=== PATIENT | male | born 1940 | race Caucasian/White ===

== ENCOUNTER → 2018-03-28 15:53 | Outpatient (CLI) | payer MEDICARE, OTHER, SELFPAY ==
[2018-03-28 17:00] LABS: Absolute Lymphocyte Count 1.55 X10^3/ul (0.83-4.51); Absolute Neutrophil Count 5.3 X10^3/uL (2.0-7.7); Basophil# 0.03 X10^3/uL; Basophil% 0.4 % (0-1); Eosinophil# 0.09 X10^3/uL; Eosinophils% 1.2 % (0-5); Hematocrit 41.4 % (40-54); Hemoglobin 13.9 g/dl (13.0-16.5); Lymphocyte # 1.55 X10^3/ul (4.0); Lymphocyte % 20.7 % (19-41); Mean Corp Hgb Conc 33.6 g/gl (32-36); Mean Corpuscular Hgb 29.4 pg (27.0-32.0); Mean Corpuscular Volume 87.5 fL (80-94); Mean Platelet Vol. 11.4 fl (6.2-12.0); Monocyte# 0.52 X10^3/uL; Monocyte% 6.9 % (0-10); Neutrophil # 5.28 X10^3/uL (2.7-7.7); Neutrophil % 70.5 % (47-70); Platelet Count 186 K/mm3 (150-450); RBC Distribution Width CV 15.3 % (11.6-14.6); RBC Distribution Width SD 49.1 fl (35.1-43.9); Red Blood Count 4.73 M/mm3 (4.6-6.2); White Blood Count 7.5 K/mm3 (4.4-11.0)
[2018-03-28 17:12] LABS: POSITIVE COUNT NO; POSITIVE DIFFERENTIAL NO; POSITIVE MORPHOLOGY NO
[2018-03-28 17:15] LABS: ALB/GLOB Ratio 1.1 RATIO (0.9-2.4); AST(SGOT) 23 U/L (15-37); Alanine Aminotransfer ALT/SGPT 33 U/L (16-61); Albumin, Serum 3.7 g/dL (3.2-5.0); Alkaline Phosphatase 146 U/L (45-117); Anion Gap 10 (5-15); BUN 17 mg/dL (7-18); BUN/Creat Ratio 14.5 RATIO (10-20); Calcium,Total 8.4 mg/dL (8.5-10.1); Chloride 106 mmol/L (98-107); Creatinine, Serum 1.17 mg/dL (0.70-1.30); EST Glomerular Filtration Rate 64 mL/min (>60); Est Glom Filt Rate - Afr Amer 78 mL/min (>60); Globulin 3.5 g/dL (2.2-4.2); Glucose 120 mg/dL (74-106); Potassium 3.9 mmol/L (3.5-5.1); Protein, Total 7.2 g/dL (6.4-8.2); Sodium Level 144 mmol/L (136-145); Thyroid Stim Hormone (TSH) 1.44 uIU/mL (0.358-3.74)
[2018-03-28 17:18] LABS: Vitamin D,25 Hydroxy 8.5 ng/mL (29.95-100.01)
== END ==
PROVIDERS: Family Provider Family Medicine Geriatric Medicine; PCP Family Medicine Geriatric Medicine; Visit Provider Family Medicine Geriatric Medicine
DX: E55.9 Vitamin D deficiency, unspecified (principal); I10 Essential (primary) hypertension
CPT/HCPCS: 36415; 80053; 82306; 84443; 85025

== ENCOUNTER → 2018-06-08 16:19 | Outpatient (CLI) | payer MEDICARE, OTHER, SELFPAY ==
--- NOTE | 2018-06-08 16:24 | RAD_ITS ---
STUDY: X-RAY - LUMBAR SPINE REASON FOR EXAM: Male, 77 years old. Back pain TECHNIQUE: 4 view(s) of the lumbar spine were obtained. COMPARISON: May 05, 2017 FINDINGS: There is straightening of the lumbar spine. There are NO fractures or malalignments. There is mild loss of disc height at L2-L3. There is significant loss of disc height at L4-5 and L5-S1. There are RIGHT lateral bridging osteophytes at L2-L3 and LEFT lateral bridging osteophytes at L3-L4. There is bilateral facet hypertrophy causing foraminal narrowing at L4-5 and L5-S1. The bony pelvis is intact.. Soft tissues are unremarkable. RAD/Lumbar Spine 2 or 3 Views IMPRESSION: There are chronic changes as described. There is NO acute bony or soft tissue abnormality. Electronically Signed: Rodo Stockton MD at 7:41 EDT , Service support ,
== END ==
PROVIDERS: Family Provider Family Medicine Geriatric Medicine; PCP Family Medicine Geriatric Medicine; Visit Provider Family Medicine Geriatric Medicine
DX: M48.061 Spinal stenosis, lumbar region without neurogenic claudication (principal)
CPT/HCPCS: 72100; 87086

== ENCOUNTER → 2018-06-22 07:14 | Outpatient (CLI) | payer MEDICARE, OTHER, SELFPAY ==
--- NOTE | 2018-06-22 07:16 | AAAS_ITS ---
Reason For Study: SCREENING Aorta Measurements Aorta Doppler Measurements Proximal aorta measures1.8 X 1.7cm. in cross- Peak systolic flow velocities within the proximal sectional axis. aorta measure 99 cm/sec. Proximal aorta measures2.1cm. in longitudinal Peak systolic flow velocities within the mid axis. aorta measure 64 cm/sec. Mid aorta measures1.9 X 1.9cm. in cross-sectionalPeak systolic flow velocities within the distal axis. aorta measure 59 cm/sec. Mid aorta measures2.0cm. in longitudinal axis. Distal aorta measures1.9 X 2.4cm. in cross- sectional axis. Distal aorta measures2.1cm. in longitudinal axis. Left Iliac Artery Left iliac artery measures 1.6 cm. in the longitudinal axis. Left iliac artery measures 1.2 X 1.3 cm. in the cross-sectional axis. Peak systolic velocity in the left iliac artery measures 75 cm/sec. Right Iliac Artery Right iliac artery measures 1.3 X 1.4 cm. in the longitudinal axis. Right iliac artery measures 1.45 cm. in the cross-sectional axis. Peak systolic velocity in the right iliac artery measures 79 cm/sec. Procedure Aorta IVC Iliac vasculature or bypass grafts 07147. Exam performed in department. Interpretation Summary Normal aortic dimensions with distal abdominal aorta maximal at 1.9 x 2.4cm. Normal flow velocity Left common iliac 1.2 x 1.3cm Right common iliac 1.3 x 1.42cm Ordering Physician: Nitin Mckay Referring Physician: BRI DASILVA CHI Performed By: Yuki Franco, AMBER, RVT
--- NOTE | 2018-06-22 07:20 | CT_ITS ---
STUDY: CTA CHEST REASON FOR EXAM: Male, 77 years old. Follow-up of thoracic aortic aneurysm. RADIATION DOSAGE (If Supplied By Facility): CTDIvol = ( 11.33 ) mGy, DLP = ( 690.58 ) mGycm TECHNIQUE: The examination was performed with the intravenous administration of 100 ml of Isovue 370 contrast material. Post-processing of the angiographic images was performed, with multiplanar reformation and 3D reconstruction. Individualized dose optimization techniques were used for this CT. COMPARISON: Comparison is made with prior study dated May 07, 2014. FINDINGS: Normal enhancement of the main pulmonary artery and right and left pulmonary arteries. Normal enhancement of the bilateral peripheral pulmonary arteries. There is no demonstrated pulmonary embolism. There is aneurysmal dilatation of the ascending aorta. The transverse diameter of the ascending aorta measures 48.8 mm's. There is no demonstrated aortic dissection. There are calcifications of the coronary arteries. Normal mediastinum. Normal hilar regions. Normal visualized trachea and bronchi. The lungs are well expanded. Calcified granuloma in the medial aspect of the right middle lobe. Mild increased markings in the lingular segment of the left upper lobe as well as in the left lower lobe suggestive of a mild scarring. Normal pleura. Normal chest wall structures. There are degenerative changes of thoracic spine. Small hiatal hernia. CT/CTA Chest W/WO Contrast IMPRESSION: Dilatation of the ascending aorta to a transverse dimension of 4.88 cm. Findings suggestive of a mild scarring in the lingular segment of the left upper lobe and left lower lobe. Electronically Signed: Matt Peng MD at 13:59 EDT Tel [phone], Service support ,
[2018-06-22 07:55] LABS: CREATININE FINGERSTICK 0.8 mg/dL (0.70-1.30); EGFR FINGERSTICK > 60.0000 mL/min (>60)
[2018-06-22 10:09] LABS: Erythrocyte Sedimentation Rate 12 mm/hr (0-20)
[2018-06-22 10:11] LABS: Hematocrit 46.4 % (40-54); Hemoglobin 14.9 g/dl (13.0-16.5); Mean Corp Hgb Conc 32.1 g/gl (32-36); Mean Corpuscular Hgb 28.7 pg (27.0-32.0); Mean Corpuscular Volume 89.2 fL (80-94); Mean Platelet Vol. 10.7 fl (6.2-12.0); Platelet Count 151 K/mm3 (150-450); RBC Distribution Width CV 15.6 % (11.6-14.6); RBC Distribution Width SD 50.3 fl (35.1-43.9); White Blood Count 9.2 K/mm3 (4.4-11.0)
[2018-06-22 10:12] LABS: Scan Indicated on CBC? Y/N NO
[2018-06-22 10:30] LABS: CRP < 2.90 mg/L (0.0-3.0); Uric Acid 8.1 mg/dL (3.5-7.2)
[2018-06-23 16:24] LABS: ANTINUCLEAR ANTIBODIES DIRECT Negative (Negative)
[2018-06-28 15:22] LABS: ASO Titer 141.8 IU/mL (0.0-200.0); HLA B27 Negative (.)
== END ==
PROVIDERS: Internal Medicine Cardiovascular Disease; Family Provider Family Medicine Geriatric Medicine; PCP Family Medicine Geriatric Medicine; Visit Provider Orthopaedic Surgery Orthopaedic Surgery of the Spine
DX: I71.2 Thoracic aortic aneurysm, without rupture (principal); M48.17 Ankylosing hyperostosis [Forestier], lumbosacral region; M16.12 Unilateral primary osteoarthritis, left hip; M16.11 Unilateral primary osteoarthritis, right hip; M51.36 Other intervertebral disc degeneration, lumbar region
CPT/HCPCS: 36415; 71275; 76706; 81374; 84550; 85027; 85652; 86038; 86060; 86140; Q9967

== ENCOUNTER → 2018-09-27 14:05 | Outpatient (CLI) | payer MEDICARE, OTHER, SELFPAY ==
[2018-09-27 16:54] LABS: Absolute Lymphocyte Count 1.78 X10^3/ul (0.83-4.51); Absolute Neutrophil Count 5.3 X10^3/uL (2.0-7.7); Basophil# 0.05 X10^3/uL; Basophil% 0.6 % (0-1); Eosinophil# 0.07 X10^3/uL; Eosinophils% 0.9 % (0-5); Hematocrit 43.7 % (40-54); Hemoglobin 13.9 g/dl (13.0-16.5); Lymphocyte # 1.78 X10^3/ul (4.0); Lymphocyte % 22.9 % (19-41); Mean Corp Hgb Conc 31.8 g/gl (32-36); Mean Corpuscular Hgb 29.1 pg (27.0-32.0); Mean Corpuscular Volume 91.6 fL (80-94); Monocyte# 0.61 X10^3/uL; Monocyte% 7.9 % (0-10); Neutrophil # 5.25 X10^3/uL (2.7-7.7); Neutrophil % 67.6 % (47-70); Platelet Count 179 K/mm3 (150-450); RBC Distribution Width CV 14.5 % (11.6-14.6); RBC Distribution Width SD 48.8 fl (35.1-43.9); Red Blood Count 4.77 M/mm3 (4.6-6.2); White Blood Count 7.8 K/mm3 (4.4-11.0)
[2018-09-27 16:59] LABS: POSITIVE COUNT NO; POSITIVE DIFFERENTIAL NO; POSITIVE MORPHOLOGY NO
[2018-09-27 17:07] LABS: Vitamin D,25 Hydroxy 32.1 ng/mL (29.95-100.01)
[2018-09-27 17:14] LABS: ALB/GLOB Ratio 1.1 RATIO (0.9-2.4); AST(SGOT) 16 U/L (15-37); Alanine Aminotransfer ALT/SGPT 25 U/L (16-61); Albumin, Serum 3.9 g/dL (3.2-5.0); Alkaline Phosphatase 109 U/L (45-117); Anion Gap 8 (5-15); BUN 21 mg/dL (7-18); BUN/Creat Ratio 17.5 RATIO (10-20); Calcium,Total 8.4 mg/dL (8.5-10.1); Chloride 105 mmol/L (98-107); EST Glomerular Filtration Rate 62 mL/min (>60); Est Glom Filt Rate - Afr Amer 75 mL/min (>60); Globulin 3.5 g/dL (2.2-4.2); Glucose 87 mg/dL (74-106); Potassium 4.2 mmol/L (3.5-5.1); Protein, Total 7.4 g/dL (6.4-8.2); Sodium Level 145 mmol/L (136-145); Thyroid Stim Hormone (TSH) 1.44 uIU/mL (0.358-3.74)
== END ==
PROVIDERS: Family Provider Family Medicine Geriatric Medicine; PCP Family Medicine Geriatric Medicine; Visit Provider Family Medicine Geriatric Medicine
DX: E55.9 Vitamin D deficiency, unspecified (principal); I10 Essential (primary) hypertension
CPT/HCPCS: 36415; 80053; 82306; 84443; 85025

== ENCOUNTER → 2018-12-05 14:51 | Outpatient (CLI) | payer MEDICARE, OTHER, SELFPAY ==
[2018-06-02 14:17] VITALS: BMI 32.5
--- NOTE | 2018-12-05 14:57 | RAD_ITS ---
STUDY: X-RAY - LEFT WRIST REASON FOR EXAM: Male, 78 years old. Fall TECHNIQUE: 2 view(s) of the wrist were obtained. COMPARISON: None. FINDINGS: There are postsurgical changes from ORIF of the left distal radius with intact hardware in satisfactory alignment. There is no evidence of acute fracture or dislocation. There are moderate degenerative changes. There are no radiodense foreign bodies. RAD/Wrist 2 Views IMPRESSION: Postsurgical changes from ORIF of the left distal radius with intact hardware in satisfactory alignment. No acute fracture or dislocation. Electronically Signed: Khoi Tinajero, at 17:11 EST Tel , Service support ,
== END ==
PROVIDERS: Family Provider Family Medicine Geriatric Medicine; PCP Family Medicine Geriatric Medicine; Referring Provider Family Medicine Geriatric Medicine; Visit Provider Family Medicine Geriatric Medicine
DX: M25.532 Pain in left wrist (principal)
CPT/HCPCS: 73100

== ENCOUNTER → 2019-04-03 | Outpatient (CLI) | payer MEDICARE, OTHER, SELFPAY ==
[2018-12-08 13:42] VITALS: BMI 32.5
[2019-04-03 14:57] LABS: Absolute Lymphocyte Count 1.36 X10^3/ul (0.83-4.51); Absolute Neutrophil Count 6.3 X10^3/uL (2.0-7.7); Basophil# 0.03 X10^3/uL; Basophil% 0.4 % (0-1); Eosinophil# 0.04 X10^3/uL; Eosinophils% 0.5 % (0-5); Hematocrit 42.9 % (40-54); Hemoglobin 13.9 g/dl (13.0-16.5); Lymphocyte # 1.36 X10^3/ul (4.0); Lymphocyte % 16.9 % (19-41); Mean Corp Hgb Conc 32.4 g/gl (32-36); Mean Corpuscular Hgb 28.7 pg (27.0-32.0); Mean Corpuscular Volume 88.6 fL (80-94); Mean Platelet Vol. 10.7 fl (6.2-12.0); Monocyte# 0.36 X10^3/uL; Monocyte% 4.5 % (0-10); Neutrophil # 6.26 X10^3/uL (2.7-7.7); Neutrophil % 77.6 % (47-70); Platelet Count 181 K/mm3 (150-450); RBC Distribution Width CV 14.8 % (11.6-14.6); RBC Distribution Width SD 47.5 fl (35.1-43.9); Red Blood Count 4.84 M/mm3 (4.6-6.2); White Blood Count 8.1 K/mm3 (4.4-11.0)
[2019-04-03 14:58] LABS: POSITIVE COUNT NO; POSITIVE DIFFERENTIAL NO; POSITIVE MORPHOLOGY NO
[2019-04-03 15:15] LABS: Vitamin D,25 Hydroxy 25.6 ng/mL (29.95-100.01)
[2019-04-03 15:18] LABS: ALB/GLOB Ratio 1.1 RATIO (0.9-2.4); AST(SGOT) 18 U/L (15-37); Alanine Aminotransfer ALT/SGPT 24 U/L (16-61); Albumin, Serum 3.8 g/dL (3.2-5.0); Alkaline Phosphatase 116 U/L (45-117); Anion Gap 4 (5-15); BUN 20 mg/dL (7-18); BUN/Creat Ratio 17.1 RATIO (10-20); Calcium,Total 8.3 mg/dL (8.5-10.1); Chloride 108 mmol/L (98-107); Creatinine, Serum 1.17 mg/dL (0.70-1.30); EST Glomerular Filtration Rate 64 mL/min (>60); Est Glom Filt Rate - Afr Amer 77 mL/min (>60); Globulin 3.5 g/dL (2.2-4.2); Glucose 96 mg/dL (74-106); Potassium 3.8 mmol/L (3.5-5.1); Protein, Total 7.3 g/dL (6.4-8.2); Sodium Level 140 mmol/L (136-145); Thyroid Stim Hormone (TSH) 1.11 uIU/mL (0.358-3.74)
== END | disposition home or self-care (01) ==
LOC: POLAB3 14:22
PROVIDERS: Family Provider Family Medicine Geriatric Medicine; PCP Family Medicine Geriatric Medicine; Visit Provider Family Medicine Geriatric Medicine
DX: I10 Essential (primary) hypertension (principal); E55.9 Vitamin D deficiency, unspecified
CPT/HCPCS: 36415; 80053; 82306; 84443; 85025

== ENCOUNTER → 2019-06-20 | Outpatient (CLI) | payer MEDICARE, OTHER, SELFPAY ==
[2019-06-13 14:26] VITALS: BMI 32.5
[2019-06-14 16:32] LABS: Anion Gap 9 (5-15); BUN 20 mg/dL (7-18); BUN/Creat Ratio 18.7 RATIO (10-20); Calcium,Total 8.6 mg/dL (8.5-10.1); Chloride 107 mmol/L (98-107); Creatinine, Serum 1.07 mg/dL (0.70-1.30); EST Glomerular Filtration Rate 71 mL/min (>60); Est Glom Filt Rate - Afr Amer 86 mL/min (>60); Glucose 87 mg/dL (74-106); Potassium 4.1 mmol/L (3.5-5.1); Sodium Level 142 mmol/L (136-145)
--- NOTE | 2019-06-20 15:39 | CT_ITS ---
STUDY: CTA CHEST REASON FOR EXAM: Male, 78 years old. Thoracic aneurysm RADIATION DOSAGE (If Supplied By Facility): CTDIvol = ( 26.41 ) mGy, DLP = ( 802.74 ) mGycm TECHNIQUE: The examination was performed with the intravenous administration of 100 IV Isovue 370. Post-processing of the angiographic images was performed, with multiplanar reformation and 3D reconstruction. Individualized dose optimization techniques were used for this CT. COMPARISON: June 22, 2016 CTA chest FINDINGS: Normal enhancement of the main pulmonary artery and right and left pulmonary arteries. There is suboptimal enhancement of the bilateral peripheral pulmonary arteries. There is no demonstrated major central pulmonary embolism. Small peripheral emboli cannot be excluded. The ascending aorta measures 5 cm. The descending aorta is normal in caliber. There is no demonstrated aortic dissection. Normal heart and pericardium. Calcific coronary artery disease. Normal mediastinum. Normal hilar regions. Normal visualized trachea and bronchi. The lungs are well expanded. Normal pulmonary parenchyma. Normal pleura. Normal chest wall structures. Ossification anterior longitudinal ligament. Normal visualized upper abdomen. IMPRESSION: 5 cm a descending aortic aneurysm. No dissection. Coronary artery disease. Diffuse idiopathic skeletal hyperostosis. No acute disease. Electronically Signed: Mick Duran MD at 16:32 EDT , Service support , CT/CTA Chest W/WO Contrast
== END | disposition home or self-care (01) ==
PROVIDERS: Family Provider Family Medicine Geriatric Medicine; PCP Family Medicine Geriatric Medicine; Referring Provider Nurse Practitioner Family; Visit Provider Nurse Practitioner Family
DX: I71.2 Thoracic aortic aneurysm, without rupture (principal); I10 Essential (primary) hypertension
CPT/HCPCS: 36415; 71275; 80048; Q9967; A4216

== ENCOUNTER → 2019-10-02 14:21 | Outpatient (CLI) | payer MEDICARE, OTHER, SELFPAY ==
[2019-06-13 14:26] VITALS: BMI 32.5
[2019-10-02 16:43] LABS: Absolute Lymphocyte Count 1.26 X10^3/uL (0.83-4.51); Absolute Neutrophil Count 5.5 X10^3/uL (2.0-7.7); Basophil# 0.06 X10^3/uL; Basophil% 0.8 % (0-1); Eosinophil# 0.04 X10^3/uL; Eosinophils% 0.5 % (0-5); Hematocrit 44.2 % (40-54); Lymphocyte # 1.26 X10^3/ul (4.0); Lymphocyte % 17.1 % (19-41); Mean Corp Hgb Conc 31.7 g/dL (32-36); Mean Corpuscular Hgb 28.9 pg (27.0-32.0); Mean Corpuscular Volume 91.1 fL (80-94); Mean Platelet Vol. 11.5 fl (6.2-12.0); Monocyte# 0.48 X10^3/uL; Monocyte% 6.5 % (0-10); NRBC Flagged by Analyzer 0 % (0-5); Neutrophil # 5.48 X10^3/uL (2.7-7.7); Neutrophil % 74.6 % (47-70); Platelet Count 190 K/mm3 (150-450); RBC Distribution Width CV 14.2 % (11.6-14.6); RBC Distribution Width SD 47.4 fl (35.1-43.9); Red Blood Count 4.85 M/mm3 (4.6-6.2); White Blood Count 7.4 K/mm3 (4.4-11.0)
[2019-10-02 16:48] LABS: Vitamin D,25 Hydroxy 23.2 ng/mL (29.95-100.01)
[2019-10-02 16:56] LABS: ALB/GLOB Ratio 1.1 RATIO (0.9-2.4); AST(SGOT) 17 U/L (15-37); Alanine Aminotransfer ALT/SGPT 21 U/L (16-61); Albumin, Serum 3.8 g/dL (3.2-5.0); Alkaline Phosphatase 106 U/L (45-117); Anion Gap 6 (5-15); BUN 16 mg/dL (7-18); BUN/Creat Ratio 14.7 RATIO (10-20); Calcium,Total 8.7 mg/dL (8.5-10.1); Chloride 108 mmol/L (98-107); Creatinine, Serum 1.09 mg/dL (0.70-1.30); EST Glomerular Filtration Rate 69 mL/min (>60); Est Glom Filt Rate - Afr Amer 84 mL/min (>60); Globulin 3.5 g/dL (2.2-4.2); Glucose 107 mg/dL (74-106); Potassium 3.7 mmol/L (3.5-5.1); Protein, Total 7.3 g/dL (6.4-8.2); Sodium Level 143 mmol/L (136-145); Thyroid Stim Hormone (TSH) 2.26 uIU/mL (0.358-3.74)
== END ==
PROVIDERS: Family Provider Family Medicine Geriatric Medicine; PCP Family Medicine Geriatric Medicine; Visit Provider Family Medicine Geriatric Medicine
DX: E55.9 Vitamin D deficiency, unspecified (principal); I10 Essential (primary) hypertension
CPT/HCPCS: 36415; 80053; 82306; 84443; 85025

== ENCOUNTER → 2020-04-04 15:02 | Outpatient (CLI) | payer MEDICARE, OTHER, SELFPAY ==
[2019-12-29 13:29] VITALS: BMI 32.6
[2020-04-04 16:28] LABS: Absolute Lymphocyte Count 1.37 X10^3/uL (0.83-4.51); Absolute Neutrophil Count 8.5 X10^3/uL (2.0-7.7); Basophil# 0.03 X10^3/uL; Basophil% 0.3 % (0-1); Eosinophil# 0.02 X10^3/uL; Eosinophils% 0.2 % (0-5); Hematocrit 41.8 % (40-54); Hemoglobin 13.5 g/dL (13.0-16.5); Lymphocyte # 1.37 X10^3/ul (4.0); Lymphocyte % 12.9 % (19-41); Mean Corp Hgb Conc 32.3 g/dL (32-36); Mean Corpuscular Hgb 29.4 pg (27.0-32.0); Mean Corpuscular Volume 91.1 fL (80-94); Mean Platelet Vol. 11.3 fl (6.2-12.0); Monocyte# 0.68 X10^3/uL; Monocyte% 6.4 % (0-10); NRBC Flagged by Analyzer 0 % (0-5); Neutrophil % 79.7 % (47-70); Platelet Count 160 K/mm3 (150-450); RBC Distribution Width CV 14.6 % (11.6-14.6); RBC Distribution Width SD 47.8 fl (35.1-43.9); Red Blood Count 4.59 M/mm3 (4.6-6.2); White Blood Count 10.7 K/mm3 (4.4-11.0)
[2020-04-04 17:06] LABS: AST(SGOT) 17 U/L (15-37); Alanine Aminotransfer ALT/SGPT 25 U/L (16-61); Albumin, Serum 3.6 g/dL (3.2-5.0); Alkaline Phosphatase 126 U/L (45-117); Anion Gap 6 (5-15); BUN 19 mg/dL (7-18); BUN/Creat Ratio 17.3 RATIO (10-20); Calcium,Total 8.6 mg/dL (8.5-10.1); Chloride 106 mmol/L (98-107); EST Glomerular Filtration Rate 69 mL/min (>60); Est Glom Filt Rate - Afr Amer 83 mL/min (>60); Globulin 3.7 g/dL (2.2-4.2); Glucose 99 mg/dL (74-106); Potassium 4.4 mmol/L (3.5-5.1); Protein, Total 7.3 g/dL (6.4-8.2); Sodium Level 143 mmol/L (136-145); Thyroid Stim Hormone (TSH) 0.77 uIU/mL (0.358-3.74)
== END ==
PROVIDERS: PCP Family Medicine Geriatric Medicine; Visit Provider Family Medicine Geriatric Medicine
DX: E55.9 Vitamin D deficiency, unspecified (principal); I10 Essential (primary) hypertension
CPT/HCPCS: 36415; 80053; 82306; 84443; 85025

== ENCOUNTER → 2020-07-19 13:32 | Outpatient (CLI) | payer MEDICARE, OTHER, SELFPAY ==
[2019-12-29 13:29] VITALS: BMI 32.6
[2020-07-03 13:11] VITALS: BMI 32.3
--- NOTE | 2020-07-19 13:35 | CT_ITS ---
STUDY: CT CHEST WITH CONTRAST REASON FOR EXAM: Male, 79 years old. TAA FOLLOW-UP RADIATION DOSAGE (If Supplied By Facility): CTDIvol = ( 17.29 ) mGy, DLP = ( 749.21 ) mGycm TECHNIQUE: Transaxial imaging was performed following intravenous administration of IV 100mL Isovue-300. Multiplanar coronal and sagittal images were reformatted. Individualized dose optimization techniques were used for this CT. COMPARISON: Comparison is made with prior examination dated 06/20/2019. FINDINGS: Small hypodense nodules in the right and left lobe of the thyroid gland suggestive of a mild goitrous change. The lungs are normal. There is no demonstrated pleural abnormality. There are calcifications of the coronary arteries. Normal mediastinum. Normal hilar regions. Normal enhanced pulmonary arteries. There is dilatation of the root of the ascending thoracic aorta. The transverse dimension is 45.5 mm. No evidence of dissection. There are multi-level degenerative changes of the thoracic spine. There is no demonstrated abnormality of the visualized upper abdomen. CT/Chest WITH Contrast IMPRESSION: Dilatation of the root of the ascending thoracic aorta with a transverse dimension of 45.5 mm. Electronically Signed: Matt Peng, at 15:07 EDT , Service support ,
[2020-07-19 13:50] LABS: CREATININE FINGERSTICK 0.7 mg/dL (0.70-1.30); EGFR FINGERSTICK > 60.0000 mL/min (>60)
== END ==
PROVIDERS: PCP Family Medicine Geriatric Medicine; Referring Provider Internal Medicine Cardiovascular Disease; Visit Provider Internal Medicine Cardiovascular Disease
DX: I71.2 Thoracic aortic aneurysm, without rupture (principal)
CPT/HCPCS: 71260; Q9967

== ENCOUNTER → 2020-10-03 14:11 | Outpatient (CLI) | payer MEDICARE, OTHER, SELFPAY ==
[2020-07-03 13:11] VITALS: BMI 32.3
[2020-10-03 16:46] LABS: Absolute Lymphocyte Count 1.04 X10^3/uL (0.83-4.51); Absolute Neutrophil Count 3.7 X10^3/uL (2.0-7.7); Basophil# 0.04 X10^3/uL; Basophil% 0.7 % (0-1); Eosinophil# 0.79 X10^3/uL; Eosinophils% 13.2 % (0-5); Hemoglobin 13.1 g/dL (13.0-16.5); Lymphocyte # 1.04 X10^3/ul (4.0); Lymphocyte % 17.4 % (19-41); Mean Corp Hgb Conc 31.2 g/dL (32-36); Mean Corpuscular Hgb 28.8 pg (27.0-32.0); Mean Corpuscular Volume 92.3 fL (80-94); Mean Platelet Vol. 11.5 fl (6.2-12.0); Monocyte# 0.43 X10^3/uL; Monocyte% 7.2 % (0-10); NRBC Flagged by Analyzer 0 % (0-5); Neutrophil # 3.67 X10^3/uL (2.7-7.7); Neutrophil % 61.2 % (47-70); Platelet Count 152 K/mm3 (150-450); RBC Distribution Width CV 14.4 % (11.6-14.6); RBC Distribution Width SD 48.8 fl (35.1-43.9); Red Blood Count 4.55 M/mm3 (4.6-6.2)
[2020-10-03 16:57] LABS: Vitamin D,25 Hydroxy 16.4 ng/mL
[2020-10-03 17:07] LABS: AST(SGOT) 17 U/L (15-37); Alanine Aminotransfer ALT/SGPT 22 U/L (16-61); Albumin, Serum 3.6 g/dL (3.2-5.0); Alkaline Phosphatase 122 U/L (45-117); Anion Gap 5 (5-15); BUN 16 mg/dL (7-18); Calcium,Total 8.3 mg/dL (8.5-10.1); Chloride 108 mmol/L (98-107); EST Glomerular Filtration Rate 77 mL/min (>60); Est Glom Filt Rate - Afr Amer 93 mL/min (>60); Globulin 3.5 g/dL (2.2-4.2); Glucose 84 mg/dL (74-106); Potassium 4.3 mmol/L (3.5-5.1); Protein, Total 7.1 g/dL (6.4-8.2); Sodium Level 140 mmol/L (136-145); Thyroid Stim Hormone (TSH) 1.43 uIU/mL (0.358-3.74)
== END ==
PROVIDERS: PCP Family Medicine Geriatric Medicine; Visit Provider Family Medicine Geriatric Medicine
DX: I10 Essential (primary) hypertension (principal); E55.9 Vitamin D deficiency, unspecified
CPT/HCPCS: 36415; 80053; 82306; 84443; 85025

== ENCOUNTER → 2021-03-03 10:55 | Outpatient (CLI) | payer MEDICARE, OTHER, SELFPAY ==
[2020-07-03 13:11] VITALS: BMI 32.3
--- NOTE | 2021-03-03 10:59 | RAD_ITS ---
STUDY: X-RAY - RIGHT SHOULDER REASON FOR EXAM: Male, 80 years old. SHOULDER PAIN TECHNIQUE: 4 view(s) of the shoulder. COMPARISON: None. FINDINGS: There is mild degenerative arthrosis of the glenohumeral articulation. There is degenerative arthrosis of the acromioclavicular joint without inferior osseous spur formation. Normal acromion. Normal humeral head and visualized proximal humerus. The soft tissue structures are unremarkable. Normal visualized pulmonary apex. RAD/Shoulder min 2 Views IMPRESSION: Mild glenohumeral and acromioclavicular joint arthrosis Electronically Signed: Sergei Zuniga MD at 15:22 EDT Tel , Service support ,
--- NOTE | 2021-03-03 10:59 | RAD_ITS ---
STUDY: X-RAY - CERVICAL SPINE REASON FOR EXAM: Male, 80 years old. NECK PAIN TECHNIQUE: 3 view(s) of the cervical spine were obtained. COMPARISON: None FINDINGS: Normal anterior atlantoaxial articulation. Normal odontoid process. Normal cervical lordosis. There is multi-level endplate spondylosis. There is multi-level degenerative disc disease with multilevel disc space narrowing. Normal visualized intervertebral neuroforamina. The soft tissue structures are unremarkable. RAD/Cerv Spine 2 or 3 Views IMPRESSION: Mild degenerative disc disease lower cervical spine. MRI may be useful Electronically Signed: Sergei Zuniga MD at 15:23 EDT Tel , Service support ,
== END ==
PROVIDERS: PCP Family Medicine Geriatric Medicine; Referring Provider Family Medicine Geriatric Medicine; Visit Provider Family Medicine Geriatric Medicine
DX: M54.2 Cervicalgia (principal); M25.511 Pain in right shoulder
CPT/HCPCS: 72040; 73030

== ENCOUNTER → 2021-04-10 15:07 | Outpatient (CLI) | payer MEDICARE, OTHER, SELFPAY ==
[2021-03-21 11:17] VITALS: BMI 31.5
[2021-04-10 17:19] LABS: Absolute Lymphocyte Count 1.13 X10^3/uL (0.83-4.51); Absolute Neutrophil Count 6.2 X10^3/uL (2.0-7.7); Basophil# 0.05 X10^3/uL; Basophil% 0.6 % (0-1); Eosinophil# 0.05 X10^3/uL; Eosinophils% 0.6 % (0-5); Hematocrit 42.4 % (40-54); Hemoglobin 13.6 g/dL (13.0-16.5); Lymphocyte # 1.13 X10^3/ul (0.83-4.51); Lymphocyte % 14.1 % (19-41); Mean Corp Hgb Conc 32.1 g/dL (32-36); Mean Corpuscular Hgb 29.7 pg (27.0-32.0); Mean Corpuscular Volume 92.6 fL (80-94); Mean Platelet Vol. 11.3 fl (6.2-12.0); Monocyte# 0.53 X10^3/uL; Monocyte% 6.6 % (0-10); NRBC Flagged by Analyzer 0 % (0-5); Neutrophil % 77.7 % (47-70); Platelet Count 156 K/mm3 (150-450); RBC Distribution Width CV 14.8 % (11.6-14.6); RBC Distribution Width SD 50.4 fl (35.1-43.9); Red Blood Count 4.58 M/mm3 (4.6-6.2)
[2021-04-10 17:38] LABS: ALB/GLOB Ratio 1.1 RATIO (0.9-2.4); AST(SGOT) 23 U/L (15-37); Alanine Aminotransfer ALT/SGPT 28 U/L (16-61); Albumin, Serum 3.7 g/dL (3.2-5.0); Alkaline Phosphatase 129 U/L (45-117); Anion Gap 5 (5-15); BUN 17 mg/dL (7-18); BUN/Creat Ratio 17.5 RATIO (10-20); Calcium,Total 8.6 mg/dL (8.5-10.1); Chloride 108 mmol/L (98-107); Creatinine, Serum 0.97 mg/dL (0.70-1.30); EST Glomerular Filtration Rate 79 mL/min (>60); Est Glom Filt Rate - Afr Amer 95 mL/min (>60); Globulin 3.4 g/dL (2.2-4.2); Glucose 108 mg/dL (74-106); Potassium 3.9 mmol/L (3.5-5.1); Protein, Total 7.1 g/dL (6.4-8.2); Sodium Level 141 mmol/L (136-145); Thyroid Stim Hormone (TSH) 1.51 uIU/mL (0.358-3.74)
== END ==
PROVIDERS: PCP Family Medicine Geriatric Medicine; Visit Provider Family Medicine Geriatric Medicine
DX: I10 Essential (primary) hypertension (principal); E55.9 Vitamin D deficiency, unspecified
CPT/HCPCS: 36415; 80053; 82306; 84443; 85025

== ENCOUNTER → 2021-08-26 17:37 | Outpatient (CLI) | payer MEDICARE, OTHER, SELFPAY ==
[2021-03-21 11:17] VITALS: BMI 31.5
--- NOTE | 2021-08-26 17:42 | CT_ITS ---
INDICATION: TAA EXAMINATION: CT CHEST WITH CONTRAST - CT Chest W/ Contrast Injection TECHNIQUE: Helically acquired images were obtained of the chest following IV contrast. A radiation dose optimization technique was used for this scan. IV Contrast dosage and agent: 100 mL of ISOVUE-370 was injected intravenously. COMPARISON: 07/19/2020. FINDINGS: Thoracic aorta measurements: At the level of the annulus measures 30 mm. At the level of the sinuses of VALSALVA measures 43 mm. At the level of the sinotubular junction measures 35 mm. Tubular ascending aorta 40 mm. Proximal aortic arch proximal to the innominate artery 41 mm. Distal aortic arch distal to the left subclavian artery 27 mm. Descending thoracic aorta 31 mm. LUNGS, PLEURA AND LARGE AIRWAYS: No masses, consolidation, or edema. No pleural effusion or thickening. No pneumothorax. Mild bronchial wall thickening but no evidence of bronchiectasis is seen. A 0.8 cm calcified granulomas visualized in the anteromedial aspect of the right middle lobe. THYROID: No thyroid lesions. HEART AND PERICARDIUM: Heart size is normal. No pericardial effusion. Atherosclerotic calcifications of the left anterior descending coronary artery is seen and to a lesser extent in the distal left main and proximal circumflex. VESSELS: Thoracic aorta is not dilated. No aortic dissection. No obvious central pulmonary embolism although this study was not performed with the pulmonary embolism protocol. MEDIASTINUM AND ALEIDA: No mediastinal or hilar adenopathy. Esophagus is unremarkable. No hiatal hernia. UPPER ABDOMEN: No acute pathology. BONES: Degenerative bone changes seen. CT/Chest WITH Contrast IMPRESSION: Mild ectasia in the tubular ascending aorta and the proximal aortic arch demonstrates no significant change in comparison to the prior study. Note is made that oblique images were not available for optimal evaluation. No evidence of acute cardiopulmonary disease is seen. Electronically Signed: Fish Dwakins MD at 10:10 EDT Tel , Service support ,
[2021-08-26 17:56] LABS: CREATININE FINGERSTICK 0.7 mg/dL (0.70-1.30); EGFR FINGERSTICK > 60.0000 mL/min (>60)
== END ==
PROVIDERS: PCP Family Medicine Geriatric Medicine; Visit Provider Internal Medicine Cardiovascular Disease
DX: I71.2 Thoracic aortic aneurysm, without rupture (principal)
CPT/HCPCS: 71260; Q9967; A4216

== ENCOUNTER 2021-09-30 14:15 | Emergency (ER) | payer MEDICARE, OTHER, SELFPAY ==
[2021-09-30] VITALS (7 sets, daily range): BP systolic 128–150; BP diastolic 70–118; PULSE 65–89; RESP 16–26; TEMP 36.6; O2SAT 95–98; BMI 35.1
--- NOTE | 2021-09-30 14:20 | EKG12_ITS ---
Test Reason : STROKE TEAM Blood Pressure : / mmHG Vent. Rate : 063 BPM Atrial Rate : 060 BPM P-R Int : 000 ms QRS Dur : 136 ms QT Int : 484 ms P-R-T Axes : 000 -74 -48 degrees QTc Int : 495 ms Atrial fibrillation Left axis deviation Right bundle branch block Inferior infarct , age undetermined , cannot be excluded Abnormal ECG Confirmed by JESSICA KAISER, EVELYN ([id number]), film editor supervisor SUBHASH ALCALA ([id number]) on 10/02/2021 8:44:28 AM Referred By: ARABELLA Confirmed By:EVELYN LOPEZ MD
--- NOTE | 2021-09-30 14:20 | CT_ITS ---
STUDY: CT HEAD STROKE PROTOCOL W/O CONTRAST INJECTION REASON FOR EXAM: Male, 81 years old. Neuro deficit, acute, stroke suspected RADIATION DOSAGE (If Supplied By Facility): CTDIvol = ( 44.99 ) mGy, DLP = ( 880.47 ) mGycm TECHNIQUE: Transaxial CT imaging of the brain was performed without administration of intravenous contrast material. Individualized dose optimization techniques were used for this CT. COMPARISON: Comparison is made with prior examination dated 11/25/2015. FINDINGS: Normal soft tissue structures. Normal calvarium. There is mild cerebral atrophy with widening of the extra-axial spaces and ventricular dilatation. There are areas of decreased attenuation within the white matter tracts of the supratentorial brain, consistent with microvascular disease changes. There is evidence of a 1.6 cm x 1.4 cm hematoma in the posterior aspect of the right thalamus. Tiny old lacunar infarct in the posterior aspect of the insular cortex of the left temporal lobe. Normal brainstem. Normal cerebellum. There are no findings of an acute ischemic infarction. Atherosclerotic calcification of the cavernous portions of the internal carotid arteries bilaterally. Normal visualized paranasal sinuses. CT/STROKE Brain/Head without Cont IMPRESSION: There is a new 1.6 cm x 1.4 cm hematoma in the posterior aspect of the right thalamus. Stable tiny lacuna in the posterior aspect of the insular cortex of the left temporal lobe. N.B. : The above Results were Read Back by Matt Peng MD to [place] Briones and understanding confirmed on 09/30/2021 14:37:23 (ET). Electronically Signed: Matt Peng MD at 14:38 EST , Service support ,
--- NOTE | 2021-09-30 14:31 | NURSING ---
STROKE ALERT 1409, ETA IS 4 TO 5
--- NOTE | 2021-09-30 14:34 | NURSING ---
FAXED FACESHEET TO [facility]
[2021-09-30 14:41] LABS: Absolute Lymphocyte Count 0.91 X10^3/uL (0.83-4.51); Absolute Neutrophil Count 3.8 X10^3/uL (2.0-7.7); Basophil# 0.04 X10^3/uL; Basophil% 0.7 % (0-1); Eosinophil# 0.13 X10^3/uL; Eosinophils% 2.4 % (0-5); Hematocrit 37.8 % (40-54); Hemoglobin 12.2 g/dL (13.0-16.5); Lymphocyte # 0.91 X10^3/ul (0.83-4.51); Mean Corp Hgb Conc 32.3 g/dL (32-36); Mean Corpuscular Hgb 29.5 pg (27.0-32.0); Mean Corpuscular Volume 91.3 fL (80-94); Monocyte# 0.46 X10^3/uL; Monocyte% 8.6 % (0-10); NRBC Flagged by Analyzer 0 % (0-5); Neutrophil % 70.9 % (47-70); Platelet Count 120 K/mm3 (150-450); RBC Distribution Width CV 14.3 % (11.6-14.6); RBC Distribution Width SD 48.1 fl (35.1-43.9); Red Blood Count 4.14 M/mm3 (4.6-6.2); White Blood Count 5.4 K/mm3 (4.4-11.0)
--- NOTE | 2021-09-30 14:42 | EDS_ITS ---
HPI History of Present Illness Chief Complaint: Neuro S/Sx Informant: patient and EMS Narrative Narrative: At approximately 1350 hrs. the patient went to get up and noted that his left arm and leg did not support him. He notes he is able to lift them up with a fall readily to the ground/bed. He notes a slight headache. He notes he has a history of A. fib and is on Eliquis. Prehospital stroke team was called [facility] Medical History (Updated 09/30/21 @ 14:44 by Lee Medina) Anticoagulation goal of INR 2 to 3 Chronic back pain COPD (chronic obstructive pulmonary disease) Essential hypertension Left bundle branch block Longstanding persistent atrial fibrillation Lower extremity edema Nonrheumatic mitral (valve) prolapse Obesity (BMI 30.0-34.9) RAFFY (obstructive sleep apnea) Osteoarthritis Patent foramen ovale Premature atrial contractions Premature ventricular contraction RLS (restless legs syndrome) Stroke/cerebrovascular accident Tachycardia Thoracic aortic aneurysm without rupture Home Medications metoprolol succinate 50 mg PO DAILY 05/07/14 [History Last Taken 11/23/15] cyanocobalamin (vitamin B-12) 100 mcg tablet 100 mcg PO QDAY 11/26/17 [History Last Taken Unknown] vit C 250 mg-vit E 90 mg-zinc 40 mg-copper 1 el-waxeez-tphsrz capsule 1 tab PO BID 12/08/18 [History Last Taken Unknown] gabapentin 400 mg capsule 400 mg PO DAILY cap 06/13/19 [History Last Taken Unknown] donepezil 10 mg tablet 10 mg PO DAILY 03/21/21 [History Last Taken Unknown] memantine 10 mg tablet 10 mg PO BID 03/21/21 [History Last Taken Unknown] sertraline 50 mg tablet 50 mg PO DAILY 03/21/21 [History Last Taken Unknown] tramadol 50 mg tablet 50 mg PO Q6H PRN tab 03/21/21 [History Last Taken Unknown] apixaban 5 mg tablet 5 mg PO BID #180 tab 08/25/21 [Rx Last Taken Unknown] bumetanide 2 mg tablet 2 mg PO BID #180 tab 08/25/21 [Rx Last Taken Unknown] vitamins A,C,Z-nfqy-exidsd 14,320 unit-226 mg-200 unit capsule 1 cap PO BID 09/22/21 [History Last Taken Unknown] Allergy/AdvReac Type Severity Reaction Status Date / Time diclofenac Allergy Severe Anaphylaxis Verified 09/22/21 13:23 naproxen [From Naprosyn] Allergy Severe Angioedema Verified 09/22/21 13:23 Penicillins Allergy Hives Verified 09/22/21 13:23 Sulfa (Sulfonamide Allergy Hives Verified 09/22/21 13:23 Antibiotics) Family History Sister Cancer Surgical History History of carpal tunnel surgery History of total right knee replacement Social History Smoking Status: Never smoker alcohol intake: never substance use type: does not use ROS ROS ED Constitutional Constitutional ED: Denies chills, fever(s) or weight loss Eyes Eyes: Denies change in vision or diplopia ENT ENT ED: Denies ear pain, rhinorrhea or sore throat Cardiovascular Cardiovascular: Denies chest pain, orthopnea, palpitations or racing heartbeat Respiratory/Chest Respiratory/Chest: Denies cough, dyspnea or orthopnea Gastrointestinal Gastrointestinal: Denies abdominal pain, diarrhea, nausea or vomiting Genitourinary Genitourinary ED: Denies dysuria, hematuria or urinary frequency Musculoskeletal Musculoskeletal: Denies arthralgias or myalgias Integumentary Denies abscess or rash Neurologic Neurologic: Reports headache(s), paresthesias and weakness Psychiatric Psychiatric: Denies anxiety, depression, suicidal ideation or suicidal thoughts Endocrine Endocrinology: Denies polydipsia, polyphagia or polyuria Allergic/Immunologic Allergic/Immunologic ED: Denies mouth swelling, tongue swelling or urticaria EXAM Physical Exam Const Vital Signs: 09/30/21 14:18 09/30/21 14:31 Temperature 97.8 F Temperature Source Temporal Pulse Rate 89 78 Respiratory Rate 16 17 Blood Pressure 150/81 H 140/118 H Blood Pressure Mean 104 125 Pulse Ox 95 98 Oxygen Delivery Method Room Air Room Air Positive well nourished, well developed and obese General Appearance ED: well developed Nutritional Appearance: obese HEENT Reports normocephalic, head/scalp atraumatic, TM's clear and moist mucous membranes atraumatic Tympanic Membrane ED: Yes TM's clear Eyes PERRL and EOMs intact bilaterally Neck no lymphadenopathy, supple and no JVD Resp normal respiratory effort and clear to auscultation bilaterally Cardio regular rate, regular rhythm and no murmurs GI normal to inspection, nondistended, normoactive bowel sounds and non-tender Palpation: soft Back/Spine no CVA tenderness and normal ROM Extremity normal to inspection General Extremety ED: Negative for edema General Extremity: Negative for edema Neuro oriented x3 Sensorium / Orientation: alert Psych mental status grossly normal Mood & Affect: Negative for depressed or tearful Skin no rashes or lesions noted and no wounds STROKE Vital Signs/Narrative: Vital Signs Temp Pulse Resp BP Pulse Ox 09/30/21 14:31 97.8 F 78 17 140/118 H 98 09/30/21 14:18 89 16 150/81 H 95 NIHSS Initial: 1a Level of Consciousness: 0 1b LOC Questions (Score 2 if aphasic/stupor): 0 1c LOC Commands (Only score 1st attempt): 0 2 Best Gaze (If aphasic, use reflexive mvmts.): 0 3 Visual: 0 4 Facial Palsy: 1 5 Motor Arm Right (UN = amputation/fusion): 0 5 Motor Arm Left: 2 6 Motor Leg Right: 0 6 Motor Leg Left: 2 7 Limb ataxia (Only + if out of proportion): 2 8 Sensory (Aphasia/stupor=0 or 1, coma=2): 0 9 Best Language: 0 10 Dysarthria (mute, coma=2, intubated=UN): 0 11 Extinction and Inattention (only scored if +): 0 Total Score: 7 MDM MDM MDM Narrative Medical decision making narrative: My interpretation of the head CT is a new intracranial hemorrhage of the right thalamus. Patient will receive Kcentra and if needed nicardipine. He has been accepted to [facility]. Lab Data Attestation: I reviewed the patient's lab results. Labs: Laboratory Results - last 24 hr 09/30/21 14:30 WBC 5.4 RBC 4.14 L Hgb 12.2 L Hct 37.8 L MCV 91.3 MCH 29.5 MCHC 32.3 RDW Std Deviation 48.1 H RDW Coeff of Franklyn 14.3 Plt Count 120 L MPV 11.0 Immature Gran % (Auto) 0.400 Neut % (Auto) 70.9 H Lymph % (Auto) 17.0 L Alger % (Auto) 8.6 Eos % (Auto) 2.4 Baso % (Auto) 0.7 Absolute Neuts (auto) 3.8 Absolute Lymphs (auto) 0.91 Nucleated RBC % 0 Radiography Diagnostic Testing: Clinical Impression(s) from Imaging Studies Brain CT 09/30/21 14:20 IMPRESSION: There is a new 1.6 cm x 1.4 cm hematoma in the posterior aspect of the right thalamus. Stable tiny lacuna in the posterior aspect of the insular cortex of the left temporal lobe. N.B. : The above Results were Read Back by Matt Peng MD to [place] Briones and understanding confirmed on 09/30/2021 14:37:23 (ET). Electronically Signed: Matt Peng MD at 14:38 EST , Service support , EKG Initial EKG: Attestation: I personally reviewed and interpreted this EKG as follows: Comments: Atrial Fibrillation with Ventricular Rate of 63 bpm Stroke Documentation Questions Stroke Team Activated: Yes Reviewed Inclusion/Exclusion criteria: Yes Was Patient considered for Endovascular Intervention?: No IV Alteplase (t-PA) Administered: No No contraindications for IV Alteplase (t-PA) administration.: No Alteplase (t-PA) risks, benefits, alternative discussed: No Not given: Patient refusal: No Critical Care Time Critical Care Time: Yes Critical care time (excluding procedures): 30-74 minutes (31 min), Including time spent:, Discussing w/Patient &/or Family/E Commerce Merchandising Coordinator, Discussing w/Consultants, Arranging Admission or Transfer and Performing Direct Patient Care at Bedside Discharge Plan Triage Chief Complaint: Neuro S/Sx ED Provider: Cleveland Briones Dx/Rx/DC Orders Clinical Impression: Intracranial hemorrhage Prescriptions: No Action cyanocobalamin (vit B-12) 100 mcg tablet 100 mcg tablet 100 mcg PO QDAY RF: 0 gabapentin [Neurontin] 400 mg capsule 400 mg PO DAILY RF: 0 PreserVision AREDS-2 [id number] mt-oiou-ab-mg capsule 1 tab PO BID RF: 0 donepezil 10 mg tablet 10 mg PO DAILY RF: 0 sertraline 50 mg tablet 50 mg PO DAILY RF: 0 PreserVision AREDS [id number] iqjo-dp-pctx capsule 1 cap PO BID RF: 0 metoprolol succinate 50 MG tablet 50 mg PO DAILY RF: 0 tramadol 50 mg tablet 50 mg PO Q6H PRN (Reason: pain) RF: 0 memantine 10 mg tablet 10 mg PO BID RF: 0 Eliquis 5 mg tablet 5 mg PO BID Qty: 180 RF: 3 bumetanide 2 mg tablet 2 mg PO BID Qty: 180 RF: 3 Primary Care Provider: Christina Lr Referrals: Christina Lr, FARMWORKER MACHINE-C [Primary Care Provider] - Disposition Disposition: Acute Care Hospital Discharge Location: [facility]
[2021-09-30 14:53] LABS: International Normalized Ratio 1.5; Prothrombin Time (Protime)PT. 17.8 SECONDS (11.7-14.9)
[2021-09-30 14:54] LABS: Partial Thromboplast Time 43.3 Seconds (24.1-36.2)
[2021-09-30 14:58] LABS: Anion Gap 5 (5-15); BUN 14 mg/dL (7-18); BUN/Creat Ratio 14.3 RATIO (10-20); Calcium,Total 8.7 mg/dL (8.5-10.1); Chloride 110 mmol/L (98-107); Creatinine, Serum 0.98 mg/dL (0.70-1.30); EST Glomerular Filtration Rate 78 mL/min (>60); Est Glom Filt Rate - Afr Amer 94 mL/min (>60); Estimated Creatinine Clearance 68.73 ml/min; Glucose 93 mg/dL (74-106); Potassium 4.3 mmol/L (3.5-5.1); Sodium Level 140 mmol/L (136-145); Troponin-I HS 9 pg/mL (3.0-78.0)
--- NOTE | 2021-09-30 15:01 | NURSING ---
ETA FOR [facility] IS 265 MIN. COMING FROM [place]
--- NOTE | 2021-09-30 15:16 | CM.ED ---
SW Note SW spoke to patient and his . Provided emotional support. SW remains available if needs arise. Plan: Transfer to [facility] [place] [facility]
[2021-09-30] MEDS: Labetalol (Prefilled) 20 MG/4 ML 10 MG IV (15:19)
--- NOTE | 2021-09-30 17:38 | CHAPLAIN ---
Type of Pastoral Visit ___ Initial Visit ___ Follow-up Visit ___ On-call Visit ___ General Patient Visit ___ Spiritual Assessment ___ Family Conference ___ Bereavement _x__ Rapid Response ___ Code Blue ___ Other (describe below) Pastoral Care Referral From _x__ Patient _x__ Family ___ Nurse ___ Physician ___ Improvement Engineer ___ Hull Outfit Supervisor _x__ Other (describe below) Sacrament/Intervention _x__ Active listening ___ Anointing ___ Restorationist ___ Bereavement ___ Communion ___ Noelle exploration ___ ___ Life review _x__ Prayer ___ Reconciliation ___ Sacrament of Sick _x__ Supportive presence ___ Wedding ___ Other (describe below) Pastoral Comments responded to stroke alert; found patient to be known by this machine assembler; went to find spouse who was in waiting room and offered support; escorted spouse to room where prayer was given; sat with family; called son and tuckpointer cleaner caulker of family as requested by the spouse; tuckpointer cleaner caulker of family came to take spouse to [facility] where patient was being transported by helicopter
== END 2021-09-30 15:42 | disposition short-term general hospital (02) ==
PROVIDERS: Emergency Provider Emergency Medicine
DX: S06.340A Traumatic hemorrhage of right cerebrum without loss of consciousness, initial encounter (principal); W19.XXXA Unspecified fall, initial encounter; Y93.9 Activity, unspecified; Y92.9 Unspecified place or not applicable; R29.707 NIHSS score 7; E66.9 Obesity, unspecified; Z68.35 Body mass index [BMI] 35.0-35.9, adult; I10 Essential (primary) hypertension; I34.1 Nonrheumatic mitral (valve) prolapse; I71.2 Thoracic aortic aneurysm, without rupture; G47.33 Obstructive sleep apnea (adult) (pediatric); I48.11 Longstanding persistent atrial fibrillation; G89.29 Other chronic pain; J44.9 Chronic obstructive pulmonary disease, unspecified; G25.81 Restless legs syndrome; M19.90 Unspecified osteoarthritis, unspecified site; Q21.1 Atrial septal defect; Z86.73 Personal history of transient ischemic attack (TIA), and cerebral infarction without residual deficits; Z79.01 Long term (current) use of anticoagulants; Z79.899 Other long term (current) drug therapy
CPT/HCPCS: 70450; 80048; 84484; 85025; 85610; 85730; 93005; 96365; 96368; 96375; 99285; J7168; A4216; J3490

== ENCOUNTER 2021-10-07 13:39 | Inpatient (IN) | payer MEDICARE, OTHER, SELFPAY ==
[2021-10-07 14:02] VITALS: BP 146/87; PULSE 59; RESP 18; TEMP 36.3; O2SAT 96; BMI 20.5
[2021-10-07] MEDS: Multivitamin (Healthy Eyes) Capsule 1 CAP PO (16:49)
[2021-10-07] MEDS: Lisinopril 10 MG Tablet PO (16:49)
--- NOTE | 2021-10-07 19:39 | HP.PCM_ITS ---
HPI - General General Date of Admission: 10/07/21 HPI Narrative 09/30/2021 EUGENIO MART, is a 81 Male who presents to [facility] [place] Emergency Department with neurologic signs/symptoms. 09/30/2021 EKG atrial fibrillation, left axis deviation, inferior infarct, age undetermined, cannot be excluded. Left arm, left leg weakness, left facial droop, fell, slight headache. Stroke team activated. CT head showed right thalamus intracranial hemorrhage. Patient is on Eliquis for atrial fibrillation. KCentra ( Eliquis reversal agent ) given. Nicardipine as needed for elevated blood pressure. Transfer to [facility]. 09/30/2021 Admit to [facility]. CTA negative for active bleeding. Admit to Neurocritical care. Consult Neurology. Goal systolic blood pressure < 140. Repeat CT head [address] head. MRI brain, swallowing evaluation, Echo. PT/OT/ST/SW. 10/02/2021 Overnight emesis, feels nauseous. 10/03/2021 Hypertension PRN medication x 1 dose. MRI brain showed ischemic stroke converted to hemorrhagic stroke. Resume Eliquis 11/02/2021. Statin not indicated. Antiplatelet not indicated. Sequential compression devices for DVT prophylaxis. 10/07/2021 Admit to TCU with debility, here for rehabilitation, strengthening, prior to discharge home with . [facility] Medical History Anticoagulation goal of INR 2 to 3 Chronic back pain COPD (chronic obstructive pulmonary disease) Essential hypertension Left bundle branch block Longstanding persistent atrial fibrillation Lower extremity edema Nonrheumatic mitral (valve) prolapse Obesity (BMI 30.0-34.9) RAFFY (obstructive sleep apnea) Osteoarthritis Patent foramen ovale Premature atrial contractions Premature ventricular contraction RLS (restless legs syndrome) Stroke/cerebrovascular accident Tachycardia Thoracic aortic aneurysm without rupture Home Medications metoprolol succinate 50 mg PO DAILY 05/07/14 [History Last Taken 11/23/15] cyanocobalamin (vitamin B-12) 100 mcg tablet 100 mcg PO QDAY 11/26/17 [History Last Taken Unknown] vit C 250 mg-vit E 90 mg-zinc 40 mg-copper 1 lp-ryksqq-zxacsc capsule 1 tab PO BID 12/08/18 [History Last Taken Unknown] gabapentin 400 mg capsule 400 mg PO DAILY cap 06/13/19 [History Last Taken Unknown] donepezil 10 mg tablet 10 mg PO DAILY 03/21/21 [History Last Taken Unknown] memantine 10 mg tablet 10 mg PO BID 03/21/21 [History Last Taken Unknown] sertraline 50 mg tablet 50 mg PO DAILY 03/21/21 [History Last Taken Unknown] tramadol 50 mg tablet 50 mg PO Q6H PRN tab 03/21/21 [History Last Taken Unkno wn] vitamins A,C,V-rhol-thitib 14,320 unit-226 mg-200 unit capsule 1 cap PO BID 09/22/21 [History Last Taken Unknown] apixaban [Eliquis] 10 mg PO DAILY 09/30/21 [History Last Taken Unknown] bumetanide 2 mg PO BID 10/07/21 [History Last Taken Unknown] lisinopril 10 mg PO BID 10/07/21 [History Last Taken Unknown] Allergy/AdvReac Type Severity Reaction Status Date / Time diclofenac Allergy Severe Anaphylaxis Verified 09/22/21 13:23 naproxen [From Naprosyn] Allergy Severe Angioedema Verified 09/22/21 13:23 Penicillins Allergy Hives Verified 09/22/21 13:23 Sulfa (Sulfonamide Allergy Hives Verified 09/22/21 13:23 Antibiotics) Family History Sister Cancer Surgical History History of carpal tunnel surgery History of total right knee replacement Social History (Updated 10/07/21 @ 19:[address] Kenton Singleton MD) household members: spouse Smoking Status: Never smoker alcohol intake: never substance use type: does not use ROS Constitutional Constitutional: Denies chills, fever(s) or weight gain ENT HEENT: Denies headache(s), nasal congestion or nasal discharge Cardiovascular Cardiovascular: Denies chest pain or palpitations Respiratory/Chest Respiratory/Chest: Denies cough, excessive phlegm production or shortness of breath with exertion Gastrointestinal Gastrointestinal: Denies abdominal pain, nausea or vomiting Genitourinary Genitourinary: Denies dysuria Musculoskeletal Musculoskeletal: Denies joint pain or joint swelling Integumentary Integumentary: Denies rash or wounds Neurologic Neurologic: Denies focal weakness, numbness or tingling Psychiatric Psychiatric: Denies anxiety, depression, homicidal ideation or suicidal ideation Vital Signs Vital Signs Vital Signs: 10/07/21 14:02 Temperature 97.3 F L Temperature Source Temporal Pulse Rate 59 L Pulse Rhythm Regular Pulse Strength Normal (2+) Respiratory Rate 18 Respiratory Effort Normal Non-Labored Respiratory Depth Normal Respiratory Pattern Normal Blood Pressure 146/87 H Blood Pressure Mean 106 Blood Pressure Source Monitor Blood Pressure Position Semi-Fowlers Blood Pressure Location Right Arm Pulse Ox 96 Oxygen Delivery Method Room Air Weight Weight: 72.393 kg Body Mass Index (BMI) 20.5 Physical Exam Const alert and oriented x3 General Appearance: cooperative HEENT normocephalic Eyes PERRL and EOMs intact bilaterally Neck supple, no JVD and no carotid bruits Resp normal respiratory effort, normal air movement and clear to auscultation bilaterally Cardio regular rate and regular rhythm GI normal to inspection, nondistended, normoactive bowel sounds, non-tender and non-distended Extremity normal capillary refill General Extremity: Negative for edema Skin no rashes or lesions noted General Skin Exam: no breakdown Neuro Neuro Narrative: Left hemiplegia. Psych affect normal Appearance: appropriate Assessment & Plan Assessment/Plan (1) Debility: (2) Intracranial hemorrhage: (3) Atrial fibrillation: (4) Hypertension: (5) Restless leg syndrome: (6) Vascular dementia: (7) Depression: (8) Edema: (9) Thoracic aortic aneurysm without rupture: PLAN: 81 year old male with below past medical history hospitalized for hemorrhagic stroke, admitted to TCU with debility, here for rehabilitation, strengthening, prior to discharge home with . * Debility - PT/OT. * Dysphagia - ST. * Pain - Tylenol 1000mg q6h prn pain (1-3), Tramadol 50mg q6h prn pain (4-10). * Bowel - Miralax 17gm daily, Senna/colace 1 tablet twice daily, Dulcolax 10mg daily prn. * Adult immunization - Administer prevnar 13, pneumovax 23, fluzone, covid19 vaccine as appropriate. * DVT prophylaxis - Hold, hemorrhagic stroke. * Atrial fibrillation - Metoprolol succinate 50mg daily, resume eliquis 5mg twice daily 10/14/2021. * Edema - Bumex 2mg twice daily. * Vascular dementia - Donepezil 10mg qhs. * Restless leg syndrome - Gabapentin 400mg qhs. * Hypertension - Metoprolol succinate 50mg daily, Lisinopril 10mg twice daily. * Nutrition - MVI twide daily.
[2021-10-07] MEDS: Donepezil HCl 10 MG Tablet PO (20:37)
[2021-10-07] MEDS: Senna/Docusate Sodium 1 Tablet PO (20:37)
[2021-10-07] MEDS: Gabapentin 400 MG Capsule PO (20:37)
[2021-10-08 05:34] VITALS: BP 131/72; PULSE 77
[2021-10-08] MEDS: Metoprolol(XL)Succ 50 MG Tablet PO (05:34)
[2021-10-08] MEDS: Polyethylene Glycol 3350 17 GM PACKET PO (05:34)
[2021-10-08] MEDS: Bumetanide 2 MG Tablet PO ×2 (05:34→13:05)
[2021-10-08] MEDS: Lisinopril 10 MG Tablet PO ×2 (05:34→18:11)
[2021-10-08] MEDS: Senna/Docusate Sodium 1 Tablet PO ×2 (05:34→18:11)
[2021-10-08 05:40] VITALS: BP 131/72; PULSE 77; RESP 18; TEMP 36.9; O2SAT 92
[2021-10-08 06:05] LABS: Absolute Lymphocyte Count 0.94 X10^3/uL (0.83-4.51); Absolute Neutrophil Count 3.9 X10^3/uL (2.0-7.7); Basophil# 0.06 X10^3/uL; Basophil% 1.1 % (0-1); Eosinophil# 0.12 X10^3/uL; Eosinophils% 2.2 % (0-5); Hematocrit 34.8 % (40-54); Hemoglobin 11.4 g/dL (13.0-16.5); Lymphocyte # 0.94 X10^3/ul (0.83-4.51); Lymphocyte % 16.9 % (19-41); Mean Corp Hgb Conc 32.8 g/dL (32-36); Mean Corpuscular Hgb 30.3 pg (27.0-32.0); Mean Corpuscular Volume 92.6 fL (80-94); Mean Platelet Vol. 10.9 fl (6.2-12.0); Monocyte# 0.51 X10^3/uL; Monocyte% 9.2 % (0-10); NRBC Flagged by Analyzer 0 % (0-5); Neutrophil # 3.93 X10^3/uL (2.7-7.7); Neutrophil % 70.4 % (47-70); Platelet Count 145 K/mm3 (150-450); RBC Distribution Width CV 14.4 % (11.6-14.6); RBC Distribution Width SD 48.7 fl (35.1-43.9); Red Blood Count 3.76 M/mm3 (4.6-6.2); White Blood Count 5.6 K/mm3 (4.4-11.0)
[2021-10-08 06:41] LABS: Anion Gap 5 (5-15); BUN 20 mg/dL (7-18); BUN/Creat Ratio 23.3 RATIO (10-20); Calcium,Total 8.6 mg/dL (8.5-10.1); Chloride 108 mmol/L (98-107); Creatinine, Serum 0.86 mg/dL (0.70-1.30); EST Glomerular Filtration Rate 91 mL/min (>60); Est Glom Filt Rate - Afr Amer 110 mL/min (>60); Estimated Creatinine Clearance 78.32 ml/min; Glucose 80 mg/dL (74-106); Potassium 3.9 mmol/L (3.5-5.1); Sodium Level 139 mmol/L (136-145)
[2021-10-08] MEDS: Multivitamin (Healthy Eyes) Capsule 1 CAP PO ×2 (08:50→18:11)
[2021-10-08] MEDS: Acetaminophen 500 MG Tablet 1000 MG PO (09:04)
[2021-10-08] MEDS: Tuberculin,Purif.prot.deriv. 50 TU/ML Vial 0.1 ML ID (11:15)
[2021-10-08] MEDS: traMADol 50 MG Tablet PO (13:07)
[2021-10-08 13:25] VITALS: PULSE 63; RESP 18; O2SAT 93
[2021-10-08 14:27] VITALS: BP 131/72; PULSE 77; RESP 18; TEMP 36.9; O2SAT 92
--- NOTE | 2021-10-08 14:30 | PCM.PN.RX ---
Progress Note - Pharmacy Subjective: TCU Admission Objective: Allergies diclofenac Allergy (Severe, Verified 09/22/21 13:23) Anaphylaxis naproxen [From Naprosyn] Allergy (Severe, Verified 09/22/21 13:23) Angioedema thoat swelling, tongue edema Penicillins Allergy (Verified 09/22/21 13:23) Hives Sulfa (Sulfonamide Antibiotics) Allergy (Verified 09/22/21 13:23) Hives Current Medications Generic Name Dose Route Start Last Admin Trade Name Freq PRN Reason Stop Dose Admin Acetaminophen 1,000 mg 10/07/21 19:57 10/08/21 09:04 Acetaminophen 500 Mg Tablet PO 1,000 mg Q6H PRN PRN Administration Pain Score 1-3 Apixaban 5 mg 11/02/21 07:52 Apixaban 5 Mg Tablet PO BID BRAD Bisacodyl 10 mg 10/07/21 19:57 Bisacodyl 5 Mg Tablet PO DAILY PRN PRN Constipation Bumetanide 2 mg 10/08/21 06:00 10/08/21 13:05 Bumetanide 2 Mg Tablet PO 2 mg BIDLX BRAD Administration Calamine/Phenol 1 applic 10/08/21 18:00 Menthol/Lanolin/Calamine/Znox 113 Gm Tube TOPICAL BID [facility] Protocol Donepezil HCl 10 mg 10/07/21 22:00 10/07/21 20:37 Donepezil Hcl 10 Mg Tablet PO 10 mg QHS BRAD Administration Gabapentin 400 mg 10/07/21 22:00 10/07/21 20:37 Gabapentin 400 Mg Capsule PO 400 mg QHS BRAD Administration Lisinopril 10 mg 10/07/21 18:00 10/08/21 05:34 Lisinopril 10 Mg Tablet PO 10 mg BID BRAD Administration Metoprolol Succinate 50 mg 10/08/21 06:00 10/08/21 05:34 Metoprolol(Xl)Succ 50 Mg Tablet PO 50 mg DAILY BRAD Administration Multivitamins/Minerals 1 capsule 10/07/21 17:00 10/08/21 08:50 Multivitamin (Healthy Eyes) Capsule PO 1 capsule BIDCM BRAD Administration Polyethylene Glycol 17 gm 10/08/21 06:00 10/08/21 05:34 Polyethylene Glycol 3350 17 Gm Packet PO 17 gm DAILY BRAD Administration Senna/Docusate Sodium 1 tablet 10/07/21 20:00 10/08/21 05:34 Senna/Docusate Sodium 1 Tablet PO 1 tablet BID BRAD Administration Tramadol HCl 50 mg 10/07/21 19:58 10/08/21 13:07 Tramadol 50 Mg Tablet PO 50 mg Q6H PRN Administration Pain Score 4-10 Tuberculin PPD 0.1 ml 10/15/21 10:00 Tuberculin,Purif.Prot.Deriv. 50 Tu/Ml Vial ID 10/15/21 10:01 X1 ONE Problem List (Last Reviewed 10/07/21 @ 19:[address] Kenton Singleton MD) Edema (Acute) Depression (Acute) Vascular dementia (Acute) Restless leg syndrome (Acute) Hypertension (Chronic) Atrial fibrillation (Acute) Debility (Acute) Thoracic aortic aneurysm without rupture (Chronic) Vital Signs Temp Pulse Resp BP Pulse Ox 98.4 F 77 18 131/72 H 92 10/08/21 14:27 10/08/21 14:27 10/08/21 14:27 10/08/21 14:27 10/08/21 14:27 Oxygen Delivery Method Room Air Weight: 117.651 kg Body Mass Index (BMI) 20.5 Sodium 139 mmol/L (136-145) 10/08/21 05:15 Potassium 3.9 mmol/L (3.5-5.1) 10/08/21 05:15 Chloride 108 mmol/L (98-107) H 10/08/21 05:15 Carbon Dioxide 26.0 mmol/L (21.0-32.0) 10/08/21 05:15 Anion Gap 5 (5-15) 10/08/21 05:15 BUN 20 mg/dL (7-18) H 10/08/21 05:15 Creatinine 0.86 mg/dL (0.70-1.30) 10/08/21 05:15 Est GFR (MDRD) Af Amer 110 mL/min (>60) 10/08/21 05:15 Est GFR (MDRD) Non-Af 91 mL/min (>60) 10/08/21 05:15 BUN/Creatinine Ratio 23.3 RATIO (10-20) H 10/08/21 05:15 Glucose 80 mg/dL (74-106) 10/08/21 05:15 Assessment/Plan: 1. Pain: acetaminophen 1000mg PO Q6H PRN pain 1-3 and tramadol 50mg PO Q6H PRN pain 4-10. Please continue to monitor for increased pain, PRN usage, constipation and respiratory depression. 2. Atrial fibrillation/hypertension: metoprolol succinate 50mg PO daily, lisinopril 10mg PO BID and apixaban 5mg PO BID (starting 11/02/21). Please continue to monitor BP (last 131/72(), HR (last 77), renal function and potassium (last 3.9mmol/L). 3. Edema: bumetanide 2mg PO BIDLX. Please continue to monitor renal function, potassium and sodium (last 139mmol/L). 4. Vascular dementia: donepezil 10mg PO QHS. Please continue to monitor for S/S of dementia and GI side effects. 5. Restless leg syndrome: gabapentin 400mg PO QHS. Please continue to monitor for S/S of restless legs and renal function. 6. Nutrition: healthy eyes 1C PO BIDCM. Please continue to monitor. Psychotropic Medications: None Unnecessary Medications: None Bowel Regimen: Miralax 17gm PO daily, senna/docusate 1T PO BID and bisacodyl 10mg PO daily PRN constipation. Please continue to monitor for constipation and PRN usage. Date of Note:: 10/08/21
--- NOTE | 2021-10-08 15:36 | CASEMGMT ---
Addendum entered by Maddie Browning 10/08/21 15:40: Palliative Screening Tool completed. requesting referral. Referral made to [facility]. Original Note: Social Work Met with pt and in room for initial assessment. Pt asleep for assessment. answered questions. Will revisit to speak with pt about code status and to complete other questions. Explained to Medicare benefit. Encouraged to contact secondary insurance to ensure copay coverage. Confirmed pt was physically assisting as has significant back issues/pain. However, pt has dx of Dementia. Son is in town and assisting while pt is admitted. Briefly discussed alternative DC options - SNF. Explained once Medicare is done paying in TCU another SNF would be private pay or SW can assist with Medicaid. Pt has a high income and a life insurance policy. unsure about other finances as pt handles that. Explained pt would admit with patient liability (all but $50 of income and medical premiums) and would need to liquidate L.I. policy. requested to explain this to son's as well. SW agreed and suggested to wait after care plan meeting to have better idea of pt's recovery. SW to continue to follow for DC planning. Maddie Browning, BHUMI VIGILW
--- NOTE | 2021-10-08 16:17 | CHAPLAIN ---
Type of Pastoral Visit _x__ Initial Visit ___ Follow-up Visit ___ On-call Visit ___ General Patient Visit ___ Spiritual Assessment ___ Family Conference ___ Bereavement ___ Rapid Response ___ Code Blue ___ Other (describe below) Pastoral Care Referral From _x__ Patient _x__ Family ___ Nurse ___ Physician ___ Instructional Design Consultant ___ Senior Accountant Cpa ___ Other (describe below) Sacrament/Intervention _x__ Active listening ___ Anointing ___ Anglican ___ Bereavement ___ Communion _x__ Noelle exploration ___ _x__ Life review _x__ Prayer ___ Reconciliation ___ Sacrament of Sick _x__ Supportive presence ___ Wedding ___ Other (describe below) Pastoral Comments patient is known to this routeman; pt and family expecting support; pt and spouse both very talkative and expressive; pt presents with positive attitude and outlook on his recovery; pt has strong spiritual beliefs and looks to God for help and healing; pt and spouse have support from sons but neither son lives close by; pt has a presybeterian connection that can be supportive too; pt requests future support
[2021-10-08] MEDS: Menthol/Lanolin/Calamine/Znox 113 GM Tube 1 APPLIC TOPICAL (20:16)
[2021-10-08] MEDS: Donepezil HCl 10 MG Tablet PO (20:17)
[2021-10-08] MEDS: Gabapentin 400 MG Capsule PO (20:18)
[2021-10-09] MEDS: Senna/Docusate Sodium 1 Tablet PO ×2 (05:09→17:30)
[2021-10-09] MEDS: Bumetanide 2 MG Tablet PO ×2 (05:09→13:05)
[2021-10-09] MEDS: Polyethylene Glycol 3350 17 GM PACKET PO (05:09)
[2021-10-09] MEDS: Menthol/Lanolin/Calamine/Znox 113 GM Tube 1 APPLIC TOPICAL ×2 (05:09→21:15)
[2021-10-09] MEDS: Lisinopril 10 MG Tablet PO ×2 (05:09→17:30)
[2021-10-09 05:10] VITALS: BP 147/68; PULSE 66
[2021-10-09] MEDS: Metoprolol(XL)Succ 50 MG Tablet PO (05:10)
--- NOTE | 2021-10-09 07:27 | NURSING ---
pt stated at hs his cpap isnt working right so that is why he doesnt like to wear it at this time, 2L o2 NC applied, pt was appreciative. Spo2 in the 90s throughout the night.
[2021-10-09] MEDS: Multivitamin (Healthy Eyes) Capsule 1 CAP PO ×2 (08:56→17:30)
--- NOTE | 2021-10-09 11:16 | NURSING ---
Addendum entered by Mona Connor 10/09/21 14:45: Dr. Singleton aware. Luis Alaniz. Original Note: THERAPY REPORTED TO THIS NURSE THAT PT WAS CLAMMY AND NAUSEATED THREW THERAPY. SPRITE GIVEN PER PT REQUEST. VITALS DONE,RN AWARE
[2021-10-09 11:17] VITALS: BP 151/72; PULSE 62; O2SAT 93
[2021-10-09 14:30] VITALS: BP 136/74; PULSE 74; RESP 18; TEMP 36.7; O2SAT 94
--- NOTE | 2021-10-09 14:36 | CASEMGMT ---
Social Work Spoke with pt who was awake, in chair and alert to finish admission assessment questions. Discussed code status. Pt confirmed full code. MOLST form completed, communication to , placed in chart. BHUMI Dasilva STATIONARY ENGINEER
[2021-10-09] MEDS: Ondansetron ODT 4 MG Tablet PO (15:56)
[2021-10-09 21:02] VITALS: PULSE 74; RESP 18; O2SAT 97
--- NOTE | 2021-10-09 21:10 | NURSING ---
Late Entry: Patient refused HS medications d\t still nauseous. CPAP on patient for approximally 210 minutes. Patient then rang out and requested it be taken off. Nasal cannula placed on patient with 2 LPM.
[2021-10-10] VITALS (7 sets, daily range): BP systolic 113–154; BP diastolic 60–84; PULSE 62–67; RESP 16–18; TEMP 36.3–37.5; O2SAT 89–96
[2021-10-10] MEDS: Ondansetron ODT 4 MG Tablet PO ×2 (05:39→19:35)
--- NOTE | 2021-10-10 05:42 | NURSING ---
Patient complaining of nausea still this morning. Refusing AM medications at this time. PRN Zofran given.
--- NOTE | 2021-10-10 07:54 | RAD_ITS ---
STUDY: X-RAY - ABDOMEN/PELVIS REASON FOR EXAM: Male, 81 years old. Nausea, hypoactive bowel sounds. TECHNIQUE: Single AP view of the abdomen / pelvis. COMPARISON: None. FINDINGS: There is an abundance of fecal material throughout the colon. The visualized liver, spleen and kidneys are grossly normal in size and morphology. There are calcified phleboliths in the pelvis. There are diffuse degenerative changes of the visualized lumbar spine. RAD/Abdomen Single View IMPRESSION: Large amount of fecal material is seen throughout the colon. Electronically Signed: Matt Peng MD at 12:40 EST , Service support ,
[2021-10-10] MEDS: Polyethylene Glycol 3350 17 GM PACKET PO (09:12)
[2021-10-10] MEDS: Senna/Docusate Sodium 1 Tablet PO ×2 (09:14→18:05)
[2021-10-10] MEDS: Bumetanide 2 MG Tablet PO ×2 (09:14→18:05)
[2021-10-10] MEDS: Multivitamin (Healthy Eyes) Capsule 1 CAP PO (09:15)
[2021-10-10] MEDS: Lisinopril 10 MG Tablet PO ×2 (09:19→18:06)
[2021-10-10] MEDS: Metoprolol(XL)Succ 50 MG Tablet PO (09:19)
[2021-10-10] MEDS: Menthol/Lanolin/Calamine/Znox 113 GM Tube 1 APPLIC TOPICAL ×2 (09:53→18:06)
--- NOTE | 2021-10-10 12:50 | NURSING ---
UPDATED ON RESULTS WITH KUB DONE ON PT. STATED THAT PT TAKES METAMUCIL AT HOME AND THATS WHAT WORKS FOR HIM. RN UPDATED AND NOTE LEFT FOR
[2021-10-10] MEDS: Magnesium Citrate 300 ML PO (13:50)
--- NOTE | 2021-10-10 15:06 | NURSING ---
THIS NURSE SHAVED AND WASHED PT HAIR. MAG CITRATE GIVEN PER ORDER. PT ONLY GOT ABOUT 120 CC DOWN AND THEN THREW UP LARGE YELLOW LIQUID. WASHED PT UP AND CLEAN GOWN ON. NEW ORDER FOR SOAP SUDS ENEMA. RN AND AWARE
--- NOTE | 2021-10-10 15:45 | NURSING ---
SOAP SUDS ENEMA GIVEN,BROWN LIQUID OUT. WILL CONTINUE TO MONITOR.
[2021-10-10] MEDS: Psyllium 1 PACKET PO (20:40)
[2021-10-10] MEDS: Donepezil HCl 10 MG Tablet PO (20:40)
[2021-10-10] MEDS: Gabapentin 400 MG Capsule PO (20:40)
[2021-10-11 05:05] VITALS: BP 137/69; PULSE 76; RESP 16; TEMP 36.8; O2SAT 98
[2021-10-11] MEDS: Polyethylene Glycol 3350 17 GM PACKET PO (05:06)
[2021-10-11 05:07] VITALS: BP 137/69; PULSE 76
[2021-10-11] MEDS: Bumetanide 2 MG Tablet PO ×2 (05:07→13:31)
[2021-10-11] MEDS: Senna/Docusate Sodium 1 Tablet PO ×2 (05:07→16:59)
[2021-10-11] MEDS: Lisinopril 10 MG Tablet PO ×2 (05:07→16:59)
[2021-10-11] MEDS: Metoprolol(XL)Succ 50 MG Tablet PO (05:07)
[2021-10-11] MEDS: Menthol/Lanolin/Calamine/Znox 113 GM Tube 1 APPLIC TOPICAL ×2 (05:08→17:04)
[2021-10-11 07:03] VITALS: O2SAT 92
[2021-10-11] MEDS: Multivitamin (Healthy Eyes) Capsule 1 CAP PO ×2 (07:56→16:58)
[2021-10-11 13:32] VITALS: BP 138/72; PULSE 67; RESP 16; TEMP 36.6; O2SAT 94
[2021-10-11 20:02] VITALS: PULSE 54; RESP 18; O2SAT 98
[2021-10-11] MEDS: Gabapentin 400 MG Capsule PO (20:18)
[2021-10-11] MEDS: Donepezil HCl 10 MG Tablet PO (20:18)
[2021-10-11] MEDS: Psyllium 1 PACKET PO (20:19)
[2021-10-12] VITALS (7 sets, daily range): BP systolic 102–127; BP diastolic 48–65; PULSE 69–79; RESP 16; TEMP 36.7; O2SAT 94–96
[2021-10-12] MEDS: Polyethylene Glycol 3350 17 GM PACKET PO (05:51)
[2021-10-12] MEDS: Menthol/Lanolin/Calamine/Znox 113 GM Tube 1 APPLIC TOPICAL ×2 (05:51→16:59)
[2021-10-12] MEDS: Bumetanide 2 MG Tablet PO ×2 (05:52→15:00)
[2021-10-12] MEDS: Lisinopril 10 MG Tablet PO ×2 (05:52→16:59)
[2021-10-12] MEDS: Metoprolol(XL)Succ 50 MG Tablet PO (05:52)
[2021-10-12] MEDS: Senna/Docusate Sodium 1 Tablet PO ×2 (05:53→16:59)
[2021-10-12] MEDS: Multivitamin (Healthy Eyes) Capsule 1 CAP PO ×2 (07:34→16:58)
--- NOTE | 2021-10-12 11:42 | NURSING ---
Staff went in to give pt his lunch tray. Pt stated he does not want to eat right at this time, he wants to wait for his to get here and states she should be here any minute.
--- NOTE | 2021-10-12 13:25 | NURSING ---
Addendum entered by Erin Mallory 10/12/21 14:21: BP rechecked at this time and noted to be 109/58, pt still denies s/s of hypotension. Pt is drinking orange juice with at bedside. Will continue to hold Bumex at this time and recheck BP closer to 3pm. Original Note: Pt BP checked at this time d/t bumex being due at 2pm. Pt blood pressure 102/48, pt is nonsymptomatic and denies dizziness/lightheadedness or any other symptoms at this time. Pt receives lisinopril and toprol XL at 6am med pass. Bumex was held for now and fluid intake was encouraged. Will continue to monitor and will recheck BP at a later time. Charge nurse updated.
[2021-10-12] MEDS: Psyllium 1 PACKET PO (21:22)
[2021-10-12] MEDS: Donepezil HCl 10 MG Tablet PO (21:22)
[2021-10-12] MEDS: Gabapentin 400 MG Capsule PO (21:22)
[2021-10-13 05:38] VITALS: BP 114/53; PULSE 71; RESP 18; TEMP 36.7; O2SAT 95
[2021-10-13 05:41] VITALS: BP 114/53; PULSE 71
[2021-10-13] MEDS: Metoprolol(XL)Succ 50 MG Tablet PO (05:41)
[2021-10-13] MEDS: Multivitamin (Healthy Eyes) Capsule 1 CAP PO ×2 (05:41→17:02)
[2021-10-13] MEDS: Polyethylene Glycol 3350 17 GM PACKET PO (05:41)
[2021-10-13] MEDS: Lisinopril 10 MG Tablet PO ×2 (05:41→17:00)
[2021-10-13] MEDS: Senna/Docusate Sodium 1 Tablet PO ×2 (05:42→17:00)
[2021-10-13] MEDS: Menthol/Lanolin/Calamine/Znox 113 GM Tube 1 APPLIC TOPICAL ×2 (05:42→16:58)
[2021-10-13] MEDS: Bumetanide 2 MG Tablet PO ×2 (05:42→13:56)
[2021-10-13] MEDS: Ondansetron ODT 4 MG Tablet PO (13:58)
[2021-10-13 16:25] VITALS: BP 112/61; PULSE 83; RESP 18; TEMP 36; O2SAT 93
[2021-10-13 21:49] VITALS: PULSE 79; RESP 18; O2SAT 93
[2021-10-13] MEDS: Psyllium 1 PACKET PO (22:02)
[2021-10-13] MEDS: Gabapentin 400 MG Capsule PO (22:02)
[2021-10-13] MEDS: Donepezil HCl 10 MG Tablet PO (22:02)
[2021-10-14] VITALS (7 sets, daily range): BP systolic 95–126; BP diastolic 56–59; PULSE 72–80; RESP 18; TEMP 36.2–36.3; O2SAT 91–96
[2021-10-14] MEDS: Senna/Docusate Sodium 1 Tablet PO ×2 (06:43→17:17)
[2021-10-14] MEDS: Polyethylene Glycol 3350 17 GM PACKET PO (06:43)
[2021-10-14] MEDS: Multivitamin (Healthy Eyes) Capsule 1 CAP PO ×2 (06:43→17:17)
[2021-10-14] MEDS: Menthol/Lanolin/Calamine/Znox 113 GM Tube 1 APPLIC TOPICAL ×2 (06:46→21:15)
--- NOTE | 2021-10-14 08:20 | PCA ---
patient was having some difficulty coughing on the potato that was sent up to him today, he said his food is going down to fast. encouraged him to drink more. pt was finally able to cough his food up along with alot of flem after that he was fine.
[2021-10-14] MEDS: Metoprolol(XL)Succ 50 MG Tablet PO (08:32)
[2021-10-14] MEDS: Bumetanide 2 MG Tablet PO ×2 (08:33→14:57)
[2021-10-14] MEDS: Lisinopril 10 MG Tablet PO ×2 (08:33→17:17)
[2021-10-14] MEDS: traMADol 50 MG Tablet PO (08:36)
--- NOTE | 2021-10-14 13:00 | NURSING ---
PT COMPLAINING OF HIS BACK ITCHING. PT BACK HAS A RED RASH. RN AWARE AND NOTE LEFT FOR .
--- NOTE | 2021-10-14 16:06 | CHAPLAIN ---
Type of Pastoral Visit ___ Initial Visit _x__ Follow-up Visit ___ On-call Visit ___ General Patient Visit ___ Spiritual Assessment ___ Family Conference ___ Bereavement ___ Rapid Response ___ Code Blue ___ Other (describe below) Pastoral Care Referral From _x__ Patient _x__ Family ___ Nurse ___ Physician ___ Software Design Analyst ___ Instrument Assembler ___ Other (describe below) Sacrament/Intervention _x__ Active listening ___ Anointing ___ Presybeterian ___ Bereavement ___ Communion ___ Noelle exploration ___ _x__ Life review _x__ Prayer ___ Reconciliation ___ Sacrament of Sick _x__ Supportive presence ___ Wedding ___ Other (describe below) Pastoral Comments patient requested follow up visit and was talkative; spouse was also in room and talkative about life; both welcome the company and prayers
[2021-10-14] MEDS: Nystatin Powder 15gm Bottle 1 APPLIC TOPICAL (17:15)
[2021-10-14] MEDS: Hydrocortisone 2.5% Crm 1 APPLIC TOPICAL (17:45)
[2021-10-14] MEDS: Donepezil HCl 10 MG Tablet PO (21:15)
[2021-10-14] MEDS: Gabapentin 400 MG Capsule PO (21:16)
[2021-10-14] MEDS: Psyllium 1 PACKET PO (21:16)
[2021-10-15] MEDS: Polyethylene Glycol 3350 17 GM PACKET PO (05:07)
[2021-10-15 05:08] VITALS: BP 117/57; PULSE 74
[2021-10-15] MEDS: Bumetanide 2 MG Tablet PO ×2 (05:08→13:26)
[2021-10-15] MEDS: Nystatin Powder 15gm Bottle 1 APPLIC TOPICAL ×2 (05:08→22:31)
[2021-10-15] MEDS: Menthol/Lanolin/Calamine/Znox 113 GM Tube 1 APPLIC TOPICAL ×2 (05:08→22:31)
[2021-10-15] MEDS: Lisinopril 10 MG Tablet PO ×2 (05:08→17:13)
[2021-10-15] MEDS: Metoprolol(XL)Succ 50 MG Tablet PO (05:08)
[2021-10-15] MEDS: Multivitamin (Healthy Eyes) Capsule 1 CAP PO ×2 (05:08→17:12)
[2021-10-15] MEDS: Senna/Docusate Sodium 1 Tablet PO ×2 (05:08→17:13)
[2021-10-15 05:49] LABS: Absolute Lymphocyte Count 1.52 X10^3/uL (0.83-4.51); Absolute Neutrophil Count 5.4 X10^3/uL (2.0-7.7); Basophil# 0.08 X10^3/uL; Eosinophil# 0.19 X10^3/uL; Eosinophils% 2.4 % (0-5); Hematocrit 45.7 % (40-54); Hemoglobin 14.7 g/dL (13.0-16.5); Lymphocyte # 1.52 X10^3/ul (0.83-4.51); Lymphocyte % 19.2 % (19-41); Mean Corp Hgb Conc 32.2 g/dL (32-36); Mean Corpuscular Hgb 29.2 pg (27.0-32.0); Mean Corpuscular Volume 90.9 fL (80-94); Mean Platelet Vol. 11.2 fl (6.2-12.0); Monocyte# 0.69 X10^3/uL; Monocyte% 8.7 % (0-10); NRBC Flagged by Analyzer 0 % (0-5); Neutrophil % 68.3 % (47-70); Platelet Count 217 K/mm3 (150-450); RBC Distribution Width CV 13.9 % (11.6-14.6); RBC Distribution Width SD 46.2 fl (35.1-43.9); Red Blood Count 5.03 M/mm3 (4.6-6.2); White Blood Count 7.9 K/mm3 (4.4-11.0)
[2021-10-15 06:28] LABS: Anion Gap 9 (5-15); BUN 23 mg/dL (7-18); BUN/Creat Ratio 22.3 RATIO (10-20); Calcium,Total 8.9 mg/dL (8.5-10.1); Chloride 97 mmol/L (98-107); Creatinine, Serum 1.03 mg/dL (0.70-1.30); EST Glomerular Filtration Rate 74 mL/min (>60); Est Glom Filt Rate - Afr Amer 89 mL/min (>60); Glucose 89 mg/dL (74-106); Potassium 3.1 mmol/L (3.5-5.1); Sodium Level 140 mmol/L (136-145)
[2021-10-15] MEDS: traMADol 50 MG Tablet PO (08:36)
[2021-10-15] MEDS: Potassium Chloride Oral Tablet 20 MEQ 40 MEQ PO (08:36)
[2021-10-15] MEDS: Acetaminophen 500 MG Tablet 1000 MG PO (08:37)
--- NOTE | 2021-10-15 09:57 | CASEMGMT ---
Social Work IDT met with patient, and son for care plan meeting. Discussed patient's progress in therapy and nursing. Explained Medicare benefit. Encouraged to contact secondary insurance to ensure copay coverage. Pt is primary caregiver for and IDT has concerns about safe DC home. Broached topic of an alternative DC plan. Discussed nonskilled HHC or SNF stay. Provided both resource lists. Explained insurance coverage/private pay/Medicaid at SNF. Explained if pt still needs lift or x2 assist = SNF, x1 assist = home. Son explained he and his were looking into MIL suite but unsure if that will happen prior to pt needing to DC. SW continue to follow for discharge planning. All expressed appreciation and praised staff for great care. Maddie Browning, SHAPER HAND INDUSTRIAL CHEMIST
[2021-10-15] MEDS: Tuberculin,Purif.prot.deriv. 50 TU/ML Vial 0.1 ML ID (10:36)
--- NOTE | 2021-10-15 10:43 | NURSING ---
PNEUMOVAX 23 GIVEN IN LEFT DELT. PT TOLERATED WELL. WILL MONITOR.
[2021-10-15 13:35] VITALS: BP 106/52; PULSE 69; RESP 16; TEMP 36.1; O2SAT 93
--- NOTE | 2021-10-15 13:57 | NURSING ---
this nurse washed pt face,mouth care and washed hair. pt happy.
[2021-10-15 17:18] VITALS: BP 131/69; PULSE 62
[2021-10-15] MEDS: Donepezil HCl 10 MG Tablet PO (22:31)
[2021-10-15] MEDS: Gabapentin 400 MG Capsule PO (22:31)
[2021-10-15] MEDS: Psyllium 1 PACKET PO (22:31)
[2021-10-16] MEDS: Bumetanide 2 MG Tablet PO (05:31)
[2021-10-16] MEDS: Multivitamin (Healthy Eyes) Capsule 1 CAP PO ×2 (05:31→17:27)
[2021-10-16] MEDS: Senna/Docusate Sodium 1 Tablet PO ×2 (05:31→17:27)
[2021-10-16] MEDS: Lisinopril 10 MG Tablet PO ×2 (05:31→17:27)
[2021-10-16] MEDS: Menthol/Lanolin/Calamine/Znox 113 GM Tube 1 APPLIC TOPICAL ×2 (05:31→17:50)
[2021-10-16] MEDS: Polyethylene Glycol 3350 17 GM PACKET PO (05:31)
[2021-10-16 05:32] VITALS: BP 103/57; PULSE 76
[2021-10-16] MEDS: Metoprolol(XL)Succ 50 MG Tablet PO (05:32)
[2021-10-16] MEDS: Nystatin Powder 15gm Bottle 1 APPLIC TOPICAL ×2 (05:32→17:51)
[2021-10-16 07:27] LABS: Anion Gap 8 (5-15); BUN 25 mg/dL (7-18); BUN/Creat Ratio 23.4 RATIO (10-20); Calcium,Total 9.1 mg/dL (8.5-10.1); Chloride 98 mmol/L (98-107); Creatinine, Serum 1.07 mg/dL (0.70-1.30); EST Glomerular Filtration Rate 71 mL/min (>60); Est Glom Filt Rate - Afr Amer 85 mL/min (>60); Estimated Creatinine Clearance 62.95 ml/min; Glucose 95 mg/dL (74-106); Potassium 3.6 mmol/L (3.5-5.1); Sodium Level 139 mmol/L (136-145)
[2021-10-16] MEDS: Potassium Chloride Oral Tablet 20 MEQ PO (07:44)
[2021-10-16 08:13] VITALS: O2SAT 93
[2021-10-16 13:29] VITALS: BP 101/53; PULSE 77; RESP 16; TEMP 36.4; O2SAT 95
[2021-10-16 15:23] VITALS: BP 96/55
[2021-10-16] MEDS: Bisacodyl 5 MG Tablet 10 MG PO (17:28)
[2021-10-16 17:32] VITALS: BP 110/62
[2021-10-16] MEDS: Donepezil HCl 10 MG Tablet PO (21:17)
[2021-10-16] MEDS: Gabapentin 400 MG Capsule PO (21:17)
[2021-10-17 05:35] VITALS: BP 101/62; PULSE 71; RESP 16; TEMP 36.5
[2021-10-17 05:37] VITALS: BP 101/62; PULSE 71
[2021-10-17] MEDS: Metoprolol(XL)Succ 50 MG Tablet PO (05:37)
[2021-10-17] MEDS: Lisinopril 10 MG Tablet PO ×2 (05:37→17:03)
[2021-10-17] MEDS: Bumetanide 2 MG Tablet PO ×2 (05:37→14:15)
[2021-10-17] MEDS: Senna/Docusate Sodium 1 Tablet PO ×2 (05:38→17:03)
[2021-10-17] MEDS: Multivitamin (Healthy Eyes) Capsule 1 CAP PO ×2 (05:38→17:02)
[2021-10-17] MEDS: Menthol/Lanolin/Calamine/Znox 113 GM Tube 1 APPLIC TOPICAL ×2 (05:38→17:04)
[2021-10-17] MEDS: Polyethylene Glycol 3350 17 GM PACKET PO (05:38)
[2021-10-17] MEDS: Nystatin Powder 15gm Bottle 1 APPLIC TOPICAL ×2 (05:39→17:04)
[2021-10-17 06:25] VITALS: O2SAT 94
[2021-10-17] MEDS: Potassium Chloride Oral Tablet 20 MEQ PO (07:25)
[2021-10-17 14:15] VITALS: BP 108/58; PULSE 67; RESP 18; TEMP 36.4; O2SAT 92
[2021-10-17 17:06] VITALS: BP 126/68; PULSE 75
[2021-10-17] MEDS: Psyllium 1 PACKET PO (20:30)
[2021-10-17] MEDS: Gabapentin 400 MG Capsule PO (20:30)
[2021-10-17] MEDS: Donepezil HCl 10 MG Tablet PO (21:15)
[2021-10-18 06:10] VITALS: BP 107/57; PULSE 76; RESP 16; TEMP 35.9; O2SAT 98
[2021-10-18] MEDS: Menthol/Lanolin/Calamine/Znox 113 GM Tube 1 APPLIC TOPICAL ×2 (06:15→16:57)
[2021-10-18] MEDS: Bumetanide 2 MG Tablet PO ×2 (06:15→14:17)
[2021-10-18] MEDS: Senna/Docusate Sodium 1 Tablet PO ×2 (06:16→16:56)
[2021-10-18] MEDS: Nystatin Powder 15gm Bottle 1 APPLIC TOPICAL ×2 (06:16→16:57)
[2021-10-18] MEDS: Multivitamin (Healthy Eyes) Capsule 1 CAP PO ×2 (06:16→16:55)
[2021-10-18 06:17] VITALS: BP 107/57; PULSE 76
[2021-10-18] MEDS: Metoprolol(XL)Succ 50 MG Tablet PO (06:17)
[2021-10-18 06:46] VITALS: O2SAT 94
[2021-10-18] MEDS: Potassium Chloride Oral Tablet 20 MEQ PO (08:30)
[2021-10-18 14:19] VITALS: BP 132/63; PULSE 80; RESP 18; TEMP 36.3; O2SAT 96
[2021-10-18] MEDS: Lisinopril 10 MG Tablet PO (16:56)
[2021-10-18] MEDS: Gabapentin 400 MG Capsule PO (20:20)
[2021-10-18] MEDS: Donepezil HCl 10 MG Tablet PO (20:20)
[2021-10-18] MEDS: Psyllium 1 PACKET PO (20:20)
[2021-10-19] MEDS: Bumetanide 2 MG Tablet PO ×2 (05:02→14:57)
[2021-10-19] MEDS: Menthol/Lanolin/Calamine/Znox 113 GM Tube 1 APPLIC TOPICAL ×2 (05:02→17:46)
[2021-10-19] MEDS: Multivitamin (Healthy Eyes) Capsule 1 CAP PO ×2 (05:02→17:46)
[2021-10-19 05:03] VITALS: BP 117/52; PULSE 73
[2021-10-19] MEDS: Metoprolol(XL)Succ 50 MG Tablet PO (05:03)
[2021-10-19] MEDS: Senna/Docusate Sodium 1 Tablet PO ×2 (05:03→17:46)
[2021-10-19] MEDS: Polyethylene Glycol 3350 17 GM PACKET PO (05:03)
[2021-10-19] MEDS: Lisinopril 10 MG Tablet PO ×2 (05:05→17:46)
[2021-10-19] MEDS: Nystatin Powder 15gm Bottle 1 APPLIC TOPICAL ×2 (05:07→17:46)
[2021-10-19] MEDS: Potassium Chloride Oral Tablet 20 MEQ PO (09:00)
[2021-10-19 14:52] VITALS: BP 119/72; PULSE 70; RESP 18; TEMP 36.2; O2SAT 95
[2021-10-19] MEDS: Gabapentin 400 MG Capsule PO (19:35)
[2021-10-19] MEDS: Donepezil HCl 10 MG Tablet PO (19:35)
--- NOTE | 2021-10-19 20:35 | NURSING ---
Paged Dr. Singleton w/ immediate return phone call. Informed pt c/o heartburn. New order received for Tums 500 mg every 6 hours PRN indigestion.
[2021-10-19] MEDS: Calcium Carbonate 500 MG Tablet PO (20:54)
[2021-10-20] VITALS (7 sets, daily range): BP systolic 87–134; BP diastolic 55–67; PULSE 63–74; RESP 18; TEMP 36.4; O2SAT 90–97
[2021-10-20] MEDS: Multivitamin (Healthy Eyes) Capsule 1 CAP PO ×2 (05:38→17:25)
[2021-10-20] MEDS: Hydrocortisone 2.5% Crm 1 APPLIC TOPICAL (05:38)
[2021-10-20] MEDS: Metoprolol(XL)Succ 50 MG Tablet PO (05:38)
[2021-10-20] MEDS: Senna/Docusate Sodium 1 Tablet PO ×2 (05:38→17:25)
[2021-10-20] MEDS: Bumetanide 2 MG Tablet PO (05:38)
[2021-10-20] MEDS: Polyethylene Glycol 3350 17 GM PACKET PO (05:38)
[2021-10-20] MEDS: Nystatin Powder 15gm Bottle 1 APPLIC TOPICAL ×2 (05:38→17:26)
[2021-10-20] MEDS: Lisinopril 10 MG Tablet PO ×2 (05:38→17:27)
[2021-10-20] MEDS: Menthol/Lanolin/Calamine/Znox 113 GM Tube 1 APPLIC TOPICAL ×2 (05:38→17:26)
[2021-10-20] MEDS: Potassium Chloride Oral Tablet 20 MEQ PO (07:32)
--- NOTE | 2021-10-20 09:51 | MDS.RN ---
Information for the mds was obtained from review of the clincal record, interview of resident, staff, and direct observation of resident's care.
[2021-10-20] MEDS: traMADol 50 MG Tablet PO (14:36)
--- NOTE | 2021-10-20 14:40 | NURSING ---
BP's trending down, minimal edema, BUN elevated, Bumex held today for decreased BP, message left for Dr. Singleton
[2021-10-20] MEDS: Donepezil HCl 10 MG Tablet PO (21:55)
[2021-10-20] MEDS: Gabapentin 400 MG Capsule PO (21:56)
[2021-10-21] MEDS: Multivitamin (Healthy Eyes) Capsule 1 CAP PO ×2 (05:13→17:03)
[2021-10-21] MEDS: Lisinopril 10 MG Tablet PO ×2 (05:13→17:03)
[2021-10-21] MEDS: Senna/Docusate Sodium 1 Tablet PO ×2 (05:14→17:03)
[2021-10-21] MEDS: Polyethylene Glycol 3350 17 GM PACKET PO (05:14)
[2021-10-21] MEDS: Menthol/Lanolin/Calamine/Znox 113 GM Tube 1 APPLIC TOPICAL ×2 (05:15→22:11)
[2021-10-21] MEDS: Nystatin Powder 15gm Bottle 1 APPLIC TOPICAL ×2 (05:15→22:11)
[2021-10-21 05:16] VITALS: BP 103/63; PULSE 70
[2021-10-21] MEDS: Metoprolol(XL)Succ 50 MG Tablet PO (05:16)
[2021-10-21] MEDS: Ondansetron ODT 4 MG Tablet PO (07:14)
[2021-10-21 08:50] VITALS: O2SAT 92
[2021-10-21] MEDS: Potassium Chloride Oral Tablet 20 MEQ PO (09:14)
[2021-10-21 09:17] VITALS: BP 103/53; PULSE 73
[2021-10-21 16:00] VITALS: BP 123/66; PULSE 73; RESP 14; TEMP 36.8; O2SAT 94
[2021-10-21 22:00] VITALS: O2SAT 98
[2021-10-21] MEDS: Gabapentin 400 MG Capsule PO (22:12)
[2021-10-21] MEDS: Donepezil HCl 10 MG Tablet PO (22:12)
[2021-10-22] MEDS: Polyethylene Glycol 3350 17 GM PACKET PO (05:02)
[2021-10-22 05:03] VITALS: BP 113/63; PULSE 71
[2021-10-22] MEDS: Bumetanide 2 MG Tablet PO (05:03)
[2021-10-22] MEDS: Lisinopril 10 MG Tablet PO ×2 (05:03→17:13)
[2021-10-22] MEDS: Senna/Docusate Sodium 1 Tablet PO ×2 (05:03→17:13)
[2021-10-22] MEDS: Multivitamin (Healthy Eyes) Capsule 1 CAP PO ×2 (05:03→17:12)
[2021-10-22] MEDS: Metoprolol(XL)Succ 50 MG Tablet PO (05:03)
[2021-10-22] MEDS: Menthol/Lanolin/Calamine/Znox 113 GM Tube 1 APPLIC TOPICAL ×2 (05:07→20:12)
[2021-10-22] MEDS: Nystatin Powder 15gm Bottle 1 APPLIC TOPICAL ×2 (05:07→20:12)
[2021-10-22 05:57] LABS: Absolute Lymphocyte Count 1.76 X10^3/uL (0.83-4.51); Absolute Neutrophil Count 4.5 X10^3/uL (2.0-7.7); Basophil# 0.07 X10^3/uL; Eosinophil# 0.14 X10^3/uL; Hematocrit 42.2 % (40-54); Hemoglobin 14.1 g/dL (13.0-16.5); Lymphocyte # 1.76 X10^3/ul (0.83-4.51); Lymphocyte % 25.3 % (19-41); Mean Corp Hgb Conc 33.4 g/dL (32-36); Mean Corpuscular Hgb 29.7 pg (27.0-32.0); Mean Corpuscular Volume 88.8 fL (80-94); Mean Platelet Vol. 11.3 fl (6.2-12.0); Monocyte# 0.49 X10^3/uL; Monocyte% 7.1 % (0-10); NRBC Flagged by Analyzer 0 % (0-5); Neutrophil # 4.48 X10^3/uL (2.7-7.7); Neutrophil % 64.5 % (47-70); Platelet Count 209 K/mm3 (150-450); RBC Distribution Width CV 13.5 % (11.6-14.6); RBC Distribution Width SD 44.2 fl (35.1-43.9); Red Blood Count 4.75 M/mm3 (4.6-6.2)
[2021-10-22 06:17] LABS: Anion Gap 7 (5-15); BUN 26 mg/dL (7-18); BUN/Creat Ratio 23.4 RATIO (10-20); Chloride 102 mmol/L (98-107); Creatinine, Serum 1.11 mg/dL (0.70-1.30); EST Glomerular Filtration Rate 68 mL/min (>60); Est Glom Filt Rate - Afr Amer 82 mL/min (>60); Estimated Creatinine Clearance 60.68 ml/min; Glucose 82 mg/dL (74-106); Sodium Level 138 mmol/L (136-145)
[2021-10-22] MEDS: Potassium Chloride Oral Tablet 20 MEQ PO (07:34)
[2021-10-22 11:30] VITALS: PULSE 83; RESP 18; O2SAT 95
[2021-10-22] MEDS: Ensure Clear 120 ML Liquid PO (13:04)
[2021-10-22 13:51] VITALS: BP 88/52; PULSE 73
--- NOTE | 2021-10-22 13:54 | NURSING ---
AID CAME TO THIS NURSE DUE TO PT BLOOD PRESSURE LOW. THIS NURSE REASSESSED AND WAS STILL LOW. REPORTED TO RN.
[2021-10-22 13:55] VITALS: BP 85/53; PULSE 75; RESP 16; TEMP 36.4; O2SAT 94
[2021-10-22 14:00] VITALS: O2SAT 93
--- NOTE | 2021-10-22 14:58 | CHAPLAIN ---
Type of Pastoral Visit ___ Initial Visit _x__ Follow-up Visit ___ On-call Visit ___ General Patient Visit ___ Spiritual Assessment ___ Family Conference ___ Bereavement ___ Rapid Response ___ Code Blue ___ Other (describe below) Pastoral Care Referral From _x__ Patient _x__ Family ___ Nurse ___ Physician ___ Learning And Development Specialist ___ Lift Slab Operator ___ Other (describe below) Sacrament/Intervention _x__ Active listening ___ Anointing ___ Faith ___ Bereavement ___ Communion _x__ Noelle exploration ___ ___ Life review _x__ Prayer ___ Reconciliation ___ Sacrament of Sick _x__ Supportive presence ___ Wedding ___ Other (describe below) Pastoral Comments
[2021-10-22 15:32] VITALS: BP 114/61; PULSE 68
[2021-10-22] MEDS: Donepezil HCl 10 MG Tablet PO (20:07)
[2021-10-22] MEDS: Gabapentin 400 MG Capsule PO (20:07)
[2021-10-23] MEDS: Senna/Docusate Sodium 1 Tablet PO ×2 (04:53→17:12)
[2021-10-23] MEDS: Bumetanide 2 MG Tablet PO (04:53)
[2021-10-23] MEDS: Multivitamin (Healthy Eyes) Capsule 1 CAP PO ×2 (04:53→17:11)
[2021-10-23] MEDS: Menthol/Lanolin/Calamine/Znox 113 GM Tube 1 APPLIC TOPICAL ×2 (04:54→17:12)
[2021-10-23] MEDS: Polyethylene Glycol 3350 17 GM PACKET PO (04:55)
[2021-10-23] MEDS: Nystatin Powder 15gm Bottle 1 APPLIC TOPICAL ×2 (04:55→17:12)
[2021-10-23 04:57] VITALS: BP 98/51; PULSE 70; RESP 16; TEMP 36.4; O2SAT 95
[2021-10-23 07:01] VITALS: BP 99/55
[2021-10-23] MEDS: Potassium Chloride Oral Tablet 20 MEQ PO (08:57)
[2021-10-23] MEDS: Ensure Clear 120 ML Liquid PO ×3 (08:59→17:12)
[2021-10-23] MEDS: traMADol 50 MG Tablet PO (12:56)
[2021-10-23 13:09] VITALS: O2SAT 95
[2021-10-23 14:13] VITALS: BP 111/61; PULSE 75; RESP 18; TEMP 36.7; O2SAT 93
--- NOTE | 2021-10-23 15:51 | CASEMGMT ---
Social Work Son called for update. Explained pt is no longer a ralph or [place]. He is x2 assist for SPT. Pt is progressing. Son appreciative. Will continue to follow for discharge planning. Maddie Browning, ACCOUNT EXECUTIVE AGRIBUSINESS GLOST PLACER
--- NOTE | 2021-10-23 16:06 | NURSING ---
Pt was c/o nausea this morning but stated it has subsided, pt states he thinks the miralax is making him nauseous and this has happened before, pt requesting miralax be d/c and milk of mag prn added. Message left for Dr. Singleton
[2021-10-23 20:01] VITALS: PULSE 84; RESP 18; O2SAT 95
[2021-10-23] MEDS: Donepezil HCl 10 MG Tablet PO (20:10)
[2021-10-23] MEDS: Gabapentin 400 MG Capsule PO (20:10)
--- NOTE | 2021-10-23 20:14 | NURSING ---
Patient continues to refuse HS Metamucil. Patient states, it's generic and it has a funny taste. Patient has been encouraged to take it but still refuses. Nasal cannula placed on patient with 2 LPM of oxygen at this time.
[2021-10-24] MEDS: Nystatin Powder 15gm Bottle 1 APPLIC TOPICAL ×2 (05:26→17:00)
[2021-10-24] MEDS: Menthol/Lanolin/Calamine/Znox 113 GM Tube 1 APPLIC TOPICAL ×2 (05:26→17:00)
[2021-10-24 05:27] VITALS: BP 98/60; PULSE 75; RESP 18; TEMP 36.1; O2SAT 96
[2021-10-24] MEDS: Multivitamin (Healthy Eyes) Capsule 1 CAP PO ×2 (06:51→16:57)
[2021-10-24] MEDS: Senna/Docusate Sodium 1 Tablet PO ×2 (06:51→16:58)
[2021-10-24] MEDS: Ensure Clear 120 ML Liquid PO ×2 (06:51→13:09)
[2021-10-24 07:35] VITALS: O2SAT 95
[2021-10-24] MEDS: Potassium Chloride Oral Tablet 20 MEQ PO (08:55)
[2021-10-24] MEDS: traMADol 50 MG Tablet PO (08:57)
[2021-10-24] MEDS: Ondansetron ODT 4 MG Tablet PO (11:00)
[2021-10-24 14:33] VITALS: BP 104/62; PULSE 74; RESP 18; TEMP 36.4; O2SAT 96
[2021-10-24] MEDS: Gabapentin 400 MG Capsule PO (20:13)
[2021-10-24] MEDS: Donepezil HCl 10 MG Tablet PO (20:13)
[2021-10-25 05:29] VITALS: BP 103/58; PULSE 78
[2021-10-25] MEDS: Lisinopril 10 MG Tablet PO (05:29)
[2021-10-25] MEDS: Multivitamin (Healthy Eyes) Capsule 1 CAP PO ×2 (05:29→16:56)
[2021-10-25] MEDS: Metoprolol(XL)Succ 25 MG Tablet PO (05:29)
[2021-10-25] MEDS: Menthol/Lanolin/Calamine/Znox 113 GM Tube 1 APPLIC TOPICAL (05:30)
[2021-10-25] MEDS: Nystatin Powder 15gm Bottle 1 APPLIC TOPICAL ×2 (05:30→22:31)
[2021-10-25] MEDS: Senna/Docusate Sodium 1 Tablet PO ×2 (05:33→16:58)
[2021-10-25 07:05] VITALS: O2SAT 95
[2021-10-25] MEDS: Potassium Chloride Oral Tablet 20 MEQ PO (08:15)
[2021-10-25 08:16] VITALS: BP 102/65; PULSE 71
[2021-10-25] MEDS: Ondansetron ODT 4 MG Tablet PO (11:58)
[2021-10-25 15:14] VITALS: BP 98/67; PULSE 85; RESP 16; TEMP 36.6; O2SAT 95
[2021-10-25] MEDS: Ensure Clear 120 ML Liquid PO (16:54)
[2021-10-25 17:02] VITALS: BP 111/59; PULSE 71
[2021-10-25] MEDS: Donepezil HCl 10 MG Tablet PO (22:33)
[2021-10-25] MEDS: Gabapentin 400 MG Capsule PO (22:33)
[2021-10-26 05:12] VITALS: BP 106/64; PULSE 71; RESP 16; TEMP 36.6; O2SAT 96
[2021-10-26 05:16] VITALS: BP 106/64; PULSE 71
[2021-10-26] MEDS: Metoprolol(XL)Succ 25 MG Tablet PO (05:16)
[2021-10-26] MEDS: Bumetanide 0.5 MG Tablet 1 MG PO (05:16)
[2021-10-26] MEDS: Multivitamin (Healthy Eyes) Capsule 1 CAP PO ×2 (05:16→18:06)
[2021-10-26] MEDS: Lisinopril 10 MG Tablet PO (05:17)
[2021-10-26] MEDS: Menthol/Lanolin/Calamine/Znox 113 GM Tube 1 APPLIC TOPICAL ×2 (05:17→18:05)
[2021-10-26] MEDS: Nystatin Powder 15gm Bottle 1 APPLIC TOPICAL ×2 (05:18→22:20)
[2021-10-26] MEDS: Senna/Docusate Sodium 1 Tablet PO ×2 (05:19→18:06)
[2021-10-26 07:09] VITALS: O2SAT 94
[2021-10-26] MEDS: Ensure Clear 120 ML Liquid PO ×3 (08:01→18:04)
[2021-10-26] MEDS: Potassium Chloride Oral Tablet 20 MEQ PO (08:03)
[2021-10-26 10:15] VITALS: PULSE 85; RESP 18; O2SAT 94
[2021-10-26] MEDS: Acetaminophen 500 MG Tablet 1000 MG PO (10:58)
[2021-10-26] MEDS: traMADol 50 MG Tablet PO (10:59)
[2021-10-26 15:32] VITALS: BP 100/59; PULSE 69; RESP 16; TEMP 36; O2SAT 97
[2021-10-26] MEDS: Donepezil HCl 10 MG Tablet PO (22:12)
[2021-10-26] MEDS: Gabapentin 400 MG Capsule PO (22:12)
[2021-10-27] MEDS: Lisinopril 10 MG Tablet PO (05:12)
[2021-10-27 05:13] VITALS: BP 114/57; PULSE 61
[2021-10-27] MEDS: Bumetanide 0.5 MG Tablet 1 MG PO (05:13)
[2021-10-27] MEDS: Metoprolol(XL)Succ 25 MG Tablet PO (05:13)
[2021-10-27] MEDS: Menthol/Lanolin/Calamine/Znox 113 GM Tube 1 APPLIC TOPICAL ×2 (05:14→17:43)
[2021-10-27] MEDS: Nystatin Powder 15gm Bottle 1 APPLIC TOPICAL ×2 (05:14→17:43)
[2021-10-27] MEDS: Senna/Docusate Sodium 1 Tablet PO ×2 (05:15→17:43)
[2021-10-27] MEDS: Multivitamin (Healthy Eyes) Capsule 1 CAP PO ×2 (05:15→17:42)
[2021-10-27 05:20] VITALS: PULSE 61; RESP 16; TEMP 35.8; O2SAT 99
[2021-10-27] MEDS: Potassium Chloride Oral Tablet 20 MEQ PO (09:15)
[2021-10-27] MEDS: Ensure Clear 120 ML Liquid PO ×2 (09:15→14:06)
[2021-10-27 14:46] VITALS: BP 105/57; PULSE 76; RESP 18; TEMP 36.1; O2SAT 96
--- NOTE | 2021-10-27 15:03 | NURSING ---
Souse and resident notified of staff member testing positive for COVID.
[2021-10-27] MEDS: Gabapentin 400 MG Capsule PO (20:16)
[2021-10-27] MEDS: Donepezil HCl 10 MG Tablet PO (20:16)
[2021-10-28] MEDS: Senna/Docusate Sodium 1 Tablet PO ×2 (05:07→17:02)
[2021-10-28] MEDS: Lisinopril 10 MG Tablet PO (05:07)
[2021-10-28] MEDS: Menthol/Lanolin/Calamine/Znox 113 GM Tube 1 APPLIC TOPICAL ×2 (05:07→18:43)
[2021-10-28] MEDS: Multivitamin (Healthy Eyes) Capsule 1 CAP PO ×2 (05:07→17:02)
[2021-10-28 05:09] VITALS: BP 115/65; PULSE 76
[2021-10-28] MEDS: Metoprolol(XL)Succ 25 MG Tablet PO (05:09)
[2021-10-28] MEDS: Bumetanide 0.5 MG Tablet 1 MG PO (05:10)
[2021-10-28] MEDS: Nystatin Powder 15gm Bottle 1 APPLIC TOPICAL ×2 (05:15→18:44)
[2021-10-28 07:39] VITALS: O2SAT 95
[2021-10-28] MEDS: Potassium Chloride Oral Tablet 20 MEQ PO (09:06)
[2021-10-28] MEDS: Acetaminophen 500 MG Tablet 1000 MG PO (09:10)
[2021-10-28] MEDS: traMADol 50 MG Tablet PO (09:10)
[2021-10-28 11:00] VITALS: PULSE 65; RESP 18; O2SAT 96
[2021-10-28 13:57] VITALS: BP 94/53; PULSE 69; RESP 16; TEMP 35.8; O2SAT 94
--- NOTE | 2021-10-28 14:57 | CHAPLAIN ---
Type of Pastoral Visit ___ Initial Visit _x__ Follow-up Visit ___ On-call Visit ___ General Patient Visit ___ Spiritual Assessment ___ Family Conference ___ Bereavement ___ Rapid Response ___ Code Blue ___ Other (describe below) Pastoral Care Referral From _x__ Patient _x__ Family ___ Nurse ___ Physician ___ Ice Cream Dispenser ___ Perinatology Physician ___ Other (describe below) Sacrament/Intervention _x__ Active listening ___ Anointing ___ Cheondoism ___ Bereavement ___ Communion ___ Noelle exploration ___ ___ Life review ___ Prayer ___ Reconciliation ___ Sacrament of Sick ___ Supportive presence ___ Wedding ___ Other (describe below) Pastoral Comments
[2021-10-28 17:07] VITALS: BP 135/52; PULSE 59
[2021-10-28] MEDS: Gabapentin 400 MG Capsule PO (21:46)
[2021-10-28] MEDS: Donepezil HCl 10 MG Tablet PO (21:46)
[2021-10-29] MEDS: Multivitamin (Healthy Eyes) Capsule 1 CAP PO ×2 (05:31→16:44)
[2021-10-29] MEDS: Senna/Docusate Sodium 1 Tablet PO ×2 (05:31→16:44)
[2021-10-29] MEDS: Nystatin Powder 15gm Bottle 1 APPLIC TOPICAL ×2 (05:32→16:46)
[2021-10-29 05:33] VITALS: BP 100/61; PULSE 70
[2021-10-29] MEDS: Menthol/Lanolin/Calamine/Znox 113 GM Tube 1 APPLIC TOPICAL ×2 (05:33→16:46)
[2021-10-29] MEDS: Lisinopril 10 MG Tablet PO (05:33)
[2021-10-29] MEDS: Metoprolol(XL)Succ 25 MG Tablet PO (05:33)
[2021-10-29 05:52] LABS: Absolute Neutrophil Count 4.5 X10^3/uL (2.0-7.7); Basophil# 0.08 X10^3/uL; Basophil% 1.2 % (0-1); Eosinophil# 0.15 X10^3/uL; Eosinophils% 2.2 % (0-5); Lymphocyte % 22.3 % (19-41); Mean Corp Hgb Conc 32.5 g/dL (32-36); Mean Corpuscular Volume 89.1 fL (80-94); Mean Platelet Vol. 11.2 fl (6.2-12.0); Monocyte% 7.4 % (0-10); NRBC Flagged by Analyzer 0 % (0-5); Neutrophil # 4.49 X10^3/uL (2.7-7.7); Neutrophil % 66.8 % (47-70); Platelet Count 177 K/mm3 (150-450); RBC Distribution Width CV 13.6 % (11.6-14.6); RBC Distribution Width SD 44.8 fl (35.1-43.9); Red Blood Count 4.49 M/mm3 (4.6-6.2); White Blood Count 6.7 K/mm3 (4.4-11.0)
[2021-10-29 06:18] LABS: Anion Gap 6 (5-15); BUN 18 mg/dL (7-18); Calcium,Total 8.4 mg/dL (8.5-10.1); Chloride 105 mmol/L (98-107); Glucose 82 mg/dL (74-106); Potassium 4.3 mmol/L (3.5-5.1); Sodium Level 138 mmol/L (136-145)
[2021-10-29] MEDS: traMADol 50 MG Tablet PO (07:55)
[2021-10-29] MEDS: Potassium Chloride Oral Tablet 20 MEQ PO (07:56)
[2021-10-29 14:06] LABS: BUN/Creat Ratio 5.4 RATIO (10-20); Creatinine, Serum 3.31 mg/dL (0.70-1.30); EST Glomerular Filtration Rate 19 mL/min (>60); Est Glom Filt Rate - Afr Amer 23 mL/min (>60); Estimated Creatinine Clearance 20.35 ml/min
--- NOTE | 2021-10-29 15:52 | CHAPLAIN ---
Type of Pastoral Visit ___ Initial Visit _x__ Follow-up Visit ___ On-call Visit ___ General Patient Visit ___ Spiritual Assessment ___ Family Conference ___ Bereavement ___ Rapid Response ___ Code Blue ___ Other (describe below) Pastoral Care Referral From _x__ Patient _x__ Family ___ Nurse ___ Physician ___ Bag Shop Worker ___ Assistant Statistician ___ Other (describe below) Sacrament/Intervention _x__ Active listening ___ Anointing ___ Hoahaoism ___ Bereavement ___ Communion _x__ Noelle exploration ___ ___ Life review ___ Prayer ___ Reconciliation ___ Sacrament of Sick ___ Supportive presence ___ Wedding ___ Other (describe below) Pastoral Comments patient had a spiritual question that he wanted to discuss with this fence manufacture supervisor; time and presence
[2021-10-29 16:00] VITALS: BP 98/55; PULSE 73; RESP 18; TEMP 36.7; O2SAT 95
[2021-10-29] MEDS: Donepezil HCl 10 MG Tablet PO (21:22)
[2021-10-29] MEDS: Gabapentin 400 MG Capsule PO (21:22)
[2021-10-30 05:38] VITALS: BP 112/65; PULSE 64
[2021-10-30] MEDS: Senna/Docusate Sodium 1 Tablet PO ×2 (05:38→17:42)
[2021-10-30] MEDS: Multivitamin (Healthy Eyes) Capsule 1 CAP PO ×2 (05:38→17:42)
[2021-10-30] MEDS: Lisinopril 10 MG Tablet PO (05:38)
[2021-10-30] MEDS: Bumetanide 0.5 MG Tablet 1 MG PO (05:38)
[2021-10-30] MEDS: Metoprolol(XL)Succ 25 MG Tablet PO (05:38)
[2021-10-30] MEDS: Nystatin Powder 15gm Bottle 1 APPLIC TOPICAL ×2 (08:33→20:32)
[2021-10-30] MEDS: Menthol/Lanolin/Calamine/Znox 113 GM Tube 1 APPLIC TOPICAL ×2 (08:33→20:32)
[2021-10-30] MEDS: Potassium Chloride Oral Tablet 20 MEQ PO (08:34)
[2021-10-30 10:35] VITALS: PULSE 80; RESP 18; O2SAT 97
[2021-10-30] MEDS: Hydrocortisone 2.5% Crm 1 APPLIC TOPICAL (10:46)
[2021-10-30 12:03] VITALS: BP 112/65; PULSE 64; RESP 18; TEMP 36.1; O2SAT 99
[2021-10-30] MEDS: Gabapentin 400 MG Capsule PO (20:32)
[2021-10-30] MEDS: Donepezil HCl 10 MG Tablet PO (20:32)
[2021-10-31 05:31] VITALS: BP 107/65; PULSE 71
[2021-10-31] MEDS: Metoprolol(XL)Succ 25 MG Tablet PO (05:31)
[2021-10-31] MEDS: Lisinopril 10 MG Tablet PO (05:31)
[2021-10-31] MEDS: Multivitamin (Healthy Eyes) Capsule 1 CAP PO ×2 (05:31→16:33)
[2021-10-31] MEDS: Bumetanide 0.5 MG Tablet 1 MG PO (05:31)
[2021-10-31] MEDS: Menthol/Lanolin/Calamine/Znox 113 GM Tube 1 APPLIC TOPICAL ×2 (05:31→16:36)
[2021-10-31] MEDS: Senna/Docusate Sodium 1 Tablet PO ×2 (05:31→16:32)
[2021-10-31] MEDS: Nystatin Powder 15gm Bottle 1 APPLIC TOPICAL ×2 (05:31→16:35)
[2021-10-31 05:35] VITALS: BP 107/65; PULSE 71; RESP 16; TEMP 36.4; O2SAT 98
[2021-10-31] MEDS: Potassium Chloride Oral Tablet 20 MEQ PO (08:06)
[2021-10-31 10:45] VITALS: BP 107/65; PULSE 71; RESP 16; TEMP 36.4; O2SAT 98
[2021-10-31] MEDS: Donepezil HCl 10 MG Tablet PO (21:31)
[2021-10-31] MEDS: Gabapentin 400 MG Capsule PO (21:31)
[2021-10-31] MEDS: Psyllium 1 PACKET PO (23:12)
[2021-11-01 04:32] VITALS: BP 111/65; PULSE 77
[2021-11-01] MEDS: Bumetanide 0.5 MG Tablet 1 MG PO (04:32)
[2021-11-01] MEDS: Lisinopril 10 MG Tablet PO (04:32)
[2021-11-01] MEDS: Metoprolol(XL)Succ 25 MG Tablet PO (04:32)
[2021-11-01] MEDS: Senna/Docusate Sodium 1 Tablet PO ×2 (04:33→16:28)
[2021-11-01] MEDS: Multivitamin (Healthy Eyes) Capsule 1 CAP PO ×2 (04:33→16:29)
[2021-11-01] MEDS: Menthol/Lanolin/Calamine/Znox 113 GM Tube 1 APPLIC TOPICAL ×2 (04:34→16:33)
[2021-11-01] MEDS: Nystatin Powder 15gm Bottle 1 APPLIC TOPICAL ×2 (04:37→16:34)
[2021-11-01] MEDS: Potassium Chloride Oral Tablet 20 MEQ PO (08:05)
[2021-11-01 14:21] VITALS: BP 102/50; PULSE 80; RESP 14; TEMP 36.3; O2SAT 96
[2021-11-01] MEDS: Donepezil HCl 10 MG Tablet PO (20:13)
[2021-11-01] MEDS: Gabapentin 400 MG Capsule PO (20:14)
[2021-11-01 22:03] VITALS: BP 110/75; PULSE 75; RESP 16; TEMP 36.8
[2021-11-02] MEDS: Bumetanide 0.5 MG Tablet 1 MG PO (06:49)
[2021-11-02] MEDS: Menthol/Lanolin/Calamine/Znox 113 GM Tube 1 APPLIC TOPICAL ×2 (06:50→17:26)
[2021-11-02] MEDS: Senna/Docusate Sodium 1 Tablet PO ×2 (06:51→17:24)
[2021-11-02] MEDS: Multivitamin (Healthy Eyes) Capsule 1 CAP PO ×2 (06:51→17:24)
[2021-11-02] MEDS: Nystatin Powder 15gm Bottle 1 APPLIC TOPICAL ×2 (06:51→17:26)
[2021-11-02 06:52] VITALS: BP 122/68; PULSE 80
[2021-11-02] MEDS: Metoprolol(XL)Succ 25 MG Tablet PO (06:52)
[2021-11-02] MEDS: Lisinopril 10 MG Tablet PO (06:53)
[2021-11-02] MEDS: APIXABAN 5 MG TABLET PO ×2 (06:53→17:24)
[2021-11-02] MEDS: Potassium Chloride Oral Tablet 20 MEQ PO (08:40)
[2021-11-02 13:44] VITALS: BP 101/63; PULSE 85; RESP 16; TEMP 36.2; O2SAT 98
[2021-11-02] MEDS: Donepezil HCl 10 MG Tablet PO (20:42)
[2021-11-02] MEDS: Gabapentin 400 MG Capsule PO (20:43)
[2021-11-03] MEDS: Bumetanide 0.5 MG Tablet 1 MG PO (05:01)
[2021-11-03] MEDS: APIXABAN 5 MG TABLET PO ×2 (05:02→17:16)
[2021-11-03] MEDS: Multivitamin (Healthy Eyes) Capsule 1 CAP PO ×2 (05:02→17:16)
[2021-11-03] MEDS: Senna/Docusate Sodium 1 Tablet PO ×2 (05:02→17:16)
[2021-11-03] MEDS: Lisinopril 10 MG Tablet PO (05:02)
[2021-11-03] MEDS: Menthol/Lanolin/Calamine/Znox 113 GM Tube 1 APPLIC TOPICAL ×2 (05:03→17:09)
[2021-11-03] MEDS: Nystatin Powder 15gm Bottle 1 APPLIC TOPICAL ×2 (05:03→17:11)
[2021-11-03 05:09] VITALS: BP 112/70; PULSE 71
[2021-11-03] MEDS: Metoprolol(XL)Succ 25 MG Tablet PO (05:09)
[2021-11-03] MEDS: Potassium Chloride Oral Tablet 20 MEQ PO (08:46)
[2021-11-03] MEDS: traMADol 50 MG Tablet PO (08:47)
[2021-11-03] MEDS: Acetaminophen 500 MG Tablet 1000 MG PO (08:47)
[2021-11-03 10:40] VITALS: PULSE 83; RESP 18; O2SAT 94
[2021-11-03 16:00] VITALS: BP 97/67; PULSE 68; RESP 16; TEMP 36; O2SAT 95
--- NOTE | 2021-11-03 16:04 | CASEMGMT ---
Social Work Left message with to discuss DC plans. Therapy spoke with and scheduled therapy training 11/06. Will continue to follow for DC planning. Maddie Browning, PERSONAL LINES INSURANCE ADVISOR BUTTONHOLE TACKER
[2021-11-03 17:19] VITALS: BP 107/57; PULSE 80
--- NOTE | 2021-11-03 19:31 | PN.TCU_ITS ---
Subjective Subjective Resident seen, examined for regulatory visit. He has no new problems, concerns, issues, complaints. His Mansi is present. She states she worries about everything, but has no specific complaints. I assured her resident is progressing well, and making good progress. Objective Data Objective Data Vital Signs: Vital Signs Temp Pulse Resp BP Pulse Ox 96.8 F L 80 16 107/57 L 95 11/03/21 16:00 11/03/21 17:19 11/03/21 16:00 11/03/21 17:19 11/03/21 16:00 Oxygen Flow Rate (L/min) 2 Oxygen Delivery Method Room Air Weight: 100.924 kg Body Mass Index (BMI) 20.5 Intake & Output: Intake and Output for Last 24 Hours 11/01/21 11/02/21 11/03/21 23:59 23:59 23:59 Intake Total 600 / 600 720 / 720 720 / 720 Output Total 200 / 200 Balance 600 / 600 720 / 720 520 / 520 Lab / Micro Data Result Diagrams: 10/29/21 05:13 10/29/21 05:13 Physical Exam Const alert and oriented x3 General Appearance: cooperative HEENT normocephalic Eyes PERRL and EOMs intact bilaterally Neck supple, no JVD and no carotid bruits Resp normal respiratory effort, normal air movement and clear to auscultation bilaterally Cardio regular rate and regular rhythm GI normal to inspection, nondistended, normoactive bowel sounds, non-tender and non-distended Extremity normal capillary refill General Extremity: Negative for edema Skin no rashes or lesions noted General Skin Exam: no breakdown Neuro Neuro Narrative: Left hemiparesis. Psych affect normal Appearance: appropriate Assessment & Plan Assessment/Plan (1) Debility: (2) Intracranial hemorrhage: (3) Atrial fibrillation: (4) Hypertension: (5) Restless leg syndrome: (6) Vascular dementia: (7) Depression: (8) Edema: (9) Thoracic aortic aneurysm without rupture: PLAN: 81 year old male with below past medical history hospitalized for hemorrhagic stroke, admitted to TCU with debility, here for rehabilitation, strengthening, prior to discharge home with . * Debility - PT/OT. * Dysphagia - ST. * Pain - Tylenol 1000mg q6h prn pain (1-3), Tramadol 50mg q6h prn pain (4-10). * Bowel - Metamucil 1 packet qhs, Senna/colace 1 tablet twice daily, Dulcolax 10mg daily prn. * Adult immunization - Administer prevnar 13, pneumovax 23, fluzone, covid19 vaccine as appropriate. * DVT prophylaxis - Not necessary, on Eliquis 5mg bid. * Atrial fibrillation - Metoprolol succinate 50mg daily, Eliqius 5mg bid. * Edema - Bumex 1mg daily. * Vascular dementia - Donepezil 10mg qhs. * Restless leg syndrome - Gabapentin 400mg qhs. * Hypertension - Metoprolol succinate 50mg daily, Lisinopril 10mg daily. * Nutrition - MVI 1 tablet daily. * Indigestion - Calcium 500mg q6h prn, MOM 30ml po x 1 dose prn. * Skin irritation - Eucerin topical bid, HC 2.5% topical bid prn, calmoseptine topical bid. * Tinea Corporis - Nystatin powder topical bid. * Nausea - Zofran 4mg q8h prn. * Hypokalemia - KCL 20meq daily. Capacity Capacity Assessment Tool Can the patient make a choice & communicate that choice?: Yes Can the patient understand benefits, risks and alternatives?: Yes Can the patient make a logical, rational choice?: Yes Is the choice the patient makes consistent w/ their values?: Yes Is there an impending, emergent risk to the patient?: No Does the patient have an Advance Directive?: No Is there a Surrogate Available?: Yes i.e. HCPOA: Yes i.e. close relative (spouse, child, parent, sibling)?: Yes
[2021-11-03] MEDS: Donepezil HCl 10 MG Tablet PO (21:35)
[2021-11-03] MEDS: Gabapentin 400 MG Capsule PO (21:35)
[2021-11-04 05:13] VITALS: PULSE 71
[2021-11-04] MEDS: Metoprolol(XL)Succ 25 MG Tablet PO (05:13)
[2021-11-04] MEDS: Lisinopril 10 MG Tablet PO (05:13)
[2021-11-04] MEDS: Bumetanide 0.5 MG Tablet 1 MG PO (05:13)
[2021-11-04] MEDS: Senna/Docusate Sodium 1 Tablet PO ×2 (05:13→16:58)
[2021-11-04] MEDS: APIXABAN 5 MG TABLET PO ×2 (05:13→16:58)
[2021-11-04] MEDS: Nystatin Powder 15gm Bottle 1 APPLIC TOPICAL ×2 (05:14→22:01)
[2021-11-04] MEDS: Multivitamin (Healthy Eyes) Capsule 1 CAP PO ×2 (05:14→16:58)
[2021-11-04] MEDS: Menthol/Lanolin/Calamine/Znox 113 GM Tube 1 APPLIC TOPICAL ×2 (05:14→22:01)
[2021-11-04 05:18] VITALS: BP 106/62; PULSE 71; RESP 16; TEMP 36.3; O2SAT 99
[2021-11-04] MEDS: Potassium Chloride Oral Tablet 20 MEQ PO (07:43)
[2021-11-04 10:05] VITALS: O2SAT 99
[2021-11-04 21:56] VITALS: PULSE 63; RESP 16; O2SAT 97
[2021-11-04] MEDS: Gabapentin 400 MG Capsule PO (21:58)
[2021-11-04] MEDS: Donepezil HCl 10 MG Tablet PO (21:58)
[2021-11-05 04:56] LABS: Absolute Lymphocyte Count 1.38 X10^3/uL (0.83-4.51); Absolute Neutrophil Count 4.2 X10^3/uL (2.0-7.7); Basophil# 0.05 X10^3/uL; Basophil% 0.8 % (0-1); Eosinophil# 0.15 X10^3/uL; Eosinophils% 2.4 % (0-5); Hematocrit 38.8 % (40-54); Hemoglobin 12.7 g/dL (13.0-16.5); Lymphocyte # 1.38 X10^3/ul (0.83-4.51); Lymphocyte % 22.3 % (19-41); Mean Corp Hgb Conc 32.7 g/dL (32-36); Mean Corpuscular Hgb 29.3 pg (27.0-32.0); Mean Corpuscular Volume 89.4 fL (80-94); Mean Platelet Vol. 11.1 fl (6.2-12.0); Monocyte# 0.43 X10^3/uL; NRBC Flagged by Analyzer 0 % (0-5); Neutrophil # 4.16 X10^3/uL (2.7-7.7); Neutrophil % 67.3 % (47-70); Platelet Count 166 K/mm3 (150-450); RBC Distribution Width CV 13.6 % (11.6-14.6); RBC Distribution Width SD 44.7 fl (35.1-43.9); Red Blood Count 4.34 M/mm3 (4.6-6.2); White Blood Count 6.2 K/mm3 (4.4-11.0)
[2021-11-05 05:22] LABS: Anion Gap 6 (5-15); BUN 27 mg/dL (7-18); BUN/Creat Ratio 24.5 RATIO (10-20); Calcium,Total 8.5 mg/dL (8.5-10.1); Chloride 108 mmol/L (98-107); EST Glomerular Filtration Rate 68 mL/min (>60); Est Glom Filt Rate - Afr Amer 83 mL/min (>60); Estimated Creatinine Clearance 61.23 ml/min; Glucose 81 mg/dL (74-106); Potassium 4.1 mmol/L (3.5-5.1); Sodium Level 141 mmol/L (136-145)
[2021-11-05 05:32] VITALS: BP 111/60; PULSE 76; RESP 16; TEMP 37.1; O2SAT 97
[2021-11-05] MEDS: Multivitamin (Healthy Eyes) Capsule 1 CAP PO ×2 (05:32→17:38)
[2021-11-05] MEDS: Senna/Docusate Sodium 1 Tablet PO ×2 (05:32→17:37)
[2021-11-05 05:33] VITALS: PULSE 76
[2021-11-05] MEDS: APIXABAN 5 MG TABLET PO ×2 (05:33→17:37)
[2021-11-05] MEDS: Bumetanide 0.5 MG Tablet 1 MG PO (05:33)
[2021-11-05] MEDS: Metoprolol(XL)Succ 25 MG Tablet PO (05:33)
[2021-11-05] MEDS: Lisinopril 10 MG Tablet PO (05:33)
[2021-11-05] MEDS: Menthol/Lanolin/Calamine/Znox 113 GM Tube 1 APPLIC TOPICAL ×2 (05:33→17:39)
[2021-11-05] MEDS: Nystatin Powder 15gm Bottle 1 APPLIC TOPICAL ×2 (05:33→17:39)
[2021-11-05] MEDS: Potassium Chloride Oral Tablet 20 MEQ PO (08:41)
--- NOTE | 2021-11-05 10:28 | NURSING ---
Addendum entered by Erin Mallory 11/05/21 16:22: Jasmina from Dr. Mckay called and they got paperwork for [facility], pt had ischemic stroke that turned into hemorrhagic stroke and recommends pt stay on eliquis but will see him in office on 12/10/21 at 1530 Addendum entered by Erin Mallory 11/05/21 16:06: Talked with nurse at Dr. Mckay's office regarding eliquis and asked if they would like to see him sooner, Nurse Jasmina stated she would talk with Dr. Mckay know and call us back to update on treatment plan. Original Note: Pt expressed concern about restarting his eliquis. Pt states that the neurologist he saw for his intracranial hemorrhage told him his brain bleed was likely due to his blood thinner. He states he took 5mg twice a day at home and this is what he is currently taking now. Pt is on eliquis for his AFIB and states he was prescribed it by his leadership development consultant Dr. Mckay but just saw him prior to his stroke and is not scheduled to go back until June of 2022. This nurse called [facility] and left message for Digna Mckay's legal secretary to return phone call.
[2021-11-05] MEDS: Gabapentin 400 MG Capsule PO (20:46)
[2021-11-05] MEDS: Donepezil HCl 10 MG Tablet PO (20:46)
[2021-11-06 05:04] VITALS: BP 105/61; PULSE 76
[2021-11-06] MEDS: Multivitamin (Healthy Eyes) Capsule 1 CAP PO ×2 (05:04→17:32)
[2021-11-06] MEDS: APIXABAN 5 MG TABLET PO ×2 (05:04→17:32)
[2021-11-06] MEDS: Lisinopril 10 MG Tablet PO (05:04)
[2021-11-06] MEDS: Bumetanide 0.5 MG Tablet 1 MG PO (05:04)
[2021-11-06] MEDS: Senna/Docusate Sodium 1 Tablet PO ×2 (05:04→17:32)
[2021-11-06] MEDS: Metoprolol(XL)Succ 25 MG Tablet PO (05:04)
[2021-11-06] MEDS: Nystatin Powder 15gm Bottle 1 APPLIC TOPICAL ×2 (05:07→17:33)
[2021-11-06] MEDS: Menthol/Lanolin/Calamine/Znox 113 GM Tube 1 APPLIC TOPICAL ×2 (05:07→17:33)
[2021-11-06 05:08] VITALS: BP 105/61; PULSE 76; RESP 16; TEMP 36.4; O2SAT 98
[2021-11-06] MEDS: Potassium Chloride Oral Tablet 20 MEQ PO (07:58)
[2021-11-06 10:30] VITALS: PULSE 98; RESP 18; O2SAT 96
[2021-11-06] MEDS: Donepezil HCl 10 MG Tablet PO (22:08)
[2021-11-06] MEDS: Gabapentin 400 MG Capsule PO (22:09)
[2021-11-07] MEDS: Bumetanide 0.5 MG Tablet 1 MG PO (06:14)
[2021-11-07] MEDS: APIXABAN 5 MG TABLET PO ×2 (06:14→17:10)
[2021-11-07] MEDS: Senna/Docusate Sodium 1 Tablet PO ×2 (06:15→17:10)
[2021-11-07] MEDS: Multivitamin (Healthy Eyes) Capsule 1 CAP PO ×2 (06:15→17:10)
[2021-11-07] MEDS: Nystatin Powder 15gm Bottle 1 APPLIC TOPICAL ×2 (06:16→17:13)
[2021-11-07 06:17] VITALS: BP 101/63; PULSE 82
[2021-11-07] MEDS: Lisinopril 10 MG Tablet PO (06:17)
[2021-11-07] MEDS: Metoprolol(XL)Succ 25 MG Tablet PO (06:17)
[2021-11-07] MEDS: Menthol/Lanolin/Calamine/Znox 113 GM Tube 1 APPLIC TOPICAL ×2 (06:17→17:13)
[2021-11-07] MEDS: Potassium Chloride Oral Tablet 20 MEQ PO (09:17)
--- NOTE | 2021-11-07 11:12 | PT ---
Spoke with pt's son, Mahamed, about pt's progress. Pt wants to go home prior to [place]. Pt's son and feel that is too son and would like to have pt home after [place] but prior to new year. Pt's son stated he will be able to stay with pt for the first week he is home if pt goes home after [place]. Family is also remodeling pt's bathroom to make it more accessible for pt. Family training scheduled for 11/18 at 10:00am with pt's son and pt's . Spoke with pt about conversation with son. Pt sad he is not able to go home prior to [place] by is agreeable with plan. SW updated and will follow up with family for further discharge planning.
[2021-11-07 14:08] VITALS: O2SAT 90
[2021-11-07 15:32] VITALS: BP 93/68; PULSE 86; RESP 18; TEMP 36.6; O2SAT 95
[2021-11-07 21:00] VITALS: PULSE 52; RESP 16; O2SAT 92
[2021-11-07] MEDS: Hydrocortisone 2.5% Crm 1 APPLIC TOPICAL (21:14)
[2021-11-07] MEDS: Gabapentin 400 MG Capsule PO (21:15)
[2021-11-07] MEDS: Donepezil HCl 10 MG Tablet PO (21:15)
[2021-11-08] MEDS: Bumetanide 0.5 MG Tablet 1 MG PO (06:48)
[2021-11-08] MEDS: APIXABAN 5 MG TABLET PO ×2 (06:49→17:43)
[2021-11-08] MEDS: Senna/Docusate Sodium 1 Tablet PO ×2 (06:49→17:43)
[2021-11-08] MEDS: Multivitamin (Healthy Eyes) Capsule 1 CAP PO ×2 (06:49→17:43)
[2021-11-08] MEDS: Lisinopril 10 MG Tablet PO (06:49)
[2021-11-08] MEDS: Menthol/Lanolin/Calamine/Znox 113 GM Tube 1 APPLIC TOPICAL ×2 (06:50→17:45)
[2021-11-08] MEDS: Nystatin Powder 15gm Bottle 1 APPLIC TOPICAL ×2 (06:50→17:45)
[2021-11-08 06:53] VITALS: BP 103/61; PULSE 68
[2021-11-08] MEDS: Metoprolol(XL)Succ 25 MG Tablet PO (06:53)
[2021-11-08] MEDS: Potassium Chloride Oral Tablet 20 MEQ PO (08:21)
[2021-11-08 13:44] VITALS: BP 97/65; PULSE 78; RESP 18; TEMP 36.2; O2SAT 97
[2021-11-08 15:17] VITALS: PULSE 76; RESP 18
[2021-11-08] MEDS: Gabapentin 400 MG Capsule PO (20:30)
[2021-11-08] MEDS: Donepezil HCl 10 MG Tablet PO (20:30)
--- NOTE | 2021-11-08 20:41 | NURSING ---
PLACED R' ON 2L O2 VIA NASAL CANNULA FOR BED. RESTING IN BED. ASSISTED R' WITH URINAL . DENIES FURTHER NEEDS.
[2021-11-09] MEDS: Menthol/Lanolin/Calamine/Znox 113 GM Tube 1 APPLIC TOPICAL ×2 (06:00→17:23)
[2021-11-09] MEDS: Senna/Docusate Sodium 1 Tablet PO ×2 (06:01→17:20)
[2021-11-09] MEDS: Nystatin Powder 15gm Bottle 1 APPLIC TOPICAL (06:01)
[2021-11-09] MEDS: APIXABAN 5 MG TABLET PO ×2 (06:01→17:20)
[2021-11-09] MEDS: Bumetanide 0.5 MG Tablet 1 MG PO (06:02)
[2021-11-09] MEDS: Multivitamin (Healthy Eyes) Capsule 1 CAP PO ×2 (06:02→17:20)
[2021-11-09] MEDS: Lisinopril 10 MG Tablet PO (06:02)
[2021-11-09 06:03] VITALS: BP 101/56; PULSE 70
[2021-11-09] MEDS: Metoprolol(XL)Succ 25 MG Tablet PO (06:03)
[2021-11-09] MEDS: Potassium Chloride Oral Tablet 20 MEQ PO (08:03)
[2021-11-09 15:29] VITALS: BP 93/56; PULSE 83; RESP 18; TEMP 36.1; O2SAT 95
[2021-11-09] MEDS: Gabapentin 400 MG Capsule PO (20:29)
[2021-11-09] MEDS: Donepezil HCl 10 MG Tablet PO (20:29)
[2021-11-09 22:43] VITALS: PULSE 73; RESP 12; O2SAT 98
[2021-11-10 04:39] VITALS: BP 101/63; PULSE 72
[2021-11-10] MEDS: Metoprolol(XL)Succ 25 MG Tablet PO (04:39)
[2021-11-10] MEDS: APIXABAN 5 MG TABLET PO ×2 (04:39→18:07)
[2021-11-10] MEDS: Lisinopril 10 MG Tablet PO (04:40)
[2021-11-10] MEDS: Bumetanide 0.5 MG Tablet 1 MG PO (04:40)
[2021-11-10] MEDS: Senna/Docusate Sodium 1 Tablet PO ×2 (04:40→18:07)
[2021-11-10] MEDS: Menthol/Lanolin/Calamine/Znox 113 GM Tube 1 APPLIC TOPICAL ×2 (04:40→18:08)
[2021-11-10] MEDS: Nystatin Powder 15gm Bottle 1 APPLIC TOPICAL ×2 (04:41→18:08)
[2021-11-10] MEDS: Multivitamin (Healthy Eyes) Capsule 1 CAP PO ×2 (04:41→18:07)
[2021-11-10] MEDS: Potassium Chloride Oral Tablet 20 MEQ PO (08:36)
--- NOTE | 2021-11-10 08:42 | CASEMGMT ---
Social Work Left message with son, Mahamed, to review DC plans for DC home 11/20. IDT recommending starting with HHC then transition to outpatient. Therapy to discuss any DME needs. Requested return phone call to finalize. SW to continue to follow. Maddie Browning, CHAIRMAN LEAN ENGINEER
[2021-11-10 13:19] VITALS: BP 104/56; PULSE 82; RESP 18; TEMP 36.2; O2SAT 96
--- NOTE | 2021-11-10 15:19 | CASEMGMT ---
Social Work Spoke with pt about DC 11/20 after family training 11/18. Pt agreeable. Pt requesting HHC. IDT agreeable. Will speak with son on HHC agency. SW to order PT/OT/ST and any DME needed. SW continue to follow. Maddie Browning, MOWER SHARPENER JUNIOR ACCOUNTING CLERK
[2021-11-10] MEDS: Gabapentin 400 MG Capsule PO (21:41)
[2021-11-10] MEDS: Donepezil HCl 10 MG Tablet PO (21:41)
[2021-11-11] MEDS: Bumetanide 0.5 MG Tablet 1 MG PO (05:07)
[2021-11-11] MEDS: Multivitamin (Healthy Eyes) Capsule 1 CAP PO ×2 (05:07→17:29)
[2021-11-11] MEDS: Senna/Docusate Sodium 1 Tablet PO ×2 (05:07→17:29)
[2021-11-11] MEDS: APIXABAN 5 MG TABLET PO ×2 (05:07→17:29)
[2021-11-11 05:08] VITALS: BP 106/65; PULSE 78
[2021-11-11] MEDS: Lisinopril 10 MG Tablet PO (05:08)
[2021-11-11] MEDS: Metoprolol(XL)Succ 25 MG Tablet PO (05:08)
[2021-11-11] MEDS: Nystatin Powder 15gm Bottle 1 APPLIC TOPICAL ×2 (05:11→18:46)
[2021-11-11] MEDS: Menthol/Lanolin/Calamine/Znox 113 GM Tube 1 APPLIC TOPICAL ×2 (05:11→18:48)
[2021-11-11] MEDS: Potassium Chloride Oral Tablet 20 MEQ PO (07:44)
[2021-11-11 13:27] VITALS: BP 86/53; PULSE 85; RESP 16; TEMP 36.3; O2SAT 97
--- NOTE | 2021-11-11 16:55 | CHAPLAIN ---
Type of Pastoral Visit ___ Initial Visit _x__ Follow-up Visit ___ On-call Visit ___ General Patient Visit ___ Spiritual Assessment ___ Family Conference ___ Bereavement ___ Rapid Response ___ Code Blue ___ Other (describe below) Pastoral Care Referral From _x__ Patient ___ Family ___ Nurse ___ Physician ___ Real Estate Professor ___ Compress Machine Operator ___ Other (describe below) Sacrament/Intervention _x__ Active listening ___ Anointing ___ Taoism ___ Bereavement ___ Communion ___ Noelle exploration ___ _x__ Life review _x__ Prayer ___ Reconciliation ___ Sacrament of Sick ___ Supportive presence ___ Wedding ___ Other (describe below) Pastoral Comments visitors included a grandson today; pt has support, is talkative and positive about his future, noelle is important, spouse is faithfully here every day; prayers welcomed
[2021-11-11 19:33] VITALS: BP 102/61; PULSE 76
[2021-11-11] MEDS: Donepezil HCl 10 MG Tablet PO (20:13)
[2021-11-11] MEDS: Gabapentin 400 MG Capsule PO (20:13)
[2021-11-12] MEDS: Menthol/Lanolin/Calamine/Znox 113 GM Tube 1 APPLIC TOPICAL ×2 (06:30→16:50)
[2021-11-12] MEDS: Lisinopril 10 MG Tablet PO (06:30)
[2021-11-12] MEDS: Senna/Docusate Sodium 1 Tablet PO ×2 (06:30→16:51)
[2021-11-12] MEDS: Nystatin Powder 15gm Bottle 1 APPLIC TOPICAL ×2 (06:30→16:51)
[2021-11-12] MEDS: Multivitamin (Healthy Eyes) Capsule 1 CAP PO ×2 (06:30→16:50)
[2021-11-12] MEDS: APIXABAN 5 MG TABLET PO ×2 (06:32→16:50)
[2021-11-12 06:34] VITALS: BP 101/58; PULSE 68
[2021-11-12] MEDS: Bumetanide 0.5 MG Tablet 1 MG PO (06:34)
[2021-11-12] MEDS: Metoprolol(XL)Succ 25 MG Tablet PO (06:34)
[2021-11-12] MEDS: Potassium Chloride Oral Tablet 20 MEQ PO (08:47)
--- NOTE | 2021-11-12 12:49 | NURSING ---
Spoke with resident to inform him of staff members testing positive for COVID 19 and testing requirements. Resident stated that he would inform his and voiced understanding.
[2021-11-12 12:54] VITALS: BP 114/70; PULSE 89; RESP 16; TEMP 36.7; O2SAT 95
--- NOTE | 2021-11-12 14:57 | CASEMGMT ---
Social Work Pt prefers [facility]. Referral made for PT/OT/ST. No DME needs identified at this time. Son to transport. Plan: DC home with and son support 11/20, [facility] PT/OT/ST Maddie Browning, BHUMI VIGILW
--- NOTE | 2021-11-12 18:35 | NURSING ---
pt brushing dentures at sink. back to bed and eucerin cream to b/l legs. call light within reach and no other needs voiced
--- NOTE | 2021-11-12 20:12 | PCM.DC.SUM ---
Providers Date of Admission: 10/07/21 Primary Care Physician: MARYANNE BabbC Reason For Visit: CVA Diagnosis Discharge Diagnosis (1) Debility: Status: Acute Code(s): R53.81 - Other malaise (2) Intracranial hemorrhage: Status: Inactive Code(s): I62.9 - Nontraumatic intracranial hemorrhage, unspecified (3) Atrial fibrillation: Status: Acute Code(s): I48.91 - Unspecified atrial fibrillation (4) Hypertension: Status: Chronic Code(s): I10 - Essential (primary) hypertension (5) Restless leg syndrome: Status: Acute Code(s): G25.81 - Restless legs syndrome (6) Vascular dementia: Status: Acute Code(s): F01.50 - Vascular dementia without behavioral disturbance (7) Depression: Status: Acute Code(s): F32.A - Depression, unspecified (8) Edema: Status: Acute Code(s): R60.9 - Edema, unspecified (9) Thoracic aortic aneurysm without rupture: Status: Chronic Code(s): I71.2 - Thoracic aortic aneurysm, without rupture Medications at Discharge Home Medications gabapentin 400 mg capsule 400 mg PO DAILY cap 06/13/19 donepezil 10 mg tablet 10 mg PO DAILY 03/21/21 tramadol 50 mg tablet 50 mg PO Q6H PRN tab 03/21/21 vitamins A,C,C-ditg-kbrtie 14,320 unit-226 mg-200 unit capsule 1 cap PO BID 09/22/21 apixaban [Eliquis] 5 mg PO BID #0 tab 11/12/21 bumetanide 1 mg PO DAILY 60 Days #120 tab 11/12/21 lisinopril 10 mg PO DAILY 30 Days #30 tab 11/12/21 metoprolol succinate 25 mg PO DAILY 30 Days #30 tab 11/12/21 potassium chloride [Klor-Con M20] 20 meq PO DAILYCM 30 Days #30 tab 11/12/21 Hospital Course Operations None Procedures None Summary of Care Provided Minutes Spent on Discharge: 35 Hospital Course: 81 year old male with below past medical history hospitalized for hemorrhagic stroke, admitted to TCU with debility, here for rehabilitation, strengthening, prior to discharge home with . Discharge home with , son support 11/20/2021, [facility] PT/OT/ST. Physical Exam Const alert and oriented x3 General Appearance: cooperative HEENT normocephalic Eyes PERRL and EOMs intact bilaterally Neck supple, no JVD and no carotid bruits Resp normal respiratory effort, normal air movement and clear to auscultation bilaterally Cardio regular rate and regular rhythm GI normal to inspection, nondistended, normoactive bowel sounds, non-tender and non-distended Extremity normal capillary refill General Extremity: Negative for edema Skin no rashes or lesions noted General Skin Exam: no breakdown Psych affect normal Appearance: appropriate Weight / BMI Weight Weight: 98.339 kg Body Mass Index (BMI) 20.5 ABG / Lab / Microbiology Data Result Diagrams: 11/05/21 04:10 11/05/21 04:10 D/C Instructions Discharge Diet: No restrictions Discharge Activity: Return to Normal Activity Weight Bearing Status: Weight bearing as tolerated Call your doctor if you observe: Fever of 101 or Higher, Inability to urinate, Inability to have a bowel movement, Shortness of breath, Dizziness, Fainting spells, Swelling in the ankles, Chest pain and Uncontrolled pain Additional Instructions: Discharge home with , son support 11/20/2021, [facility] PT/OT/ST. Please Follow Up With: Christina Lr WOOD FLOUR MILLER, WOOD FLOUR MILLER-C When: 1 week. Meaningful Use Info Meaningful Use Diagnoses (Choose all that apply): Hemorrhagic CVA CVA Therapy Assessed for PT,OT and/or ST?: Yes Discharge Plan Admission Admit Date/Time: 10/07/21 13:39 Primary Reason for Your Visit: Debility. Attending Provider: Kenton Singleton Chi Primary Care Provider: Christina Lr Instructions Additional Instructions / Restrictions: Discharge home with , son support 11/20/2021, [facility] PT/OT/ST. Discharge Orders/Prescriptions Prescriptions: New potassium chloride [Klor-Con M20] 20 mEq Tablet,Er Particles/Crystals 20 meq PO DAILYCM 30 Days Qty: 30 RF: 0 bumetanide 0.5 mg Tablet 1 mg PO DAILY 60 Days Qty: 120 RF: 0 lisinopril 10 mg Tablet 10 mg PO DAILY 30 Days Qty: 30 RF: 0 metoprolol succinate 25 mg Tablet Extended Release 24 Hr 25 mg PO DAILY 30 Days Qty: 30 RF: 0 Eliquis 5 mg Tablet 5 mg PO BID Qty: 0 RF: 0 Continued gabapentin [Neurontin] 400 mg capsule 400 mg PO DAILY RF: 0 donepezil 10 mg tablet 10 mg PO DAILY RF: 0 PreserVision AREDS 14,[id number] wnwi-nv-fpme capsule 1 cap PO BID RF: 0 tramadol 50 mg tablet 50 mg PO Q6H PRN (Reason: pain) RF: 0 Discontinued cyanocobalamin (vit B-12) 100 mcg tablet 100 mcg tablet 100 mcg PO QDAY RF: 0 PreserVision AREDS-2 [id number] fh-pjrv-rf-mg capsule 1 tab PO BID RF: 0 sertraline 50 mg tablet 50 mg PO DAILY RF: 0 metoprolol succinate 50 MG tablet 50 mg PO DAILY RF: 0 Eliquis 5 mg tablet 10 mg PO DAILY RF: 0 lisinopril 10 mg Tablet 10 mg PO BID RF: 0 bumetanide 2 mg tablet 2 mg PO BID RF: 0 memantine 10 mg tablet 10 mg PO BID RF: 0 Referrals / Follow Up: Dr. Lee Lin [Other] - 01/20/22 9:00 am David Valencia NP, WOOD FLOUR MILLER-C [Nurse Practitioner] - 12/10/21 3:30 pm Christina Lr NP-C [Primary Care Provider] - Disposition Disposition (needs filled in before D/C Order can be placed): Home Health Service
[2021-11-12] MEDS: Gabapentin 400 MG Capsule PO (20:40)
[2021-11-12] MEDS: Donepezil HCl 10 MG Tablet PO (20:41)
[2021-11-13] MEDS: Lisinopril 10 MG Tablet PO (05:18)
[2021-11-13] MEDS: APIXABAN 5 MG TABLET PO ×2 (05:18→16:58)
[2021-11-13] MEDS: Senna/Docusate Sodium 1 Tablet PO ×2 (05:18→16:58)
[2021-11-13] MEDS: Bumetanide 0.5 MG Tablet 1 MG PO (05:18)
[2021-11-13] MEDS: Multivitamin (Healthy Eyes) Capsule 1 CAP PO ×2 (05:18→16:58)
[2021-11-13 05:19] VITALS: BP 117/61; PULSE 78
[2021-11-13] MEDS: Menthol/Lanolin/Calamine/Znox 113 GM Tube 1 APPLIC TOPICAL ×2 (05:19→17:00)
[2021-11-13] MEDS: Metoprolol(XL)Succ 25 MG Tablet PO (05:19)
[2021-11-13] MEDS: Nystatin Powder 15gm Bottle 1 APPLIC TOPICAL ×2 (05:20→17:00)
[2021-11-13] MEDS: Potassium Chloride Oral Tablet 20 MEQ PO (08:23)
[2021-11-13 10:00] VITALS: PULSE 68; RESP 16; O2SAT 98
--- NOTE | 2021-11-13 13:56 | NURSING ---
Resident and informed of 2 staff members testing positive for COVID.
[2021-11-13 15:19] VITALS: BP 95/54; PULSE 76; RESP 16; TEMP 36.3; O2SAT 95
[2021-11-13] MEDS: Gabapentin 400 MG Capsule PO (20:10)
[2021-11-13] MEDS: Donepezil HCl 10 MG Tablet PO (20:10)
[2021-11-13] MEDS: Hydrocortisone 2.5% Crm 1 APPLIC TOPICAL (20:12)
[2021-11-14 05:32] VITALS: BP 105/61; PULSE 70
[2021-11-14 05:33] VITALS: PULSE 70
[2021-11-14] MEDS: Senna/Docusate Sodium 1 Tablet PO ×2 (05:33→16:47)
[2021-11-14] MEDS: Metoprolol(XL)Succ 25 MG Tablet PO (05:33)
[2021-11-14] MEDS: Lisinopril 10 MG Tablet PO (05:33)
[2021-11-14] MEDS: Multivitamin (Healthy Eyes) Capsule 1 CAP PO ×2 (05:33→16:46)
[2021-11-14] MEDS: APIXABAN 5 MG TABLET PO ×2 (05:33→16:46)
[2021-11-14] MEDS: Bumetanide 0.5 MG Tablet 1 MG PO (05:33)
[2021-11-14] MEDS: Nystatin Powder 15gm Bottle 1 APPLIC TOPICAL ×2 (05:34→16:51)
[2021-11-14] MEDS: Menthol/Lanolin/Calamine/Znox 113 GM Tube 1 APPLIC TOPICAL ×2 (05:34→16:50)
[2021-11-14] MEDS: Potassium Chloride Oral Tablet 20 MEQ PO (08:43)
[2021-11-14 16:00] VITALS: BP 94/45; PULSE 84; RESP 16; TEMP 36; O2SAT 96
[2021-11-14] MEDS: Gabapentin 400 MG Capsule PO (20:55)
[2021-11-14] MEDS: Donepezil HCl 10 MG Tablet PO (20:56)
[2021-11-15] MEDS: Senna/Docusate Sodium 1 Tablet PO ×2 (05:34→17:11)
[2021-11-15 05:35] VITALS: BP 105/59; PULSE 75
[2021-11-15] MEDS: APIXABAN 5 MG TABLET PO ×2 (05:35→17:10)
[2021-11-15] MEDS: Lisinopril 10 MG Tablet PO (05:35)
[2021-11-15] MEDS: Multivitamin (Healthy Eyes) Capsule 1 CAP PO ×2 (05:35→17:10)
[2021-11-15] MEDS: Bumetanide 0.5 MG Tablet 1 MG PO (05:35)
[2021-11-15] MEDS: Metoprolol(XL)Succ 25 MG Tablet PO (05:35)
[2021-11-15] MEDS: Menthol/Lanolin/Calamine/Znox 113 GM Tube 1 APPLIC TOPICAL ×2 (05:36→17:10)
[2021-11-15] MEDS: Nystatin Powder 15gm Bottle 1 APPLIC TOPICAL ×2 (05:36→17:11)
[2021-11-15] MEDS: Potassium Chloride Oral Tablet 20 MEQ PO (08:15)
[2021-11-15 15:31] VITALS: BP 102/55; PULSE 80; RESP 17; TEMP 36.5; O2SAT 95
[2021-11-15] MEDS: Donepezil HCl 10 MG Tablet PO (20:12)
[2021-11-15] MEDS: Gabapentin 400 MG Capsule PO (20:13)
[2021-11-16] MEDS: Menthol/Lanolin/Calamine/Znox 113 GM Tube 1 APPLIC TOPICAL ×2 (04:57→17:57)
[2021-11-16] MEDS: Lisinopril 10 MG Tablet PO (04:57)
[2021-11-16] MEDS: Bumetanide 0.5 MG Tablet 1 MG PO (04:57)
[2021-11-16] MEDS: Multivitamin (Healthy Eyes) Capsule 1 CAP PO ×2 (04:57→17:34)
[2021-11-16] MEDS: APIXABAN 5 MG TABLET PO ×2 (04:57→17:34)
[2021-11-16] MEDS: Senna/Docusate Sodium 1 Tablet PO ×2 (04:57→17:34)
[2021-11-16 04:58] VITALS: BP 107/60; PULSE 67
[2021-11-16] MEDS: Nystatin Powder 15gm Bottle 1 APPLIC TOPICAL ×2 (04:58→17:58)
[2021-11-16] MEDS: Metoprolol(XL)Succ 25 MG Tablet PO (04:58)
[2021-11-16] MEDS: Potassium Chloride Oral Tablet 20 MEQ PO (08:37)
[2021-11-16 13:19] VITALS: BP 94/54; PULSE 79; RESP 16; TEMP 36.7; O2SAT 97
[2021-11-16] MEDS: Donepezil HCl 10 MG Tablet PO (20:39)
[2021-11-16] MEDS: Gabapentin 400 MG Capsule PO (20:39)
[2021-11-17 05:19] VITALS: BP 109/65; PULSE 76; RESP 16; TEMP 36.4; O2SAT 98
[2021-11-17 05:21] VITALS: BP 109/65; PULSE 76
[2021-11-17] MEDS: Lisinopril 10 MG Tablet PO (05:21)
[2021-11-17] MEDS: Multivitamin (Healthy Eyes) Capsule 1 CAP PO ×2 (05:21→17:24)
[2021-11-17] MEDS: Senna/Docusate Sodium 1 Tablet PO ×2 (05:21→17:25)
[2021-11-17] MEDS: Metoprolol(XL)Succ 25 MG Tablet PO (05:21)
[2021-11-17] MEDS: Bumetanide 0.5 MG Tablet 1 MG PO (05:22)
[2021-11-17] MEDS: APIXABAN 5 MG TABLET PO ×2 (05:22→17:24)
[2021-11-17] MEDS: Nystatin Powder 15gm Bottle 1 APPLIC TOPICAL ×2 (05:26→17:26)
[2021-11-17] MEDS: Menthol/Lanolin/Calamine/Znox 113 GM Tube 1 APPLIC TOPICAL ×2 (05:27→17:26)
[2021-11-17] MEDS: Potassium Chloride Oral Tablet 20 MEQ PO (08:05)
[2021-11-17 10:00] VITALS: PULSE 71; RESP 16; O2SAT 99
--- NOTE | 2021-11-17 14:12 | CASEMGMT ---
Social Work Brief interview for mental status (BIMS) and resident mood interview (PHQ-9) completed on this day. BIMS score 15. PHQ-9 score . Collette TRIPATHI, ZHOUS
[2021-11-17] MEDS: Hydrocortisone 2.5% Crm 1 APPLIC TOPICAL (21:01)
[2021-11-17] MEDS: Donepezil HCl 10 MG Tablet PO (21:04)
[2021-11-17] MEDS: Gabapentin 400 MG Capsule PO (21:05)
[2021-11-18 05:17] VITALS: BP 113/53; PULSE 61
[2021-11-18] MEDS: Nystatin Powder 15gm Bottle 1 APPLIC TOPICAL ×2 (05:18→17:38)
[2021-11-18] MEDS: Lisinopril 10 MG Tablet PO (05:19)
[2021-11-18] MEDS: Senna/Docusate Sodium 1 Tablet PO ×2 (05:19→17:34)
[2021-11-18] MEDS: Bumetanide 0.5 MG Tablet 1 MG PO (05:19)
[2021-11-18] MEDS: Multivitamin (Healthy Eyes) Capsule 1 CAP PO ×2 (05:19→17:34)
[2021-11-18] MEDS: APIXABAN 5 MG TABLET PO ×2 (05:19→17:34)
[2021-11-18 05:20] VITALS: PULSE 61
[2021-11-18] MEDS: Metoprolol(XL)Succ 25 MG Tablet PO (05:20)
[2021-11-18] MEDS: Menthol/Lanolin/Calamine/Znox 113 GM Tube 1 APPLIC TOPICAL ×2 (05:22→17:38)
[2021-11-18 06:09] LABS: Absolute Lymphocyte Count 1.52 X10^3/uL (0.83-4.51); Absolute Neutrophil Count 3.2 X10^3/uL (2.0-7.7); Basophil# 0.07 X10^3/uL; Basophil% 1.3 % (0-1); Eosinophil# 0.16 X10^3/uL; Hemoglobin 12.4 g/dL (13.0-16.5); Lymphocyte # 1.52 X10^3/ul (0.83-4.51); Lymphocyte % 28.3 % (19-41); Mean Corp Hgb Conc 32.6 g/dL (32-36); Mean Corpuscular Hgb 29.5 pg (27.0-32.0); Mean Corpuscular Volume 90.5 fL (80-94); Monocyte# 0.37 X10^3/uL; Monocyte% 6.9 % (0-10); NRBC Flagged by Analyzer 0 % (0-5); Neutrophil # 3.24 X10^3/uL (2.7-7.7); Neutrophil % 60.1 % (47-70); Platelet Count 142 K/mm3 (150-450); RBC Distribution Width CV 13.8 % (11.6-14.6); RBC Distribution Width SD 45.6 fl (35.1-43.9); White Blood Count 5.4 K/mm3 (4.4-11.0)
[2021-11-18 06:35] LABS: Anion Gap 5 (5-15); BUN 24 mg/dL (7-18); BUN/Creat Ratio 21.4 RATIO (10-20); Calcium,Total 8.5 mg/dL (8.5-10.1); Chloride 110 mmol/L (98-107); Creatinine, Serum 1.12 mg/dL (0.70-1.30); EST Glomerular Filtration Rate 67 mL/min (>60); Est Glom Filt Rate - Afr Amer 81 mL/min (>60); Estimated Creatinine Clearance 60.14 ml/min; Glucose 80 mg/dL (74-106); Potassium 4.4 mmol/L (3.5-5.1); Sodium Level 141 mmol/L (136-145)
[2021-11-18] MEDS: Potassium Chloride Oral Tablet 20 MEQ PO (08:24)
[2021-11-18 14:45] VITALS: BP 108/65; PULSE 68; RESP 16; TEMP 36.2; O2SAT 97
[2021-11-18] MEDS: Gabapentin 400 MG Capsule PO (20:15)
[2021-11-18] MEDS: Donepezil HCl 10 MG Tablet PO (20:16)
[2021-11-18 20:18] VITALS: PULSE 79; RESP 16; O2SAT 98
[2021-11-19 06:14] VITALS: BP 106/60; PULSE 64
[2021-11-19] MEDS: Lisinopril 10 MG Tablet PO (06:14)
[2021-11-19] MEDS: Multivitamin (Healthy Eyes) Capsule 1 CAP PO ×2 (06:14→17:07)
[2021-11-19] MEDS: Bumetanide 0.5 MG Tablet 1 MG PO (06:14)
[2021-11-19] MEDS: Metoprolol(XL)Succ 25 MG Tablet PO (06:14)
[2021-11-19] MEDS: Senna/Docusate Sodium 1 Tablet PO ×2 (06:14→17:08)
[2021-11-19] MEDS: APIXABAN 5 MG TABLET PO ×2 (06:15→17:07)
[2021-11-19] MEDS: Menthol/Lanolin/Calamine/Znox 113 GM Tube 1 APPLIC TOPICAL ×2 (06:17→17:10)
[2021-11-19] MEDS: Nystatin Powder 15gm Bottle 1 APPLIC TOPICAL ×2 (06:19→17:10)
[2021-11-19] MEDS: Potassium Chloride Oral Tablet 20 MEQ PO (07:38)
--- NOTE | 2021-11-19 11:12 | CASEMGMT ---
Social Work Per occupational therapist, pt requesting Transport Wheelchair. Phone call to [facility] and they do have these chairs in stock and they are covered by insurance. SW met with pt and informed of this. Pt aware of other companies he could obtain the wheelchair from. Pt appreciative of information and will go to [facility] to case picker chair after discharge. SW will request prescription from physician and provide to pt prior to discharge. CLAUDIO Mendoza
[2021-11-19 16:00] VITALS: BP 93/57; PULSE 79; RESP 17; TEMP 36.6; O2SAT 97
[2021-11-19] MEDS: Gabapentin 400 MG Capsule PO (21:24)
[2021-11-19] MEDS: Donepezil HCl 10 MG Tablet PO (21:24)
[2021-11-20 06:29] VITALS: PULSE 67; RESP 16; O2SAT 96
[2021-11-20] MEDS: Multivitamin (Healthy Eyes) Capsule 1 CAP PO (06:34)
[2021-11-20] MEDS: Senna/Docusate Sodium 1 Tablet PO (06:34)
[2021-11-20] MEDS: APIXABAN 5 MG TABLET PO (06:35)
[2021-11-20] MEDS: Menthol/Lanolin/Calamine/Znox 113 GM Tube 1 APPLIC TOPICAL (06:35)
[2021-11-20] MEDS: Nystatin Powder 15gm Bottle 1 APPLIC TOPICAL (06:35)
[2021-11-20 06:39] VITALS: BP 109/69; PULSE 67
[2021-11-20] MEDS: Lisinopril 10 MG Tablet PO (06:39)
[2021-11-20] MEDS: Bumetanide 0.5 MG Tablet 1 MG PO (06:39)
[2021-11-20] MEDS: Metoprolol(XL)Succ 25 MG Tablet PO (06:39)
--- NOTE | 2021-11-20 08:30 | CASEMGMT ---
Social Work Per pt request, referral for Transport [facility]chair [facility]. Pt to flower buncher or picker chair later today. CLAUDIO Mendoza
[2021-11-20] MEDS: Potassium Chloride Oral Tablet 20 MEQ PO (08:42)
[2021-11-20 12:31] VITALS: BP 113/64; PULSE 85; RESP 16; TEMP 36.6; O2SAT 98
== END 2021-11-20 12:48 | disposition home health service (06) | DRG 57 ==
PROVIDERS: Admitting Provider Family Medicine Geriatric Medicine; Visit Provider Family Medicine Geriatric Medicine
DX: I69.354 Hemiplegia and hemiparesis following cerebral infarction affecting left non-dominant side (principal); I48.19 Other persistent atrial fibrillation; I69.392 Facial weakness following cerebral infarction; Z23 Encounter for immunization; J44.9 Chronic obstructive pulmonary disease, unspecified; I10 Essential (primary) hypertension; E66.9 Obesity, unspecified; G47.33 Obstructive sleep apnea (adult) (pediatric); M19.90 Unspecified osteoarthritis, unspecified site; G25.81 Restless legs syndrome; F01.50 Vascular dementia, unspecified severity, without behavioral disturbance, psychotic disturbance, mood disturbance, and anxiety; F32.A Depression, unspecified; E87.6 Hypokalemia; I71.2 Thoracic aortic aneurysm, without rupture; B35.4 Tinea corporis; Z79.899 Other long term (current) drug therapy; Z79.01 Long term (current) use of anticoagulants
CPT/HCPCS: 36415; 74018; 80048; 85025; 87635; 90732; 92507; 92526; 97032; 97110; 97112; 97116; 97140; 97150; 97162; 97167; 97530; 97535; 97802; G0009; U0005; U0003

== ENCOUNTER 2021-12-05 10:28 | Emergency (ER) | payer MEDICARE, OTHER, SELFPAY ==
[2021-12-05 10:32] VITALS: BP 135/77; PULSE 54; RESP 18; TEMP 36.7; O2SAT 98; BMI 29.6
--- NOTE | 2021-12-05 11:22 | CT_ITS ---
STUDY: CT BRAIN WITHOUT CONTRAST REASON FOR EXAM: Male, 81 years old. Head injury due to a fall. Left-sided pain. RADIATION DOSAGE (If Supplied By Facility): CTDIvol = ( 44.99 ) mGy, DLP = ( 880.47 ) mGycm TECHNIQUE: Transaxial CT imaging of the brain was performed without administration of intravenous contrast material. Individualized dose optimization techniques were used for this CT. COMPARISON: Comparison is made with prior study dated 09/30/2021. FINDINGS: Normal soft tissue structures. Normal calvarium. There is mild cerebral atrophy with widening of the extra-axial spaces and ventricular dilatation. There are areas of decreased attenuation within the white matter tracts of the supratentorial brain, consistent with microvascular disease changes. Old lacunar infarct in the posterior aspect of the insular cortex of the left temporal lobe as well as in the posterior aspect of the right thalamus. The previously seen focal hematoma in the posterior aspect of the right thalamus has cleared. Normal brainstem. Normal cerebellum. There is no intracranial hemorrhage. There are no findings of an acute ischemic infarction. Normal visualized paranasal sinuses. CT/Brain/Head without Contrast IMPRESSION: Chronic involutional changes of the brain. No acute abnormality is seen. Electronically Signed: Matt Peng MD at 12:05 EST , Service support ,
[2021-12-05 11:36] VITALS: BP 150/71; PULSE 64; RESP 18; O2SAT 98
[2021-12-05] MEDS: HYDROcodone Bitartrate/Apap 5/325 Tablet PO (11:37)
--- NOTE | 2021-12-05 11:50 | RAD_ITS ---
STUDY: X-RAY - LEFT KNEE REASON FOR EXAM: Male, 81 years old. Pain TECHNIQUE: 2 view(s) of the knee. COMPARISON: None. FINDINGS: Normal visualized distal femur. Normal visualized proximal tibia and fibula. Normal proximal tibiofibular articulation. Normal medial femorotibial compartment. There is severe degenerative arthrosis of the lateral femorotibial compartment with severe joint space narrowing. There is severe degenerative arthrosis of the patellofemoral articulation. The soft tissue structures are unremarkable. RAD/Knee 1 or 2 Views IMPRESSION: Degenerative arthrosis. Electronically Signed: Matt Peng MD at 12:06 EST , Service support ,
--- NOTE | 2021-12-05 14:48 | EDS_ITS ---
HPI HPI - Fall History of Present Illness Chief Complaint: Fall Narrative Narrative: 81-year-old male presenting with left knee pain and head injury. Patient states that he had physical therapy yesterday on his left leg and states that he was told it was going to hurt more yesterday. When he was on the toilet trying to get up his left knee gave out and he fell striking it on the ground. He hit his head on the side of the counter. No LOC, nausea, dizziness, visual complaints. Patient is anticoagulated for A. fib and is on Eliquis. Patient states he was on the floor and was unable to get up. He states that at baseline he uses a walker in a wheelchair around the house. [facility] Medical History Anticoagulation goal of INR 2 to 3 Chronic back pain COPD (chronic obstructive pulmonary disease) Essential hypertension Left bundle branch block Longstanding persistent atrial fibrillation Lower extremity edema Nonrheumatic mitral (valve) prolapse Obesity (BMI 30.0-34.9) RAFFY (obstructive sleep apnea) Osteoarthritis Patent foramen ovale Premature atrial contractions Premature ventricular contraction RLS (restless legs syndrome) Stroke/cerebrovascular accident Tachycardia Thoracic aortic aneurysm without rupture Home Medications gabapentin 400 mg capsule 400 mg PO DAILY cap 06/13/19 [History Last Taken Unknown] donepezil 10 mg tablet 10 mg PO DAILY 03/21/21 [History Last Taken Unknown] tramadol 50 mg tablet 50 mg PO Q6H PRN tab 03/21/21 [History Last Taken Unk nown] vitamins A,C,R-vpvm-awxulv 14,320 unit-226 mg-200 unit capsule 1 cap PO BID 09/22/21 [History Last Taken Unknown] apixaban [Eliquis] 5 mg PO BID #0 tab 11/12/21 [Rx Last Taken Unknown] bumetanide 1 mg PO DAILY 60 Days #120 tab 11/12/21 [Rx Last Taken Unknown] lisinopril 10 mg PO DAILY 30 Days #30 tab 11/12/21 [Rx Last Taken Unknown] metoprolol succinate 25 mg PO DAILY 30 Days #30 tab 11/12/21 [Rx Last Taken Unknown] potassium chloride [Klor-Con M20] 20 meq PO DAILYCM 30 Days #30 tab 11/12/21 [Rx Last Taken Unknown] Allergy/AdvReac Type Severity Reaction Status Date / Time diclofenac Allergy Severe Anaphylaxis Verified 12/05/21 10:31 naproxen [From Naprosyn] Allergy Severe Angioedema Verified 12/05/21 10:31 gabapentin [From Neurontin] Allergy Hives Verified 12/05/21 10:31 Penicillins Allergy Hives Verified 12/05/21 10:31 Sulfa (Sulfonamide Allergy Hives Verified 12/05/21 10:31 Antibiotics) Family History Sister Cancer Surgical History History of carpal tunnel surgery History of total right knee replacement Social History household members: spouse Smoking Status: Never smoker alcohol intake: never substance use type: does not use ROS ROS ED Constitutional Constitutional ED: Denies fever(s) or sweats Eyes Eyes: Denies blurry vision or diplopia ENT ENT ED: Denies rhinorrhea or sore throat Cardiovascular Cardiovascular: Denies chest pain or palpitations Respiratory/Chest Respiratory/Chest: Denies cough or dyspnea Gastrointestinal Gastrointestinal: Denies abdominal pain, nausea or vomiting Genitourinary Genitourinary ED: Denies dysuria, hematuria or urinary frequency Musculoskeletal Musculoskeletal: Reports other Details: Left knee pain Integumentary Reports other Details: Left knee abrasion Neurologic Neurologic: Denies headache(s), paresthesias or weakness EXAM Physical Exam Const Vital Signs: 12/05/21 10:32 12/05/21 10:52 12/05/21 11:36 Temperature 98.1 F Temperature Source Oral Pulse Rate 54 L 64 Respiratory Rate 18 18 Respiratory Effort Normal Respiratory Depth Normal Respiratory Pattern Normal Blood Pressure 135/77 H 150/71 H Blood Pressure Mean 96 97 Pulse Ox 98 98 Oxygen Delivery Method Room Air Room Air Positive well nourished General Appearance ED: NAD HEENT Reports normocephalic and TM's normal bilaterally atraumatic Eyes PERRL and EOMs intact bilaterally General Eye ED: Negative for pale conjunctiva or scleral icterus Neck full ROM Resp normal respiratory effort and clear to auscultation bilaterally Cardio regular rate and regular rhythm Extremity Extremity Narrative: Superficial abrasion overlying the inferior aspect of the left knee. Left knee has full range of motion actively and passively. There is slight erythema surrounding the abrasion. There is tenderness palpation to the medial joint line. No significant pain with short arc range of motion. Neuro oriented x3 Sensorium / Orientation: alert Psych mental status grossly normal and thought process normal Skin Skin Narrative: As documented above MDM MDM MDM Narrative Medical decision making narrative: Patient given Lucan for pain. I obtained an x-ray of the left knee which on my interpretation shows no acute fracture or subluxation. There is degenerative changes in this joint however. Patient had a CT of the brain due being on anticoagulation and CT of the brain is also negative. Patient feeling improved after receiving pain medication. He states that he has a walker and a wheelchair at home to help him get around. He will follow-up with his primary care to ensure resolution. Impression: 1. Fall 2. Left knee contusion 3. Closed head injury Lab Data Attestation: I reviewed the patient's lab results. Radiography Diagnostic Testing: Clinical Impression(s) from Imaging Studies Brain CT 12/05/21 11:22 IMPRESSION: Chronic involutional changes of the brain. No acute abnormality is seen. Electronically Signed: Matt Peng MD at 12:05 EST , Service support , Knee X-Ray 12/05/21 11:50 IMPRESSION: Degenerative arthrosis. Electronically Signed: Matt Peng MD at 12:06 EST , Service support , Discharge Plan Triage Chief Complaint: Fall ED Provider: Darrell Block Dx/Rx/DC Orders Instructions: ED Contusion, Lower Extremity, ED Head Injury (Adult), ED Fall Prevention Prescriptions: No Action gabapentin [Neurontin] 400 mg capsule 400 mg PO DAILY RF: 0 donepezil 10 mg tablet 10 mg PO DAILY RF: 0 PreserVision AREDS [id number] fafv-be-wial capsule 1 cap PO BID RF: 0 tramadol 50 mg tablet 50 mg PO Q6H PRN (Reason: pain) RF: 0 potassium chloride [Klor-Con M20] 20 mEq Tablet,Er Particles/Crystals 20 meq PO DAILYCM 30 Days Qty: 30 RF: 0 bumetanide 0.5 mg Tablet 1 mg PO DAILY 60 Days Qty: 120 RF: 0 lisinopril 10 mg Tablet 10 mg PO DAILY 30 Days Qty: 30 RF: 0 metoprolol succinate 25 mg Tablet Extended Release 24 Hr 25 mg PO DAILY 30 Days Qty: 30 RF: 0 Eliquis 5 mg Tablet 5 mg PO BID Qty: 0 RF: 0 Primary Care Provider: Christina Lr Referrals: Christina Lr, STATISTICAL TYPIST-C [Primary Care Provider] - Disposition Disposition: Home, Self Care Discharge Date/Time: 12/05/21 13:22
== END 2021-12-05 13:22 | disposition home or self-care (01) ==
PROVIDERS: Emergency Provider Student in an Organized Health Care Education/Training Program; Visit Provider Student in an Organized Health Care Education/Training Program
DX: S80.02XA Contusion of left knee, initial encounter (principal); S09.90XA Unspecified injury of head, initial encounter; G47.33 Obstructive sleep apnea (adult) (pediatric); W19.XXXA Unspecified fall, initial encounter; Z79.899 Other long term (current) drug therapy
CPT/HCPCS: 99284; 70450; 73560

== ENCOUNTER 2021-12-08 11:16 | Inpatient (IN) | payer MEDICARE, OTHER, SELFPAY ==
[2021-12-08 11:18] VITALS: BP 163/90; PULSE 85; RESP 18; TEMP 36.5; O2SAT 96; BMI 28.8
--- NOTE | 2021-12-08 11:33 | RAD_ITS ---
STUDY: X-RAY - LEFT FEMUR REASON FOR STUDY: Male, 81 years old. Pain TECHNIQUE: 4 view(s) of the femur. COMPARISON: None. FINDINGS: Transverse left basilar cervical fracture with cephalic migration of the distal fracture fragment. Soft tissue swelling. RAD/Femur Min 2 Views IMPRESSION: Transverse left basilar cervical fracture with cephalic migration of the distal fracture fragment. Electronically Signed: Matt Peng MD at 12:29 EST , Service support ,
--- NOTE | 2021-12-08 11:33 | RAD_ITS ---
STUDY: X-RAY - PELVIS REASON FOR EXAM: Male, 81 years old. Pain TECHNIQUE: One view of the pelvis was obtained. COMPARISON: None. FINDINGS: Gaseous distention of the colon. There are multiple calcified phleboliths. Normal bilateral iliac wings, sacroiliac joints and visualized sacrum. Normal visualized bilateral superior and inferior pubic rami. Normal pubic symphysis. Normal ischial tuberosities. Normal visualized right femoral head. There is osteoarthritic spur formation of the right acetabular rim. There is mild articular joint space narrowing of the right hip. There is evidence of a transverse left basicervical fracture with cephalic migration of the distal fracture fragment. RAD/Pelvis 1 or 2 Views IMPRESSION: Transverse left basicervical fracture with cephalic migration of the distal fracture fragment. Electronically Signed: Matt Peng MD at 12:28 EST , Service support ,
--- NOTE | 2021-12-08 11:35 | ED.VIS.LOWEX ---
HPI History of Present Illness Chief Complaint: Lower Extremity Injury Narrative Narrative: 81-year-old male presenting with left hip pain. Patient was seen a couple of days ago for left knee pain after a fall. At that point he had hit his head on the counter and fell onto the floor injuring his left knee. He had negative x-rays of the left knee. A negative CT brain. Blood work was normal. He was discharged home. Patient states that when he went home his son assisted him into a lazy boy chair. The patient has been sitting there since. He states that he has been urinating and defecating in his pants. He states he could not get up to go to the bathroom. He has been able to eat and drink. He has not had a fever. Is not complaining of abdominal pain. He denies dysuria or hematuria. Patient states that he has not had another fall but at some point his hip pain overcame his knee pain. [facility] Medical History Anticoagulation goal of INR 2 to 3 Chronic back pain COPD (chronic obstructive pulmonary disease) Essential hypertension Left bundle branch block Longstanding persistent atrial fibrillation Lower extremity edema Nonrheumatic mitral (valve) prolapse Obesity (BMI 30.0-34.9) RAFFY (obstructive sleep apnea) Osteoarthritis Patent foramen ovale Premature atrial contractions Premature ventricular contraction RLS (restless legs syndrome) Stroke/cerebrovascular accident Tachycardia Thoracic aortic aneurysm without rupture Home Medications gabapentin 400 mg capsule 400 mg PO DAILY cap 06/13/19 [History Last Taken 12/06/21] tramadol 50 mg tablet 50 mg PO Q6H PRN tab 03/21/21 [History Last Taken Unknown] vitamins A,C,U-shpm-yqpluh 14,320 unit-226 mg-200 unit capsule 1 cap PO BID 09/22/21 [History Last Taken 12/07/21] apixaban [Eliquis] 5 mg PO BID #0 tab 11/12/21 [Rx Last Taken 12/07/21] bumetanide 1 mg PO DAILY 60 Days #120 tab 11/12/21 [Rx Last Taken Unknown] lisinopril 10 mg PO DAILY 30 Days #30 tab 11/12/21 [Rx Last Taken 12/07/21] metoprolol succinate 25 mg PO DAILY 30 Days #30 tab 11/12/21 [Rx Last Taken 12/07/21] potassium chloride [Klor-Con M20] 20 meq PO DAILYCM 30 Days #30 tab 11/12/21 [Rx Last Taken 12/07/21] memantine 10 mg PO BID 12/08/21 [History Last Taken 12/07/21] Allergy/AdvReac Type Severity Reaction Status Date / Time diclofenac Allergy Severe Anaphylaxis Verified 12/08/21 11:25 naproxen [From Naprosyn] Allergy Severe Angioedema Verified 12/08/21 11:25 gabapentin [From Neurontin] Allergy Hives Verified 12/08/21 11:25 Penicillins Allergy Hives Verified 12/08/21 11:25 Sulfa (Sulfonamide Allergy Hives Verified 12/08/21 11:25 Antibiotics) Family History Sister Cancer Surgical History History of carpal tunnel surgery History of total right knee replacement Social History household members: spouse Smoking Status: Never smoker alcohol intake: never substance use type: does not use ROS ROS ED Constitutional Constitutional ED: Denies chills or fever(s) Eyes Eyes: Denies blurry vision or diplopia ENT ENT ED: Denies rhinorrhea or sore throat Cardiovascular Cardiovascular: Denies chest pain or palpitations Respiratory/Chest Respiratory/Chest: Denies cough or dyspnea Gastrointestinal Gastrointestinal: Denies abdominal pain or nausea Genitourinary Genitourinary ED: Denies dysuria Musculoskeletal Musculoskeletal: Reports other Details: Left hip and left knee pain Integumentary Reports other Details: Bruising over the left hip. ; Denies rash Neurologic Neurologic: Denies headache(s) or paresthesias EXAM Physical Exam Const Vital Signs: 12/08/21 11:18 12/08/21 14:02 Temperature 97.7 F L 96.7 F L Temperature Source Oral Oral Pulse Rate 85 80 Respiratory Rate 18 17 Blood Pressure 163/90 H 176/76 H Blood Pressure Mean 114 109 Pulse Ox 96 96 Oxygen Delivery Method Room Air Room Air Positive well nourished General Appearance ED: NAD HEENT normocephalic and atraumatic Eyes PERRL Resp normal respiratory effort and clear to auscultation bilaterally Cardio regular rate and regular rhythm GI non-tender and non-distended Palpation: soft Extremity Extremity Narrative: Tenderness to palpation over the left hip. There is ecchymosis over the greater trochanter. The left lower extremity is shortened and externally rotated. Neuro CN's II-XII intact bilaterally Sensorium / Orientation: alert MDM MDM MDM Narrative Medical decision making narrative: Patient presenting with left hip pain. He states he has not had another fall. His left leg is shortened and externally rotated. Will obtain blood work and imaging. Patient CBC is within normal limits. Renal function electrolytes are normal. Patient has isolated elevation of total bilirubin at 2.10 with other LFTs being normal. Urinalysis negative for infection. Chest x-ray my interpretation shows no acute cardiopulmonary process and the radiologist does agree. I obtained an EKG which on my interpretation shows atrial fibrillation with a ventricular response of 79 bpm without sign of. High-sensitivity troponin is 14. On my interpretation of the left femur and the left hip there is a transverse left cervical fracture with displacement. The radiologist does agree. Patient did not take his Eliquis this morning. Patient was discussed with Dr. Pierre and he requested a CT of the left hip for surgical planning and this was performed. The radiologist interprets this as transverse fracture of the subcapital region of the proximal femur with the cephalic migration of the distal fracture fragment. After discussing this with the patient and his apparently he was in his chair last evening which is a lazy boy chair which has a button which helps him decline and as he was doing this he was trying to get out of the chair to the floor and was half off of the chair. His states that he did not fall and hurt his hip that she knows of. He was unable to get up by himself and she had to call an ambulance to come help him back to the chair. Patient has not had any other reported falls since that.Patient was discussed with the hospitalist for admission due to hip fracture. Impression: 1. Fall 2. Left hip fracture Lab Data Attestation: I reviewed the patient's lab results. Labs: Laboratory Results - last 24 hr 12/08/21 12/08/21 12/08/21 12:03 12:03 12:15 WBC 9.5 RBC 4.37 L Hgb 13.1 Hct 39.2 L MCV 89.7 MCH 30.0 MCHC 33.4 RDW Std Deviation 48.3 H RDW Coeff of [place] 14.6 Plt Count 155 MPV 11.5 Immature Gran % (Auto) 0.500 Neut % (Auto) 82.7 H Lymph % (Auto) 8.3 L [place] % (Auto) 8.0 Eos % (Auto) 0.3 Baso % (Auto) 0.2 Absolute Neuts (auto) 7.9 H Absolute Lymphs (auto) 0.79 L Nucleated RBC % 0 Sodium 142 Potassium 3.0 L Chloride 107 Carbon Dioxide 25.0 Anion Gap 10 BUN 21 H Creatinine 0.86 Estim Creat Clear Calc 78.32 Est GFR (MDRD) Af Amer 109 Est GFR (MDRD) Non-Af 90 BUN/Creatinine Ratio 24.3 H Glucose 107 H Calcium 8.5 Total Bilirubin 2.10 H AST 13 L ALT 23 Alkaline Phosphatase 102 Troponin I High Sens 14 Total Protein 7.0 Albumin 3.0 L Globulin 4.0 Albumin/Globulin Ratio 0.8 L Urine Color YELLOW Urine Clarity Sl. Cloudy Urine pH 6.0 Ur Specific [place] 1.025 Urine Protein 30 H Urine Glucose (UA) Normal Urine Ketones 50 H Urine Occult Blood Negative Urine Nitrite Negative Urine Bilirubin Negative Urine Urobilinogen 4 H Ur Leukocyte Esterase 25 H Urine RBC 0 SEEN Urine WBC 0-5 SEEN Ur Squamous Epith Cells 0-5 SEEN Urine Bacteria 0 SEEN Urine Mucus 0 SEEN Radiography Diagnostic Testing: Clinical Impression(s) from Imaging Studies Femur X-Ray 12/08/21 11:33 IMPRESSION: Transverse left basilar cervical fracture with cephalic migration of the distal fracture fragment. Electronically Signed: Matt Peng MD at 12:29 EST , Service support , Pelvis X-Ray 12/08/21 11:33 IMPRESSION: Transverse left basicervical fracture with cephalic migration of the distal fracture fragment. Electronically Signed: Matt Peng MD at 12:28 EST , Service support , Chest X-Ray 12/08/21 11:55 IMPRESSION: Stable elevation of the left hemidiaphragm with minimal left basilar scarring. Electronically Signed: Matt Peng MD at 12:27 EST , Service support , Lower Extremity CT 12/08/21 13:56 IMPRESSION: Transverse fracture of the subcapital region of the proximal femur with the cephalic migration of the distal fracture fragment. Soft tissue swelling. Electronically Signed: Matt Peng MD at 14:30 EST , Service support , Discharge Plan Triage Chief Complaint: Lower Extremity Injury ED Provider: Darrell Block Dx/Rx/DC Orders Primary Care Provider: Christina Lr
--- NOTE | 2021-12-08 11:55 | RAD_ITS ---
STUDY: X-RAY CHEST REASON FOR EXAM: Male, 81 years old. FX HIP, SURGERY CLEARANCE TECHNIQUE: Single AP portable view of the chest. COMPARISON: Comparison is made with prior study dated 11/13/2017. FINDINGS: Stable elevation of the left hemidiaphragm. Minimal left basilar scarring. Normal size heart. Normal mediastinum and sue. Normal visualized pulmonary arteries. There is atherosclerotic calcification of the aortic arch with tortuosity. There are diffuse degenerative changes of the visualized thoracic spine. Normal visualized ribs, clavicles, and shoulders. There is no demonstrated abnormality of the visualized soft tissue structures of the upper abdomen. RAD/Chest 1 View IMPRESSION: Stable elevation of the left hemidiaphragm with minimal left basilar scarring. Electronically Signed: Matt Peng MD at 12:27 EST , Service support ,
--- NOTE | 2021-12-08 11:58 | EKG12_ITS ---
Test Reason : FALL Blood Pressure : / mmHG Vent. Rate : 079 BPM Atrial Rate : 076 BPM P-R Int : 000 ms QRS Dur : 152 ms QT Int : 464 ms P-R-T Axes : 000 -76 -55 degrees QTc Int : 532 ms Atrial fibrillation with premature ventricular or aberrantly conducted complexes Left axis deviation Right bundle branch block T wave abnormality, consider lateral ischemia Abnormal ECG Confirmed by JESSICA KAISER, EVELYN ([id number]), editor & co founder SUBHASH ALCALA ([id number]) on 12/10/2021 9:40:58 AM Referred By: NISREEN/ANTONIO Confirmed By:EVELYN LOPEZ MD
[2021-12-08 12:21] LABS: Bacteria 0 SEEN /hpf (None Seen); Mucous, Urine 0 SEEN /hpf (<or=2+); Red Blood Cells-Urine 0 SEEN /hpf (0-5)
[2021-12-08 12:47] LABS: Glucose, Dipstick Normal (Normal); Ketone-Dipstick 50 mg/dl (Negative); Leukocyte Esterase-Dipstick 25 /ul (Negative); Nitrite-Dipstick Negative (Negative); Occult Blood-Urine Negative /ul (Negative); Protein-Dipstick 30 mg/dl (Negative); Specific Gravity, Urine 1.025 (1.002-1.030); Urine Bilirubin Dipstick Negative (Negative); Urine Urobilinogen 4 mg/dl (Normal)
[2021-12-08 12:54] LABS: Color, Urine YELLOW (Yellow); Urine Clarity Sl. Cloudy (Clear)
[2021-12-08 12:55] LABS: Squamous Epithelial Cells - UA 0-5 SEEN /hpf (0-5); White Blood Cells 0-5 SEEN /hpf (0-5)
[2021-12-08 13:00] LABS: Absolute Lymphocyte Count 0.79 X10^3/uL (0.83-4.51); Absolute Neutrophil Count 7.9 X10^3/uL (2.0-7.7); Basophil# 0.02 X10^3/uL; Basophil% 0.2 % (0-1); Eosinophil# 0.03 X10^3/uL; Eosinophils% 0.3 % (0-5); Hematocrit 39.2 % (40-54); Hemoglobin 13.1 g/dL (13.0-16.5); Lymphocyte # 0.79 X10^3/ul (0.83-4.51); Lymphocyte % 8.3 % (19-41); Mean Corp Hgb Conc 33.4 g/dL (32-36); Mean Corpuscular Volume 89.7 fL (80-94); Mean Platelet Vol. 11.5 fl (6.2-12.0); Monocyte# 0.76 X10^3/uL; NRBC Flagged by Analyzer 0 % (0-5); Neutrophil # 7.89 X10^3/uL (2.7-7.7); Neutrophil % 82.7 % (47-70); Platelet Count 155 K/mm3 (150-450); RBC Distribution Width CV 14.6 % (11.6-14.6); RBC Distribution Width SD 48.3 fl (35.1-43.9); Red Blood Count 4.37 M/mm3 (4.6-6.2); White Blood Count 9.5 K/mm3 (4.4-11.0)
[2021-12-08 13:12] LABS: ALB/GLOB Ratio 0.8 RATIO (0.9-2.4); AST(SGOT) 13 U/L (15-37); Alanine Aminotransfer ALT/SGPT 23 U/L (16-61); Alkaline Phosphatase 102 U/L (45-117); Anion Gap 10 (5-15); BUN 21 mg/dL (7-18); BUN/Creat Ratio 24.3 RATIO (10-20); Calcium,Total 8.5 mg/dL (8.5-10.1); Chloride 107 mmol/L (98-107); Creatinine, Serum 0.86 mg/dL (0.70-1.30); EST Glomerular Filtration Rate 90 mL/min (>60); Est Glom Filt Rate - Afr Amer 109 mL/min (>60); Estimated Creatinine Clearance 78.32 ml/min; Glucose 107 mg/dL (74-106); Sodium Level 142 mmol/L (136-145); Troponin-I HS 14 pg/mL (3.0-78.0)
--- NOTE | 2021-12-08 13:56 | CT_ITS ---
STUDY: CT SCAN HIP LEFT REASON FOR EXAM: Male, 81 years old. Hip fracture/surgical planning RADIATION DOSAGE (If Supplied By Facility): CTDIvol = ( 26.91 ) mGy, DLP = ( 862.34 ) mGycm. Individualized dose optimization techniques were used for this CT.? TECHNIQUE: Multiple axial tomographic images of the left hip and proximal left femur were obtained without intravenous contrast menstruation. Coronal and sagittal reconstruction was obtained as well. COMPARISON: Comparison is made with prior radiograph done earlier today. FINDINGS: There is evidence of a transverse fracture of the subcapital portion of the proximal right femur with cephalic migration of the distal fracture fragment. Overlying soft tissue swelling. CT/Extremity Lower without Contra IMPRESSION: Transverse fracture of the subcapital region of the proximal femur with the cephalic migration of the distal fracture fragment. Soft tissue swelling. Electronically Signed: Matt Peng MD at 14:30 EST , Service support ,
[2021-12-08 14:02] VITALS: BP 176/76; PULSE 80; RESP 17; TEMP 35.9; O2SAT 96
--- NOTE | 2021-12-08 14:35 | CASEMGMT ---
RN CM to room to meet with patient for initial transition planning/care coordination assessment. RN FRACISCO introduced self and role at [facility]. Patient voices understanding and consents to assessment at this time. Patient's Brandi present at bedside. Patient is alert and oriented and answers all questions appropriately. Care providers, pharmacy, and demographics verified/updated at this time. Patient complains of knee pain and requests pain medication. Patient's primary RN made aware. PCP: Christina Lr Specialists: Nely- cardiology, Kd- pain management Preferred Pharmacy: [facility] Insurance: Medicare A/B and [employer] Prescription Benefit: yes Living Will/HPOA: Patient has a living will and HPOA is Mansi. These forms are on file at [facility]. LNOK: , Brandi [place] Living Arrangements: Patient lives with in one story house with 1 step and ramp to enter the home. Patient states independent with ADLs prior to fall 2 days ago. Smoking/ETOH: Never smoker, denies ETOH use Transportation: Patient does not drive. available for transport needs and patient denies transportation concerns. DME/HHC/SNF: Patient typically ambulates with walker following stroke in September 2021. Also available in the home: shower chair, raised toilet seat, grab bars, wheelchair and CPAP (no oxygen bled-in). Patient is active with [facility] for SN/PT/OT/ST since discharge from [facility] 11/20/2021. Patient and express interest in TCU following current hospitalization. CM/SW to follow for any discharge planning/needs. Patient and voice no concerns/needs at this time. Advised patient and to ask for CM if any questions/concerns/needs arise. Voices understanding. Plan: SNF
[2021-12-08] MEDS: Morphine 4 MG/ML Syringe IV (14:52)
[2021-12-08] MEDS: Ondansetron 4 MG/2 ML Vial IV (14:52)
[2021-12-08 15:28] VITALS: BMI 28.6
--- NOTE | 2021-12-08 15:33 | HP.PCM_ITS ---
Documented by User: LONNIE Busch 12/08/21 16:20 HPI - General General Date of Admission: 12/08/21 Date of Service: 12/08/21 Chief Complaint: Left hip fx HPI Narrative EUGENIO MART, is a 81 M who presents plaints of left hip pain. Patient was seen in the ER on 12/05/2021 following a fall at home with complaints of left knee pain. Patient was evaluated at that time for left knee pain, noted frac ture was found and patient was sent home. Patient states that since then he has been sitting in his chair and has had no further falls however patient presents with a externally rotated shortened left leg consistent with left hip fracture. Dr. Pierre was consulted by the ER physician and requested a CT which shows transverse fracture of the subcapital region of the proximal femur with the cephalic migration of the distal fracture fragment. Patient reports a medical history including COPD, hypertension, atrial fibrillation. [facility] Medical History Anticoagulation goal of INR 2 to 3 Chronic back pain COPD (chronic obstructive pulmonary disease) Essential hypertension Left bundle branch block Longstanding persistent atrial fibrillation Lower extremity edema Nonrheumatic mitral (valve) prolapse Obesity (BMI 30.0-34.9) RAFFY (obstructive sleep apnea) Osteoarthritis Patent foramen ovale Premature atrial contractions Premature ventricular contraction RLS (restless legs syndrome) Stroke/cerebrovascular accident Tachycardia Thoracic aortic aneurysm without rupture Medical History unable to obtain Home Medications gabapentin 400 mg capsule 400 mg PO DAILY cap 06/13/19 [History Last Taken ] tramadol 50 mg tablet 50 mg PO Q6H PRN tab 03/21/21 [History Last Taken Unknown] vitamins A,C,R-zfch-qfhlln 14,320 unit-226 mg-200 unit capsule 1 cap PO BID 09/22/21 [History Last Taken 12/07/21] apixaban [Eliquis] 5 mg PO BID #0 tab 11/12/21 [Rx Last Taken 12/07/21] bumetanide 1 mg PO DAILY 60 Days #120 tab 11/12/21 [Rx Last Taken Unknown] lisinopril 10 mg PO DAILY 30 Days #30 tab 11/12/21 [Rx Last Taken 12/07/21] metoprolol succinate 25 mg PO DAILY 30 Days #30 tab 11/12/21 [Rx Last Taken 12/07/21] potassium chloride [Klor-Con M20] 20 meq PO DAILYCM 30 Days #30 tab 11/12/21 [Rx Last Taken 12/07/21] memantine 10 mg PO BID 12/08/21 [History Last Taken 12/07/21] Allergy/AdvReac Type Severity Reaction Status Date / Time diclofenac Allergy Severe Anaphylaxis Verified 12/08/21 11:25 naproxen [From Naprosyn] Allergy Severe Angioedema Verified 12/08/21 11:25 gabapentin [From Neurontin] Allergy Hives Verified 12/08/21 11:25 Penicillins Allergy Hives Verified 12/08/21 11:25 Sulfa (Sulfonamide Allergy Hives Verified 12/08/21 11:25 Antibiotics) Family History Sister Cancer Surgical History History of carpal tunnel surgery History of total right knee replacement Social History household members: spouse Smoking Status: Never smoker alcohol intake: never substance use type: does not use ROS Constitutional Constitutional: Denies anorexia, chills, fatigue, fever(s), malaise or weakness Cardiovascular Cardiovascular: Denies chest pain, edema, palpitations or syncope Respiratory/Chest Respiratory/Chest: Denies cough, shortness of breath at rest, shortness of breath with exertion or wheezing Gastrointestinal Gastrointestinal: Denies abdominal pain, constipation, diarrhea, nausea or vomiting Genitourinary Genitourinary: Denies dysuria Musculoskeletal Musculoskeletal: Reports extremity pain, joint pain and limited range of motion; Denies back pain, joint stiffness or joint swelling Integumentary Integumentary: Denies dry skin Neurologic Neurologic: Denies abnormal gait, abnormal speech, confusion, dizziness, focal weakness or weakness Psychiatric Psychiatric: Denies anxiety or depression Endocrine Endocrinology: Denies change in body appearance Hematologic/Lymphatic Hematologic/Lymphatic: Denies anemia, easy bleeding or easy bruising Vital Signs Vital Signs Vital Signs: 12/08/21 11:18 12/08/21 14:02 Temperature 97.7 F L 96.7 F L Temperature Source Oral Oral Pulse Rate 85 80 Respiratory Rate 18 17 Blood Pressure 163/90 H 176/76 H Blood Pressure Mean 114 109 Pulse Ox 96 96 Oxygen Delivery Method Room Air Room Air Weight Weight: 224 lb 3.362 oz Body Mass Index (BMI) 28.8 Physical Exam Const alert, oriented x3 and no apparent distress General Appearance: cooperative HEENT normocephalic and head/scalp atraumatic Eyes conjunctivae normal and no scleral icterus Neck no lymphadenopathy and supple General: trachea midline Resp normal respiratory effort, normal air movement and clear to auscultation bilaterally Cardio regular rate, regular rhythm, S1 normal heart sound, S2 normal heart sound and peripheral pulses 2+ throughout GI normal to inspection, nondistended, normoactive bowel sounds, soft to palpation and non-tender Extremity normal capillary refill General Extremity: normal exam except as noted Peripheral Pulses: Yes pulses 2+ throughout Left Lower Extremity: hip joint inspection (Externally rotated and shortened), palpation (Tender), ROM (Limited) and neurovascular exam (Intact) Skin General Skin Exam: no breakdown and turgor normal Lesions: no lesions Rashes: no rashes Neuro oriented x3, no focal motor deficits and no sensory deficits noted Speech: speech normal Psych thought process normal, cooperative and affect normal Appearance: appropriate Results Lab / Micro Data Result Diagrams: 12/08/21 12:03 12/08/21 12:03 Labs: Laboratory Results - last 24 hr 12/08/21 12:03: WBC 9.5, RBC 4.37 L, Hgb 13.1, Hct 39.2 L, MCV 89.7, MCH 30.0, MCHC 33.4, RDW Std Deviation 48.3 H, RDW Coeff of Franklyn 14.6, Plt Count 155, MPV 11.5, Immature Gran % (Auto) 0.500, Neut % (Auto) 82.7 H, Lymph % (Auto) 8.3 L, [place] % (Auto) 8.0, Eos % (Auto) 0.3, Baso % (Auto) 0.2, Absolute Neuts (auto) 7.9 H, Absolute Lymphs (auto) 0.79 L, Nucleated RBC % 0 12/08/21 12:03: Sodium 142, Potassium 3.0 L, Chloride 107, Carbon Dioxide 25.0, Anion Gap 10, BUN 21 H, Creatinine 0.86, Estim Creat Clear Calc 78.32, Est GFR (MDRD) Af Amer 109, Est GFR (MDRD) Non-Af 90, BUN/Creatinine Ratio 24.3 H, Glucose 107 H, Calcium 8.5, Total Bilirubin 2.10 H, AST 13 L, ALT 23, Alkaline Phosphatase 102, Troponin I High Sens 14, Total Protein 7.0, Albumin 3.0 L, Globulin 4.0, Albumin/Globulin Ratio 0.8 L 12/08/21 12:15: Urine Color YELLOW, Urine Clarity Sl. Cloudy, Urine pH 6.0, Ur Specific [place] 1.025, Urine Protein 30 H, Urine Glucose (UA) Normal, Urine Ketones 50 H, Urine Occult Blood Negative, Urine Nitrite Negative, Urine Bilirubin Negative, Urine Urobilinogen 4 H, Ur Leukocyte Esterase 25 H, Urine RBC 0 SEEN, Urine WBC 0-5 SEEN, Ur Squamous Epith Cells 0-5 SEEN, Urine Bacteria 0 SEEN, Urine Mucus 0 SEEN Radiology Impression Femur X-Ray 12/08/21 11:33 IMPRESSION: Transverse left basilar cervical fracture with cephalic migration of the distal fracture fragment. Electronically Signed: Matt Peng MD at 12:29 EST , Service support , Pelvis X-Ray 12/08/21 11:33 IMPRESSION: Transverse left basicervical fracture with cephalic migration of the distal fracture fragment. Electronically Signed: Matt Peng MD at 12:28 EST , Service support , Chest X-Ray 12/08/21 11:55 IMPRESSION: Stable elevation of the left hemidiaphragm with minimal left basilar scarring. Electronically Signed: Matt Peng MD at 12:27 EST , Service support , Lower Extremity CT 12/08/21 13:56 IMPRESSION: Transverse fracture of the subcapital region of the proximal femur with the cephalic migration of the distal fracture fragment. Soft tissue swelling. Electronically Signed: Matt Peng MD at 14:30 EST , Service support , Assessment & Plan Assessment/Plan (1) Fracture of left hip: PLAN: 1. Left hip fracture -Admit to [facility] -Orthopedics consulted, case discussed with Dr. Pierre by ER physician -CT ordered per orthopedics request -PT and OT to eval and treat -Surgery planned for 12/09/2021 due to patient's use of Eliquis -Will hold Eliquis at this time -Encourage incentive spirometry 2. Atrial fibrillation -Patient currently on Eliquis and metoprolol we will hold Eliquis pending surgery -Currently rate controlled 3. Vascular dementia -Patient currently on memantine 4. History of macular degeneration -Continue PreserVision capsules DVT prophylaxis-SCDs This patient was seen by Nimisha Rajan NP-C under the supervision of Dr. Gale 14 minutes spent in clinical coordination of patient's plan of care. Documented by User: Dr. Meet Gale MD 12/08/21 17:19 HPI - General General Date of Admission: 12/08/21 Date of Service: 12/08/21 Chief Complaint: Fall on 12/05, left knee pain and hip pain HPI Narrative This is a 81-year-old who came to ER for severe left knee pain and left hip pain after he had a fall on 12/05/2020. On that date, while trying to sit down on the toilet seat, his left knee gave out and he fell on the left side and hit the left side of head knee and hip joint. Patient came to ER on 12/05 and had left knee x-ray which showed degenerative arthrosis but no acute change and CT head no acute abnormality therefore discharged home. Since then he has been laying down on the recliner with intermittent severe left knee pain and left hip pain on getting up or sitting up. He has been urinating and defecating while on the recliner, helped by his son and . Patient could not get up or walk to the bathroom. Patient has not able to eat or drink much. Denies fever or chills. Denies burning micturition/dysuria or hematuria. On 12/08, patient had x-rays of femur pelvis which showed transverse left basilar cervical fracture with adventism migration of distal fracture fragment which correlated finding further by CT left hip without contrast. Patient had right knee replaced by Dr. Mahajan and was told that he needs left TKR. But in the meantime in September 2021 patient had intracranial hemorrhage with left-sided weakness and was sent to [facility] from [facility] ER. He had m onitoring and control of blood pressure but no acute intervention there. Patient has history of paroxysmal A. fib and was on Coumadin changed to Eliquis about 3 years ago. In ED, EKG shows A. fib with PVCs/abnormally conducted complexes, LAD, RBBB, QTC 532 ms. QRS 152 ms. Chest x-ray independently reviewed and shows stable elevation of left hemidiaphragm. [facility] Medical History Anticoagulation goal of INR 2 to 3 Chronic back pain COPD (chronic obstructive pulmonary disease) Essential hypertension Left bundle branch block Longstanding persistent atrial fibrillation Lower extremity edema Nonrheumatic mitral (valve) prolapse Obesity (BMI 30.0-34.9) RAFFY (obstructive sleep apnea) Osteoarthritis Patent foramen ovale Premature atrial contractions Premature ventricular contraction RLS (restless legs syndrome) Stroke/cerebrovascular accident Tachycardia Thoracic aortic aneurysm without rupture Medical History unable to obtain Home Medications gabapentin 400 mg capsule 400 mg PO DAILY cap 06/13/19 [History Last Taken 12/06/21] tramadol 50 mg tablet 50 mg PO Q6H PRN tab 03/21/21 [History Last Taken Unknown] vitamins A,C,A-fsgp-mqomws 14,320 unit-226 mg-200 unit capsule 1 cap PO BID 09/22/21 [History Last Taken 12/07/21] apixaban [Eliquis] 5 mg PO BID #0 tab 11/12/21 [Rx Last Taken 12/07/21] bumetanide 1 mg PO DAILY 60 Days #120 tab 12/22/21 [Rx Last Taken Unknown] lisinopril 10 mg PO DAILY 30 Days #30 tab 11/12/21 [Rx Last Taken 12/07/21] metoprolol succinate 25 mg PO DAILY 30 Days #30 tab 11/12/21 [Rx Last Taken 12/07/21] potassium chloride [Klor-Con M20] 20 meq PO DAILYCM 30 Days #30 tab 11/12/21 [Rx Last Taken 12/07/21] memantine 10 mg PO BID 12/08/21 [History Last Taken 12/07/21] Allergy/AdvReac Type Severity Reaction Status Date / Time diclofenac Allergy Severe Anaphylaxis Verified 12/08/21 11:25 naproxen [From Naprosyn] Allergy Severe Angioedema Verified 12/08/21 11:25 gabapentin [From Neurontin] Allergy Hives Verified 12/08/21 11:25 Penicillins Allergy Hives Verified 12/08/21 11:25 Sulfa (Sulfonamide Allergy Hives Verified 12/08/21 11:25 Antibiotics) Family History Sister Cancer Surgical History History of carpal tunnel surgery History of total right knee replacement Social History household members: spouse Smoking Status: Never smoker alcohol intake: never substance use type: does not use Physical Exam Narrative General: Alert, Oriented x3, Cooperative HEENT: Atraumatic, PERRLA, EOMI, Normocephalic Oral: No Gingival or Mucosal Lesions/ Ulcerations Neck: Supple, No JVD, Negative Carotid Bruits Lungs: Air entry diminished in bilateral lung bases. No crepitation/rhonchi Cardiovascular: Irregular rate and rhythm, Normal S1, Normal S2, No murmurs Abdomen: Bowel Sounds Present, Soft, Non Tender, Non-Distended : No renal angle tenderness. No suprapubic tenderness. Extremities: Mild peripheral pitting, bilateral ankle edema, Capillary Refill Less than 3 Seconds Skin: No rashes, No breakdown Musculoskeletal: No Tenderness to Palpation of Joints or Extremities Neurological: Cranial nerves II-XII grossly intact, DTR 2+/4 and Symmetrical, Neuro grossly intact Psych/Mental Status: Venous hypertension and medrano discoloration of skin of lower legs, chronic Results Lab / Micro Data Result Diagrams: 12/08/21 12:03 12/08/21 12:03 Assessment & Plan Assessment/Plan (1) Fracture of left hip: PLAN: This patient was seen in conjunction with PATTY Bansal. I have independently interviewed and examined the patient and reviewed pertinent history, examination findings, laboratory and plan of management. I have reviewed the note and agree with the documented findings with the few additional points. In brief, patient is admitted for fall on 12/05 with consequent debility, unable to stand up or ambulate due to left hip, transverse fracture of the subcapital region of the proximal femur with campbell phallic migration of distal fracture fragment most likely pathological from osteoporosis. Patient fell from standing position while trying to sit on the toilet seat. Orthopedic surgeon Dr. Pierre has been consulted from ER. Pain control, PT and OT, incentive spirometry. Chronic A. fib: Heart rate is controlled. Patient last dose of Eliquis on 12/07 in evening. Will need 36 to 48 hours off Eliquis to renally clear Eliquis. Perioperative risk, NSQIP calculated and serious complication, any complication more than average. Patient has above average risk for cardiac complication, pneumonia, surgical site infection and sepsis. 2D ECHO is ordered. Recent ICH with left-sided weakness, vascular dementia Other comorbidities as mentioned above. I have discussed my assessment with PATTY Bansal and orders have been reviewed. Total time of the visit including total time spent in counseling or coordination of care, (more than 50% of the total time, spent in obtaining medical information from nurses and other ancillary care providers,explaining to the patient about labs, imaging, diagnosis and management), coordination of care to nurse practitioner, review of labs and imaging is 50 minutes. Living will/advanced directive/end of life care: Patient does have living will or advanced directive. His is power of workers compensation attorney for health. After discussion of benefits/risks procedures involved with full code, DNR CC arrest and DNR CC, the patient opted for full code. Patient does want artificial life support including intubation, tube feed, ventilator and/chest compression, central venous catheter, vasopressor and DC shock if needed Total time spent in [id number] encounter in discussion of advanced directive 16 minutes. Charges/Coding Visit Charges Inpatient E&M: 51205 Init Hosp L2 Procedures Hospitalists Procedures: 74760 Advncd Care Plan 30 Min
--- NOTE | 2021-12-08 15:50 | PCS.PANDOC ---
PANDEMIC DOCUMENTATION INITIATED: Date: 07/07/2021 Time: 190
[2021-12-08 15:51] VITALS: BP 123/79; PULSE 85; RESP 18; TEMP 37.1; O2SAT 99
[2021-12-08 16:58] VITALS: O2SAT 98
--- NOTE | 2021-12-08 17:18 | ECHOCS_ITS ---
Reason For Study: AFIB Procedure This was a 2D Doppler, Color Flow transthoracic echocardiogram. The study was technically difficult. Contrast injection was performed. Exam performed portable in patient room. Left Ventricle Normal LV size. Left ventricular systolic function is normal. The estimated ejection fraction is 65 %. Unable to assess diastolic dysfunction. No regional wall motion abnormalities noted. Right Ventricle Normal RV size. Normal systolic function. Atria The left atrium is mildly enlarged. Normal right atrium. No doppler evidence for ASD. Mitral Valve There is no mitral annular calcification. Normal mitral valve. Mild (1+) mitral valve insufficiency. Tricuspid Valve Normal tricuspid valve. Mild tricuspid valve insufficiency. Right ventricular systolic pressure estimated to be 36 mmHg. Aortic Valve Trisinus/trileaflet aortic valve. Mild focal aortic valve calcification. Trivial aortic valve insufficiency. Pulmonic Valve The pulmonic valve is not well visualized. Great Vessels Mild to moderately dilated aortic root. Pericardium/Pleural No pericardial effusion. Medication Diluted definity 2.5ml given slow IV push to enhance endocardial definition. MMode/2D Measurements & Calculations LVIDd: 4.3 cm IVSd: 0.93 cm LVOT diam: 2.2 cm LVIDs: 2.9 cm LVPWd: 0.97 cm RVDd: 3.5 cm FS: 31.8 % LVOT area: 3.8 cm2 Ao root diam: 4.6 cm LAV(MOD-sp4): 48.5 ml LVAd ap4: 35.6 cm2 LA dimension: 3.5 cm LVLd ap4: 8.3 cm EDV(MOD-sp4): 126.8 ml EDV(sp4-el): 129.7 ml LVAs ap4: 19.0 cm2 LVLs ap4: 6.8 cm ESV(MOD-sp4): 44.2 ml ESV(sp4-el): 45.1 ml EF(MOD-sp4): 65.1 % EF(sp4-el): 65.3 % SV(MOD-sp4): 82.5 ml SV(sp4-el): 84.6 ml LA A4 area: 17.4 cm2 RA A4 area: 11.5 cm2 Doppler Measurements & Calculations MV E max han: 83.2 cm/sec Ao V2 max: 133.9 cm/sec LV V1 max: 98.9 cm/sec Ao max P.2 mmHg LV V1 max P.9 mmHg Ao V2 mean: 99.0 cm/sec LV V1 mean P.1 mmHg Ao mean P.3 mmHg LV V1 mean: 67.9 cm/sec Ao V2 VTI: 24.4 cm LV V1 VTI: 15.6 cm CARLOS(I,D): 2.4 cm2 CARLOS(V,D): 2.8 cm2 SV(LVOT): 59.5 ml PA V2 max: 109.1 cm/sec TR max han: 286.6 cm/sec TR max P.9 mmHg ECHO/Echo Complete W/ Contrast Interpretation Summary The study was technically difficult. Contrast injection was performed. Left ventricular systolic function is normal. The estimated ejection fraction is 65 %. The left atrium is mildly enlarged. Mild (1+) mitral valve insufficiency. Mild tricuspid valve insufficiency. Mild focal aortic valve calcification. Trivial aortic valve insufficiency. Mild to moderately dilated aortic root. Right ventricular systolic pressure estimated to be 36 mmHg. Unable to assess diastolic dysfunction. Ordering Physician: Meet Gale Referring Physician: SANTANA MORRISSEY Performed By: Yuki Franco, AMBER, RVT
[2021-12-08] MEDS: 0.9% Saline Lock 10 ML Syringe IV (17:35)
[2021-12-08] MEDS: Multivitamin (Healthy Eyes) Capsule 1 CAP PO (17:35)
[2021-12-08] MEDS: Morphine 2 MG/ML Syringe IV (17:35)
--- NOTE | 2021-12-08 18:22 | PCA ---
Addendum entered by Vickie Doe 12/08/21 18:58: correction fax number was [phone] Original Note: Patient Release of Medical Records fax to [facility] [phone] to obtain stroke work up , and echo results
--- NOTE | 2021-12-08 19:06 | CON.PCM.OR_ITS ---
HPI Consult Data Date of Consult: 12/08/21 HPI Narrative HPI Narrative: This is an 81-year-old male who presented to [facility] emergency department this morning with left hip pain. X-rays revealed a displaced left femoral neck fracture confirmed on CT. He initially presented on 12/05/2021 after a fall. His chief complaint was left knee pain at that time. X-rays were not obtained of his hip. X-rays of his left knee demonstrated significant arthritis, which she has been treated in the outpatient setting by Dr. Mahajan, my partner. He had a right total knee arthroplasty performed by Dr. Mahajan as well 5 years ago. He denies antecedent left hip or groin pain or diagnosis of left hip osteoarthritis. Patient was discharged home from the e mergency department on 12/05/2021. He has been laid up in a recliner since then with an inability to ambulate. Due to this significant pain and inability to ambulate he was brought back to the emergency department this morning where x- rays revealed the above. He denies any numbness or tingling. Patient notes a prolonged history of atrial fibrillation for which he has been on Coumadin in the past, transition to Eliquis a couple years ago. He states he last took his Eliquis the evening of 12/07/2021. Of note, patient was admitted for a CVA in October 2021 with some mild residual left-sided weakness. COUNT INCLUDES THE [facility] Medical History Anticoagulation goal of INR 2 to 3 Chronic back pain COPD (chronic obstructive pulmonary disease) Essential hypertension Left bundle branch block Longstanding persistent atrial fibrillation Lower extremity edema Nonrheumatic mitral (valve) prolapse Obesity (BMI 30.0-34.9) RAFFY (obstructive sleep apnea) Osteoarthritis Patent foramen ovale Premature atrial contractions Premature ventricular contraction RLS (restless legs syndrome) Stroke/cerebrovascular accident Tachycardia Thoracic aortic aneurysm without rupture Medical History unable to obtain Home Medications gabapentin 400 mg capsule 400 mg PO DAILY cap 06/13/19 [History Last Taken 12/06/21] tramadol 50 mg tablet 50 mg PO Q6H PRN tab 03/21/21 [History Last Taken Unknown] vitamins A,C,M-qetp-ciedis 14,320 unit-226 mg-200 unit capsule 1 cap PO BID 09/22/21 [History Last Taken 12/07/21] apixaban [Eliquis] 5 mg PO BID #0 tab 11/12/21 [Rx Last Taken 12/07/21] bumetanide 1 mg PO DAILY 60 Days #120 tab 11/12/21 [Rx Last Taken Unknown] lisinopril 10 mg PO DAILY 30 Days #30 tab 11/12/21 [Rx Last Taken 12/07/21] metoprolol succinate 25 mg PO DAILY 30 Days #30 tab 11/12/21 [Rx Last Taken 12/07/21] potassium chloride [Klor-Con M20] 20 meq PO DAILYCM 30 Days #30 tab 11/12/21 [Rx Last Taken 12/07/21] memantine 10 mg PO BID 12/08/21 [History Last Taken 12/07/21] Allergy/AdvReac Type Severity Reaction Status Date / Time diclofenac Allergy Severe Anaphylaxis Verified 12/08/21 11:25 naproxen [From Naprosyn] Allergy Severe Angioedema Verified 12/08/21 11:25 gabapentin [From Neurontin] Allergy Hives Verified 12/08/21 11:25 Penicillins Allergy Hives Verified 12/08/21 11:25 Sulfa (Sulfonamide Allergy Hives Verified 12/08/21 11:25 Antibiotics) Family History Sister Cancer Surgical History History of carpal tunnel surgery History of total right knee replacement Social History household members: spouse Smoking Status: Never smoker alcohol intake: never substance use type: does not use ROS ROS Narrative 10 point review of systems obtained, negative unless otherwise noted in HPI. Vital Signs Vital Signs Vital Signs: 12/08/21 11:18 12/08/21 14:02 12/08/21 15:51 Temperature 97.7 F L 96.7 F L 98.8 F Temperature Source Oral Oral Oral Pulse Rate 85 80 85 Respiratory Rate 18 17 18 Respiratory Effort Blood Pressure 163/90 H 176/76 H 123/79 H Blood Pressure Mean 114 109 93 Blood Pressure Source Monitor Blood Pressure Position Semi-Fowlers Blood Pressure Location Left Arm Pulse Ox 96 96 99 Oxygen Delivery Method Room Air Room Air Room Air 12/08/21 16:01 12/08/21 16:58 Temperature Temperature Source Pulse Rate Respiratory Rate Respiratory Effort Normal Blood Pressure Blood Pressure Mean Blood Pressure Source Blood Pressure Position Blood Pressure Location Pulse Ox 98 Oxygen Delivery Method Room Air Room Air Weight Weight: 223 lb Body Mass Index (BMI) 28.6 Physical Exam Narrative General -A&Ox3, NAD, appears stated age. Vital signs stable, afebrile. Respiratory -normal work of breathing, no intercostal retractions. CV -pulses regular, brisk capillary refill ?4 limbs. Abdomen-soft, nontender, nondistended. No guarding, rigidity, rebound tenderness. Musculoskeletal/neurologic -full range of motion nontender throughout bilateral upper extremities, right lower extremity with full sensation and strength in all dermatomes and myotomes. No midline cervical tenderness. Left lower extremity-no obvious deformity. Pain with logroll of the left lower extremity. Nontender throughout the left knee femoral shaft, tibial shaft and left foot/ankle. Brisk capillary refill. Sensation intact light touch L3-S1 dermatomes. DF, PF, EHL intact. DP, PT 2+. Pelvis is stable, nontender. There is a small 1 x 1 cm partial-thickness abrasion overlying the proximal tibia anteriorly, otherwise skin is intact. No ecchymosis noted. Lab / Micro Data Result Diagrams: 12/08/21 12:03 12/08/21 12:03 Labs: Laboratory Results - last 24 hr 12/08/21 12:03: WBC 9.5, RBC 4.37 L, Hgb 13.1, Hct 39.2 L, MCV 89.7, MCH 30.0, MCHC 33.4, RDW Std Deviation 48.3 H, RDW Coeff of Franklyn 14.6, Plt Count 155, MPV 11.5, Immature Gran % (Auto) 0.500, Neut % (Auto) 82.7 H, Lymph % (Auto) 8.3 L, [place] % (Auto) 8.0, Eos % (Auto) 0.3, Baso % (Auto) 0.2, Absolute Neuts (auto) 7.9 H, Absolute Lymphs (auto) 0.79 L, Nucleated RBC % 0 12/08/21 12:03: Sodium 142, Potassium 3.0 L, Chloride 107, Carbon Dioxide 25.0, Anion Gap 10, BUN 21 H, Creatinine 0.86, Estim Creat Clear Calc 78.32, Est GFR (MDRD) Af Amer 109, Est GFR (MDRD) Non-Af 90, BUN/Creatinine Ratio 24.3 H, Glucose 107 H, Calcium 8.5, Total Bilirubin 2.10 H, AST 13 L, ALT 23, Alkaline Phosphatase 102, Troponin I High Sens 14, Total Protein 7.0, Albumin 3.0 L, Globulin 4.0, Albumin/Globulin Ratio 0.8 L 12/08/21 12:15: Urine Color YELLOW, Urine Clarity Sl. Cloudy, Urine pH 6.0, Ur Specific [place] 1.025, Urine Protein 30 H, Urine Glucose (UA) Normal, Urine Ketones 50 H, Urine Occult Blood Negative, Urine Nitrite Negative, Urine Bilirubin Negative, Urine Urobilinogen 4 H, Ur Leukocyte Esterase 25 H, Urine RBC 0 SEEN, Urine WBC 0-5 SEEN, Ur Squamous Epith Cells 0-5 SEEN, Urine Bacteria 0 SEEN, Urine Mucus 0 SEEN Radiology Impression Femur X-Ray 12/08/21 11:33 IMPRESSION: Transverse left basilar cervical fracture with cephalic migration of the distal fracture fragment. Electronically Signed: Matt Peng MD at 12:29 EST , Service support , Pelvis X-Ray 12/08/21 11:33 IMPRESSION: Transverse left basicervical fracture with cephalic migration of the distal fracture fragment. Electronically Signed: Matt Peng MD at 12:28 EST , Service support , Chest X-Ray 12/08/21 11:55 IMPRESSION: Stable elevation of the left hemidiaphragm with minimal left basilar scarring. Electronically Signed: Matt Peng MD at 12:27 EST , Service support , Lower Extremity CT 12/08/21 13:56 IMPRESSION: Transverse fracture of the subcapital region of the proximal femur with the cephalic migration of the distal fracture fragment. Soft tissue swelling. Electronically Signed: Matt Peng MD at 14:30 EST , Service support , Assessment & Plan Assessment/Plan (1) Fracture of left hip: PLAN: Patient sustained a displaced left femoral neck fracture, likely on 12/05/2021. I recommend a left hip hemiarthroplasty. Dr. Gale recommended we wait for surgical intervention until 12/10/2021 given his recent Eliquis administration. I reviewed the procedure with the patient at length. I reviewed its risks, benefits, alternatives. Risks include but are not limited to bleeding, infection, loss of life or limb, risk of anesthesia, persistent pain or disability, instability, neurovascular injury, DVT or PE. Patient expressed understanding these risks and wished proceed with surgery. -Maintenance IV fluids, clear liquid diet after midnight tomorrow night n.p.o. at 4 hours prior to surgery -Type and screen -2 g Ancef on-call to the OR -Bedrest, heel protectors -Plan to proceed with surgery 12/10/2021 Thank you for this consultation.
[2021-12-08 19:30] VITALS: BP 136/77; PULSE 85; RESP 18; TEMP 37.4; O2SAT 94
[2021-12-08] MEDS: Acetaminophen 325 MG Tablet 650 MG PO (19:53)
[2021-12-08] MEDS: traMADol 50 MG Tablet PO (19:53)
[2021-12-08] MEDS: MELATONIN 3 MG TABLET PO (19:53)
[2021-12-08] MEDS: Memantine Hydrochloride 10 MG Tablet PO (19:54)
[2021-12-09] VITALS (8 sets, daily range): BP systolic 113–134; BP diastolic 51–84; PULSE 71–90; RESP 16–18; TEMP 36.6–36.9; O2SAT 93–97
[2021-12-09 06:25] LABS: Absolute Lymphocyte Count 0.72 X10^3/uL (0.83-4.51); Absolute Neutrophil Count 5.9 X10^3/uL (2.0-7.7); Basophil# 0.03 X10^3/uL; Basophil% 0.4 % (0-1); Eosinophil# 0.15 X10^3/uL; Hematocrit 35.4 % (40-54); Hemoglobin 11.9 g/dL (13.0-16.5); Lymphocyte # 0.72 X10^3/ul (0.83-4.51); Lymphocyte % 9.7 % (19-41); Mean Corp Hgb Conc 33.6 g/dL (32-36); Mean Corpuscular Hgb 30.5 pg (27.0-32.0); Mean Corpuscular Volume 90.8 fL (80-94); Mean Platelet Vol. 11.3 fl (6.2-12.0); Monocyte# 0.64 X10^3/uL; Monocyte% 8.6 % (0-10); NRBC Flagged by Analyzer 0 % (0-5); Neutrophil # 5.89 X10^3/uL (2.7-7.7); Platelet Count 143 K/mm3 (150-450); RBC Distribution Width CV 14.8 % (11.6-14.6); RBC Distribution Width SD 49.5 fl (35.1-43.9); White Blood Count 7.5 K/mm3 (4.4-11.0)
[2021-12-09 06:39] LABS: Anion Gap 8 (5-15); BUN 26 mg/dL (7-18); BUN/Creat Ratio 35.5 RATIO (10-20); Calcium,Total 8.2 mg/dL (8.5-10.1); Chloride 108 mmol/L (98-107); Creatinine, Serum 0.73 mg/dL (0.70-1.30); EST Glomerular Filtration Rate 109 mL/min (>60); Est Glom Filt Rate - Afr Amer 132 mL/min (>60); Estimated Creatinine Clearance 67.36 ml/min; Glucose 95 mg/dL (74-106); Sodium Level 141 mmol/L (136-145)
[2021-12-09] MEDS: Bumetanide 0.5 MG Tablet 1 MG PO (08:01)
[2021-12-09] MEDS: Potassium Chloride Oral Tablet 20 MEQ PO ×2 (08:01→12:30)
[2021-12-09] MEDS: Gabapentin 400 MG Capsule PO (08:01)
[2021-12-09] MEDS: Metoprolol(XL)Succ 25 MG Tablet PO (08:01)
[2021-12-09] MEDS: Lisinopril 10 MG Tablet PO (08:01)
[2021-12-09] MEDS: Multivitamin (Healthy Eyes) Capsule 1 CAP PO ×2 (08:01→16:55)
[2021-12-09] MEDS: Memantine Hydrochloride 10 MG Tablet PO ×2 (08:01→22:13)
--- NOTE | 2021-12-09 09:09 | CASEMGMT ---
Social Work Note SW reviewed chart. Pt and pt's is interested in TCU at discharge. SW placed a call to Rivka with TCU/RU and provided referral. Pt to have surgery tomorrow. SW to continue to follow. Yamilka Deleon WOODWORKING SHOP LABORER, TRAIN CREW MEMBER
--- NOTE | 2021-12-09 10:33 | PCM.PN.HOSP ---
Documented by User: Nimisha Rajan NP-C 12/09/21 10:40 Subjective Subjective Patient seen and examined. Patient lying in bed no distress noted. Patient requesting something to eat, per nursing patients surgery will be tomorrow due to eliquis. Objective Data Objective Data Vital Signs: Vital Signs Temp Pulse Resp BP Pulse Ox 98.4 F 79 18 134/73 H 97 12/09/21 08:17 12/09/21 08:17 12/09/21 08:17 12/09/21 08:17 12/09/21 08:17 Oxygen Delivery Method Room Air Weight: 223 lb Body Mass Index (BMI) 28.6 Intake & Output: Intake and Output for Last 24 Hours 12/07/21 12/08/21 12/09/21 23:59 23:59 23:59 Intake Total 420 / 420 100 / 100 Output Total 400 / 400 150 / 150 Balance -50 / -50 Lab / Micro Data Result Diagrams: 12/09/21 05:45 12/09/21 05:45 Labs: Laboratory Results - last 24 hr 12/08/21 12:03: WBC 9.5, RBC 4.37 L, Hgb 13.1, Hct 39.2 L, MCV 89.7, MCH 30.0, MCHC 33.4, RDW Std Deviation 48.3 H, RDW Coeff of Franklyn 14.6, Plt Count 155, MPV 11.5, Immature Gran % (Auto) 0.500, Neut % (Auto) 82.7 H, Lymph % (Auto) 8.3 L, [place] % (Auto) 8.0, Eos % (Auto) 0.3, Baso % (Auto) 0.2, Absolute Neuts (auto) 7.9 H, Absolute Lymphs (auto) 0.79 L, Nucleated RBC % 0 12/08/21 12:03: Sodium 142, Potassium 3.0 L, Chloride 107, Carbon Dioxide 25.0, Anion Gap 10, BUN 21 H, Creatinine 0.86, Estim Creat Clear Calc 78.32, Est GFR (MDRD) Af Amer 109, Est GFR (MDRD) Non-Af 90, BUN/Creatinine Ratio 24.3 H, Glucose 107 H, Calcium 8.5, Total Bilirubin 2.10 H, AST 13 L, ALT 23, Alkaline Phosphatase 102, Troponin I High Sens 14, Total Protein 7.0, Albumin 3.0 L, Globulin 4.0, Albumin/Globulin Ratio 0.8 L 12/08/21 12:15: Urine Color YELLOW, Urine Clarity Sl. Cloudy, Urine pH 6.0, Ur Specific [place] 1.025, Urine Protein 30 H, Urine Glucose (UA) Normal, Urine Ketones 50 H, Urine Occult Blood Negative, Urine Nitrite Negative, Urine Bilirubin Negative, Urine Urobilinogen 4 H, Ur Leukocyte Esterase 25 H, Urine RBC 0 SEEN, Urine WBC 0-5 SEEN, Ur Squamous Epith Cells 0-5 SEEN, Urine Bacteria 0 SEEN, Urine Mucus 0 SEEN 12/09/21 05:45: WBC 7.5, RBC 3.90 L, Hgb 11.9 L, Hct 35.4 L, MCV 90.8, MCH 30.5, MCHC 33.6, RDW Std Deviation 49.5 H, RDW Coeff of Franklyn 14.8 H, Plt Count 143 L, MPV 11.3, Immature Gran % (Auto) 0.300, Neut % (Auto) 79.0 H, Lymph % (Auto) 9.7 L, [place] % (Auto) 8.6, Eos % (Auto) 2.0, Baso % (Auto) 0.4, Absolute Neuts (auto) 5.9, Absolute Lymphs (auto) 0.72 L, Nucleated RBC % 0 12/09/21 05:45: Sodium 141, Potassium 3.0 L, Chloride 108 H, Carbon Dioxide 25.0, Anion Gap 8, BUN 26 H, Creatinine 0.73, Estim Creat Clear Calc 67.36, Est GFR (MDRD) Af Amer 132, Est GFR (MDRD) Non-Af 109, BUN/Creatinine Ratio 35.5 H, Glucose 95, Calcium 8.2 L Radiography Diagnostic Testing: Radiology Impression Femur X-Ray 12/08/21 11:33 IMPRESSION: Transverse left basilar cervical fracture with cephalic migration of the distal fracture fragment. Electronically Signed: Matt Peng MD at 12:29 EST , Service support , Pelvis X-Ray 12/08/21 11:33 IMPRESSION: Transverse left basicervical fracture with cephalic migration of the distal fracture fragment. Electronically Signed: Matt Peng MD at 12:28 EST , Service support , Chest X-Ray 12/08/21 11:55 IMPRESSION: Stable elevation of the left hemidiaphragm with minimal left basilar scarring. Electronically Signed: Matt Peng MD at 12:27 EST , Service support , Lower Extremity CT 12/08/21 13:56 IMPRESSION: Transverse fracture of the subcapital region of the proximal femur with the cephalic migration of the distal fracture fragment. Soft tissue swelling. Electronically Signed: Matt Peng MD at 14:30 EST , Service support , Physical Exam Const alert, oriented x3 and no apparent distress General Appearance: cooperative HEENT normocephalic and head/scalp atraumatic Eyes conjunctivae normal and no scleral icterus Neck no lymphadenopathy and supple General: trachea midline Resp normal respiratory effort, normal air movement and clear to auscultation bilaterally Cardio regular rate, regular rhythm, S1 normal heart sound, S2 normal heart sound and peripheral pulses 2+ throughout GI normal to inspection, nondistended, normoactive bowel sounds, soft to palpation and non-tender Extremity normal capillary refill General Extremity: normal exam except as noted Left Lower Extremity: hip joint inspection (Externally rotated and shortened), palpation (Tender), ROM (Limited) and neurovascular exam (Intact) Skin General Skin Exam: no breakdown and turgor normal Lesions: no lesions Rashes: no rashes Neuro oriented x3, no focal motor deficits and no sensory deficits noted Speech: speech normal Psych thought process normal, cooperative and affect normal Appearance: appropriate Assessment & Plan Assessment/Plan (1) Fracture of left hip: PLAN: 1. Left hip fracture -Orthopedics consulted, case discussed with Dr. Pierre by ER physician. Patient will go for surgery 12/10/21 -CT completed -PT and OT to eval and treat -Continue to hold Eliquis at this time -Encourage incentive spirometry 2. Atrial fibrillation -Patient currently on Eliquis and metoprolol we will hold Eliquis pending surgery -Currently rate controlled -Cardiac diet ordered, clear liquid diet at midnight, Npo 4 hours pre surgery per Dr. Pierre's note 3. Vascular dementia -Patient currently on memantine 4. History of macular degeneration -Continue PreserVision capsules DVT prophylaxis-SCDs This patient was seen by Nimisha Rajan NP-C under the supervision of Dr. Gale 11 minutes spent in clinical coordination of patient's plan of care. Documented by User: Dr. Ольга Smyth MD 12/09/21 12:58 Objective Data Lab / Micro Data Result Diagrams: 12/09/21 05:45 12/09/21 05:45 Charges/Coding Addendum Addendum: This patient was seen in conjunction with [place] Rajan NP. I have independently interviewed and examined the patient and reviewed pertinent historical, laboratory, and other data. I have reviewed her note and concur with her documentation 81-year-old male with past medical history of dementia, hypertension, atrial fibrillation on Eliquis who was admitted with left transverse femoral fracture. Patient denied any new complaints except for pain in the left lower extremity. He is going for surgery tomorrow. No acute events overnight Vitals: Temp Pulse Resp BP Pulse Ox 98.4 F 79 18 134/73 H 97 Physical Exam: Gen: Comfortable, not pale, not jaundiced CVS:HS I +II, regular, no murmurs RESP: Diminished at lung bases GI: BS present and normal, soft, nontender, no palpable organs EXT:No edema Labs: Sodium 141, potassium 3.0, BUN 26, creatinine 0.75, glucose 95 2D echo shows EF of 65%, trivial valvular disease, mild to moderate dilated aortic root, RVSP was 36 ASSESSMENT: 1. Acute femoral neck fracture 2. Hypokalemia 3. Chronic atrial fibrillation 4. Vascular dementia Plan: Continue scheduled Tylenol, tramadol as needed Follow-up with general surgery recommendations Time spent coordinating patient's care, discussing with subspecialty and nursin minutes Visit Charges Inpatient E&M: 53450 Subs Hosp L2
--- NOTE | 2021-12-09 12:53 | CHAPLAIN ---
Type of Pastoral Visit _x__ Initial Visit ___ Follow-up Visit ___ On-call Visit ___ General Patient Visit ___ Spiritual Assessment ___ Family Conference ___ Bereavement ___ Rapid Response ___ Code Blue ___ Other (describe below) Pastoral Care Referral From _x__ Patient ___ Family ___ Nurse ___ Physician ___ Contract Manager ___ Tool Machine Setup Operator ___ Other (describe below) Sacrament/Intervention _x__ Active listening ___ Anointing ___ Yarsani ___ Bereavement ___ Communion ___ Noelle exploration ___ ___ Life review _x__ Prayer ___ Reconciliation ___ Sacrament of Sick _x__ Supportive presence ___ Wedding ___ Other (describe below) Pastoral Comments
[2021-12-09] MEDS: Acetaminophen 325 MG Tablet 650 MG PO ×2 (14:08→22:13)
--- NOTE | 2021-12-09 16:40 | NURSING ---
Pt resting in bed. denies much discomfort at this time.
[2021-12-09] MEDS: 0.9% Normal Saline 1,000 ML 100 ML IV (16:54)
[2021-12-09] MEDS: Potassium Chloride Oral Tablet 20 MEQ 40 MEQ PO (16:55)
--- NOTE | 2021-12-09 17:45 | NURSING ---
Pt sitting up in bed eating dinner. tolerated well. denies needs at this time.
[2021-12-10] VITALS (11 sets, daily range): BP systolic 111–137; BP diastolic 46–85; PULSE 68–87; RESP 16–18; TEMP 35.8–37.1; O2SAT 94–98; BMI 28.6
[2021-12-10] MEDS: 0.9% Normal Saline 1,000 ML 100 ML IV ×2 (01:53→12:02)
[2021-12-10] MEDS: Acetaminophen 325 MG Tablet 650 MG PO ×2 (06:34→21:21)
[2021-12-10 06:40] LABS: Absolute Neutrophil Count 4.9 X10^3/uL (2.0-7.7); Basophil# 0.05 X10^3/uL; Basophil% 0.7 % (0-1); Eosinophil# 0.13 X10^3/uL; Eosinophils% 1.9 % (0-5); Hematocrit 33.1 % (40-54); Hemoglobin 11.1 g/dL (13.0-16.5); Lymphocyte % 14.9 % (19-41); Mean Corp Hgb Conc 33.5 g/dL (32-36); Mean Corpuscular Hgb 30.5 pg (27.0-32.0); Mean Corpuscular Volume 90.9 fL (80-94); Mean Platelet Vol. 11.4 fl (6.2-12.0); Monocyte% 8.9 % (0-10); NRBC Flagged by Analyzer 0 % (0-5); Neutrophil # 4.93 X10^3/uL (2.7-7.7); Neutrophil % 73.5 % (47-70); Platelet Count 141 K/mm3 (150-450); RBC Distribution Width CV 14.8 % (11.6-14.6); RBC Distribution Width SD 49.7 fl (35.1-43.9); Red Blood Count 3.64 M/mm3 (4.6-6.2); White Blood Count 6.7 K/mm3 (4.4-11.0)
[2021-12-10 06:59] LABS: Anion Gap 6 (5-15); BUN 29 mg/dL (7-18); BUN/Creat Ratio 39.7 RATIO (10-20); Chloride 111 mmol/L (98-107); Creatinine, Serum 0.73 mg/dL (0.70-1.30); EST Glomerular Filtration Rate 109 mL/min (>60); Est Glom Filt Rate - Afr Amer 132 mL/min (>60); Estimated Creatinine Clearance 67.36 ml/min; Glucose 92 mg/dL (74-106); Potassium 3.2 mmol/L (3.5-5.1); Sodium Level 144 mmol/L (136-145)
[2021-12-10] MEDS: Metoprolol(XL)Succ 25 MG Tablet PO (08:18)
[2021-12-10] MEDS: Multivitamin (Healthy Eyes) Capsule 1 CAP PO (08:19)
[2021-12-10] MEDS: Gabapentin 400 MG Capsule PO (08:20)
[2021-12-10] MEDS: Potassium Chloride Oral Tablet 20 MEQ 40 MEQ PO ×2 (08:20→21:21)
[2021-12-10] MEDS: Lisinopril 10 MG Tablet PO (08:21)
[2021-12-10] MEDS: Memantine Hydrochloride 10 MG Tablet PO ×2 (08:21→21:21)
[2021-12-10] MEDS: Bumetanide 0.5 MG Tablet 1 MG PO (08:22)
--- NOTE | 2021-12-10 10:53 | CASEMGMT ---
Social Work Note Pt to have surgery today. SW will follow up with pt tomorrow after surgery to continue discussion of discharge plans. Pt is on TCU/RU list. SW to continue to follow. Yamilka Deleon PROGRAMMING COORDINATOR, PLAY WRITER
--- NOTE | 2021-12-10 11:16 | PN.HOSP_ITS ---
Documented by User: LONNIE Busch 12/10/21 11:18 Subjective Subjective Patient seen and examined. Patient lying in bed no distress noted, patient denies pain at this time. Plan for patient to go for surgery later this afternoon. Objective Data Objective Data Vital Signs: Vital Signs Temp Pulse Resp BP Pulse Ox 98.3 F 81 16 131/69 H 94 12/10/21 08:12 12/10/21 08:18 12/10/21 08:12 12/10/21 08:12 12/10/21 08:18 Oxygen Delivery Method Room Air Weight: 223 lb Body Mass Index (BMI) 28.6 Intake & Output: Intake and Output for Last 24 Hours 12/08/21 12/09/21 12/10/21 23:59 23:59 23:59 Intake Total 420 / 420 420 / 420 898.33 / 898.33 Output Total 400 / 400 1125 / 1305 330 / 330 Balance -705 / -885 568.33 / 568.33 Lab / Micro Data Result Diagrams: 12/10/21 05:47 12/10/21 05:47 Labs: Laboratory Results - last 24 hr 12/10/21 05:47: WBC 6.7, RBC 3.64 L, Hgb 11.1 L, Hct 33.1 L, MCV 90.9, MCH 30.5, MCHC 33.5, RDW Std Deviation 49.7 H, RDW Coeff of Franklyn 14.8 H, Plt Count 141 L, MPV 11.4, Immature Gran % (Auto) 0.100, Neut % (Auto) 73.5 H, Lymph % (Auto) 14.9 L, [place] % (Auto) 8.9, Eos % (Auto) 1.9, Baso % (Auto) 0.7, Absolute Neuts (auto) 4.9, Absolute Lymphs (auto) 1.00, Nucleated RBC % 0 12/10/21 05:47: Sodium 144, Potassium 3.2 L, Chloride 111 H, Carbon Dioxide 27.0, Anion Gap 6, BUN 29 H, Creatinine 0.73, Estim Creat Clear Calc 67.36, Est GFR (MDRD) Af Amer 132, Est GFR (MDRD) Non-Af 109, BUN/Creatinine Ratio 39.7 H, Glucose 92, Calcium 8.0 L Radiography Diagnostic Testing: Radiology Impression Echocardiogram 12/08/21 17:18 Interpretation Summary The study was technically difficult. Contrast injection was performed. Left ventricular systolic function is normal. The estimated ejection fraction is 65 %. The left atrium is mildly enlarged. Mild (1+) mitral valve insufficiency. Mild tricuspid valve insufficiency. Mild focal aortic valve calcification. Trivial aortic valve insufficiency. Mild to moderately dilated aortic root. Right ventricular systolic pressure estimated to be 36 mmHg. Unable to assess diastolic dysfunction. Ordering Physician: Meet Gale Referring Physician: SANTANA MORRISSEY Performed By: Yuki Franco, AMBER, RVT Physical Exam Const alert, oriented x3 and no apparent distress General Appearance: cooperative HEENT normocephalic and head/scalp atraumatic Eyes conjunctivae normal and no scleral icterus Neck no lymphadenopathy and supple General: trachea midline Resp normal respiratory effort, normal air movement and clear to auscultation bila terally Cardio regular rate, regular rhythm, S1 normal heart sound, S2 normal heart sound and peripheral pulses 2+ throughout GI normal to inspection, nondistended, normoactive bowel sounds, soft to palpation and non-tender Extremity normal capillary refill General Extremity: normal exam except as noted Left Lower Extremity: hip joint inspection (Externally rotated and shortened), palpation (Tender), ROM (Limited) and neurovascular exam (Intact) Skin General Skin Exam: no breakdown and turgor normal Lesions: no lesions Rashes: no rashes Neuro oriented x3, no focal motor deficits and no sensory deficits noted Speech: speech normal Psych thought process normal, cooperative and affect normal Appearance: appropriate Assessment & Plan Assessment/Plan (1) Fracture of left hip: PLAN: 1. Left hip fracture -Orthopedics following, Dr. Pierre to take patient for surgery today -PT and OT following -Continue to hold Eliquis at this time -Encourage incentive spirometry 2. Atrial fibrillation -Patient currently on Eliquis and metoprolol we will hold Eliquis pending surgery -Currently rate controlled -Cardiac diet ordered, clear liquid diet at midnight, Npo 4 hours pre surgery per Dr. Pierre's note 3. Vascular dementia -Patient currently on memantine 4. History of macular degeneration -Continue PreserVision capsules DVT prophylaxis-SCDs This patient was seen by Nimisha Rajan NP-C under the supervision of Dr. Smyth. 8 minutes spent in clinical coordination of patient's plan of care. Documented by User: Dr. Ольга Smyth MD 12/10/21 16:35 Objective Data Lab / Micro Data Result Diagrams: 12/10/21 05:47 12/10/21 05:47 Charges/Coding Addendum Addendum: This patient was seen in conjunction with Cleveland Rajan NP. I have independently interviewed and examined the patient and reviewed pertinent historical, laboratory, and other data. I have reviewed her note and concur with her documentation Patient was seen and examined. He complains of no pain when he does not move. He is going for surgery today. No acute events overnight Vitals: Temp Pulse Resp BP Pulse Ox 98.3 F 81 16 131/69 H 94 Physical Exam: Gen: Comfortable, not pale, not jaundiced CVS:HS I +II, regular, no murmurs RESP: Diminished at lung bases GI: BS present and normal, soft, nontender, no palpable organs EXT:No edema Labs: Sodium 144, potassium 3.2 BUN 29, creatinine 0.73, glucose 95 2D echo shows EF of 65%, trivial valvular disease, mild to moderate dilated aortic root, RVSP was 36 ASSESSMENT: 1. Acute femoral neck fracture 2. Hypokalemia 3. Chronic atrial fibrillation 4. Vascular dementia Plan: Continue scheduled Tylenol, tramadol as needed Follow-up with general surgery recommendations Time spent coordinating patient's care, discussing with subspecialty, nursing, talking with patient and answering her questions at the bedside: 20minutes Visit Charges Inpatient E&M: 76458 Subs Hosp L2
--- NOTE | 2021-12-10 14:47 | CASEMGMT ---
Social Work Note SW received call from Rivka with [facility] stating [facility] can accept pt. Pt having surgery today. LAUREN will follow up with pt tomorrow. Plan: [facility] Deleon SCREENING REPRESENTATIVE, NURSE'S ASSISTANT
--- NOTE | 2021-12-10 15:17 | CHAPLAIN ---
Type of Pastoral Visit ___ Initial Visit _x__ Follow-up Visit ___ On-call Visit ___ General Patient Visit ___ Spiritual Assessment ___ Family Conference ___ Bereavement ___ Rapid Response ___ Code Blue ___ Other (describe below) Pastoral Care Referral From _x__ Patient _x__ Family ___ Nurse ___ Physician ___ Cable Ferry Operator ___ Foiling Machine Adjuster ___ Other (describe below) Sacrament/Intervention _x__ Active listening ___ Anointing ___ Voodoo ___ Bereavement ___ Communion ___ Noelle exploration ___ ___ Life review _x__ Prayer ___ Reconciliation ___ Sacrament of Sick _x__ Supportive presence ___ Wedding ___ Other (describe below) Pastoral Comments pre op prayer for patient; presence given to spouse and patient prior to his transfer to OR
[2021-12-10] MEDS: Ropivacaine 0.5% 30 ML Vial (19:23)
--- NOTE | 2021-12-10 20:19 | RAD_ITS ---
STUDY: XR Pelvis 1 or 2 Views 12/10/2021 8:11 PM REASON FOR EXAM: Male, 81 years old. PAIN Post-Op Total Hip Replacement TECHNIQUE: XR Pelvis 1 or 2 Views COMPARISON: None. FINDINGS: There is no fracture or dislocation. There is anatomic alignment. The soft tissue planes are preserved. Total hip arthroplasty. Skin ion are seen along the anterior lateral aspect of the hip. There is an air-fluid level seen in the operative site. Joint space is preserved. Subcutaneous air is noted. IMPRESSION: Successful total hip arthroplasty. Electronically Signed: Juan Francisco Haile MD at 20:50 EST , Service support , RAD/Pelvis 1 or 2 Views
--- NOTE | 2021-12-10 20:25 | OP.PCM_ITS ---
Report of Operation Date of Procedure: 12/10/21 Description of Surgical Findings:: Preoperative diagnosis: Right displaced femoral neck fracture Postoperative diagnosis: Right displaced femoral neck fracture Procedure: Right hip hemiarthroplasty Surgeon: Tyler Pierre DO Surgeon Assistant: SEN Palacios Anesthesia: General endotracheal Anesthesiologist: Dr. Bowman Complications: None Drains: None Estimated blood loss: 350 cc Urinary output: Per anesthesia record IV fluids: Per anesthesia record Specimens: None Surgical implants: Hubbard Accolade two 127 degree neck angle hip stem size #5, Unitrax neck adjustment sleeve +4, Unitrax endoprosthesis head component outer diameter 51 mm Indications: This is an 81-year-old male who presented to [facility] emergency department this morning with left hip pain. X-rays revealed a displaced left femoral neck fracture confirmed on CT on 12/08/21. He initially presented on 12/05/2021 after a fall. His chief complaint was left knee pain at that time. X-rays were not obtained of his hip. No bony injury of the knee was noted. He denied antecedent left hip or groin pain or diagnosis of left hip osteoarthritis. Patient was discharged home from the emergency department on 12/05/2021. He has been laid up in a recliner since then with an inability to ambulate. Due to this significant pain and inability to ambulate he was brought back to the emergency department this morning where x-rays revealed the above. She was admitted under the service of the hospitalist. I was consulted to see the patient for surgical recommendations. I recommended a right hip hemiarthroplasty due to the pattern and displacement. I reviewed the procedure with the patient, its risk, benefits, alternatives. Risks included but were not limited to bleeding, infection, loss of life or limb, risk of anesthesia, neurovascular injury, persistent pain, instability, need for additional surgery, failure of orthopedic hardware, loosening, osteolysis, need for assistive devices long-term. Patient expressed understanding wish to proceed with surgery. Description of procedure: Prior to the procedure, patient was brought to the preoperative holding area where patient was identified by name, medical record number and date of . I confirmed the side, site, operation to be performed with the patient. Informed consent was confirmed, All questions were answered to patient satisfaction. The operative extremity was marked. He was also seen by anesthesia staff and anesthesia consent obtained.At time of the operative procedure, pt was brought to the operative suite. General anesthesia was induced on the hospital bed and endotracheal tube placed. After adequate anesthesia, patient was transferred to a standard operating table. She was then positioned in the lateral decubitus position with the left side up and held in position by a pegboard. All bony prominences were well-padded. A axillary roll was placed under the patient's right axilla. Peroneal nerve was free with a blanket on the nonoperative extremity. Leg lengths were reproduced from patient's position when the patient was supine. The operative lower extremity was then prepped and draped in normal, sterile orthopedic fashion. We performed a timeout with all parties in attendance in agreement with the side, site, and operation to be performed. No concerns were voiced and would like to proceed. 2 g Ancef was administered prior to incision by anesthesia staff. I first marked an incision along the lateral aspect of the hip centered over the greater trochanteric tip. In standard posterior approach, a curvilinear incision was made above the trochanter. An approximately 15 cm incision was made. Skin was sharply incised with a 10 blade scalpel carried deep through subcutaneous layers to the level of the IT band. Gelpi retractors were then rosie dacia. A Pelayo was used to expose the IT band. Bovie cautery was then used for hemostasis and then to open the IT band. This was opened in line with the incision. A Charnley retractor was then placed. Sciatic nerve was free. The trochanteric bursa was then debrided. This identified the short external rotators after internal rotation of the hip. The fracture site was easily identified at this point. Short external rotators were taken down and tagged for later repair. Hip capsule was also tagged for repair with a stay suture. We then freshened the neck cut with a sagittal saw. Anterior and posterior acetabular retractors were placed to gain access to the femoral head. A corkscrew was used to remove the head. Any remaining debris was debrided from the acetabulum. We then placed the femoral head on the back table for measurement. We did use trial heads and selected a final size 51 with good suction fit. Box chisel was then utilized to gain access to the femoral canal. Canal finder was placed. Sequential broaches were used and press-fit manner. A final size 5 achieved excellent vertical and rotational stability. We then trialed with a standard and subsequently high offset stem. High offset did achieve excellent stability and reproduction of abductor tension. Leg lengths appeared appropriate with a size+4. Trials were then removed. We copiously irrigated the wound with normal saline solution and irrisept solution. A size 5 stem was then impacted with excellent fixation. Final head was then impacted over the Sheehan taper neck. Final reduction was performed. A posterior capsular repair was performed with #2 Ethibond suture utilizing bone tunnels. IT band was closed watertight with #1 Vicryl suture. Deeper fascial layers were closed with 0 Vicryl suture in interrupted fashion. Subcutaneous layers were reapproximated with 2-0 Vicryl suture and skin reapproximated with skin ion. A silver dressing was applied. Patient tolerated procedure well without complication. He was positioned back in the supine position on her hospital bed and subsequently extubated safely. She was transferred to PACU in stable condition. Pillows were placed between the patient's legs. Post Operative Plan: Weightbearing: Weightbearing as tolerated left lower extremity, posterior hip precautions. Pillows in between legs. Antibiotics: Ancef 1 g every 8 hours x 3 doses DVT Prophylaxis: Restart home Eliquis postoperative day #1 Henley: Per primary. Okay for DC on postoperative day #1 from my perspective Dressing: Maintain silver dressing x7 days X-Rays: PACU x-rays were reviewed demonstrated well-positioned left hip hemiarthroplasty implant. Follow-up 2?3 -weeks x-rays in the office. Follow-up: 2?3 weeks in my office for staple removal
[2021-12-11 01:08] VITALS: BP 130/62; PULSE 86; RESP 18; TEMP 37.3; O2SAT 98
[2021-12-11] MEDS: 0.9% Normal Saline 1,000 ML 100 ML IV ×2 (01:14→11:08)
[2021-12-11] MEDS: Acetaminophen 325 MG Tablet 650 MG PO (05:31)
[2021-12-11] MEDS: Cefazolin 1 GM/50 ML BAG IV ×2 (05:34→12:36)
[2021-12-11 05:48] VITALS: BP 128/56; PULSE 87; RESP 18; TEMP 37.4; O2SAT 97
[2021-12-11 06:40] LABS: Absolute Lymphocyte Count 0.64 X10^3/uL (0.83-4.51); Absolute Neutrophil Count 7.1 X10^3/uL (2.0-7.7); Basophil# 0.04 X10^3/uL; Basophil% 0.5 % (0-1); Eosinophil# 0.05 X10^3/uL; Eosinophils% 0.6 % (0-5); Hematocrit 32.1 % (40-54); Hemoglobin 10.7 g/dL (13.0-16.5); Lymphocyte # 0.64 X10^3/ul (0.83-4.51); Lymphocyte % 7.5 % (19-41); Mean Corp Hgb Conc 33.3 g/dL (32-36); Mean Corpuscular Hgb 30.4 pg (27.0-32.0); Mean Corpuscular Volume 91.2 fL (80-94); Mean Platelet Vol. 11.4 fl (6.2-12.0); Monocyte# 0.74 X10^3/uL; Monocyte% 8.6 % (0-10); NRBC Flagged by Analyzer 0 % (0-5); Neutrophil # 7.05 X10^3/uL (2.7-7.7); Neutrophil % 82.3 % (47-70); Platelet Count 170 K/mm3 (150-450); RBC Distribution Width CV 14.8 % (11.6-14.6); RBC Distribution Width SD 49.6 fl (35.1-43.9); Red Blood Count 3.52 M/mm3 (4.6-6.2); White Blood Count 8.6 K/mm3 (4.4-11.0)
[2021-12-11 07:03] LABS: Anion Gap 6 (5-15); BUN 24 mg/dL (7-18); BUN/Creat Ratio 34.8 RATIO (10-20); Chloride 111 mmol/L (98-107); Creatinine, Serum 0.69 mg/dL (0.70-1.30); EST Glomerular Filtration Rate 117 mL/min (>60); Est Glom Filt Rate - Afr Amer 142 mL/min (>60); Estimated Creatinine Clearance 67.36 ml/min; Glucose 95 mg/dL (74-106); Potassium 3.7 mmol/L (3.5-5.1); Sodium Level 140 mmol/L (136-145)
[2021-12-11 07:48] VITALS: BP 142/55; PULSE 93; RESP 18; TEMP 37.1; O2SAT 96
[2021-12-11] MEDS: Potassium Chloride Oral Tablet 20 MEQ 40 MEQ PO (07:51)
[2021-12-11] MEDS: Gabapentin 400 MG Capsule PO (07:51)
[2021-12-11] MEDS: Multivitamin (Healthy Eyes) Capsule 1 CAP PO (07:51)
[2021-12-11 07:52] VITALS: PULSE 93
[2021-12-11] MEDS: Metoprolol(XL)Succ 25 MG Tablet PO (07:52)
[2021-12-11] MEDS: Lisinopril 10 MG Tablet PO (07:52)
[2021-12-11] MEDS: Bumetanide 0.5 MG Tablet 1 MG PO (07:52)
[2021-12-11] MEDS: Memantine Hydrochloride 10 MG Tablet PO (07:52)
[2021-12-11] MEDS: APIXABAN 5 MG TABLET PO (07:53)
--- NOTE | 2021-12-11 10:54 | PCM.TXEXTCAR ---
Diet 12/11/21 08:05 Diet: Regular - General Food consistency:: Easy to Chew Type of Dietary Supplement:: Ensure Enlive Is pt able to select menu?: No Wound(s) lt buttock: Wound Type: Abrasion lt knee: Wound Type: Abrasion LEFT HIP: Wound Type: Surgical Incision Therapies Weight Bearing: Weight bearing as tolerated Extremity Affected:: Left Lower Physical Therapy: Eval and Treat Occupational Therapy: Eval and Treat Problem/Diagnosis (1) Fracture of left hip: Status: Acute Allergies/Procedures Done in Hospital Allergies diclofenac Allergy (Severe, Verified 12/08/21 11:25) Anaphylaxis naproxen [From Naprosyn] Allergy (Severe, Verified 12/08/21 11:25) Angioedema thoat swelling, tongue edema gabapentin [From Neurontin] Allergy (Verified 12/08/21 11:25) Hives Penicillins Allergy (Verified 12/08/21 11:25) Hives Sulfa (Sulfonamide Antibiotics) Allergy (Verified 12/08/21 11:25) Hives Type of Care/Length of Stay Estimated LOS: Convalescent Care Less Than 30 days Type of Care Needed: Skilled Rehab Potential: Good Prognosis: Good Additional Orders/Day of Discharge Day of Discharge: 12/11/21 Dietary and Speech Recommendations Dietitian Recommendations/Changes: Rec liberalized regular diet as medically able post op d/t 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 Attending Provider: Ольга Smyth Primary Care Provider: Christina Lr Consulting Providers: Tyler Pierre Discharge Orders/Prescriptions Prescriptions: Continued gabapentin [Neurontin] 400 mg capsule 400 mg PO DAILY RF: 0 PreserVision AREDS 14,320-226-200 fbxk-mi-[id number] capsule 1 cap PO BID RF: 0 tramadol 50 mg tablet 50 mg PO Q6H PRN (Reason: pain) RF: 0 potassium chloride [Klor-Con M20] 20 mEq Tablet,Er Particles/Crystals 20 meq PO DAILYCM 30 Days Qty: 30 RF: 0 bumetanide 0.5 mg Tablet 1 mg PO DAILY 60 Days Qty: 120 RF: 0 lisinopril 10 mg Tablet 10 mg PO DAILY 30 Days Qty: 30 RF: 0 metoprolol succinate 25 mg Tablet Extended Release 24 Hr 25 mg PO DAILY 30 Days Qty: 30 RF: 0 Eliquis 5 mg Tablet 5 mg PO BID Qty: 0 RF: 0 memantine 10 mg tablet 10 mg PO BID RF: 0 Referrals / Follow Up: Tyler Pierre DO [STAFF PHYSICIAN] - Within 2 Weeks (Follow up in 2-3 weeks for postoperative x-rays in office. ) Christina Lr NP-C [Primary Care Provider] - Within 2 Weeks Disposition Disposition (needs filled in before D/C Order can be placed): Home, Self Care
[2021-12-11] MEDS: Morphine 2 MG/ML Syringe IV (11:09)
[2021-12-11 11:11] VITALS: BP 108/72; PULSE 89; RESP 18; TEMP 36.9; O2SAT 92
--- NOTE | 2021-12-11 11:31 | CASEMGMT ---
Social Work Note Pt [facility] to [facility]. SW in to speak with pt. SW introduced self and role at [facility]. SW informed pt that he will be discharged to [facility] today. SW informed pt that it is the unit on the fourth floor at [facility]. Pt states he has been there before for a knee replacement, agreeable to [facility]. LAUREN asked pt if this worker can call his to update and pt states she will be at [facility] soon and he will update her. LAUREN placed a call to Rivka with [facility] and left message that pt will be discharged there today. Plan [facility] today Yamilka Deleon ENVELOPE SEALER OPERATOR, BASIC ACOUSTIC ANALYST
[2021-12-11] MEDS: traMADol 50 MG Tablet PO (12:36)
[2021-12-11] MEDS: Ondansetron 4 MG/2 ML Vial IV (12:39)
[2021-12-11] MEDS: 0.9% Saline Lock 10 ML Syringe IV (12:39)
--- NOTE | 2021-12-11 13:54 | PCM.DC.SUM ---
Documented by User: David LAROSE 12/11/21 14:06 Providers Date of Admission: 12/08/21 Primary Care Physician: LONNIE Babb Consultations 12/08/21 16:09 Consult: Orthopedics Routine Consulting Provider: Tyler Pierre Reason for Consult: Left hip fx EMERGENT Consult: No MD Notified: Yes Date Notified: 12/08/21 Time Notified: 15:49 Method of Notification: Provider Initiated Reason For Visit: LEFT HIP FRACTURE Diagnosis Discharge Diagnosis (1) Fracture of left hip: Status: Acute Code(s): S72.002A - Fracture of unspecified part of neck of left femur, initial encounter for closed fracture Medications at Discharge Home Medications gabapentin 400 mg capsule 400 mg PO DAILY cap 06/13/19 tramadol 50 mg tablet 50 mg PO Q6H PRN tab 03/21/21 vitamins A,C,C-ccff-dkxbul 14,320 unit-226 mg-200 unit capsule 1 cap PO BID 09/22/21 memantine 10 mg PO BID 12/08/21 Eliquis 5 mg PO BID 12/11/21 bumetanide 1 mg PO DAILY 12/11/21 lisinopril 10 mg PO DAILY 12/11/21 metoprolol succinate 25 mg PO DAILY 12/11/21 potassium chloride [Klor-Con M20] 20 meq PO DAILYCM 12/11/21 Hospital Course Summary of Care Provided Minutes Spent on Discharge: 25 Hospital Course: Patient is an 81-year-old male who was admitted to the hospital on 12/08/2021 for evaluation and management of left hip fracture. Orthopedics was consulted and agreed to see patient for right hip hemiarthroplasty. Surgery was delayed until 12/10 due to patient's chronic use of Eliquis. Eliquis was held and surgery took place on 12/10. No complications were noted during surgery. Recommendations from Dr. Pierre are as follows reinitiate Eliquis on postoperative day 1 and follow-up in office in 2 to 3 weeks for follow-up x-rays and staple removal. Patient will be discharged to rehabilitation unit. Patient seen by David Ponce PA-C, under the supervision of Dr. Smyth. Time spent on patient care: 25 minutes. Physical Exam Narrative Patient is an 81-year-old male comfortably resting in bed, alert and orient to self. Patient cannot provide much insight into current condition as he is confused at baseline due to dementia. Does not appear in acute distress. Const alert and no apparent distress HEENT normocephalic, head/scalp atraumatic and hearing grossly normal bilaterally Eyes PERRL, EOMs intact bilaterally and conjunctivae normal Neck no lymphadenopathy, supple and no JVD Resp normal respiratory effort, no retractions and no use of accessory muscles Cardio regular rate, regular rhythm, no murmurs and no JVD GI normal to inspection, nondistended, normoactive bowel sounds, soft to palpation and non-tender Extremity normal to inspection, full ROM and no clubbing, cyanosis or edema Skin no rashes or lesions noted Neuro CN's II-XII intact bilaterally Psych affect normal Weight / BMI Weight Weight: 223 lb Body Mass Index (BMI) 28.6 ABG / Lab / Microbiology Data Result Diagrams: 12/11/21 05:48 12/11/21 05:48 Laboratory: Laboratory Results - last 24 hr 12/11/21 05:48: WBC 8.6, RBC 3.52 L, Hgb 10.7 L, Hct 32.1 L, MCV 91.2, MCH 30.4, MCHC 33.3, RDW Std Deviation 49.6 H, RDW Coeff of Franklyn 14.8 H, Plt Count 170, MPV 11.4, Immature Gran % (Auto) 0.500, Neut % (Auto) 82.3 H, Lymph % (Auto) 7.5 L, [place] % (Auto) 8.6, Eos % (Auto) 0.6, Baso % (Auto) 0.5, Absolute Neuts (auto) 7.1, Absolute Lymphs (auto) 0.64 L, Nucleated RBC % 0 12/11/21 05:48: Sodium 140, Potassium 3.7, Chloride 111 H, Carbon Dioxide 23.0, Anion Gap 6, BUN 24 H, Creatinine 0.69 L, Estim Creat Clear Calc 67.36, Est GFR (MDRD) Af Amer 142, Est GFR (MDRD) Non-Af 117, BUN/Creatinine Ratio 34.8 H, Glucose 95, Calcium 8.0 L Radiography Diagnostic Testing: Radiology Impression Pelvis X-Ray 12/10/21 20:19 Meaningful Use Info Meaningful Use Diagnoses (Choose all that apply): None applicable Discharge Plan Admission Admit Date/Time: 12/08/21 15:40 Primary Reason for Your Visit: Left hip fracture. Attending Provider: Ольга Smyth Primary Care Provider: Christina Lr Consulting Providers: Tyler Pierre Discharge Orders/Prescriptions Prescriptions: Continued gabapentin [Neurontin] 400 mg capsule 400 mg PO DAILY RF: 0 PreserVision AREDS 14,320-226-200 qanm-qe-dqxc capsule 1 cap PO BID RF: 0 tramadol 50 mg tablet 50 mg PO Q6H PRN (Reason: pain) RF: 0 memantine 10 mg tablet 10 mg PO BID RF: 0 No Action potassium chloride [Klor-Con M20] 20 mEq tablet,ER particles/crystals 20 meq PO DAILYCM RF: 0 bumetanide 0.5 mg tablet 1 mg PO DAILY RF: 0 lisinopril 10 mg tablet 10 mg PO DAILY RF: 0 metoprolol succinate 25 mg tablet extended release 24 hr 25 mg PO DAILY RF: 0 Eliquis 5 mg tablet 5 mg PO BID RF: 0 Referrals / Follow Up: Tyler Pierre DO [STAFF PHYSICIAN] - Within 2 Weeks (Follow up in 2-3 weeks for postoperative x-rays in office. ) Christina Lr, FILM WAXER-C [Primary Care Provider] - Within 2 Weeks Disposition Disposition (needs filled in before D/C Order can be placed): Inpatient Rehab Unit/Facility Documented by User: Dr. Ольга Smyth MD 12/11/21 17:19 Providers Date of Admission: 12/08/21 Date of Discharge: 12/11/21 Reason For Visit: LEFT HIP FRACTURE Medications at Discharge Home Medications gabapentin 400 mg capsule 400 mg PO DAILY cap 06/13/19 tramadol 50 mg tablet 50 mg PO Q6H PRN tab 03/21/21 vitamins A,C,Y-znkt-qlhixw 14,320 unit-226 mg-200 unit capsule 1 cap PO BID 09/22/21 memantine 10 mg PO BID 12/08/21 Eliquis 5 mg PO BID 12/11/21 bumetanide 1 mg PO DAILY 12/11/21 lisinopril 10 mg PO DAILY 12/11/21 metoprolol succinate 25 mg PO DAILY 12/11/21 potassium chloride [Klor-Con M20] 20 meq PO DAILYCM 12/11/21 ABG / Lab / Microbiology Data Result Diagrams: 12/11/21 05:48 12/11/21 05:48 Discharge Plan Admission Admit Date/Time: 12/08/21 15:40 Primary Reason for Your Visit: Left hip fracture. Attending Provider: Ольга Smyth Primary Care Provider: Christina Lr Consulting Providers: Tyler Pierre Discharge Orders/Prescriptions Prescriptions: Continued gabapentin [Neurontin] 400 mg capsule 400 mg PO DAILY RF: 0 PreserVision AREDS 14,320-226-200 kcly-mf-kttw capsule 1 cap PO BID RF: 0 tramadol 50 mg tablet 50 mg PO Q6H PRN (Reason: pain) RF: 0 memantine 10 mg tablet 10 mg PO BID RF: 0 No Action potassium chloride [Klor-Con M20] 20 mEq tablet,ER particles/crystals 20 meq PO DAILYCM RF: 0 bumetanide 0.5 mg tablet 1 mg PO DAILY RF: 0 lisinopril 10 mg tablet 10 mg PO DAILY RF: 0 metoprolol succinate 25 mg tablet extended release 24 hr 25 mg PO DAILY RF: 0 Eliquis 5 mg tablet 5 mg PO BID RF: 0 Referrals / Follow Up: Tyler Pierre DO [STAFF PHYSICIAN] - Within 2 Weeks (Follow up in 2-3 weeks for postoperative x-rays in office. ) Christina Lr, FILM WAXER-C [Primary Care Provider] - Within 2 Weeks Disposition Disposition (needs filled in before D/C Order can be placed): Inpatient Rehab Unit/Facility Charges/Coding Addendum Addendum: This patient was seen in conjunction with Cleveland Rajan NP. I have independently interviewed and examined the patient and reviewed pertinent historical, laboratory, and other data. I have reviewed her note and concur with her documentation 81-year-old male who was admitted after a fall and found to be unable to walk. Patient was seen 3 days prior after fall and complaint left knee pain. Since that time he has been sitting in the chair. He presented back to the ED with externally rotated shortened left leg. CT scan of the leg showed transverse fracture of the subcapital region of the proximal femur with cephalic migration of the distal fracture fragment. Patient was admitted to the [facility] floor, his pain was controlled. He has history of atrial fibrillation on Eliquis. His Eliquis was held at admission. Orthopedic surgery was consulted from the ED. Patient underwent right hip hemiarthroplasty. Postoperatively, patient continued to remain stable. He was seen by PT and OT and skilled for discharge to acute rehab. On the day of discharge, patient was seen and examined. Denied any new complaints. No acute events overnight Physical Exam: Gen: Comfortable, not pale, not jaundiced CVS:HS I +II, regular, no murmurs RESP: Diminished at lung bases GI: BS present and normal, soft, nontender, no palpable organs EXT:No edema Time spent coordinating patient's care, discussing with subspecialty, nursing, talking with patient and answering her questions at the bedside: 27minutes Visit Charges Inpatient E&M: 32606 Disch Hosp
[2021-12-11] MEDS: Acetaminophen 500 MG Tablet 1000 MG PO (15:12)
[2021-12-11] MEDS: oxyCODONE 5 MG Tablet PO (15:12)
--- NOTE | 2021-12-11 17:57 | PCM.PN.ORT ---
Subjective Subjective This is a late entry note. Patient was seen and examined at 1500 today prior to discharge to rehab. Patient states his pain is relatively well controlled. He had been up with therapy. Denies fevers, chills, nausea or vomiting, chest pain or shortness of breath. Tolerating oral intake. Objective Data Objective Data Vital Signs: Vital Signs Temp Pulse Resp BP Pulse Ox 98.4 F 89 18 108/72 92 12/11/21 11:11 12/11/21 11:11 12/11/21 11:11 12/11/21 11:11 12/11/21 11:11 Oxygen Delivery Method Room Air Weight: 223 lb Body Mass Index (BMI) 28.6 Intake & Output: Intake and Output for Last 24 Hours 12/09/21 12/10/21 12/11/21 23:59 23:59 23:59 Intake Total 420 / 420 2598.33 / 2598.33 1538.33 / 1538.33 Output Total 1125 / 1305 2530 / 2680 350 / 350 Balance -705 / -885 68.33 / -81.67 1188.33 / 1188.33 Lab / Micro Data Result Diagrams: 12/11/21 05:48 12/11/21 05:48 Labs: Laboratory Results - last 24 hr 12/11/21 05:48: WBC 8.6, RBC 3.52 L, Hgb 10.7 L, Hct 32.1 L, MCV 91.2, MCH 30.4, MCHC 33.3, RDW Std Deviation 49.6 H, RDW Coeff of Franklyn 14.8 H, Plt Count 170, MPV 11.4, Immature Gran % (Auto) 0.500, Neut % (Auto) 82.3 H, Lymph % (Auto) 7.5 L, [place] % (Auto) 8.6, Eos % (Auto) 0.6, Baso % (Auto) 0.5, Absolute Neuts (auto) 7.1, Absolute Lymphs (auto) 0.64 L, Nucleated RBC % 0 12/11/21 05:48: Sodium 140, Potassium 3.7, Chloride 111 H, Carbon Dioxide 23.0, Anion Gap 6, BUN 24 H, Creatinine 0.69 L, Estim Creat Clear Calc 67.36, Est GFR (MDRD) Af Amer 142, Est GFR (MDRD) Non-Af 117, BUN/Creatinine Ratio 34.8 H, Glucose 95, Calcium 8.0 L Radiography Diagnostic Testing: Radiology Impression Pelvis X-Ray 12/10/21 20:19 Physical Exam Narrative General - A&Ox3, NAD. VSS/AF Left lower extremity -incisional dressing C/D/I. SILT Sural, Saphenous, SPN, DPN, Tibial N. distributions. DP, PT 2+. BCR. DF, PF, EHL 5/5. No calf TTP. Assessment & Plan Assessment/Plan (1) Fracture of left hip: PLAN: POD#1 s/p left hip hemiarthroplasty - Pain control - Medicine following for medical management - PT/OT-posterior hip precautions. - DVT PPX -restart home Eliquis today - Case management - D/C planning -Stable for discharge to rehab from my standpoint today. Follow-up in 2-3 weeks.
== END 2021-12-11 15:28 | DRG 522 ==
LOC: ED 12:32 → MS3 16:46
PROVIDERS: Nurse Practitioner Family; Student in an Organized Health Care Education/Training Program; Admitting Provider Internal Medicine; Emergency Provider Student in an Organized Health Care Education/Training Program; Visit Provider Internal Medicine
PROC: 0SRR0JA Replacement of Right Hip Joint, Femoral Surface with Synthetic Substitute, Uncemented, Open Approach (ICD-10-PCS; CPT 27125; principal; 2021-12-10 16:15)
DX: S72.012A Unspecified intracapsular fracture of left femur, initial encounter for closed fracture (principal); I48.20 Chronic atrial fibrillation, unspecified; I69.354 Hemiplegia and hemiparesis following cerebral infarction affecting left non-dominant side; F01.50 Vascular dementia, unspecified severity, without behavioral disturbance, psychotic disturbance, mood disturbance, and anxiety; J44.9 Chronic obstructive pulmonary disease, unspecified; W19.XXXA Unspecified fall, initial encounter; I10 Essential (primary) hypertension; E87.6 Hypokalemia; G47.33 Obstructive sleep apnea (adult) (pediatric); Z79.1 Long term (current) use of non-steroidal anti-inflammatories (NSAID); Z79.01 Long term (current) use of anticoagulants; Z96.651 Presence of right artificial knee joint; M81.0 Age-related osteoporosis without current pathological fracture
CPT/HCPCS: 36415; 51702; 70450; 71045; 72170; 73552; 73560; 73700; 80048; 80053; 81001; 84484; 85025; 93005; 93306; 97162; 97166; 97802; 99251; 99284; 99285; C1776; J7030; Q9957; A4216; C8929; G0463; J0330; J2405

== ENCOUNTER 2021-12-11 15:43 | Inpatient (IN) | payer MEDICARE, OTHER, SELFPAY ==
[2021-12-11 15:48] VITALS: BP 122/56; PULSE 97; RESP 18; TEMP 37; O2SAT 95; BMI 28.5
[2021-12-11 18:07] VITALS: O2SAT 98
[2021-12-11 19:11] VITALS: BP 141/67; PULSE 99; RESP 18; TEMP 37.6; O2SAT 95
[2021-12-11 19:21] LABS: Bacteria 0 SEEN /hpf (None Seen); Mucous, Urine 0 SEEN /hpf (<or=2+)
[2021-12-11 19:51] LABS: Color, Urine Yellow (Yellow); Glucose, Dipstick Normal (Normal); Ketone-Dipstick 5 mg/dl (Negative); Leukocyte Esterase-Dipstick 25 /ul (Negative); Nitrite-Dipstick Positive (Negative); Occult Blood-Urine 25 /ul (Negative); Protein-Dipstick 30 mg/dl (Negative); Specific Gravity, Urine 1.015 (1.002-1.030); Urine Clarity Cloudy (Clear); Urine Urobilinogen 8 mg/dl (Normal)
[2021-12-11 19:56] LABS: Urine Bilirubin Dipstick 3 mg/dL (Negative)
[2021-12-11 20:00] LABS: Red Blood Cells-Urine 0-5 SEEN /hpf (0-5); Squamous Epithelial Cells - UA 0-5 SEEN /hpf (0-5); White Blood Cells 0-5 SEEN /hpf (0-5)
[2021-12-11 21:03] VITALS: BP 117/72; PULSE 100; RESP 18; TEMP 36.9; O2SAT 96
[2021-12-11] MEDS: traMADol 50 MG Tablet PO (21:17)
[2021-12-11] MEDS: APIXABAN 5 MG TABLET PO (21:18)
[2021-12-11] MEDS: Multivitamin (Healthy Eyes) Capsule 1 CAP PO (21:18)
[2021-12-11] MEDS: Memantine Hydrochloride 10 MG Tablet PO (21:18)
[2021-12-12] MEDS: Acetaminophen 500 MG Tablet 1000 MG PO ×3 (02:51→18:38)
[2021-12-12 05:47] LABS: Absolute Lymphocyte Count 1.01 X10^3/uL (0.83-4.51); Absolute Neutrophil Count 7.9 X10^3/uL (2.0-7.7); Basophil# 0.05 X10^3/uL; Basophil% 0.5 % (0-1); Eosinophil# 0.12 X10^3/uL; Eosinophils% 1.2 % (0-5); Hematocrit 31.5 % (40-54); Hemoglobin 10.1 g/dL (13.0-16.5); Lymphocyte # 1.01 X10^3/ul (0.83-4.51); Mean Corp Hgb Conc 32.1 g/dL (32-36); Mean Corpuscular Hgb 29.3 pg (27.0-32.0); Mean Corpuscular Volume 91.3 fL (80-94); Mean Platelet Vol. 10.6 fl (6.2-12.0); Monocyte# 0.95 X10^3/uL; Monocyte% 9.5 % (0-10); NRBC Flagged by Analyzer 0 % (0-5); Neutrophil # 7.85 X10^3/uL (2.7-7.7); Neutrophil % 78.1 % (47-70); Platelet Count 167 K/mm3 (150-450); RBC Distribution Width CV 14.9 % (11.6-14.6); RBC Distribution Width SD 50.2 fl (35.1-43.9); Red Blood Count 3.45 M/mm3 (4.6-6.2); White Blood Count 10.1 K/mm3 (4.4-11.0)
[2021-12-12 06:24] LABS: ALB/GLOB Ratio 0.6 RATIO (0.9-2.4); AST(SGOT) 15 U/L (15-37); Alanine Aminotransfer ALT/SGPT 15 U/L (16-61); Alkaline Phosphatase 85 U/L (45-117); Anion Gap 5 (5-15); BUN 27 mg/dL (7-18); Chloride 109 mmol/L (98-107); Creatinine, Serum 1.08 mg/dL (0.70-1.30); EST Glomerular Filtration Rate 70 mL/min (>60); Est Glom Filt Rate - Afr Amer 84 mL/min (>60); Estimated Creatinine Clearance 62.37 ml/min; Globulin 3.4 g/dL (2.2-4.2); Glucose 110 mg/dL (74-106); Potassium 3.7 mmol/L (3.5-5.1); Protein, Total 5.4 g/dL (6.4-8.2); Sodium Level 140 mmol/L (136-145)
[2021-12-12] MEDS: traMADol 50 MG Tablet PO ×4 (06:44→18:37)
[2021-12-12] MEDS: Potassium Chloride Oral Tablet 20 MEQ PO (07:38)
[2021-12-12] MEDS: Bumetanide 0.5 MG Tablet 1 MG PO (07:38)
[2021-12-12] MEDS: Gabapentin 400 MG Capsule PO (07:39)
[2021-12-12] MEDS: Multivitamin (Healthy Eyes) Capsule 1 CAP PO ×2 (07:39→21:58)
[2021-12-12] MEDS: APIXABAN 5 MG TABLET PO ×2 (07:39→21:58)
[2021-12-12] MEDS: Memantine Hydrochloride 10 MG Tablet PO ×2 (07:39→21:58)
[2021-12-12 07:40] VITALS: PULSE 91
[2021-12-12] MEDS: Metoprolol(XL)Succ 25 MG Tablet PO (07:40)
[2021-12-12] MEDS: Lisinopril 10 MG Tablet PO (07:41)
[2021-12-12 08:33] VITALS: BP 101/55; PULSE 91; RESP 18; TEMP 36.4; O2SAT 94
--- NOTE | 2021-12-12 12:25 | HP.PCM_ITS ---
HPI - General General Date of Admission: 12/11/21 Date of Service: 12/12/21 Chief Complaint: Debility secondary to recent left hip fracture, status post ORIF 12/10/[address] Pierre. HPI Narrative CURTIS MART, is a 81 YO M with a PMH listed below who presented to the ED at [facility] on 12/08/2021 complaining of left hip pain. He had been seen in the emergency department a few days earlier with a complaint of left knee pain after a fall at home. He also mentioned he struck his head on the counter. X- rays of the left knee were negative and a CT brain was negative. Lab was unremarkable and he was discharged home. He was unable to get up from his recliner for a few days and was urinating and defecating in his pants. X-ray in the emergency department of the hip and pelvis revealed a transverse left basicervical fracture with cephalic migration of the distal fracture segment. He was admitted to the hospital and seen in consult by Dr. Pierre. He had ORIF of the left hip and was seen by PT and OT. Acute rehab was recommended and Curtis was transferred to the acute rehab unit at [facility] on 12/11/21 for 3 hours of therapy daily to restore function at or near his prior level of function. 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 He was discharged home from TCU. His PCP is Dr. Singleton and he follows with Dr. Mckay for cardiology. [facility] Medical History (Updated 12/15/21 @ 10:[address] Christina Gao, ) Chronic anticoagulation Chronic back pain Closed left hip fracture COPD (chronic obstructive pulmonary disease) Dilated aortic root Essential hypertension Fracture of left hip Left atrial enlargement Left bundle branch block Longstanding persistent atrial fibrillation Nonrheumatic mitral (valve) prolapse RAFFY (obstructive sleep apnea) Osteoarthritis Patent foramen ovale Premature atrial contractions Premature ventricular contraction Pulmonary HTN RLS (restless legs syndrome) Stroke/cerebrovascular accident Tachycardia Thoracic aneurysm, ruptured Home Medications gabapentin 400 mg capsule 400 mg PO DAILY cap 06/13/19 [History Last Taken 12/06/21] tramadol 50 mg tablet 50 mg PO Q6H PRN tab 03/21/21 [History Last Taken Unknown] vitamins A,C,Q-yoal-nslcwf 14,320 unit-226 mg-200 unit capsule 1 cap PO BID 09/22/21 [History Last Taken 12/07/21] memantine 10 mg PO BID 12/08/21 [History Last Taken 12/07/21] Eliquis 5 mg PO BID 12/11/21 [History Last Taken Unknown] bumetanide 1 mg PO DAILY 12/11/21 [History Last Taken Unknown] lisinopril 10 mg PO DAILY 12/11/21 [History Last Taken Unknown] metoprolol succinate 25 mg PO DAILY 12/11/21 [History Last Taken Unknown] potassium chloride [Klor-Con M20] 20 meq PO DAILYCM 12/11/21 [History Last Taken Unknown] Allergy/AdvReac Type Severity Reaction Status Date / Time diclofenac Allergy Severe Anaphylaxis Verified 12/08/21 11:25 naproxen [From Naprosyn] Allergy Severe Angioedema Verified 12/08/21 11:25 Penicillins Allergy Hives Verified 12/08/21 11:25 Sulfa (Sulfonamide Allergy Hives Verified 12/08/21 11:25 Antibiotics) Family History Sister Cancer Surgical History (Updated 12/15/21 @ 10:[address] Christina Gao DO) History of carpal tunnel surgery History of thoracic aortic aneurysm repair History of total right knee replacement Status post open reduction and internal fixation (ORIF) of fracture Social History household members: spouse Smoking Status: Never smoker alcohol intake: never substance use type: does not use ROS ROS Narrative limited, pt recently medicated for pain and is groggy Constitutional Constitutional: Reports difficulty sleeping and weakness; Denies chills Eyes Eyes: Reports other Details: no recent change in vision ENT HEENT: Reports dry mouth; Denies headache(s) or sore throat Cardiovascular Cardiovascular: Reports lightheadedness; Denies chest pain or racing heartbeat Respiratory/Chest Respiratory/Chest: Reports shortness of breath with exertion; Denies cough or sh ortness of breath at rest Gastrointestinal Gastrointestinal: Reports change in bowel habits and constipation; Denies abdominal pain or dyspepsia Genitourinary Genitourinary: Denies burning urination Musculoskeletal Musculoskeletal: Reports extremity pain and joint pain Integumentary Integumentary: Reports other Details: incision L posterolateral thigh from r ecent ORIF of the Left hip fracture Psychiatric Psychiatric: Reports other Details: upset and depressed that he is the hospital once again. ; Denies auditory hallucinations, confusion or suicidal thoughts Hematologic/Lymphatic Hematologic/Lymphatic: Reports easy bleeding, easy bruising and other Details: on chronic anticoagulation with Apixaban for persistent AF Allergic/Immunologic Allergic/Immunologic: Reports other Details: Has had anaphylaxis with NSAID's and hives with sulfa Vital Signs Vital Signs Vital Signs: 12/11/21 15:48 12/11/21 18:07 12/11/21 19:11 Temperature 98.6 F 99.7 F H Temperature Source Oral Oral Pulse Rate 97 99 Respiratory Rate 18 18 Blood Pressure 122/56 H 141/67 H Blood Pressure Mean 78 91 Blood Pressure Source Monitor Monitor Blood Pressure Position Semi-Fowlers Semi-Fowlers Blood Pressure Location Left Arm Right Arm Pulse Ox 95 98 95 Oxygen Delivery Method Room Air Room Air Room Air 12/11/21 21:03 12/12/21 07:40 12/12/21 08:33 Temperature 98.5 F 97.6 F L Temperature Source Temporal Oral Pulse Rate 100 91 91 Respiratory Rate 18 18 Blood Pressure 117/72 101/55 L Blood Pressure Mean 87 70 Blood Pressure Source Monitor Monitor Blood Pressure Position Semi-Fowlers Semi-Fowlers Blood Pressure Location Left Arm Right Forearm Pulse Ox 96 94 Oxygen Delivery Method Room Air Room Air Weight Weight: 222 lb 0.088 oz Body Mass Index (BMI) 28.5 Physical Exam Narrative He is lying in bed and has recently been medicated for pain. He is somewhat groggy and appears to be uncomfortable and in pain. HEENT HEENT Narrative: MM are dry. Eyes PERRL, EOMs intact bilaterally, conjunctivae normal and no scleral icterus Eyes Narrative: Bili is increased at 1.9 but I can not appreciate any scleral icterus. Neck No nuchal rigidity and no lymphadenopathy General: trachea midline Chest inspection of chest normal Chest: symmetrical chest wall rise Resp no retractions and no use of accessory muscles Resp Narrative: Diminished but CTA....may be due to the recent pain medication with poor inspiratory effort. Effort and Inspection: able to speak in complete sentences and decreased respiratory effort; Negative for tachypneic Cardio regular rhythm, S1 normal heart sound, S2 normal heart sound, no murmurs, no rub and no gallops Cardio Narrative: Resting HR is in the high 80's but regular. No MM, rub. GI GI Narrative: Mildly distended and tympanic. Admits to feeling constipated. Denies pain with palpation. Decreased frequency BS's. No masses. Inspection: Negative for abdominal aortic bruit or abdominal wall ecchymosis Extremity no calf tenderness and no pedal edema Extremity Narrative: There is a dressing on the Left posterolateral upper thigh that is to remain on for 7 days post op. There is no erythema around the dressing and the dressing is dry. Both feet are warm and he has intact sensation. Skin Rashes: no rashes Neuro Neuro Narrative: He is awake and answering questions appropriately but, he is sleepy and was just medicated. He is moving all extremities. No facial asymmetry. Psych cooperative Psych Narrative: He is frustrated at having to be in the hospital again and having to have a stay in rehab. He only recently got home from an admission to TCU. He seems down and is in pain and I get the sense he is depressed. Results Lab / Micro Data Result Diagrams: 12/15/21 05:22 12/15/21 05:22 Labs: Laboratory Results - last 24 hr 12/11/21 18:55: Urine Color Yellow, Urine Clarity Cloudy, Urine pH 6.0, Ur Specific [place] 1.015, Urine Protein 30 H, Urine Glucose (UA) Normal, Urine Ketones 5 H, Urine Occult Blood 25 H, Urine Nitrite Positive H, Urine Bilirubin 3 H, Urine Urobilinogen 8 H, Ur Leukocyte Esterase 25 H, Urine RBC 0-5 SEEN, Urine WBC 0-5 SEEN, Ur Squamous Epith Cells 0-5 SEEN, Urine Bacteria 0 SEEN, Urine Mucus 0 SEEN 12/12/21 05:35: WBC 10.1, RBC 3.45 L, Hgb 10.1 L, Hct 31.5 L, MCV 91.3, MCH 29.3, MCHC 32.1, RDW Std Deviation 50.2 H, RDW Coeff of [place] 14.9 H, Plt Count 167, MPV 10.6, Immature Gran % (Auto) 0.700, Neut % (Auto) 78.1 H, Lymph % (Auto) 10.0 L, [place] % (Auto) 9.5, Eos % (Auto) 1.2, Baso % (Auto) 0.5, Absolute Neuts (auto) 7.9 H, Absolute Lymphs (auto) 1.01, Nucleated RBC % 0 12/12/21 05:35: Sodium 140, Potassium 3.7, Chloride 109 H, Carbon Dioxide 26.0, Anion Gap 5, BUN 27 H, Creatinine 1.08, Estim Creat Clear Calc 62.37, Est GFR (MDRD) Af Amer 84, Est GFR (MDRD) Non-Af 70, BUN/Creatinine Ratio 25.0 H, Glucose 110 H, Calcium 8.0 L, Total Bilirubin 1.90 H, AST 15, ALT 15 L, Alkaline Phosphatase 85, Total Protein 5.4 L, Albumin 2.0 L, Globulin 3.4, Albumin/Globulin Ratio 0.6 L Micro: Microbiology 12/11/21 18:55 Nasal Secretion SARS-CoV-2 Antigen (Rapid) - Final Assessment & Plan Assessment/Plan (1) Debility: (2) Uncontrolled pain: (3) Closed left hip fracture: (4) Status post open reduction and internal fixation (ORIF) of fracture: (5) Acute on chronic blood loss anemia: (6) Dehydration: (7) Stroke/cerebrovascular accident: (8) RAFFY (obstructive sleep apnea): (9) Vascular dementia: (10) Restless leg syndrome: (11) Essential hypertension: (12) Longstanding persistent atrial fibrillation: (13) Chronic anticoagulation: (14) Nonrheumatic mitral (valve) prolapse: (15) Premature ventricular contraction: (16) Premature atrial contractions: (17) COPD (chronic obstructive pulmonary disease): (18) Hyperlipidemia: QUALIFIERS: Hyperlipidemia type: unspecified Qualified Code(s): E78.5 - Hyperlipidemia, unspecified (19) Edema: (20) Left atrial enlargement: (21) Dilated aortic root: (22) Edema: (23) Left bundle branch block: (24) Patent foramen ovale: PLAN: PLAN PT for gait stability OT for ADL's ST for evaluation Analgesics as needed - Schedule the Tramadol and tylenol. Bowel protocol Fall precautions Assess for Anxiety/Depression GI prophylaxis with Protonix 20 mg p.o. twice daily DVT prophylaxis -not necessary, patient is on apixaban 5 mg p.o. twice daily Follow up with Christina LAROSE, Dr. Mckay and Dr. Pierre following DC from IP Rehab Recheck lab on 12/15/2021 Hold Lasix for 48 hours He wants to get better and get home but, before he can do adequate therapy we have to get his pain under control Not eating, in pain, depressed.....2 hopital admissions in the past 2 months. Will start Sertraline. Unit Exclusion This patient is an acute care inpatient being housed in the excluded unit because of capacity issues related to the disaster or emergency.: Yes Charges/Coding Visit Charges Inpatient E&M: 54533 Init Hosp L3
--- NOTE | 2021-12-12 12:36 | REHABEVAL_ITS ---
Admission Information Primary Diagnosis:: Debility secondary to a fall resulting in left hip fracture. Status post ORIF left hip. Status Changes from Prescreening?: No changes Identified Actual Problem List:: Skin Intergrity, Pain, ALteration in Cmfrt, Cognitve Impr/Memory Loss, Bladder Incontinence, Bowel, Constipation, Mobility Impaired, Self Care Deficit, Ineffective Communication, Know.Dfct/Disease Process, Know.Dfct of Medicaitons, BP, Hypertension, Fluid Change-Dehydration and Alteration-Leisure Activ. Potential Problem List:: DVT, Bleeding, Infection, UTI, Aspiration, Falls, Skin Integrity and Depression Risk of Complications DVT: LMWH and RAMIRO Hose Bleeding: Monitor Lab Values, Nursing to Teach Precautions for anti-coagulation therapy., Wound, if applicable, to be assessed every shift. and Stroke patients assessed for lethargy or change in status. Infection: Clinical Staff to Monitor for S/S of infection: and S/S of infection include fever, redness, warmth, etc. Urinary Tract Infection: Monitor for frequency, burning, discomfort, or incontinence. and Nursing will obtain urine sample for urinalysis and C&S when ordered. Aspiration: Clinical staff will monitor for coughing, drooling, congestion., Speech will evaluate swallowing and dsyphasia. and Nursing will monitor patient swallowing during meals. Falls: Patient will be evaluated for Fall Precautions and Patient will be placed on Fall Precautions as indicated per protocol. Skin Breakdown: Nursing will assess skin daily using assessment tool. and Nursing will place on Skin Breakdown Precautions as indicated. Pain: Clinical staff will assess patient's pain level per protocol., Medications will be given, if needed, and the pain level reassessed. and Other methods: Massage, distraction, decrease stimulus, etc. used PRN. Plan of Care Patient requires physician specializing in physical medicine and rehab oversight to provide close medical supervision of rehab issues including: Pain Management, Sleep Problems, Bowel and Bladder, Medical and co-morbidity Management, DVT prophylaxis, Rehabilitation Leadership and Coordination of treatment team Patient needs Physical Therapy: For a minimum of 1 hour and At least 5 out of 7 days Patient needs Physical Therapy to improve:: Mobility, Strengthening, Transfers, Stretching, ROM, Endurance, Stairs, Gait and Balance Patient needs Occupational Therapy: For a minimum of 1 hour and At least 5 out of 7 days Patient needs Occupational Therapy to improve ADL's incl.: Eating, Grooming, Bathing, Dressing, Toileting, Toilet transfers, Community Reintegration, Higher functioning activities, Household tasks, Adaptive Equipment, Splinting and Other activities as determined Patient requires speech therapy for: Swallowing, Cognition, Language Skills and Compensatory Strategies Patient requires 24/7 Rehabilitation Nursing for: Pain Issues, Identifying and preventing risk factors, Monitoring and reporting current medical conditions, Assisting with ambulation, transfer, and all ADL's, Teaching patients about disease process and medications, Family teaching, Providing safe environment, Bowel and Bladder Issues, Skin integrity and Medication Management Patient needs Senior Firewall Engineer/ Case Management for: Discharge Planning, Arranging Home Equipment or Services and Family Interventions Patient needs Dietary and Nutrition Services for: Adequate Nutrition, Nutritional Supplements and Nutritional Education Goals Patient will remain: free from falls and or injury at time of discharge. Patient will perform bed mobility at: MOD I level of assist. Patient will complete transfers from bed to chair at: MOD I level of assist. Patient will ambulate: 100 feet, with LRD and - (150 feet with wheeled walker at standby assist on various surfaces) Patient will complete upper body dressing at: MOD I level of assist. Patient will complete lower body dressing at: MOD I level of assist. (Using assistive equipment) Patient will complete toileting at: - (Supervision level on an elevated toilet.) Patient will perform bathing at: - (Supervision) Patient will complete grooming at: MOD I level of assist. Patient will complete home management skills at: - (Supervision/minimal assistance) Patient will achieve: - (1 curb step at contact-guard assist with least restrictive device) Patient will have pain level of: of 3 or less Patient's skin will: remain intact Patient will receive: adequate nutrition. Discharge Planning Estimated Length of stay (days): 21 Anticipated D/C Destination: Home with Home Health Was Preadmission Assessment Accurate?: Yes
[2021-12-12 13:57] VITALS: O2SAT 94
[2021-12-12] MEDS: Sertraline 50 MG Tablet PO (16:06)
[2021-12-12 19:40] VITALS: BP 91/53; PULSE 88; RESP 18; TEMP 36.6; O2SAT 96
[2021-12-13] VITALS (7 sets, daily range): BP systolic 86–97; BP diastolic 42–51; PULSE 75–84; RESP 16–18; TEMP 36.9; O2SAT 96–97
[2021-12-13] MEDS: traMADol 50 MG Tablet PO ×4 (00:47→18:11)
[2021-12-13] MEDS: Acetaminophen 500 MG Tablet 1000 MG PO ×4 (00:47→18:11)
[2021-12-13] MEDS: Potassium Chloride Oral Tablet 20 MEQ PO (08:04)
[2021-12-13] MEDS: Multivitamin (Healthy Eyes) Capsule 1 CAP PO ×2 (08:04→20:53)
[2021-12-13] MEDS: APIXABAN 5 MG TABLET PO ×2 (08:04→20:53)
[2021-12-13] MEDS: Memantine Hydrochloride 10 MG Tablet PO ×2 (08:05→20:54)
[2021-12-13] MEDS: Gabapentin 400 MG Capsule PO (08:05)
[2021-12-13] MEDS: Cholecalciferol (VIT D3) 25 MCG TABLET (1,000 UNITS) PO (08:07)
[2021-12-13] MEDS: Sertraline 50 MG Tablet PO (08:07)
--- NOTE | 2021-12-13 09:30 | NURSING ---
Addendum entered by Quita Lombardi 12/14/21 13:02: Orthostatic VS unable to be obtained. Original Note: Therapists and this nurse were unable to get patient OOB safely due to BP low. Dr. Gao aware and IV started to LAC and bolus started. Patient fatigued but voicing no complaints other than pain when repositioned. Will monitor. Therapy will reattempt patient later.
[2021-12-13 09:42] LABS: Bedside Glucose 114 mg/dL (70-110)
[2021-12-13] MEDS: Senna/Docusate Sodium 1 Tablet 2 TABLET PO ×2 (09:50→20:54)
[2021-12-13] MEDS: 0.9% Normal Saline 1,000 ML 60 ML IV (10:50)
[2021-12-13] MEDS: Nystatin Powder 15gm Bottle 1 APPLIC TOPICAL ×2 (10:52→20:54)
[2021-12-13] MEDS: Menthol/Lanolin/Calamine/Znox 113 GM Tube 1 APPLIC TOPICAL ×2 (10:52→20:52)
[2021-12-13] MEDS: Polyethylene Glycol 3350 17 GM PACKET PO (12:57)
[2021-12-14] MEDS: traMADol 50 MG Tablet PO ×4 (00:36→18:29)
[2021-12-14] MEDS: Acetaminophen 500 MG Tablet 1000 MG PO ×4 (00:36→18:29)
[2021-12-14] MEDS: 0.9% Normal Saline 1,000 ML 60 ML IV ×2 (02:42→18:33)
[2021-12-14] MEDS: Polyethylene Glycol 3350 17 GM PACKET PO (07:38)
[2021-12-14] MEDS: Multivitamin (Healthy Eyes) Capsule 1 CAP PO ×2 (07:38→21:24)
[2021-12-14] MEDS: Potassium Chloride Oral Tablet 20 MEQ PO (07:38)
[2021-12-14] MEDS: Memantine Hydrochloride 10 MG Tablet PO ×2 (07:38→21:24)
[2021-12-14] MEDS: Sertraline 50 MG Tablet PO (07:38)
[2021-12-14] MEDS: Senna/Docusate Sodium 1 Tablet 2 TABLET PO ×2 (07:40→21:24)
[2021-12-14] MEDS: Cholecalciferol (VIT D3) 25 MCG TABLET (1,000 UNITS) PO (07:41)
[2021-12-14] MEDS: APIXABAN 5 MG TABLET PO ×2 (07:41→21:24)
[2021-12-14] MEDS: Gabapentin 400 MG Capsule PO (07:42)
[2021-12-14] MEDS: Nystatin Powder 15gm Bottle 1 APPLIC TOPICAL ×2 (07:51→21:24)
[2021-12-14] MEDS: Menthol/Lanolin/Calamine/Znox 113 GM Tube 1 APPLIC TOPICAL ×2 (07:51→21:24)
[2021-12-14 08:02] VITALS: BP 108/56; PULSE 82; RESP 16; TEMP 35.9; O2SAT 97
[2021-12-14 08:13] VITALS: PULSE 82
[2021-12-14] MEDS: Metoprolol(XL)Succ 25 MG Tablet PO (08:13)
[2021-12-14] MEDS: Magnesium Hydroxide 30 ML UDC PO (08:17)
[2021-12-14 11:40] VITALS: BP 98/60
[2021-12-14 12:00] VITALS: BP 105/50; BP 115/58; PULSE 80; PULSE 87
--- NOTE | 2021-12-14 12:15 | NURSING ---
Orthostatic VS done as lying and sitting on edge of bed and negative. Patient reported he was unable to stand and c/o pain to surgical leg. Patient denied any dizziness, IVF still running NS 0.9%.
[2021-12-14] MEDS: Bisacodyl 10 MG Suppository RC (18:29)
[2021-12-14 19:17] VITALS: BP 110/58; PULSE 64; RESP 18; TEMP 36.7; O2SAT 96
[2021-12-14 22:00] VITALS: PULSE 64; RESP 16
[2021-12-15] VITALS (8 sets, daily range): BP systolic 88–136; BP diastolic 51–71; PULSE 75–83; RESP 16–18; TEMP 36–36.7; O2SAT 97–98
[2021-12-15] MEDS: Acetaminophen 500 MG Tablet 1000 MG PO ×4 (00:16→18:22)
[2021-12-15] MEDS: traMADol 50 MG Tablet PO ×4 (00:16→18:18)
[2021-12-15 06:04] LABS: Hematocrit 23.3 % (40-54); Hemoglobin 7.7 g/dL (13.0-16.5); Mean Corpuscular Hgb 30.3 pg (27.0-32.0); Mean Corpuscular Volume 91.7 fL (80-94); Mean Platelet Vol. 11.9 fl (6.2-12.0); Platelet Count 205 K/mm3 (150-450); RBC Distribution Width CV 15.2 % (11.6-14.6); RBC Distribution Width SD 51.7 fl (35.1-43.9); Red Blood Count 2.54 M/mm3 (4.6-6.2); White Blood Count 7.6 K/mm3 (4.4-11.0)
[2021-12-15 06:42] LABS: Anion Gap 5 (5-15); BUN 32 mg/dL (7-18); BUN/Creat Ratio 49.5 RATIO (10-20); Chloride 111 mmol/L (98-107); Creatinine, Serum 0.65 mg/dL (0.70-1.30); EST Glomerular Filtration Rate 126 mL/min (>60); Est Glom Filt Rate - Afr Amer 153 mL/min (>60); Estimated Creatinine Clearance 67.36 ml/min; Glucose 83 mg/dL (74-106); Magnesium 2.4 mg/dL (1.6-2.6); Potassium 4.4 mmol/L (3.5-5.1); Sodium Level 138 mmol/L (136-145)
[2021-12-15] MEDS: Sertraline 50 MG Tablet PO (07:52)
[2021-12-15] MEDS: APIXABAN 5 MG TABLET PO ×2 (07:53→21:46)
[2021-12-15] MEDS: Multivitamin (Healthy Eyes) Capsule 1 CAP PO ×2 (07:53→21:46)
[2021-12-15] MEDS: Cholecalciferol (VIT D3) 25 MCG TABLET (1,000 UNITS) PO (07:53)
[2021-12-15] MEDS: Senna/Docusate Sodium 1 Tablet 2 TABLET PO (07:53)
[2021-12-15] MEDS: Memantine Hydrochloride 10 MG Tablet PO ×2 (07:54→21:46)
[2021-12-15] MEDS: Potassium Chloride Oral Tablet 20 MEQ PO (07:54)
[2021-12-15] MEDS: Gabapentin 400 MG Capsule PO (07:55)
[2021-12-15] MEDS: Menthol/Lanolin/Calamine/Znox 113 GM Tube 1 APPLIC TOPICAL ×2 (08:05→21:42)
[2021-12-15] MEDS: Nystatin Powder 15gm Bottle 1 APPLIC TOPICAL ×2 (08:06→21:43)
--- NOTE | 2021-12-15 08:31 | NURSING ---
Unable to complete ortho VS but did not have significant drop between lying and sitting BP's. Unable to stand with therapy and x1 nurse. Denies dizziness. Continues to complain about pain to the surgical hip.
--- NOTE | 2021-12-15 09:17 | PCM.PN.BLA ---
Progress Note Afebrile VSS Maintaining appropriate oxygen saturation on RA Oral intake is poor but, he is currently on IVF's for low BP's over the weekend. He is incontinent of urine. Discussed with nursing - no problems that need addressed. He is sleeping well at night now. Pain is better controlled. Reviewed the PT/OT/ST notes Medication list reviewed. All lab was personally reviewed. Hemoglobin is down to 7.7 today since he has been hydrated. The creatinine is down to 0.65 which is slightly below his baseline. Creatinine on 12/12/2021 was 1.08 prior to hydration. Magnesium is normal. K is 4.4. Calcium corrected for hypoalbuminemia is within normal limits. Curtis is doing much better today. He is alert and oriented X 3. He denies SOB, CP, Cough, N/V/abd pain. He tells me that his pain is adequately controlled now. He is cooperating with therapy. He is pleasant and appropriate. Physical Exam Const alert, oriented x3, no apparent distress and well nourished General Appearance: cooperative, comfortable, well kempt and well developed HEENT normocephalic and moist oral mucous membranes HEENT Narrative: MM are moist today. Eyes PERRL, EOMs intact bilaterally and no scleral icterus Eyes Narrative: The palpebral conjunctiva and the nail beds are very pale Resp normal respiratory effort Resp Narrative: CTA anterior and lateral. Good inspiratory effort. Not tachypneic. Effort and Inspection: able to speak in complete sentences Cardio regular rhythm, no murmurs and no gallops Cardio Narrative: Heart sounds are a little distant GI normal to inspection, nondistended, normoactive bowel sounds and soft to palpation GI Narrative: Abdominal distension is less today. No guarding with palpation Extremity no calf tenderness Extremity Narrative: He has pitting edema of the posterior left thigh but no ankle edema on the left side. No edema of the right lower extremity. No pitting edema in the flanks. Skin Rashes: no rashes Assessment & Plan Assessment/Plan (1) Status post open reduction and internal fixation (ORIF) of fracture: (2) Closed left hip fracture: (3) Acute on chronic blood loss anemia: (4) Chronic anticoagulation: (5) Debility: (6) COPD (chronic obstructive pulmonary disease): PLAN: 1. Type and cross for 2 units of packed red blood cells and transfuse 1 today. 2. He is not eating well and does not like his food ground up. Will discuss with the speech therapist to see if he can be changed to soft, moist and bite sized. 3. DC the intravenous fluids after the current liter has infused 4. Continue the current pain regimen 5. Recheck a H&H in the a.m. 6. Check a Hemoccult stool Visit Charges Inpatient E&M: 97151 Subs Hosp L2
[2021-12-15] MEDS: 0.9% Normal Saline 1,000 ML 60 ML IV (09:53)
[2021-12-15] MEDS: Metoprolol(XL)Succ 25 MG Tablet PO (12:14)
[2021-12-15] MEDS: Lisinopril 10 MG Tablet PO (12:14)
--- NOTE | 2021-12-15 14:58 | CASEMGMT ---
Social Work IDT met with patient and via conference call for Team meeting. Discussed patient's progress in PT/OT/ST and nursing. Pt has been very weak and painful. Dr hall. Pt will receive a blood transfusion. Therapy will be able to better assess after. Currently x2-3 assist. Explained Medicare approved 17 days with DC 12/28. Pt and would be interested in TCU if he cannot return home. Referral made to be put on list. Will ReTeam next week. SW to continue to follow. BHUMI DasilvaW
--- NOTE | 2021-12-15 16:13 | CHAPLAIN ---
Type of Pastoral Visit _x__ Initial Visit ___ Follow-up Visit ___ On-call Visit ___ General Patient Visit ___ Spiritual Assessment ___ Family Conference ___ Bereavement ___ Rapid Response ___ Code Blue ___ Other (describe below) Pastoral Care Referral From _x__ Patient ___ Family ___ Nurse ___ Physician ___ Director Instructional Material ___ Template Maker ___ Other (describe below) Sacrament/Intervention _x__ Active listening ___ Anointing ___ Jain ___ Bereavement ___ Communion _x__ Noelle exploration ___ ___ Life review _x__ Prayer ___ Reconciliation ___ Sacrament of Sick _x__ Supportive presence ___ Wedding ___ Other (describe below) Pastoral Comments patient known to this director correctional agency and frequently seen during his last admission to TCU; pt is less verbal and optimistic than previous admission to hospital; spouse is not with him today which is unusual; support and presence given
[2021-12-15] MEDS: Bumetanide 1 MG/4 ML Vial 0.5 MG IV (18:16)
[2021-12-15] MEDS: Pantoprazole Sodium 20 MG Tablet PO (21:46)
[2021-12-16] MEDS: Acetaminophen 500 MG Tablet 1000 MG PO ×4 (00:12→18:05)
[2021-12-16] MEDS: traMADol 50 MG Tablet PO ×4 (00:13→18:04)
[2021-12-16 02:46] LABS: Hematocrit 29.6 % (40-54); Hemoglobin 9.8 g/dL (13.0-16.5)
--- NOTE | 2021-12-16 04:12 | NURSING ---
Reviewed and agree with COMMUNICATIONS PROFESSIONAL documentation and assessment charting.
[2021-12-16 08:28] VITALS: BP 121/58; PULSE 71; RESP 16; TEMP 36.6; O2SAT 96
[2021-12-16] MEDS: Memantine Hydrochloride 10 MG Tablet PO ×2 (09:20→22:19)
[2021-12-16] MEDS: Polyethylene Glycol 3350 17 GM PACKET PO (09:20)
[2021-12-16] MEDS: Multivitamin (Healthy Eyes) Capsule 1 CAP PO ×2 (09:20→22:19)
[2021-12-16] MEDS: APIXABAN 5 MG TABLET PO ×2 (09:20→22:19)
[2021-12-16 09:21] VITALS: BP 121/58; PULSE 71
[2021-12-16] MEDS: Senna/Docusate Sodium 1 Tablet 2 TABLET PO ×2 (09:21→22:19)
[2021-12-16] MEDS: Pantoprazole Sodium 20 MG Tablet PO ×2 (09:21→22:19)
[2021-12-16] MEDS: Metoprolol(XL)Succ 25 MG Tablet PO (09:21)
[2021-12-16] MEDS: Gabapentin 400 MG Capsule PO (09:21)
[2021-12-16] MEDS: Lisinopril 10 MG Tablet PO (09:22)
[2021-12-16] MEDS: Sertraline 50 MG Tablet PO (09:22)
[2021-12-16] MEDS: Cholecalciferol (VIT D3) 25 MCG TABLET (1,000 UNITS) PO (09:22)
[2021-12-16] MEDS: Potassium Chloride Oral Tablet 20 MEQ PO (09:23)
--- NOTE | 2021-12-16 09:29 | PCM.PN.BLA ---
Progress Note Afebrile VSS-the blood pressure has improved with hydration and transfusion. Current blood pressure is 121/58. Maintaining appropriate oxygen saturation on RA Oral intake is approximately 1 L a day. He had been receiving IV fluids but these were discontinued yesterday. He was not eating because he does not like his food ground however he tends to pocket and have retained food after he swallows. He was advanced to a soft, moist, bite-size diet and must have supervision with eating. He forgets to double swallow and sweep the tongue after he swallows. Remains incontinent of urine. He does retain at times but, the highest PVR is 286. He is not on any medication for BPH Fluid balance for 12/15/2021 is +1197. Urine output is unknown due to incontinence. Last bowel movement was 12/15/2021 and it was loose. Discussed with nursing - no problems that need addressed Reviewed the PT/OT/ST notes Medication list reviewed. The hemoglobin increased from 7.7-9.8 after transfusion of 1 unit of packed red blood cells. Stool for occult blood was negative. Physical Exam Const alert and no apparent distress Constitutional Narrative: He has better color in his face and the palpebral conjunctiva today General Appearance: cooperative Eyes PERRL, EOMs intact bilaterally, conjunctivae normal and no scleral icterus Resp clear to auscultation bilaterally Resp Narrative: diminished, no wheezing and no crackles Effort and Inspection: able to speak in complete sentences Cardio regular rhythm and no gallops GI normal to inspection, nondistended, normoactive bowel sounds, soft to palpation and non-tender Extremity no calf tenderness Extremity Narrative: The left hip incision was examined. The incision is intact. There was serous drainage present on the dressing. There is no odor from the wound. There is no purulent DC. There is a lot of edema around the incision and there is some mild erythema which I think is related to swelling and bruising and not due to infection. Assessment & Plan Assessment/Plan (1) Acute on chronic blood loss anemia: (2) Stroke/cerebrovascular accident: (3) Closed left hip fracture: (4) Chronic anticoagulation: (5) Status post open reduction and internal fixation (ORIF) of fracture: (6) Dehydration: (7) BPH (benign prostatic hyperplasia): PLAN: 1. No blood transfusion today. Will recheck H&H on Thursday along with a BMP. 2. Continue to hold Bumex......he only drinks about 1 liter a day and he has no LE edema at this time. Use RAMIRO hose to control edema rather than Lasix. He has a normal EF and the RV is normal size. PA pressure is only mildly elevated at 36. 3. Continue therapy. 4. Discontinue regular diet and change to heart healthy. 5. Start Flomax 0.4 mg daily and check orthostatic vital signs for the next 3 days. After 3 days on Flomax will also repeat postvoid residual. Visit Charges Inpatient E&M: 68799 Subs Hosp L2
[2021-12-16] MEDS: Nystatin Powder 15gm Bottle 1 APPLIC TOPICAL ×2 (10:19→22:20)
[2021-12-16] MEDS: Menthol/Lanolin/Calamine/Znox 113 GM Tube 1 APPLIC TOPICAL ×2 (10:19→22:21)
[2021-12-16] MEDS: Tamsulosin HCl 0.4 MG Capsule PO (16:53)
[2021-12-16 22:00] VITALS: BP 109/60; PULSE 73; RESP 16; TEMP 36.6; O2SAT 97
[2021-12-16] MEDS: 0.9% Saline Lock 10 ML Syringe IV (22:35)
[2021-12-17] MEDS: traMADol 50 MG Tablet PO ×4 (00:03→18:34)
[2021-12-17] MEDS: Acetaminophen 500 MG Tablet 1000 MG PO ×4 (00:03→18:34)
[2021-12-17 07:37] VITALS: BP 122/57; PULSE 91; RESP 16; TEMP 36.1; O2SAT 97
[2021-12-17] MEDS: Potassium Chloride Oral Tablet 20 MEQ PO (08:23)
[2021-12-17] MEDS: Multivitamin (Healthy Eyes) Capsule 1 CAP PO ×2 (08:24→22:31)
[2021-12-17] MEDS: Polyethylene Glycol 3350 17 GM PACKET PO (08:24)
[2021-12-17] MEDS: Memantine Hydrochloride 10 MG Tablet PO ×2 (08:24→22:31)
[2021-12-17] MEDS: Gabapentin 400 MG Capsule PO (08:24)
[2021-12-17] MEDS: APIXABAN 5 MG TABLET PO ×2 (08:24→22:32)
[2021-12-17 08:25] VITALS: BP 122/57; PULSE 91
[2021-12-17] MEDS: Senna/Docusate Sodium 1 Tablet 2 TABLET PO ×2 (08:25→22:32)
[2021-12-17] MEDS: Metoprolol(XL)Succ 25 MG Tablet PO (08:25)
[2021-12-17] MEDS: Lisinopril 10 MG Tablet PO (08:25)
[2021-12-17] MEDS: Cholecalciferol (VIT D3) 25 MCG TABLET (1,000 UNITS) PO (08:25)
[2021-12-17] MEDS: Sertraline 50 MG Tablet PO (08:25)
[2021-12-17] MEDS: Pantoprazole Sodium 20 MG Tablet PO ×2 (08:25→22:31)
[2021-12-17] MEDS: Menthol/Lanolin/Calamine/Znox 113 GM Tube 1 APPLIC TOPICAL ×2 (08:26→22:31)
[2021-12-17] MEDS: Nystatin Powder 15gm Bottle 1 APPLIC TOPICAL ×2 (08:26→22:31)
[2021-12-17 10:24] VITALS: BP 118/61; BP 121/65; PULSE 91
--- NOTE | 2021-12-17 12:02 | PN_ITS ---
Progress Note Afebrile VSS blood pressure and heart rate are within normal limits. Maintaining appropriate oxygen saturation on RA Oral intake is good. Urine output yesterday was only 400 cc but so far today he has had 525 cc. He was very dehydrated at admission. I do not believe the weights.......will have him weighed daily now in the WC on the scale in the therapy room Discussed with nursing - no problems that need addressed Reviewed the PT/OT/ST notes. Therapy got him up using the inés lift today and it only required assist of 2. Curtis tolerated this well and he was not fearful with the inés-lift because he has been afraid of falling and that is why it took 4 people to get him back into bed yesterday. Medication list reviewed. I saw Curtis while he was in the therapy room eating lunch. He denied pain. He slept well last night. He is eating better now that the textures have been upgraded. He denies SOB, cough, CP, palpitations. He is very alert and cooperative. He denies lightheadedness sitting up. Physical Exam Const alert, oriented x3 and no apparent distress Constitutional Narrative: has good color in his face today General Appearance: cooperative and comfortable HEENT HEENT Narrative: MM are still somewhat dry Eyes conjunctivae normal and no scleral icterus Resp Resp Narrative: Few coarse crackles in the bases. Not tachypneic, no accessory muscle use. No wheezing. Able to speak in complete sentences. Denies shor tness of breath. No cough. Cardio Cardio Narrative: Irregular rhythm with controlled ventricular response. No gallops, no murmur, heart sounds are little distant. GI normal to inspection, nondistended, normoactive bowel sounds, soft to palpation and non-tender GI Narrative: No guarding with palpation Extremity no calf tenderness Extremity Narrative: No edema of his ankles. There is some edema of the left thigh. Skin General Skin Exam: no breakdown Rashes: no rashes Psych Psych Narrative: Making good eye contact with me. Good voice modulation. He is pleasant and interacts with staff well. Assessment & Plan Assessment/Plan (1) Debility: (2) Closed left hip fracture: (3) Status post open reduction and internal fixation (ORIF) of fracture: (4) Acute on chronic blood loss anemia: (5) Dehydration: (6) BPH (benign prostatic hyperplasia): (7) Urine retention: (8) Henley catheter present: (9) Chronic anticoagulation: (10) Longstanding persistent atrial fibrillation: PLAN: 1. Making good progress in therapy. Will continue 2. Recheck lab on Wednesday 3. Pain is now well controlled. 4. Intake has improved with upgrading the diet. Encourage him to drink more water. Diuretic is on hold. The peripheral edema is controlled by the RAMIRO hose. 5. Stool is heme negative and the HH is stable. 6. He is tolerating the Flomax that was started on December 16, 2021 with no lightheadedness. Plan on a voiding trial this coming Wednesday. Visit Charges Inpatient E&M: 18921 Subs Hosp L2
[2021-12-17] MEDS: 0.9% Saline Lock 10 ML Syringe IV (17:41)
[2021-12-17] MEDS: Tamsulosin HCl 0.4 MG Capsule PO (18:34)
[2021-12-17 20:03] VITALS: BP 110/61; PULSE 65; RESP 16; TEMP 36.3; O2SAT 96
[2021-12-18] MEDS: traMADol 50 MG Tablet PO ×4 (01:55→18:26)
[2021-12-18] MEDS: Acetaminophen 500 MG Tablet 1000 MG PO ×4 (01:55→18:26)
[2021-12-18 07:28] VITALS: BP 113/70; PULSE 89; RESP 18; TEMP 36.3; O2SAT 96
[2021-12-18] MEDS: Potassium Chloride Oral Tablet 20 MEQ PO (08:14)
[2021-12-18] MEDS: APIXABAN 5 MG TABLET PO ×2 (08:14→19:44)
[2021-12-18 08:15] VITALS: PULSE 89
[2021-12-18] MEDS: Gabapentin 400 MG Capsule PO (08:15)
[2021-12-18] MEDS: Metoprolol(XL)Succ 25 MG Tablet PO (08:15)
[2021-12-18] MEDS: Memantine Hydrochloride 10 MG Tablet PO ×2 (08:15→19:44)
[2021-12-18] MEDS: Lisinopril 10 MG Tablet PO (08:15)
[2021-12-18] MEDS: Pantoprazole Sodium 20 MG Tablet PO ×2 (08:15→19:49)
[2021-12-18] MEDS: Multivitamin (Healthy Eyes) Capsule 1 CAP PO ×2 (08:15→19:44)
[2021-12-18] MEDS: Cholecalciferol (VIT D3) 25 MCG TABLET (1,000 UNITS) PO (08:15)
[2021-12-18] MEDS: Sertraline 50 MG Tablet PO (08:16)
[2021-12-18] MEDS: Nystatin Powder 15gm Bottle 1 APPLIC TOPICAL ×2 (08:20→19:50)
[2021-12-18] MEDS: Menthol/Lanolin/Calamine/Znox 113 GM Tube 1 APPLIC TOPICAL ×2 (08:21→19:49)
[2021-12-18] MEDS: Tamsulosin HCl 0.4 MG Capsule PO (16:07)
[2021-12-18 17:34] VITALS: BP 106/58; BP 110/51; PULSE 81; PULSE 88
[2021-12-18] MEDS: Senna/Docusate Sodium 1 Tablet 2 TABLET PO (19:49)
[2021-12-18 19:51] VITALS: BP 105/63; PULSE 74; RESP 18; TEMP 36.3; O2SAT 96
[2021-12-19] MEDS: traMADol 50 MG Tablet PO ×4 (00:41→17:46)
[2021-12-19] MEDS: Acetaminophen 500 MG Tablet 1000 MG PO ×4 (00:57→17:46)
[2021-12-19 04:25] VITALS: BP 101/48; BP 114/67; BP 90/57; PULSE 80; PULSE 84; PULSE 97
[2021-12-19 07:53] VITALS: BP 101/48; PULSE 80; RESP 18; TEMP 36.5; O2SAT 97
[2021-12-19] MEDS: Lisinopril 10 MG Tablet PO (09:46)
[2021-12-19] MEDS: Potassium Chloride Oral Tablet 20 MEQ PO (09:46)
[2021-12-19] MEDS: APIXABAN 5 MG TABLET PO ×2 (09:46→21:20)
[2021-12-19 09:47] VITALS: PULSE 80
[2021-12-19] MEDS: Metoprolol(XL)Succ 25 MG Tablet PO (09:47)
[2021-12-19] MEDS: Pantoprazole Sodium 20 MG Tablet PO ×2 (09:47→21:20)
[2021-12-19] MEDS: Memantine Hydrochloride 10 MG Tablet PO ×2 (09:47→21:20)
[2021-12-19] MEDS: Multivitamin (Healthy Eyes) Capsule 1 CAP PO ×2 (09:47→21:21)
[2021-12-19] MEDS: Cholecalciferol (VIT D3) 25 MCG TABLET (1,000 UNITS) PO (09:47)
[2021-12-19] MEDS: Sertraline 50 MG Tablet PO (09:47)
[2021-12-19] MEDS: Gabapentin 400 MG Capsule PO (09:47)
[2021-12-19] MEDS: Menthol/Lanolin/Calamine/Znox 113 GM Tube 1 APPLIC TOPICAL ×2 (10:14→21:20)
[2021-12-19] MEDS: Nystatin Powder 15gm Bottle 1 APPLIC TOPICAL ×2 (10:14→21:21)
--- NOTE | 2021-12-19 10:42 | PCM.PN.BLA ---
Progress Note Afebrile VSS Maintaining appropriate oxygen saturation on RA Oral intake is good Discussed with nursing - no problems that need addressed Reviewed the PT/OT/ST notes Medication list reviewed. Curtis denies chest pain, shortness of breath, cough, nausea/vomiting/abdominal pain, lightheadedness, calf pain. His pain is well controlled. Physical Exam Const alert, oriented x3 and no apparent distress Constitutional Narrative: Very alert and cooperative. Pleasant and appropriate. HEENT moist oral mucous membranes Resp clear to auscultation bilaterally Resp Narrative: Better air exchange in the bases now with no crackles and no wheezes. He is not tachypneic and has no accessory muscle use. He is able to speak in complete sentences. Cardio Cardio Narrative: Irregular with controlled ventricular response. No gallop, no murmur. GI normal to inspection, nondistended, normoactive bowel sounds, soft to palpation and non-tender GI Narrative: No guarding with palpation Narrative: The urine in the Henley bag is red but, no clotting. He denies pain in the penis or the suprapubic area. Bladder / Kidney Exam: catheter in place Extremity no calf tenderness and no pedal edema Extremity Narrative: There is edema of the Left thigh but it is decreasing and the redness present the other day has faded considerably. He has been afebrile. There is a small amount of serous drainage on the bandage. The incision is intact and there is no purulent DC. He denied pain with palpation Skin General Skin Exam: no breakdown Rashes: no rashes Psych cooperative, affect normal and denies hallucinations Appearance: appropriate and well kempt Activity / Motor Behavior: appropriate eye contact Assessment & Plan Assessment/Plan (1) Closed left hip fracture: (2) Hematuria: (3) Henley catheter present: (4) Urine retention: (5) BPH (benign prostatic hyperplasia): (6) Acute on chronic blood loss anemia: (7) Chronic anticoagulation: (8) Debility: (9) Longstanding persistent atrial fibrillation: PLAN: 1. Continue therapy 2. Check H&H, BMP and total bilirubin on Wednesday 3. Continue sertraline 4. Voiding trial in the a.m. 5. Patient was encouraged to increase his fluid intake today to prevent clotting in the Henley catheter. Visit Charges Inpatient E&M: 34774 Subs Hosp L2
[2021-12-19] MEDS: Tamsulosin HCl 0.4 MG Capsule PO (17:46)
[2021-12-19 20:00] VITALS: BP 123/63; PULSE 77; RESP 18; TEMP 36.5; O2SAT 98
[2021-12-20] MEDS: Acetaminophen 500 MG Tablet 1000 MG PO ×4 (00:30→18:35)
[2021-12-20] MEDS: traMADol 50 MG Tablet PO ×4 (00:30→18:30)
[2021-12-20] MEDS: Potassium Chloride Oral Tablet 20 MEQ PO (08:00)
[2021-12-20 10:00] VITALS: PULSE 80
[2021-12-20] MEDS: Memantine Hydrochloride 10 MG Tablet PO ×2 (10:00→22:00)
[2021-12-20] MEDS: Nystatin Powder 15gm Bottle 1 APPLIC TOPICAL ×2 (10:00→22:00)
[2021-12-20] MEDS: APIXABAN 5 MG TABLET PO ×2 (10:00→22:00)
[2021-12-20] MEDS: Multivitamin (Healthy Eyes) Capsule 1 CAP PO ×2 (10:00→22:00)
[2021-12-20] MEDS: Gabapentin 400 MG Capsule PO (10:00)
[2021-12-20] MEDS: Cholecalciferol (VIT D3) 25 MCG TABLET (1,000 UNITS) PO (10:00)
[2021-12-20] MEDS: Menthol/Lanolin/Calamine/Znox 113 GM Tube 1 APPLIC TOPICAL ×2 (10:00→22:00)
[2021-12-20] MEDS: Metoprolol(XL)Succ 25 MG Tablet PO (10:00)
[2021-12-20] MEDS: Sertraline 50 MG Tablet PO (10:00)
[2021-12-20] MEDS: Lisinopril 10 MG Tablet PO (10:00)
[2021-12-20] MEDS: Pantoprazole Sodium 20 MG Tablet PO ×2 (10:00→22:00)
[2021-12-20] MEDS: Tamsulosin HCl 0.4 MG Capsule PO (17:30)
[2021-12-20 21:50] VITALS: BP 128/64; PULSE 72; RESP 17; TEMP 36.4; O2SAT 98
[2021-12-20] MEDS: Arthritis Pain Compound 60 CLICK TUBE TOPICAL (21:50)
[2021-12-21] MEDS: traMADol 50 MG Tablet PO ×4 (00:30→18:44)
[2021-12-21] MEDS: Acetaminophen 500 MG Tablet 1000 MG PO ×4 (00:45→18:44)
--- NOTE | 2021-12-21 03:30 | NURSING ---
Reviewed and agree with BRAND MARKETING MANAGER note and assessment.
[2021-12-21] MEDS: Potassium Chloride Oral Tablet 20 MEQ PO (09:08)
[2021-12-21 09:14] VITALS: PULSE 81
[2021-12-21] MEDS: Memantine Hydrochloride 10 MG Tablet PO ×2 (09:14→19:57)
[2021-12-21] MEDS: APIXABAN 5 MG TABLET PO ×2 (09:14→19:57)
[2021-12-21] MEDS: Multivitamin (Healthy Eyes) Capsule 1 CAP PO ×2 (09:14→19:57)
[2021-12-21] MEDS: Pantoprazole Sodium 20 MG Tablet PO ×2 (09:14→19:57)
[2021-12-21] MEDS: Gabapentin 400 MG Capsule PO (09:14)
[2021-12-21] MEDS: Metoprolol(XL)Succ 25 MG Tablet PO (09:14)
[2021-12-21] MEDS: Lisinopril 10 MG Tablet PO (09:15)
[2021-12-21] MEDS: Sertraline 50 MG Tablet PO (09:15)
[2021-12-21] MEDS: Cholecalciferol (VIT D3) 25 MCG TABLET (1,000 UNITS) PO (09:15)
[2021-12-21] MEDS: Menthol/Lanolin/Calamine/Znox 113 GM Tube 1 APPLIC TOPICAL ×2 (09:16→20:17)
[2021-12-21] MEDS: Nystatin Powder 15gm Bottle 1 APPLIC TOPICAL ×2 (09:16→20:14)
[2021-12-21 10:00] VITALS: BP 108/58; PULSE 81; RESP 18; TEMP 36.4; O2SAT 94
[2021-12-21] MEDS: Tamsulosin HCl 0.4 MG Capsule PO (17:17)
[2021-12-21 19:30] VITALS: BP 102/55; PULSE 79; RESP 17; TEMP 36.6; O2SAT 97
[2021-12-22] MEDS: Acetaminophen 500 MG Tablet 1000 MG PO ×4 (00:41→17:54)
[2021-12-22] MEDS: traMADol 50 MG Tablet PO ×4 (00:41→17:55)
[2021-12-22 05:26] LABS: Hematocrit 27.7 % (40-54); Hemoglobin 8.9 g/dL (13.0-16.5)
[2021-12-22 05:56] LABS: Anion Gap 4 (5-15); BUN 17 mg/dL (7-18); BUN/Creat Ratio 25.1 RATIO (10-20); Chloride 110 mmol/L (98-107); Creatinine, Serum 0.68 mg/dL (0.70-1.30); EST Glomerular Filtration Rate 120 mL/min (>60); Est Glom Filt Rate - Afr Amer 145 mL/min (>60); Estimated Creatinine Clearance 67.36 ml/min; Glucose 91 mg/dL (74-106); Potassium 3.8 mmol/L (3.5-5.1); Sodium Level 141 mmol/L (136-145)
[2021-12-22 06:26] VITALS: BP 110/80; PULSE 82; RESP 18; TEMP 36.7; O2SAT 98
[2021-12-22 07:52] VITALS: BP 110/80; PULSE 82
[2021-12-22] MEDS: APIXABAN 5 MG TABLET PO ×2 (07:52→21:28)
[2021-12-22] MEDS: Potassium Chloride Oral Tablet 20 MEQ PO (07:52)
[2021-12-22] MEDS: Metoprolol(XL)Succ 25 MG Tablet PO (07:52)
[2021-12-22] MEDS: Pantoprazole Sodium 20 MG Tablet PO ×2 (07:53→21:28)
[2021-12-22] MEDS: Memantine Hydrochloride 10 MG Tablet PO ×2 (07:53→21:28)
[2021-12-22] MEDS: Multivitamin (Healthy Eyes) Capsule 1 CAP PO ×2 (07:53→21:28)
[2021-12-22] MEDS: Lisinopril 10 MG Tablet PO (07:53)
[2021-12-22] MEDS: Cholecalciferol (VIT D3) 25 MCG TABLET (1,000 UNITS) PO (07:53)
[2021-12-22] MEDS: Sertraline 50 MG Tablet PO (07:53)
[2021-12-22] MEDS: Gabapentin 400 MG Capsule PO (07:53)
[2021-12-22] MEDS: Menthol/Lanolin/Calamine/Znox 113 GM Tube 1 APPLIC TOPICAL ×2 (07:54→21:30)
[2021-12-22] MEDS: Nystatin Powder 15gm Bottle 1 APPLIC TOPICAL ×2 (07:54→21:29)
--- NOTE | 2021-12-22 10:20 | PCM.PN.BLA ---
Progress Note Curtis was seen on team rounds today. His is not available to participate. Afebrile VSS Maintaining appropriate oxygen saturation on RA Oral intake is erratic. Oral intake yesterday was 965 but oral intake on 12/19/2021 was 1750. Last bowel movement is 12/22/2021. Discussed with nursing - no problems that need addressed. The Henley was discontinued. Post void residuals are all less than 100. He continues to be incontinent of urine. He tells me that he knows when he has to urinate but, he can not reach the urinal and he does not remember to call for help. He also knows when he has to have a BM. Reviewed the PT/OT/ST notes Medication list reviewed. All lab was personally reviewed. Hemoglobin today is 8.9, down from 9.8 on 12/16/2021 but, he only received 1 unit of blood on and the HGB increased from 7.7-9.8 and no he has had time to equilibrate. The BUN is down to 17 from 32 and the creatinine is stable at 0.68. Total bilirubin today is 0.7, down from 1.9 on 12/12/2021. Curtis denies chest pain, shortness of breath, palpitations, lightheadedness, nausea/vomiting/abdominal pain, calf pain. No bleeding from his gums, no epistaxis and Hemoccult stool was negative. Physical Exam Const alert, oriented x3 and no apparent distress General Appearance: cooperative and comfortable Chest Chest: symmetrical chest wall rise Resp Resp Narrative: CTA with mildly diminished BS's BL Effort and Inspection: able to speak in complete sentences Cardio no gallops Cardio Narrative: irreg with controlled VR GI normal to inspection, nondistended, normoactive bowel sounds and soft to palpation Extremity no calf tenderness Extremity Narrative: Still with swelling in the Left thigh but it is getting softer. The incision is intact with no purulent DC. Assessment & Plan Assessment/Plan (1) Urine retention: (2) Closed left hip fracture: (3) Status post open reduction and internal fixation (ORIF) of fracture: (4) Chronic anticoagulation: PLAN: 1. Continue therapy. 2. Will be going to TCU for additional therapy prior to going home. Visit Charges Inpatient E&M: 73263 Subs Hosp L2
--- NOTE | 2021-12-22 14:00 | CASEMGMT ---
Social Work IDT met with patient for Team meeting. Discussed patient's progress in PT/OT/ST and nursing. Pt making progress but not ready to DC home. and pt requesting TCU at [facility] 12/28. IDT agreeable. Referral made to TCU. They can accept. Contacted and updated on plan - she is agreeable. Did explain to that pt will not have a new 100 day Medicare benefit and start over from the days used prior on TCU. expressed understanding. Plan: DC to TCU 12/28. Maddie Browning, PERSONNEL WORKER APRON TRIMMER
--- NOTE | 2021-12-22 15:55 | NURSING ---
received return call form [place] at Dr Pierre office-ok to remove sutures on 12/29
--- NOTE | 2021-12-22 17:11 | CHAPLAIN ---
Type of Pastoral Visit ___ Initial Visit _x__ Follow-up Visit ___ On-call Visit ___ General Patient Visit ___ Spiritual Assessment ___ Family Conference ___ Bereavement ___ Rapid Response ___ Code Blue ___ Other (describe below) Pastoral Care Referral From _x__ Patient x Family ___ Nurse ___ Physician ___ Shift Mechanic ___ Roofer Gypsum ___ Other (describe below) Sacrament/Intervention _x__ Active listening ___ Anointing ___ Islam ___ Bereavement ___ Communion ___ Noelle exploration ___ _x__ Life review _x__ Prayer ___ Reconciliation ___ Sacrament of Sick _x__ Supportive presence ___ Wedding ___ Other (describe below) Pastoral Comments
[2021-12-22] MEDS: Tamsulosin HCl 0.4 MG Capsule PO (17:25)
[2021-12-22 19:39] VITALS: BP 150/76; PULSE 71; RESP 16; TEMP 36.9; O2SAT 97
[2021-12-23] MEDS: Acetaminophen 500 MG Tablet 1000 MG PO ×4 (00:34→18:25)
[2021-12-23] MEDS: traMADol 50 MG Tablet PO ×4 (00:34→18:25)
--- NOTE | 2021-12-23 04:56 | NURSING ---
REVIEWED AND AGREE WITH TUBING MACHINE TENDER'S FUNCTIONAL ASSESSMENT AND HANDOFF CHARTING.
[2021-12-23 06:01] LABS: Absolute Lymphocyte Count 0.93 X10^3/uL (0.83-4.51); Absolute Neutrophil Count 4.9 X10^3/uL (2.0-7.7); Basophil# 0.04 X10^3/uL; Basophil% 0.6 % (0-1); Eosinophil# 0.15 X10^3/uL; Eosinophils% 2.3 % (0-5); Hemoglobin 8.9 g/dL (13.0-16.5); Lymphocyte # 0.93 X10^3/ul (0.83-4.51); Lymphocyte % 14.2 % (19-41); Mean Corpuscular Hgb 31.1 pg (27.0-32.0); Mean Corpuscular Volume 94.4 fL (80-94); Mean Platelet Vol. 9.8 fl (6.2-12.0); Monocyte# 0.49 X10^3/uL; Monocyte% 7.5 % (0-10); NRBC Flagged by Analyzer 0 % (0-5); Neutrophil % 74.8 % (47-70); Platelet Count 264 K/mm3 (150-450); RBC Distribution Width CV 15.8 % (11.6-14.6); RBC Distribution Width SD 54.6 fl (35.1-43.9); Red Blood Count 2.86 M/mm3 (4.6-6.2); White Blood Count 6.6 K/mm3 (4.4-11.0)
[2021-12-23 06:38] LABS: Erythrocyte Sedimentation Rate 27 mm/hr (0-20)
[2021-12-23 07:26] VITALS: BP 125/58; PULSE 81; RESP 17; TEMP 36.6; O2SAT 97
[2021-12-23] MEDS: Potassium Chloride Oral Tablet 20 MEQ PO (07:35)
[2021-12-23 07:37] VITALS: PULSE 81
[2021-12-23] MEDS: Memantine Hydrochloride 10 MG Tablet PO ×2 (07:37→21:58)
[2021-12-23] MEDS: APIXABAN 5 MG TABLET PO ×2 (07:37→21:58)
[2021-12-23] MEDS: Multivitamin (Healthy Eyes) Capsule 1 CAP PO ×2 (07:37→21:58)
[2021-12-23] MEDS: Gabapentin 400 MG Capsule PO (07:37)
[2021-12-23] MEDS: Pantoprazole Sodium 20 MG Tablet PO ×2 (07:37→21:58)
[2021-12-23] MEDS: Metoprolol(XL)Succ 25 MG Tablet PO (07:37)
[2021-12-23] MEDS: Lisinopril 10 MG Tablet PO (07:38)
[2021-12-23] MEDS: Sertraline 50 MG Tablet PO (07:38)
[2021-12-23] MEDS: Cholecalciferol (VIT D3) 25 MCG TABLET (1,000 UNITS) PO (07:38)
[2021-12-23] MEDS: Nystatin Powder 15gm Bottle 1 APPLIC TOPICAL ×2 (07:39→21:58)
[2021-12-23] MEDS: Menthol/Lanolin/Calamine/Znox 113 GM Tube 1 APPLIC TOPICAL ×2 (07:39→21:57)
--- NOTE | 2021-12-23 15:36 | PCM.PN.BLA ---
Progress Note Afebrile VSS Maintaining appropriate oxygen saturation on RA - he does not consistently keep the CPAP o so we place him on 2 LPM O2 at night Oral intake is averaging about 1 liter per day Discussed with nursing - Nursing is concerned about redness around the incision in the Left hip. Reviewed the PT/OT/ST notes Medication list reviewed. Curtis states his pain is primarily in the Left knee. It is not red or swollen and it is not warm to touch. He denies SOB/ CP, N/V/Abd pain, lightheadedness, insomnia. Bowels are moving well. Urine retention resolved with Flomax. He denies dysuria. All lab was personally reviewed. The white blood cell count is normal at 6.6 with a very mild left shift with 75% neutrophils. Immature granulocytes are within normal limits. Hemoglobin is stable at 8.9 and platelets are within normal limits. The ESR is mildly increased to 27 which is not remarkable given his age , recent fall and Left hip fracture and the recent surgery. He still has swelling and inflammation but, I do not believe the incision is infected. Impressions 1. S/P ORIF of L hip FX due to a fall. 2. redness around the incision I think may be due to reaction to the ion. Will continue to monitor for fevers, chills, purulent DC, increased pain 3. 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 Continue the arthritis pain cream. Visit Charges Inpatient E&M: 69491 Subs Hosp L1
[2021-12-23] MEDS: Tamsulosin HCl 0.4 MG Capsule PO (18:25)
[2021-12-23 19:46] VITALS: BP 118/59; PULSE 77; RESP 18; TEMP 36.4; O2SAT 96
[2021-12-24] MEDS: traMADol 50 MG Tablet PO ×4 (00:37→18:02)
[2021-12-24] MEDS: Acetaminophen 500 MG Tablet 1000 MG PO ×4 (00:38→18:02)
--- NOTE | 2021-12-24 06:52 | NURSING ---
Reviewed and agree with PHOTOGRAPHY SALES ASSOCIATE assessment.
[2021-12-24 07:42] VITALS: O2SAT 96
[2021-12-24] MEDS: Memantine Hydrochloride 10 MG Tablet PO ×2 (08:22→21:07)
[2021-12-24] MEDS: Multivitamin (Healthy Eyes) Capsule 1 CAP PO ×2 (08:22→21:08)
[2021-12-24] MEDS: APIXABAN 5 MG TABLET PO ×2 (08:22→21:09)
[2021-12-24] MEDS: Gabapentin 400 MG Capsule PO (08:22)
[2021-12-24] MEDS: Pantoprazole Sodium 20 MG Tablet PO ×2 (08:22→21:07)
[2021-12-24] MEDS: Potassium Chloride Oral Tablet 20 MEQ PO (08:22)
[2021-12-24 08:23] VITALS: PULSE 72
[2021-12-24] MEDS: Sertraline 50 MG Tablet PO (08:23)
[2021-12-24] MEDS: Menthol/Lanolin/Calamine/Znox 113 GM Tube 1 APPLIC TOPICAL ×2 (08:23→21:08)
[2021-12-24] MEDS: Metoprolol(XL)Succ 25 MG Tablet PO (08:23)
[2021-12-24] MEDS: Lisinopril 10 MG Tablet PO (08:23)
[2021-12-24] MEDS: Cholecalciferol (VIT D3) 25 MCG TABLET (1,000 UNITS) PO (08:23)
[2021-12-24] MEDS: Nystatin Powder 15gm Bottle 1 APPLIC TOPICAL ×2 (08:24→21:07)
[2021-12-24 08:58] VITALS: BP 115/61; PULSE 72; RESP 17; TEMP 36.6; O2SAT 98
--- NOTE | 2021-12-24 10:56 | PN_ITS ---
Progress Note Afebrile Vital signs are stable Maintaining appropriate oxygen saturation on room air while awake and wearing 2 L nasal O2 at night while sleeping. Oral intake is adequate.....diuretics are on hold due to severe dehydration and hypotension at admission. Lungs are CTA and he has no edema in the flanks or the ankles. I once again got a note from the night nurses that they are concerned about the redness around the left hip incision. He denies pain in the hip, even with palpation but, he does have pain in the knee. He denies SOB and CP. He is comfortable when we lay him nearly flat to examine the wound with no C/O SOB and no tachypnea. The redness around the hip incision has increased since yesterday and is a deeper red. There is increased edema of the left thigh and it is pitting. I tried to express some drainage from the incision to send for culture but there is no DC at all. There is increased warmth to touch. The entire Left leg is swollen now and the edema is pitting. From the hip to the toe. there is 1+ pitting edema of the R ankle. The Left knee is not red and it is not warm to touch. There is pitting edema ov erlying the patella and there is a small fluid wave indicating to me there may be a joint effusion. the lungs are CTA and he is in AF with a controlled VR. Impressions 1. Cellulitis post ORIF of Left hip fracture. Will order Ancef. DC the Tylenol for 48-72 hours to see if a fever occurs. He is on Apixaban 5 mg BID so my concern for VTE is low at this time. Will continue to monitor. He has no hx of a MRSA infection in the past. 2. Edema - suspect this is due to infection.......will give 1 dose Bumex today and recheck tomorrow. 3. Continue therapy Visit Charges Inpatient E&M: 92347 Subs Hosp L2
[2021-12-24] MEDS: Arthritis Pain Compound 60 CLICK TUBE TOPICAL ×2 (14:05→21:21)
[2021-12-24] MEDS: Cefazolin 2 GM in 0.9% Normal Saline 100 ML IV (16:35)
[2021-12-24] MEDS: Tamsulosin HCl 0.4 MG Capsule PO (18:02)
--- NOTE | 2021-12-24 18:12 | PCM.PN.ORT ---
Subjective Subjective Patient was seen and examined this evening in the rehab unit. He states his hip is feeling better. He states he you have been up and walking much better if it were not for his left knee pain. Patient denies any fevers, chills, nausea vomiting, chest pain or shortness of breath. He denies feeling sickness. I was contacted by Dr. Gao over concern for left hip infection for which she started Ancef. Objective Data Objective Data Vital Signs: Vital Signs Temp Pulse Resp BP Pulse Ox 97.8 F 72 17 115/61 98 12/24/21 08:58 12/24/21 08:58 12/24/21 08:58 12/24/21 08:58 12/24/21 08:58 Oxygen Flow Rate (L/min) 2 Oxygen Delivery Method Room Air Weight: 234 lb 12.677 oz Body Mass Index (BMI) 28.5 Intake & Output: Intake and Output for Last 24 Hours 12/22/21 12/23/21 12/24/21 23:59 23:59 23:59 Intake Total 1180 / 1180 1280 / 1280 830 / 830 Output Total 300 / 300 425 / 425 150 / 150 Balance 880 / 880 855 / 855 680 / 680 Lab / Micro Data Result Diagrams: 12/23/21 05:44 12/22/21 05:16 Micro: Microbiology 12/15/21 Unknown Stool Stool Occult Blood (RENAE) - Final 12/11/21 18:55 Nasal Secretion SARS-CoV-2 Antigen (Rapid) - Final Physical Exam Narrative General - A&Ox3, NAD. VSS/AF Left lower extremity -incisional dressing has minimal serous drainage, otherwise intact. Dressing taken down. There is mild erythema around the incision with ion in place. No dehiscence. Diffuse edema is noted in the lateral thigh and buttock region. SILT Sural, Saphenous, SPN, DPN, Tibial N. distributions. DP, PT 2+. BCR. DF, PF, EHL 5/5. No calf TTP. Assessment & Plan Assessment/Plan (1) Closed left hip fracture: PLAN: Patient is approximately 2 weeks status post left hip hemiarthroplasty He appears to be functioning reasonably well with therapy. He states pain is well controlled in his hip. Labs reviewed. ESR is mildly elevated at 27. There is no white count. I am not overly convinced of a surgical site infection at this point. I suspect the erythema is likely related to edema as well as normal wound healing related to the patient's immobility. There is no significant drainage. I would follow labs routinely if erythema does not improve. Plan to remove ion in 1 week. Please do not hesitate to call if any questions or concerns arise.
[2021-12-24] MEDS: 0.9% Saline Lock 10 ML Syringe IV (21:05)
[2021-12-24] MEDS: Cefazolin 1 GM/50 ML BAG IV (21:09)
[2021-12-24 22:00] VITALS: PULSE 86; RESP 18; O2SAT 2
[2021-12-24 22:49] VITALS: BP 132/71; PULSE 80; RESP 18; TEMP 36.6; O2SAT 96
[2021-12-25] MEDS: Acetaminophen 500 MG Tablet 1000 MG PO ×4 (00:08→17:49)
[2021-12-25] MEDS: traMADol 50 MG Tablet PO ×4 (00:08→18:04)
[2021-12-25] MEDS: 0.9% Saline Lock 10 ML Syringe IV (05:55)
[2021-12-25] MEDS: Cefazolin 1 GM/50 ML BAG IV ×3 (06:00→20:59)
[2021-12-25] MEDS: Arthritis Pain Compound 60 CLICK TUBE TOPICAL ×3 (06:11→21:16)
[2021-12-25] MEDS: APIXABAN 5 MG TABLET PO ×2 (08:19→21:04)
[2021-12-25] MEDS: Multivitamin (Healthy Eyes) Capsule 1 CAP PO ×2 (08:19→21:05)
[2021-12-25] MEDS: Potassium Chloride Oral Tablet 20 MEQ PO (08:19)
[2021-12-25] MEDS: Memantine Hydrochloride 10 MG Tablet PO ×2 (08:20→21:05)
[2021-12-25] MEDS: Gabapentin 400 MG Capsule PO (08:20)
[2021-12-25] MEDS: Pantoprazole Sodium 20 MG Tablet PO ×2 (08:20→21:05)
[2021-12-25 08:21] VITALS: PULSE 82
[2021-12-25] MEDS: Cholecalciferol (VIT D3) 25 MCG TABLET (1,000 UNITS) PO (08:21)
[2021-12-25] MEDS: Sertraline 50 MG Tablet PO (08:21)
[2021-12-25] MEDS: Senna/Docusate Sodium 1 Tablet 2 TABLET PO ×2 (08:21→21:05)
[2021-12-25] MEDS: Metoprolol(XL)Succ 25 MG Tablet PO (08:21)
[2021-12-25] MEDS: Lisinopril 10 MG Tablet PO (08:21)
[2021-12-25] MEDS: Menthol/Lanolin/Calamine/Znox 113 GM Tube 1 APPLIC TOPICAL ×2 (08:33→21:04)
[2021-12-25] MEDS: Nystatin Powder 15gm Bottle 1 APPLIC TOPICAL ×2 (08:34→21:05)
[2021-12-25 08:45] VITALS: BP 111/64; PULSE 82; RESP 16; TEMP 36.4; O2SAT 99
[2021-12-25 11:00] VITALS: O2SAT 97
--- NOTE | 2021-12-25 17:01 | PCM.PN.BLA ---
Progress Note Ancef day #2 Afebrile VSS Maintaining appropriate oxygen saturation on RA Oral intake is good Weight is increasing. Weights are not always consistent and the urine output is not accurate because he is incontinent at times. He does have increased edema in the legs and in the flanks. this is new in the past few days since his oral intake has increased. Discussed with nursing - no problems that need addressed Reviewed the PT/OT/ST notes Medication list reviewed. Curtis denies lightheadedness, shortness of breath, orthopnea, chest pain, dysuria. His only real complaint is pain in his left knee. He told me he got injections in his right knee prior to having a replacement and they helped a lot. He is currently receiving arthritis compounded cream with minimal relief. Physical Exam Const alert, oriented x3 and no apparent distress General Appearance: cooperative and comfortable Resp normal respiratory effort, no use of accessory muscles and clear to auscultation bilaterally Resp Narrative: Not tachypneic. He did not become short of breath when we laid him flat to change the dressing on his left hip. Effort and Inspection: able to speak in complete sentences Cardio no gallops Cardio Narrative: Atrial fibrillation with controlled ventricular response. GI normal to inspection, nondistended, normoactive bowel sounds and soft to palpation GI Narrative: He has pitting edema in the flanks BL Extremity no calf tenderness Extremity Narrative: He has pitting edema in both LE's today, L>R. The L knee is not warm or warm to touch. 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 There was severe degenerative arthrosis of the patellofemoral articulation. There is still a lot of erythema around the L lateral hip incision. He was lying on his back when we entered his room and this is generally how he lays. There was a small amount of serous drainage on the dressing. There is no purulent DC from the incision and the incision is intact. After he had laid on the R side for a short time the erythema around the incision started to fade. There is pitting edema of the left thigh which has increased in the past few days. There is a mild increase in warmth immediately around the incision. Skin General Skin Exam: no breakdown Rashes: no rashes Psych cooperative and affect normal Assessment & Plan Assessment/Plan (1) Cellulitis: (2) Closed left hip fracture: (3) Status post open reduction and internal fixation (ORIF) of fracture: (4) Acute on chronic blood loss anemia: (5) Chronic anticoagulation: (6) Edema: (7) Debility: PLAN: 1. Bumex 1 mg IV now and then 1 mg BID tomorrow 2. Condom cath so we can get a more accurate urine OP 3. Continue the daily weights. 4. Continue the Ancef and get a CBC with diff, BMP and mag, ESR and CRP in the AM. If the ESR is still only mildly elevated and the WBC and diff are unremarkable will consider DC ANCEF and give an additional 4 days of Keflex. The hip is NT to palpation. The erythema may be due to edema but it was much warmer to touch yesterday than it is today. I reviewed Dr. Pierre's note and appreciate his input Visit Charges Inpatient E&M: 33159 Subs Hosp L2
[2021-12-25] MEDS: Tamsulosin HCl 0.4 MG Capsule PO (17:48)
[2021-12-25] MEDS: Bumetanide 1 MG/4 ML Vial IV (17:48)
[2021-12-25 20:37] VITALS: BP 123/64; PULSE 86; RESP 18; TEMP 36.9; O2SAT 97
[2021-12-25 22:00] VITALS: PULSE 80; RESP 16; O2SAT 2
[2021-12-26] MEDS: traMADol 50 MG Tablet PO ×4 (01:09→19:19)
[2021-12-26] MEDS: Acetaminophen 500 MG Tablet 1000 MG PO ×4 (01:10→19:20)
[2021-12-26] MEDS: Cefazolin 1 GM/50 ML BAG IV ×3 (05:10→21:06)
[2021-12-26] MEDS: Arthritis Pain Compound 60 CLICK TUBE TOPICAL ×3 (05:41→21:07)
[2021-12-26] MEDS: 0.9% Saline Lock 10 ML Syringe IV ×2 (05:47→13:35)
--- NOTE | 2021-12-26 05:59 | NURSING ---
condom catheter leaked through the night and staff found large incontinence in bed this a.m. Condom catheter replaced.
[2021-12-26 06:50] LABS: Erythrocyte Sedimentation Rate 32 mm/hr (0-20)
[2021-12-26 06:52] LABS: Absolute Lymphocyte Count 0.86 X10^3/uL (0.83-4.51); Basophil# 0.04 X10^3/uL; Basophil% 0.7 % (0-1); Eosinophil# 0.18 X10^3/uL; Eosinophils% 3.3 % (0-5); Hematocrit 26.2 % (40-54); Hemoglobin 8.6 g/dL (13.0-16.5); Lymphocyte # 0.86 X10^3/ul (0.83-4.51); Lymphocyte % 15.8 % (19-41); Mean Corp Hgb Conc 32.8 g/dL (32-36); Mean Corpuscular Hgb 31.2 pg (27.0-32.0); Mean Corpuscular Volume 94.9 fL (80-94); Mean Platelet Vol. 9.6 fl (6.2-12.0); Monocyte# 0.37 X10^3/uL; Monocyte% 6.8 % (0-10); NRBC Flagged by Analyzer 0 % (0-5); Neutrophil # 3.98 X10^3/uL (2.7-7.7); Platelet Count 225 K/mm3 (150-450); RBC Distribution Width SD 55.4 fl (35.1-43.9); Red Blood Count 2.76 M/mm3 (4.6-6.2); White Blood Count 5.5 K/mm3 (4.4-11.0)
[2021-12-26 07:07] LABS: Anion Gap 3 (5-15); BUN 16 mg/dL (7-18); BUN/Creat Ratio 20.9 RATIO (10-20); Calcium,Total 7.9 mg/dL (8.5-10.1); Chloride 109 mmol/L (98-107); Creatinine, Serum 0.77 mg/dL (0.70-1.30); EST Glomerular Filtration Rate 104 mL/min (>60); Est Glom Filt Rate - Afr Amer 125 mL/min (>60); Estimated Creatinine Clearance 67.36 ml/min; Glucose 87 mg/dL (74-106); Potassium 3.6 mmol/L (3.5-5.1); Sodium Level 140 mmol/L (136-145)
[2021-12-26 07:43] VITALS: BP 117/66; PULSE 75; RESP 16; TEMP 36.4; O2SAT 96
[2021-12-26 07:50] VITALS: O2SAT 96
[2021-12-26] MEDS: APIXABAN 5 MG TABLET PO ×2 (08:10→21:04)
[2021-12-26] MEDS: Sertraline 50 MG Tablet PO (08:10)
[2021-12-26] MEDS: Pantoprazole Sodium 20 MG Tablet PO ×2 (08:10→21:04)
[2021-12-26] MEDS: Cholecalciferol (VIT D3) 25 MCG TABLET (1,000 UNITS) PO (08:10)
[2021-12-26] MEDS: Multivitamin (Healthy Eyes) Capsule 1 CAP PO ×2 (08:11→21:03)
[2021-12-26] MEDS: Lisinopril 10 MG Tablet PO (08:12)
[2021-12-26] MEDS: Potassium Chloride Oral Tablet 20 MEQ PO ×2 (08:12→17:24)
[2021-12-26] MEDS: Gabapentin 400 MG Capsule PO (08:13)
[2021-12-26] MEDS: Memantine Hydrochloride 10 MG Tablet PO ×2 (08:13→21:04)
[2021-12-26] MEDS: Menthol/Lanolin/Calamine/Znox 113 GM Tube 1 APPLIC TOPICAL ×2 (08:14→21:05)
[2021-12-26] MEDS: Senna/Docusate Sodium 1 Tablet 2 TABLET PO (08:15)
[2021-12-26 08:16] VITALS: PULSE 75
[2021-12-26] MEDS: Metoprolol(XL)Succ 25 MG Tablet PO (08:16)
[2021-12-26] MEDS: Bumetanide 1 MG/4 ML Vial IV (08:36)
--- NOTE | 2021-12-26 13:21 | PCM.PN.BLA ---
Progress Note Day #3/ Ancef Afebrile VSS-blood pressure and heart rate are well controlled. Maintaining appropriate oxygen saturation on RA while awake. He wears oxygen at night via nasal cannula because he will not wear the CPAP consistently. Oral intake is adequate Urine output since yesterday when Bumex was given is 2300 and the intake has been 1410 for a fluid balance of -890. The condom cath will not stay on and he has had leakage so the urine output is likely underreported. Discussed with nursing - no problems that need addressed Reviewed the PT/OT/ST notes Medication list reviewed. All lab was personally reviewed. The white blood cell count is once again normal at 5.5 but this is down from 7.6 on 12/15/2021. Hemoglobin is 8.6 and the platelets are normal. There are 73% neutrophils and no immature granulocytes. Sed rate is 32. Potassium is 3.6 today and the BUN is 16 with a creatinine of 0.77. CRP is increased at 26.4. Calcium corrected for hypoalbuminemia is within normal limits. Curtis denies shortness of breath. He is able to lie nearly flat in the bed with no shortness of breath and no tachypnea. His only complaint today is pain in his left knee. Physical Exam Const alert, oriented x3 and no apparent distress Constitutional Narrative: resting in bed after therapy. General Appearance: cooperative and comfortable Resp clear to auscultation bilaterally Resp Narrative: diminished, no crackles or wheezes. Not tachypneic and he is speaking in complete sentences. Cardio Cardio Narrative: still in AF with irreg rhythm but the rate is well controlled GI soft to palpation and non-tender GI Narrative: The pitting edema in the flanks is down considerably today. Extremity Extremity Narrative: Less edema in the legs today but still pitting to above the knee. The left knee is not erythematous and there are no openings in the skin. It is very painful and it donavon in therapy. It is crepitant with flexion. There is no increased warmth to touch. The erythema around the left hip incision continues to decrease. It is worst at the inferior pole of the incision. It is still fairly warm to touch when compared to the skin of the Left flank and groin. There is some DC on the bandage and it appears mostly serous but, there is some thicker DC from around the ion in the lower pole of the incision. Skin General Skin Exam: no breakdown Rashes: no rashes Assessment & Plan Assessment/Plan (1) Cellulitis: (2) Status post open reduction and internal fixation (ORIF) of fracture: (3) Acute on chronic blood loss anemia: (4) Restless leg syndrome: (5) Debility: PLAN: 1. Increase the potassium supplement to BID and keep the potassium no less than 4. 2. Change the Bumex to 1 mg IV once a day and continue to monitor the daily weights. 3. RLS may be due to not wearing CPAP when he is at home. He also does not wear it often in the hospital so we have been using 2 LPM NC anytime he is sleeping. He is more alert and he has not c/o RLS. Will decrease the dose of the Gabapentin to 300 mg and continue to monitor for recurrence of RLS. 4. Nothing seems to be helping the pain in the left knee and it is impairing ability to ambulate. Consider possible joint injection after the cellulitis has resolved. 5. Continue the IV Ancef and transition to Duricef at transfer to TCU on Wednesday. 6. REcheck a BMP on Wednesday. Will hopefully be able to transition to PO Bumex on transfer to TCU. 7. He is tolerating the Sertraline and he is much more interactive with staff and he is more motivated to do therapy since admission to the rehab unit. He has been through a lot in the past few months and plan on continuing the Sertraline at DC. No adverse reactions have been observed. Visit Charges Inpatient E&M: 89227 Subs Hosp L2
--- NOTE | 2021-12-26 13:33 | TREXTCAR_ITS ---
Diet 12/15/21 11:48 Diet: Regular - General Food consistency:: Easy to Chew Liquid Consistency:: Regular/Thin Dietary Modifications:: Cardiac / Heart Healthy Is pt able to select menu?: Yes Diet Comments: do not grind/puree anything, cut into bite sized pieces Routine Orders/Code Status Enema Type: Fleetz (Daily as needed for constipation with no BM in 3 days) Suppository Type: Dulcolax 10mg Suppository Frequency: Daily PRN O2 Liters per Minute: 2 LPM anytime he is sleeping Keep PO Greater than or Equal to (%): 90 Routine Lab Work: CBC (Weekly starting 12/29/21) and BMP (Weeklystarting 12/29/21.) Code Status: Full Code Wound(s) L knee: Wound Type: Abrasion L hip top of thigh: Wound Type: blister L hip dressing.: Wound Type: Surgical Incision l buttocks: Wound Type: Abrasion rt rib cage area: Wound Type: Abrasion rt outer ankle: Wound Type: Pressure Injury Therapies Weight Bearing: Weight bearing as tolerated Extremity Affected:: Left Lower Physical Therapy: Eval and Treat Occupational Therapy: Eval and Treat Speech Therapy: Eval and Treat Problem/Diagnosis (1) Debility: Status: Acute Comment: Making good progress in therapy but, not yet ready for DC home (2) History of recent fall: Status: Acute Comment: Left knee gave out (3) Closed left hip fracture: Status: Acute (4) Status post open reduction and internal fixation (ORIF) of fracture: Status: Acute Comment: December 10, [address] Pierre. (5) Acute on chronic blood loss anemia: Status: Acute Comment: Acute on chronic due to blood loss at surgery. Hemoccult stool is negative. Had 1 unit of PRBC's while in rehab for a HGB of 7.7 associated with hypotension. (6) Cellulitis: Status: Acute Comment: Treated with Ancef (started 12/24/21) (7) Edema: Status: Chronic Comment: Bumex restarted 12/25/21. He was dehydrated and had orthostatic hypotension at admission to rehab. Bumex was held. (8) BPH (benign prostatic hyperplasia): Status: Chronic Comment: With urine retention - resolved with addition of Flomax to the drug regimen. (9) RAFFY (obstructive sleep apnea): Status: Chronic Comment: Not compliant with CPAP always so he wears 2 LPM NC when sleeping (10) Restless leg syndrome: Status: Chronic Comment: May be due to RAFFY and non-compliance with CPAP. He is now on oxygen when he is sleeping and would consider decreasing the Gabapentin because it can cause mental status changes and disequilibrium, bernadine in the elderly. (11) Longstanding persistent atrial fibrillation: Status: Chronic (12) COPD (chronic obstructive pulmonary disease): Status: Chronic (13) Chronic anticoagulation: Status: Chronic Comment: on Apixaban Allergies/Procedures Done in Hospital Allergies diclofenac Allergy (Severe, Verified 12/08/21 11:25) Anaphylaxis naproxen [From Naprosyn] Allergy (Severe, Verified 12/08/21 11:25) Angioedema thoat swelling, tongue edema Penicillins Allergy (Verified 12/08/21 11:25) Hives Sulfa (Sulfonamide Antibiotics) Allergy (Verified 12/08/21 11:25) Hives Procedures: None Type of Care/Length of Stay Estimated LOS: Convalescent Care Less Than 30 days Type of Care Needed: Skilled Rehab Potential: Good Prognosis: Good Additional Orders/Day of Discharge H&P will serve as current which was dated: 12/12/21 Day of Discharge: 12/28/21 Dietary and Speech Recommendations Dietitian Recommendations/Changes: Continue cardiac diet as ordered w/ consistency as per [employer]. ONS as needed if wt/oral intake decline, will defer for now as patient dislikes oral nutrition supplements. Follow Up Care Please follow up with your Primary Care Physician in: Dr. Singleton Please Follow Up With: Tyler Pierre DO Please Follow Up With: Nitin Mckay MD When: January 2022 Discharge Plan Admission Admit Date/Time: 12/11/21 15:43 Primary Reason for Your Visit: Debility secondary to left hip fracture/ORIF Attending Provider: Christina Gao Primary Care Provider: Christina Lr Consulting Providers: Tyler Pierre Discharge Orders/Prescriptions Prescriptions: New gabapentin 400 mg Capsule 300 mg PO DAILY Qty: 0 RF: 0 Healthy Eyes 1,000 unit-200 mg-60 unit-2 mg Tablet 1 cap PO BID Qty: 0 RF: 0 potassium chloride [Klor-Con M20] 20 mEq Tablet,Er Particles/Crystals 20 meq PO BIDCM Qty: 0 RF: 0 Arthritis Pain Compound 2 click topical TID PRNQty: 0 RF: 0 acetaminophen 500 mg Tablet 1,000 mg PO Q6H Qty: 0 RF: 0 pantoprazole 20 mg Tablet,Delayed Release (Dr/Ec) 20 mg PO BID Qty: 0 RF: 0 magnesium hydroxide 400 mg/5 mL Suspension 30 ml PO .PRN X 1 PRN (Reason: Constipation) Qty: 0 RF: 0 nystatin [Nyamyc] 100,000 unit/gram Powder 1 applic topical BID Qty: 0 RF: 0 cholecalciferol (vitamin D3) 25 mcg (1,000 unit) Tablet 25 mcg PO DAILY Qty: 0 RF: 0 menthol-zinc oxide [Calmoseptine] 0.44-20.6 % Ointment 1 applic topical BID Qty: 0 RF: 0 polyethylene glycol 3350 17 gram Powder In Packet 17 g PO DAILY Qty: 0 RF: 0 sennosides-docusate sodium [Stool Softener-Stimulant Laxat] 8.6-50 mg Tablet 2 tab PO BID Qty: 0 RF: 0 tamsulosin 0.4 mg Capsule 0.4 mg PO DAILY@1730 Qty: 0 RF: 0 sertraline 50 mg Tablet 50 mg PO DAILY Qty: 0 RF: 0 Continued tramadol 50 mg tablet 50 mg PO Q6H PRN (Reason: pain) RF: 0 memantine 10 mg tablet 10 mg PO BID RF: 0 bumetanide 0.5 mg tablet 1 mg PO DAILY RF: 0 lisinopril 10 mg tablet 10 mg PO DAILY RF: 0 metoprolol succinate 25 mg tablet extended release 24 hr 25 mg PO DAILY RF: 0 Eliquis 5 mg tablet 5 mg PO BID RF: 0 Discontinued gabapentin [Neurontin] 400 mg capsule 400 mg PO DAILY RF: 0 PreserVision AREDS 14,320-226-200 pecb-rx-qrlh capsule 1 cap PO BID RF: 0 potassium chloride [Klor-Con M20] 20 mEq tablet,ER particles/crystals 20 meq PO DAILYCM RF: 0 Referrals / Follow Up: Tyler Pierre DO [STAFF PHYSICIAN] - 01/02/22 1:30 pm Christina Lr NP-C [Primary Care Provider] - Disposition Disposition (needs filled in before D/C Order can be placed): Detention Facility
--- NOTE | 2021-12-26 14:24 | PCM.DC.SUM ---
Providers Date of Admission: 12/11/21 Date of Discharge: 12/28/21 Primary Care Physician: Christina Lr, [employer]-C Dr. Tc Pierre - Orthopedic surgeon Reason For Visit: L HIP FRACTURE Diagnosis Discharge Diagnosis (1) Debility: Status: Acute Code(s): R53.81 - Other malaise (2) History of recent fall: Status: Acute Code(s): Z91.81 - History of falling (3) Closed left hip fracture: Status: Acute Code(s): S72.002A - Fracture of unspecified part of neck of left femur, initial encounter for closed fracture (4) Status post open reduction and internal fixation (ORIF) of fracture: Status: Acute Code(s): Z98.890 - Other specified postprocedural states; Z87.81 - Personal history of (healed) traumatic fracture (5) Acute on chronic blood loss anemia: Status: Acute Code(s): D62 - Acute posthemorrhagic anemia (6) Cellulitis: Status: Acute Code(s): L03.90 - Cellulitis, unspecified (7) Edema: Status: Chronic Code(s): R60.9 - Edema, unspecified (8) BPH (benign prostatic hyperplasia): Status: Chronic Code(s): N40.0 - Benign prostatic hyperplasia without lower urinary tract symptoms (9) RAFFY (obstructive sleep apnea): Status: Chronic Code(s): G47.33 - Obstructive sleep apnea (adult) (pediatric) (10) Restless leg syndrome: Status: Chronic Code(s): G25.81 - Restless legs syndrome (11) Longstanding persistent atrial fibrillation: Status: Chronic Code(s): I48.11 - Longstanding persistent atrial fibrillation (12) COPD (chronic obstructive pulmonary disease): Status: Chronic Code(s): J44.9 - Chronic obstructive pulmonary disease, unspecified (13) Chronic anticoagulation: Status: Chronic Code(s): Z79.01 - MCC (current) use of anticoagulants (14) Osteoarthritis: Status: Chronic Code(s): M19.90 - Unspecified osteoarthritis, unspecified site Plan: Severe Left knee with chronic pain exacerbated by PT. Injected with Kenalog and Lidocaine on 12/28/21. Medications at Discharge Home Medications tramadol 50 mg tablet 50 mg PO Q6H PRN tab 03/21/21 memantine 10 mg PO BID 12/08/21 Eliquis 5 mg PO BID 12/11/21 bumetanide 1 mg PO DAILY 12/11/21 lisinopril 10 mg PO DAILY 12/11/21 metoprolol succinate 25 mg PO DAILY 12/11/21 Arthritis Pain Compound 2 click TOPICAL TID PRN #0 12/26/21 acetaminophen 1,000 mg PO Q6H #0 tab 12/26/21 cholecalciferol (vitamin D3) 25 mcg PO DAILY #0 tab 12/26/21 gabapentin 300 mg PO DAILY #0 cap 12/26/21 magnesium hydroxide 30 ml PO .PRN X 1 PRN #0 ml 12/26/21 menthol-zinc oxide [Calmoseptine] 1 applic TOPICAL BID #0 g 12/26/21 nystatin [Nyamyc] 1 applic TOPICAL BID #0 g 12/26/21 pantoprazole 20 mg PO BID #0 tab 12/26/21 polyethylene glycol 3350 17 g PO DAILY #0 ea 12/26/21 potassium chloride [Klor-Con M20] 20 meq PO BIDCM #0 tab 12/26/21 sennosides-docusate sodium [Stool Softener-Stimulant Laxat] 2 tab PO BID #0 tab 12/26/21 sertraline 50 mg PO DAILY #0 tab 12/26/21 tamsulosin 0.4 mg PO DAILY@1730 #0 cap 12/26/21 vit A,C and T-[id number]-qypbtugs [Healthy Eyes] 1 cap PO BID #0 tab 12/26/21 cefadroxil 1,000 mg PO BID #7 tab 12/28/21 Hospital Course Operations - (Left hip hemiarthroplasty by Dr. 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 He had been seen in the emergency department a few days earlier with a complaint of left knee pain after a fall at home. He also mentioned he struck his head on the counter. X-rays of the left knee were negative for fracture but showed severe OA and a CT brain was negative. Lab was unremarkable and he was discharged home. He was unable to get up from his recliner for a few days and was urinating and defecating in his pants. X-ray in the emergency department of the hip and pelvis revealed a transverse left basicervical fracture with cephalic migration of the distal fracture segment. He was admitted to the hospital and seen in consult by Dr. Pierre. He had a left hip hemiarthroplasty on 12/10/[address] Pierre. Postoperatively he was seen by PT/OT. Acute rehab was recommended and Curtis was transferred to the acute rehab unit at [facility] on 12/11/21 for 3 hours of therapy daily to restore function at or near his prior level of function. When he arrived on rehab he was dehydrated and his intake was poor. His pain was not controlled and he was groggy. BP were low. Bumex was placed on hold and he was gently hydrated. Pain medications with adjusted to achieve good pain control without making him groggy. He tolerates Tramadol well and he was able to work with therapy. His affect was flat and he was not very talkative. He had vey little facial expression and he was not eating well. He was started on sertraline 50 mg p.o. daily. He had no adverse effects with sertraline and at the time of discharge he is talkative, smiling, pleasant and motivated to do his therapy so he can get home to his . During his stay in rehab the left hip incision became very erythematous, especially at the lower pole. There was a small amount of discharge around the ion in the lower pole. The area was very warm to touch. He was started on Ancef on 12/24/21 and received 5 days of Ancef prior to being discharged to TCU on 12/28/21. He was transitioned to [facility] for another 3 days at the time of transfer to TCU. At the time of DC there was no erythema and no purulent DC. The incision was intact and dry with no DC. He denied hip pain. On that day he continued to c/o severe left knee pain. He had his R knee injected prior to a joint replacement and he asked if I would inject his knee since it was interfering with his progress with therapy and it sometimes buckled. The knee was injected with Lidocaine and 40 mg of Kenalog. 15 minutes after the injection I reexamined his knee and he had no pain with flexion of the knee to approximately 45 degrees. The Band-Aid was dry and without discharge. We have been gently diuresing Curtis for the past 3-4 days. He has had excellent urine OP and the pitting edema in the falnks and the anterior thighs and anterior distal LE's is much improved. He was transitioned to PO Bumex on the date of DC. Curtis is not ready for discharge home at the end of the allowed days on rehab and so on 12/28/2021 he was transferred to transitional [facility] at [facility] for ongoing therapy prior to discharge home. Physical Exam Const alert and oriented x3 Constitutional Narrative: Smiling, pleasant, talkative, no apparent distress. General Appearance: cooperative HEENT normocephalic and head/scalp atraumatic HEENT Narrative: Mucous membranes are little dry. Eyes PERRL and EOMs intact bilaterally Neck supple General: trachea midline Lymph Lymphatic: no lymphadenopathy noted Resp clear to auscultation bilaterally Resp Narrative: Diminished breath sounds but clear to auscultation without wheezes, rhonchi or rails. He is not tachypneic and he is able to speak in complete sentences. Cardio no rub and no gallops Cardio Narrative: Irregular rhythm consistent with atrial fibrillation with good ventricular response controlled GI normal to inspection, nondistended, normoactive bowel sounds and soft to palpation GI Narrative: No guarding with palpation Extremity Extremity Narrative: The erythema surrounding the left hip incision, especially at the lower pole, has resolved. There is no discharge from around the ion and the skin is very dry. There is no increased warmth to touch. He still has some pitting edema around the incision and in the posterior thigh. The pitting edema in the flanks and anterior compartments of the legs has resolved with Bumex IV. The left knee has a prepatellar effusion. There is no erythema, no openings in the skin and no increased warmth to touch of the knee. Skin General Skin Exam: no breakdown and dry skin Neuro Neuro Narrative: Moves all extremities and has no dysarthria or sensory deficits. Motor Exam: general weakness Psych denies homicidal ideation and denies suicidal ideation Psych Narrative: He has a much better affect than at admission. He is upbeat, making good conversation and he is smiling and looking forward to going home. He does everything that is asked of him by the therapists. Appearance: appropriate Weight / BMI Weight Weight: 227 lb 11.8 oz Body Mass Index (BMI) 28.5 ABG / Lab / Microbiology Data Result Diagrams: 12/26/21 06:29 12/28/21 06:54 Laboratory: Laboratory Results - last 24 hr 12/26/21 06:29: WBC 5.5, RBC 2.76 L, Hgb 8.6 L, Hct 26.2 L, MCV 94.9 H, MCH 31.2, MCHC 32.8, RDW Std Deviation 55.4 H, RDW Coeff of Franklyn 16.0 H, Plt Count 225, MPV 9.6, Immature Gran % (Auto) 0.400, Neut % (Auto) 73.0 H, Lymph % (Auto) 15.8 L, Sargent % (Auto) 6.8, Eos % (Auto) 3.3, Baso % (Auto) 0.7, Absolute Neuts (auto) 4.0, Absolute Lymphs (auto) 0.86, Nucleated RBC % 0, ESR 32 H 12/26/21 06:29: Sodium 140, Potassium 3.6, Chloride 109 H, Carbon Dioxide 28.0, Anion Gap 3 L, BUN 16, Creatinine 0.77, Estim Creat Clear Calc 67.36, Est GFR (MDRD) Af Amer 125, Est GFR (MDRD) Non-Af 104, BUN/Creatinine Ratio 20.9 H, Glucose 87, Calcium 7.9 L, Magnesium 2.0, C-React Prot Ext Range 26.40 H Microbiology: Microbiology 12/15/21 Unknown Stool Stool Occult Blood (RENAE) - Final 12/11/21 18:55 Nasal Secretion SARS-CoV-2 Antigen (Rapid) - Final D/C Instructions Please Follow Up With: Tyler Pierre, DO Meaningful Use Info Meaningful Use Diagnoses (Choose all that apply): None applicable Discharge Plan Admission Admit Date/Time: 12/11/21 15:43 Primary Reason for Your Visit: Debility secondary to left hip fracture/ORIF Attending Provider: Christina Gao Primary Care Provider: Christina Lr Consulting Providers: Tyler Pierre Discharge Orders/Prescriptions Prescriptions: New gabapentin 400 mg Capsule 300 mg PO DAILY Qty: 0 RF: 0 Healthy Eyes 1,000 unit-200 mg-60 unit-2 mg Tablet 1 cap PO BID Qty: 0 RF: 0 potassium chloride [Klor-Con M20] 20 mEq Tablet,Er Particles/Crystals 20 meq PO BIDCM Qty: 0 RF: 0 Arthritis Pain Compound 2 click topical TID PRNQty: 0 RF: 0 acetaminophen 500 mg Tablet 1,000 mg PO Q6H Qty: 0 RF: 0 pantoprazole 20 mg Tablet,Delayed Release (Dr/Ec) 20 mg PO BID Qty: 0 RF: 0 magnesium hydroxide 400 mg/5 mL Suspension 30 ml PO .PRN X 1 PRN (Reason: Constipation) Qty: 0 RF: 0 nystatin [Nyamyc] 100,000 unit/gram Powder 1 applic topical BID Qty: 0 RF: 0 cholecalciferol (vitamin D3) 25 mcg (1,000 unit) Tablet 25 mcg PO DAILY Qty: 0 RF: 0 menthol-zinc oxide [Calmoseptine] 0.44-20.6 % Ointment 1 applic topical BID Qty: 0 RF: 0 polyethylene glycol 3350 17 gram Powder In Packet 17 g PO DAILY Qty: 0 RF: 0 sennosides-docusate sodium [Stool Softener-Stimulant Laxat] 8.6-50 mg Tablet 2 tab PO BID Qty: 0 RF: 0 tamsulosin 0.4 mg Capsule 0.4 mg PO DAILY@1730 Qty: 0 RF: 0 sertraline 50 mg Tablet 50 mg PO DAILY Qty: 0 RF: 0 cefadroxil 1 gram tablet 1,000 mg PO BID Qty: 7 RF: 0 Continued tramadol 50 mg tablet 50 mg PO Q6H PRN (Reason: pain) RF: 0 memantine 10 mg tablet 10 mg PO BID RF: 0 bumetanide 0.5 mg tablet 1 mg PO DAILY RF: 0 lisinopril 10 mg tablet 10 mg PO DAILY RF: 0 metoprolol succinate 25 mg tablet extended release 24 hr 25 mg PO DAILY RF: 0 Eliquis 5 mg tablet 5 mg PO BID RF: 0 Discontinued gabapentin [Neurontin] 400 mg capsule 400 mg PO DAILY RF: 0 PreserVision AREDS 14,320-226-200 orul-lo-dtgj capsule 1 cap PO BID RF: 0 potassium chloride [Klor-Con M20] 20 mEq tablet,ER particles/crystals 20 meq PO DAILYCM RF: 0 Referrals / Follow Up: Tyler Pierre DO [STAFF PHYSICIAN] - 01/02/22 1:30 pm Christina Lr NP-C [Primary Care Provider] - Disposition Disposition (needs filled in before D/C Order can be placed): [facility] Facility Charges/Coding Visit Charges Inpatient E&M: 05490 Disch Hosp
[2021-12-26] MEDS: Potassium Chloride Oral Tablet 20 MEQ 40 MEQ PO (15:44)
[2021-12-26] MEDS: Tamsulosin HCl 0.4 MG Capsule PO (17:25)
[2021-12-26 19:11] VITALS: BP 126/55; PULSE 68; RESP 18; TEMP 36.6; O2SAT 98
[2021-12-26] MEDS: Nystatin Powder 15gm Bottle 1 APPLIC TOPICAL (21:05)
[2021-12-26 22:00] VITALS: PULSE 68; RESP 16; O2SAT 2
[2021-12-27] MEDS: Acetaminophen 500 MG Tablet 1000 MG PO ×4 (01:20→18:44)
[2021-12-27] MEDS: Cefazolin 1 GM/50 ML BAG IV ×3 (05:23→23:40)
[2021-12-27] MEDS: 0.9% Saline Lock 10 ML Syringe IV ×4 (05:23→23:03)
[2021-12-27 07:38] VITALS: BP 117/62; PULSE 68; RESP 16; TEMP 35.9; O2SAT 96
[2021-12-27 07:41] VITALS: O2SAT 94
[2021-12-27] MEDS: Potassium Chloride Oral Tablet 20 MEQ PO ×2 (07:52→16:48)
[2021-12-27] MEDS: traMADol 50 MG Tablet PO (07:53)
[2021-12-27 07:54] VITALS: PULSE 68
[2021-12-27] MEDS: Multivitamin (Healthy Eyes) Capsule 1 CAP PO ×2 (07:54→22:50)
[2021-12-27] MEDS: Lisinopril 10 MG Tablet PO (07:54)
[2021-12-27] MEDS: Metoprolol(XL)Succ 25 MG Tablet PO (07:54)
[2021-12-27] MEDS: Gabapentin 300 MG Capsule PO (07:54)
[2021-12-27] MEDS: Sertraline 50 MG Tablet PO (07:55)
[2021-12-27] MEDS: Cholecalciferol (VIT D3) 25 MCG TABLET (1,000 UNITS) PO (07:55)
[2021-12-27] MEDS: Memantine Hydrochloride 10 MG Tablet PO ×2 (07:56→22:50)
[2021-12-27] MEDS: APIXABAN 5 MG TABLET PO ×2 (07:56→22:50)
[2021-12-27] MEDS: Pantoprazole Sodium 20 MG Tablet PO ×2 (07:57→22:50)
[2021-12-27] MEDS: Bumetanide 1 MG/4 ML Vial IV (08:12)
[2021-12-27] MEDS: Nystatin Powder 15gm Bottle 1 APPLIC TOPICAL ×2 (08:13→22:53)
[2021-12-27] MEDS: Menthol/Lanolin/Calamine/Znox 113 GM Tube 1 APPLIC TOPICAL ×2 (08:13→22:52)
[2021-12-27] MEDS: Tamsulosin HCl 0.4 MG Capsule PO (16:48)
[2021-12-27 20:00] VITALS: BP 116/78; PULSE 69; RESP 17; TEMP 36.2; O2SAT 96
[2021-12-28] MEDS: Acetaminophen 500 MG Tablet 1000 MG PO ×3 (00:23→13:45)
[2021-12-28] MEDS: 0.9% Saline Lock 10 ML Syringe IV ×2 (00:29→06:55)
[2021-12-28] MEDS: Cefazolin 1 GM/50 ML BAG IV (06:47)
[2021-12-28 07:39] VITALS: O2SAT 98
[2021-12-28 07:44] LABS: Anion Gap 3 (5-15); BUN 17 mg/dL (7-18); BUN/Creat Ratio 23.6 RATIO (10-20); Calcium,Total 8.2 mg/dL (8.5-10.1); Chloride 107 mmol/L (98-107); Creatinine, Serum 0.72 mg/dL (0.70-1.30); EST Glomerular Filtration Rate 111 mL/min (>60); Est Glom Filt Rate - Afr Amer 135 mL/min (>60); Estimated Creatinine Clearance 67.36 ml/min; Glucose 88 mg/dL (74-106); Potassium 4.1 mmol/L (3.5-5.1); Sodium Level 139 mmol/L (136-145)
[2021-12-28] MEDS: Sertraline 50 MG Tablet PO (09:09)
[2021-12-28] MEDS: Gabapentin 300 MG Capsule PO (09:09)
[2021-12-28] MEDS: Potassium Chloride Oral Tablet 20 MEQ PO (09:09)
[2021-12-28] MEDS: Multivitamin (Healthy Eyes) Capsule 1 CAP PO (09:09)
[2021-12-28 09:10] VITALS: PULSE 72
[2021-12-28] MEDS: Pantoprazole Sodium 20 MG Tablet PO (09:10)
[2021-12-28] MEDS: Metoprolol(XL)Succ 25 MG Tablet PO (09:10)
[2021-12-28] MEDS: Cholecalciferol (VIT D3) 25 MCG TABLET (1,000 UNITS) PO (09:10)
[2021-12-28] MEDS: Lisinopril 10 MG Tablet PO (09:10)
[2021-12-28] MEDS: APIXABAN 5 MG TABLET PO (09:13)
[2021-12-28] MEDS: Memantine Hydrochloride 10 MG Tablet PO (09:14)
[2021-12-28 09:50] VITALS: BP 106/70; PULSE 74; RESP 17; TEMP 36.4; O2SAT 97
[2021-12-28] MEDS: Bumetanide 1 MG/4 ML Vial IV (10:45)
[2021-12-28] MEDS: traMADol 50 MG Tablet PO (10:45)
[2021-12-28] MEDS: Nystatin Powder 15gm Bottle 1 APPLIC TOPICAL (10:52)
[2021-12-28] MEDS: Menthol/Lanolin/Calamine/Znox 113 GM Tube 1 APPLIC TOPICAL (10:52)
[2021-12-28] MEDS: Triamcinolone Acetonide 40 MG/ML Vial INTRAARTIC (12:16)
[2021-12-28] MEDS: Povidone-Iodine Swabstick 2 PACKET TOPICAL (12:17)
--- NOTE | 2021-12-28 12:22 | PCM.OP.PRO ---
Assessment & Plan Assessment/Plan (1) Left knee pain: (2) Osteoarthritis: PLAN: Still c/o severe left knee pain that is inhibiting his ability to progress in therapy. The Left knee has a prepatellar effusion. There is no erythema, no openings in the skin and no increased warmth to palpation. The procedure was explained to him, including possible complications. He is agreeable to the injection. Procedure Report Date of Procedure: 12/28/21 The left knee was cleaned in the usual manner. We used a anterior approach. The knee was entered with a 22-gauge needle. The knee was aspirated and there was a small amount of clear yellow fluid. An injection was then performed using 40 mg of Kenalog with lidocaine. There was no resistance to the injection. There were no complications. Normal postop instructions were given. No ambulating for the next few hours. A Bandaid was placed over the injection site. Procedures Musculoskeletal [id number]: [id number] Drain/inj joint/bursa w/o us (Left knee injection for apin due to severe osteoarthritis)
[2021-12-28] MEDS: Lidocaine 2% (20 ml mdv) 20 ML Vial 6 ML INFILT (12:24)
--- NOTE | 2021-12-28 12:25 | NURSING ---
kenalog and Lidocaine given per Dr. Gao to left knee.
--- NOTE | 2021-12-28 14:39 | NURSING ---
Report given to Christina, present, patient discharged to TCU in good spirits and left knee is WNL post injection.
== END 2021-12-28 14:41 | disposition skilled nursing facility (03) | DRG 560 ==
PROVIDERS: Admitting Provider Internal Medicine; Visit Provider Internal Medicine
DX: S72.092D Other fracture of head and neck of left femur, subsequent encounter for closed fracture with routine healing (principal); I48.19 Other persistent atrial fibrillation; D62 Acute posthemorrhagic anemia; Q21.1 Atrial septal defect; F01.50 Vascular dementia, unspecified severity, without behavioral disturbance, psychotic disturbance, mood disturbance, and anxiety; E78.5 Hyperlipidemia, unspecified; G25.81 Restless legs syndrome; J44.9 Chronic obstructive pulmonary disease, unspecified; N40.0 Benign prostatic hyperplasia without lower urinary tract symptoms; I10 Essential (primary) hypertension; G47.33 Obstructive sleep apnea (adult) (pediatric); I44.7 Left bundle-branch block, unspecified; W19.XXXD Unspecified fall, subsequent encounter; M17.12 Unilateral primary osteoarthritis, left knee; Z79.01 Long term (current) use of anticoagulants; Z79.899 Other long term (current) drug therapy
CPT/HCPCS: 36415; 80048; 80053; 81001; 82247; 82274; 82962; 83735; 85014; 85018; 85025; 85027; 85652; 86140; 86850; 86900; 86901; 86920; 86922; 87426; 92507; 92526; 92610; 96125; 97110; 97112; 97116; 97129; 97130; 97162; 97166; 97530; 97535; 97802; J7030; J7050; P9016; A4216

== ENCOUNTER 2021-12-28 14:47 | Inpatient (IN) | payer MEDICARE, OTHER, SELFPAY ==
[2021-12-28 14:54] VITALS: BP 126/57; PULSE 76; PULSE 80; RESP 17; RESP 18; TEMP 36.9; O2SAT 94; BMI 28.8
[2021-12-28] MEDS: APIXABAN 5 MG TABLET PO (16:39)
[2021-12-28] MEDS: Potassium Chloride Oral Tablet 20 MEQ PO (16:41)
[2021-12-28] MEDS: Memantine Hydrochloride 10 MG Tablet PO (16:41)
[2021-12-28] MEDS: Multivitamin (Healthy Eyes) Capsule 1 CAP PO (16:41)
[2021-12-28] MEDS: Pantoprazole Sodium 20 MG Tablet PO (16:42)
[2021-12-28] MEDS: Tamsulosin HCl 0.4 MG Capsule PO (16:43)
[2021-12-28] MEDS: Senna/Docusate Sodium 1 Tablet 2 TABLET PO (16:45)
[2021-12-28] MEDS: Menthol/Lanolin/Calamine/Znox 113 GM Tube 1 APPLIC TOPICAL (16:50)
[2021-12-28] MEDS: Nystatin Powder 15gm Bottle 1 APPLIC TOPICAL (16:53)
[2021-12-28] MEDS: Acetaminophen 500 MG Tablet 1000 MG PO (18:04)
[2021-12-28] MEDS: Cefadroxil 500 MG CAPSULE 1000 MG PO (20:31)
[2021-12-29] MEDS: Acetaminophen 500 MG Tablet 1000 MG PO ×4 (00:12→18:26)
[2021-12-29] MEDS: Sertraline 50 MG Tablet PO (05:52)
[2021-12-29] MEDS: 0.9% Saline Lock 10 ML Syringe IV (05:52)
[2021-12-29] MEDS: Lisinopril 10 MG Tablet PO (05:52)
[2021-12-29] MEDS: Polyethylene Glycol 3350 17 GM PACKET PO (05:52)
[2021-12-29] MEDS: Multivitamin (Healthy Eyes) Capsule 1 CAP PO ×2 (05:52→18:25)
[2021-12-29] MEDS: Cholecalciferol (VIT D3) 25 MCG TABLET (1,000 UNITS) PO (05:52)
[2021-12-29] MEDS: Cefadroxil 500 MG CAPSULE 1000 MG PO ×2 (05:52→18:24)
[2021-12-29] MEDS: Memantine Hydrochloride 10 MG Tablet PO ×2 (05:53→18:34)
[2021-12-29] MEDS: Pantoprazole Sodium 20 MG Tablet PO ×2 (05:53→18:25)
[2021-12-29] MEDS: APIXABAN 5 MG TABLET PO ×2 (05:53→18:24)
[2021-12-29] MEDS: Bumetanide 0.5 MG Tablet 1 MG PO (05:53)
[2021-12-29 05:57] VITALS: BP 120/64; PULSE 71
[2021-12-29] MEDS: Metoprolol(XL)Succ 25 MG Tablet PO (05:57)
[2021-12-29] MEDS: Senna/Docusate Sodium 1 Tablet 2 TABLET PO ×2 (05:58→18:25)
[2021-12-29] MEDS: Menthol/Lanolin/Calamine/Znox 113 GM Tube 1 APPLIC TOPICAL ×2 (05:58→18:48)
[2021-12-29] MEDS: Nystatin Powder 15gm Bottle 1 APPLIC TOPICAL ×2 (05:59→18:26)
[2021-12-29 06:04] LABS: Absolute Lymphocyte Count 0.92 X10^3/uL (0.83-4.51); Absolute Neutrophil Count 4.9 X10^3/uL (2.0-7.7); Basophil# 0.04 X10^3/uL; Basophil% 0.6 % (0-1); Eosinophil# 0.15 X10^3/uL; Eosinophils% 2.3 % (0-5); Hematocrit 28.2 % (40-54); Lymphocyte # 0.92 X10^3/ul (0.83-4.51); Lymphocyte % 14.2 % (19-41); Mean Corp Hgb Conc 31.9 g/dL (32-36); Mean Corpuscular Hgb 30.6 pg (27.0-32.0); Mean Corpuscular Volume 95.9 fL (80-94); Monocyte# 0.43 X10^3/uL; Monocyte% 6.6 % (0-10); NRBC Flagged by Analyzer 0 % (0-5); Neutrophil % 75.8 % (47-70); Platelet Count 225 K/mm3 (150-450); RBC Distribution Width CV 16.2 % (11.6-14.6); RBC Distribution Width SD 57.2 fl (35.1-43.9); Red Blood Count 2.94 M/mm3 (4.6-6.2); White Blood Count 6.5 K/mm3 (4.4-11.0)
[2021-12-29 06:11] LABS: Anion Gap 2 (5-15); BUN 18 mg/dL (7-18); BUN/Creat Ratio 21.9 RATIO (10-20); Calcium,Total 8.2 mg/dL (8.5-10.1); Chloride 108 mmol/L (98-107); Creatinine, Serum 0.82 mg/dL (0.70-1.30); EST Glomerular Filtration Rate 95 mL/min (>60); Est Glom Filt Rate - Afr Amer 115 mL/min (>60); Estimated Creatinine Clearance 82.14 ml/min; Glucose 92 mg/dL (74-106); Potassium 4.2 mmol/L (3.5-5.1); Sodium Level 140 mmol/L (136-145)
[2021-12-29] MEDS: Potassium Chloride Oral Tablet 20 MEQ PO ×2 (07:56→18:23)
[2021-12-29] MEDS: Gabapentin 300 MG Capsule PO (07:56)
--- NOTE | 2021-12-29 08:02 | HP.PCM_ITS ---
HPI - General General Date of Admission: 12/28/21 HPI Narrative EUGENIO MART, is a 81 Male with below past medical history who presents with followin12/11/2021 Admit to for debility secondary to left hip fracture, ORIF Dr. Pierre. Start Sertraline for depression. 12/15/2021 Poor oral intake, IVF for low blood pressure. Doing better, pain controlled. Transfuse 1 unit PRBC for anemia. Stop IVF. 12/16/2021 Hold Bumex. Add Tamsulosin 0.4mg daily for urinary retention. 12/17/2021 Edema controlled with RAMIRO hose. Stool guaiac negative. 12/19/2021 Encourage oral fluid intake. 12/22/2021 TCU prior to going home. 12/23/2021 Incision redness secondary to ion. 12/24/2021 Ancef for cellulitis of left hip incision. Bumex x 1 dose for edema. 12/25/2021 Bumex 1gm IV x 1 dose, then 1mg po bid for edema. Continue Ancef for cellulitis of left hip, Stop Ancef if no signs of infectio n. Condom catheter to record urine output. 12/28/2021 Admit to TCU with debility, here for rehabilitation, strengthening, prior to discharge home with . [facility] Medical History BPH (benign prostatic hyperplasia) Chronic anticoagulation Chronic back pain Closed left hip fracture COPD (chronic obstructive pulmonary disease) Dilated aortic root Essential hypertension Fracture of left hip Left atrial enlargement Left bundle branch block Longstanding persistent atrial fibrillation Nonrheumatic mitral (valve) prolapse RAFFY (obstructive sleep apnea) Osteoarthritis Patent foramen ovale Premature atrial contractions Premature ventricular contraction Pulmonary HTN RLS (restless legs syndrome) Stroke/cerebrovascular accident Tachycardia Thoracic aneurysm, ruptured Home Medications tramadol 50 mg tablet 50 mg PO Q6H PRN tab 03/21/21 [History Last Taken Unknown] memantine 10 mg PO BID 12/08/21 [History Last Taken 12/07/21] Eliquis 5 mg PO BID 12/11/21 [History Last Taken Unknown] bumetanide 1 mg PO DAILY 12/11/21 [History Last Taken Unknown] lisinopril 10 mg PO DAILY 12/11/21 [History Last Taken Unknown] metoprolol succinate 25 mg PO DAILY 12/11/21 [History Last Taken Unknown] magnesium hydroxide 30 ml PO .PRN X 1 PRN #0 ml 12/26/21 [Rx Last Taken Unknown] Arthritis Pain Compound 2 click TOPICAL TID PRN 12/28/21 [History Last Taken Unknown] acetaminophen 1,000 mg PO Q6H 12/28/21 [History Last Taken Unknown] cefadroxil 1,000 mg PO BID 12/28/21 [History Last Taken Unknown] cholecalciferol (vitamin D3) 25 mcg PO DAILY 12/28/21 [History Last Taken Unknown] gabapentin 300 mg PO DAILY 12/28/21 [History Last Taken Unknown] menthol-zinc oxide [Calmoseptine] 1 applic TOPICAL BID 12/28/21 [History Last Taken Unknown] nystatin [Nyamyc] 1 applic TOPICAL BID 12/28/21 [History Last Taken Unknown] pantoprazole 20 mg PO BID 12/28/21 [History Last Taken Unknown] polyethylene glycol 3350 17 g PO DAILY 12/28/21 [History Last Taken Unknown] potassium chloride [Klor-Con M20] 20 meq PO BIDCM 12/28/21 [History Last Taken Unknown] sennosides-docusate sodium [Stool Softener-Stimulant Laxat] 2 tab PO BID 12/28/21 [History Last Taken Unknown] sertraline 50 mg PO DAILY 12/28/21 [History Last Taken Unknown] tamsulosin 0.4 mg PO DAILY@1730 12/28/21 [History Last Taken Unknown] vit A,C and [id number] [Healthy Eyes] 1 cap PO BID 12/28/21 [History Last Taken Unknown] Allergy/AdvReac Type Severity Reaction Status Date / Time diclofenac Allergy Severe Anaphylaxis Verified 12/08/21 11:25 naproxen [From Naprosyn] Allergy Severe Angioedema Verified 12/08/21 11:25 Penicillins Allergy Hives Verified 12/08/21 11:25 Sulfa (Sulfonamide Allergy Hives Verified 12/08/21 11:25 Antibiotics) Family History Sister Cancer Surgical History History of carpal tunnel surgery History of thoracic aortic aneurysm repair History of total right knee replacement Status post open reduction and internal fixation (ORIF) of fracture Social History household members: spouse Smoking Status: Never smoker alcohol intake: never substance use type: does not use ROS Constitutional Constitutional: Denies chills, fever(s) or weight gain ENT HEENT: Denies headache(s), nasal congestion or nasal discharge Cardiovascular Cardiovascular: Denies chest pain or palpitations Respiratory/Chest Respiratory/Chest: Denies cough, excessive phlegm production or shortness of breath with exertion Gastrointestinal Gastrointestinal: Denies abdominal pain, nausea or vomiting Genitourinary Genitourinary: Denies dysuria Musculoskeletal Musculoskeletal: Denies joint pain or joint swelling Integumentary Integumentary: Denies rash or wounds Neurologic Neurologic: Denies focal weakness, numbness or tingling Psychiatric Psychiatric: Denies anxiety, auditory hallucinations, depression, homicidal ideation or suicidal ideation Vital Signs Vital Signs Vital Signs: 12/28/21 14:54 12/29/21 05:57 Temperature 98.5 F Temperature Source Temporal Pulse Rate 76 71 Pulse Rhythm Regular Pulse Strength Normal (2+) Respiratory Rate 18 Respiratory Effort Normal Non-Labored Respiratory Depth Normal Respiratory Pattern Normal Blood Pressure 126/57 H 120/64 Blood Pressure Mean 80 Blood Pressure Source Monitor Blood Pressure Position Semi-Fowlers Blood Pressure Location Left Arm Pulse Ox 94 Oxygen Delivery Method Room Air Weight Weight: 102.058 kg Body Mass Index (BMI) 28.8 Physical Exam Const alert and oriented x3 General Appearance: cooperative HEENT normocephalic Eyes PERRL and EOMs intact bilaterally Neck supple, no JVD and no carotid bruits Resp normal respiratory effort, normal air movement and clear to auscultation bilaterally Cardio regular rate and regular rhythm GI normal to inspection, nondistended, normoactive bowel sounds, non-tender and non-distended Extremity normal capillary refill General Extremity: Negative for edema Skin no rashes or lesions noted General Skin Exam: no breakdown Psych affect normal Appearance: appropriate Results Lab / Micro Data Result Diagrams: 12/29/21 05:20 12/29/21 05:20 Labs: Laboratory Results - last 24 hr 12/29/21 05:20: WBC 6.5, RBC 2.94 L, Hgb 9.0 L, Hct 28.2 L, MCV 95.9 H, MCH 30.6, MCHC 31.9 L, RDW Std Deviation 57.2 H, RDW Coeff of [place] 16.2 H, Plt Count 225, MPV 10.0, Immature Gran % (Auto) 0.500, Neut % (Auto) 75.8 H, Lymph % (Auto) 14.2 L, [place] % (Auto) 6.6, Eos % (Auto) 2.3, Baso % (Auto) 0.6, Absolute Neuts (auto) 4.9, Absolute Lymphs (auto) 0.92, Nucleated RBC % 0 12/29/21 05:20: Sodium 140, Potassium 4.2, Chloride 108 H, Carbon Dioxide 30.0, Anion Gap 2 L, BUN 18, Creatinine 0.82, Estim Creat Clear Calc 82.14, Est GFR (MDRD) Af Amer 115, Est GFR (MDRD) Non-Af 95, BUN/Creatinine Ratio 21.9 H, Glucose 92, Calcium 8.2 L Assessment & Plan Assessment/Plan (1) Debility: (2) Closed left hip fracture: (3) Cellulitis of left hip: (4) Edema: (5) Hemorrhagic stroke: (6) Atrial fibrillation: (7) Vascular dementia: (8) Restless leg syndrome: (9) Hypertension: (10) Depression: PLAN: 81 year old male with below past medical history hospitalized for left hip fracture, underwent ORIF 12/10/[address] Pierre, admitted to , now admitted to TCU with debility, here for rehabilitation, strengthening, prior to discharge home with . * Debility - PT/OT. * Cognition - ST. * Pain - Tylenol 1000mg q6h, Tramadol 50mg q6h prn pain (4-10), Arthritis compound 2 click topical tid prn. * Bowel - Miralax 17gm daily, senna/colace 2 tablets bid, Dulcolax 10mg pr daily prn, MOM 30ml daily prn. * Adult immunization - Administer prevnar 13, pneumovax 23, fluzone, covid19 vaccine as appropriate. * DVT prophylaxis - Not necessary, already on Eliquis. * Atrial fibrillation - Metoprolol succinate 25mg daily, Eliquis 5mg bid. * Edema - Bumex 1mg daily. * Cellulitis left hip - Cefadroxil 1000mg bid thru 12/31/2021. * Vitamin D deficiency - D3 25mcg daily. * Neuropathic pain - Gabapentin 300mg bid. * Hypertension - Metoprolol succinate 25mg daily, Lisinopril 10mg daily. * Vascular dementia - Memantine 10mg bid. * Skin irritation - Calmoseptine topical bid. * Macular degeneration - Healthy Eyes 1 cap bid. * Tinea Corporis - Nystatin powder topical bid. * GERD - Pantoprazole 20mg bid. * Hypokalemia - KCL 20meq bid. * Depression - Sertraline 50mg daily, stable chronic salvage determiner use, GDR not recommended. * BPH - Tamsulosin 0.4mg daily.
--- NOTE | 2021-12-29 08:59 | CASEMGMT ---
Social Work Met with patient to complete assessment. Pt confirmed full code. No changes to MOLST form. Explained Medicare benefit and admitting on day [id number] of benefit period. Pt expressed understanding. The goal is for pt to return home with . SW to continue to follow. Maddie Browning, BHUMI VIGILW
[2021-12-29] MEDS: Tuberculin,Purif.prot.deriv. 50 TU/ML Vial 0.1 ML ID (10:11)
--- NOTE | 2021-12-29 13:05 | NURSING ---
Up in chair. Requesting to lay down. Takes scheduled Tylenol. reports flu shot given 08/19/21.
[2021-12-29 13:12] VITALS: O2SAT 97
[2021-12-29 14:20] VITALS: BP 107/59; PULSE 75; RESP 16; TEMP 36.5; O2SAT 97
[2021-12-29] MEDS: Tamsulosin HCl 0.4 MG Capsule PO (18:24)
[2021-12-29 22:41] VITALS: PULSE 82; RESP 16
[2021-12-30] MEDS: Acetaminophen 500 MG Tablet 1000 MG PO ×4 (00:11→18:32)
[2021-12-30] MEDS: Bumetanide 0.5 MG Tablet 1 MG PO (05:45)
[2021-12-30] MEDS: Senna/Docusate Sodium 1 Tablet 2 TABLET PO ×2 (05:45→17:09)
[2021-12-30] MEDS: Cefadroxil 500 MG CAPSULE 1000 MG PO ×2 (05:45→17:09)
[2021-12-30 05:46] VITALS: BP 120/64; PULSE 71
[2021-12-30] MEDS: Multivitamin (Healthy Eyes) Capsule 1 CAP PO ×2 (05:46→17:09)
[2021-12-30] MEDS: Lisinopril 10 MG Tablet PO (05:46)
[2021-12-30] MEDS: Sertraline 50 MG Tablet PO (05:46)
[2021-12-30] MEDS: Menthol/Lanolin/Calamine/Znox 113 GM Tube 1 APPLIC TOPICAL ×2 (05:46→17:10)
[2021-12-30] MEDS: Memantine Hydrochloride 10 MG Tablet PO ×2 (05:46→17:09)
[2021-12-30] MEDS: APIXABAN 5 MG TABLET PO ×2 (05:46→17:09)
[2021-12-30] MEDS: Pantoprazole Sodium 20 MG Tablet PO ×2 (05:46→17:09)
[2021-12-30] MEDS: Cholecalciferol (VIT D3) 25 MCG TABLET (1,000 UNITS) PO (05:46)
[2021-12-30] MEDS: Metoprolol(XL)Succ 25 MG Tablet PO (05:46)
[2021-12-30] MEDS: Nystatin Powder 15gm Bottle 1 APPLIC TOPICAL ×2 (05:47→17:10)
[2021-12-30 07:28] VITALS: O2SAT 97
[2021-12-30] MEDS: Potassium Chloride Oral Tablet 20 MEQ PO ×2 (08:35→17:10)
[2021-12-30] MEDS: Gabapentin 300 MG Capsule PO (08:35)
[2021-12-30 10:48] VITALS: PULSE 73
[2021-12-30 13:42] VITALS: BP 140/71; PULSE 82; RESP 20; TEMP 36.4; O2SAT 99
--- NOTE | 2021-12-30 15:32 | CHAPLAIN ---
Type of Pastoral Visit ___ Initial Visit _x__ Follow-up Visit ___ On-call Visit ___ General Patient Visit ___ Spiritual Assessment ___ Family Conference ___ Bereavement ___ Rapid Response ___ Code Blue ___ Other (describe below) Pastoral Care Referral From _x__ Patient _x__ Family ___ Nurse ___ Physician ___ Med Spa Manager ___ Product Marketer ___ Other (describe below) Sacrament/Intervention _x__ Active listening ___ Anointing ___ Yazidism ___ Bereavement ___ Communion ___ Noelle exploration ___ ___ Life review _x__ Prayer ___ Reconciliation ___ Sacrament of Sick _x__ Supportive presence ___ Wedding ___ Other (describe below) Pastoral Comments patient and spouse always eager for visits and want this grain unloader to sit for awhile with them; visitor also in room; prayer welcomed; ongoing support available
[2021-12-30] MEDS: Tamsulosin HCl 0.4 MG Capsule PO (17:10)
[2021-12-31] MEDS: Acetaminophen 500 MG Tablet 1000 MG PO ×4 (00:32→18:45)
[2021-12-31] MEDS: Multivitamin (Healthy Eyes) Capsule 1 CAP PO ×2 (05:02→17:13)
[2021-12-31] MEDS: Pantoprazole Sodium 20 MG Tablet PO ×2 (05:02→17:12)
[2021-12-31] MEDS: Memantine Hydrochloride 10 MG Tablet PO ×2 (05:03→17:12)
[2021-12-31] MEDS: Sertraline 50 MG Tablet PO (05:03)
[2021-12-31] MEDS: Lisinopril 10 MG Tablet PO (05:03)
[2021-12-31] MEDS: Bumetanide 0.5 MG Tablet 1 MG PO (05:03)
[2021-12-31] MEDS: Cholecalciferol (VIT D3) 25 MCG TABLET (1,000 UNITS) PO (05:03)
[2021-12-31] MEDS: APIXABAN 5 MG TABLET PO ×2 (05:03→17:12)
[2021-12-31] MEDS: Cefadroxil 500 MG CAPSULE 1000 MG PO ×2 (05:03→17:12)
[2021-12-31] MEDS: Nystatin Powder 15gm Bottle 1 APPLIC TOPICAL ×2 (05:04→17:13)
[2021-12-31] MEDS: Menthol/Lanolin/Calamine/Znox 113 GM Tube 1 APPLIC TOPICAL ×2 (05:04→17:13)
[2021-12-31 05:05] VITALS: BP 125/64; PULSE 75
[2021-12-31] MEDS: Metoprolol(XL)Succ 25 MG Tablet PO (05:05)
[2021-12-31] MEDS: Gabapentin 300 MG Capsule PO (08:40)
[2021-12-31] MEDS: Potassium Chloride Oral Tablet 20 MEQ PO ×2 (08:40→17:13)
--- NOTE | 2021-12-31 09:45 | CASEMGMT ---
Social Work IDT met with patient, and son via conference call for care plan meeting. Discussed patient's progress in PT/OT/ST and nursing. Explained Medicare benefit. Pt admitted on day of benefit. Discussed IDT recommendations for 24/7 care and not safe to return home with . Inquired about alternative plan. Son and unsure about plan. They would like pt to DC home. Reiterated pt would need 24/7 care and aides would be an out of pocket cost. Provided nonskilled HHC and SNF list to to bring to son. Asked for son or to contact this worker by end of day 01/02 with decision. Son expressed understanding. SW to continue to follow. Maddie Browning, HAT BODY INSPECTOR TOP HAT BODY MAKER
--- NOTE | 2021-12-31 10:30 | NURSING ---
Removed Zaina Per order. 25 [place] removed no drainage noted pt tolerated well.
--- NOTE | 2021-12-31 11:31 | NURSING ---
Pt has a F/U at Dr. Pierre's office 01/02/22 @ 1360. will be going with patient wheelchair transportation set up and P/U @7839.
[2021-12-31 13:24] VITALS: BP 93/43; PULSE 63
[2021-12-31 15:38] VITALS: BP 115/61; PULSE 79; RESP 15; TEMP 36.8; O2SAT 96
[2021-12-31] MEDS: Tamsulosin HCl 0.4 MG Capsule PO (17:13)
--- NOTE | 2021-12-31 18:05 | RAD_ITS ---
STUDY: X-RAY CHEST REASON FOR EXAM: Male, 81 years old. CHEST PAIN Cough TECHNIQUE: XR Chest 2 Views COMPARISON: 12.08.21 FINDINGS: Bilateral pleural effusions. There is bilateral atelectasis. Normal size heart. Normal mediastinum and sue. Normal visualized pulmonary arteries. There is atherosclerotic calcification of the aortic arch with tortuosity. There are diffuse degenerative changes of the visualized thoracic spine. There is degenerative osteoarthritis of the bilateral shoulders. There is no demonstrated abnormality of the visualized soft tissue structures of the upper abdomen. RAD/Chest PA and Lateral IMPRESSION: Bilateral pleural effusions. Electronically Signed: Juan Francisco Haile MD at 18:31 EST ,
--- NOTE | 2021-12-31 18:16 | NURSING ---
Pt noted to have increased coughing this shift fine crackles noted in bilateral lower lobes. Dr. Singleton updated new order for Chest X-ray. Educated pt on importance of following Speech Therapy guidelines with oral intake.
[2021-12-31] MEDS: 0.9% Saline Lock 10 ML Syringe IV (18:45)
--- NOTE | 2021-12-31 19:25 | NURSING ---
notified of chest xray result via telephone. No new orders received at this time.
[2021-12-31] MEDS: Bumetanide 2 MG Tablet PO (20:25)
[2021-12-31 22:00] VITALS: PULSE 83; RESP 14; O2SAT 96
[2022-01-01] MEDS: Sertraline 50 MG Tablet PO (05:25)
[2022-01-01] MEDS: Multivitamin (Healthy Eyes) Capsule 1 CAP PO ×2 (05:25→16:38)
[2022-01-01] MEDS: Pantoprazole Sodium 20 MG Tablet PO ×2 (05:25→16:38)
[2022-01-01] MEDS: Bumetanide 0.5 MG Tablet 1 MG PO ×2 (05:25→12:53)
[2022-01-01] MEDS: Acetaminophen 500 MG Tablet 1000 MG PO ×3 (05:26→21:22)
[2022-01-01] MEDS: Cholecalciferol (VIT D3) 25 MCG TABLET (1,000 UNITS) PO (05:27)
[2022-01-01] MEDS: Lisinopril 10 MG Tablet PO (05:27)
[2022-01-01] MEDS: Memantine Hydrochloride 10 MG Tablet PO ×2 (05:27→16:38)
[2022-01-01] MEDS: APIXABAN 5 MG TABLET PO ×2 (05:27→16:37)
[2022-01-01 05:35] VITALS: BP 153/66; PULSE 80
[2022-01-01] MEDS: Metoprolol(XL)Succ 25 MG Tablet PO (05:35)
[2022-01-01] MEDS: Nystatin Powder 15gm Bottle 1 APPLIC TOPICAL ×2 (05:35→16:38)
[2022-01-01] MEDS: Menthol/Lanolin/Calamine/Znox 113 GM Tube 1 APPLIC TOPICAL ×2 (05:44→16:39)
[2022-01-01 06:38] VITALS: O2SAT 97
[2022-01-01] MEDS: Gabapentin 300 MG Capsule PO (08:07)
[2022-01-01] MEDS: Potassium Chloride Oral Tablet 20 MEQ PO ×2 (08:07→16:37)
[2022-01-01] MEDS: traMADol 50 MG Tablet PO (12:53)
[2022-01-01 13:41] VITALS: BP 112/62; PULSE 79; RESP 16; TEMP 36.7; O2SAT 98
--- NOTE | 2022-01-01 14:26 | MDS.RN ---
Pain assessment and Preferences for customary routine and activities assessments completed on this day for the MDS, ELIO 01/04/22.
[2022-01-01] MEDS: Tamsulosin HCl 0.4 MG Capsule PO (16:37)
[2022-01-02 06:22] LABS: Anion Gap 4 (5-15); BUN 28 mg/dL (7-18); BUN/Creat Ratio 25.5 RATIO (10-20); Calcium,Total 8.2 mg/dL (8.5-10.1); Chloride 106 mmol/L (98-107); EST Glomerular Filtration Rate 68 mL/min (>60); Est Glom Filt Rate - Afr Amer 83 mL/min (>60); Estimated Creatinine Clearance 61.23 ml/min; Glucose 94 mg/dL (74-106); Potassium 3.7 mmol/L (3.5-5.1); Sodium Level 143 mmol/L (136-145)
[2022-01-02] MEDS: APIXABAN 5 MG TABLET PO ×2 (06:22→16:39)
[2022-01-02] MEDS: Acetaminophen 500 MG Tablet 1000 MG PO ×3 (06:22→20:29)
[2022-01-02] MEDS: Polyethylene Glycol 3350 17 GM PACKET PO (06:22)
[2022-01-02 06:23] VITALS: BP 162/66; PULSE 72
[2022-01-02] MEDS: Metoprolol(XL)Succ 25 MG Tablet PO (06:23)
[2022-01-02] MEDS: Cholecalciferol (VIT D3) 25 MCG TABLET (1,000 UNITS) PO (06:23)
[2022-01-02] MEDS: Memantine Hydrochloride 10 MG Tablet PO ×2 (06:23→16:39)
[2022-01-02] MEDS: Pantoprazole Sodium 20 MG Tablet PO ×2 (06:23→16:39)
[2022-01-02] MEDS: Bumetanide 0.5 MG Tablet 1 MG PO ×2 (06:23→14:25)
[2022-01-02] MEDS: Multivitamin (Healthy Eyes) Capsule 1 CAP PO ×2 (06:23→16:39)
[2022-01-02] MEDS: Lisinopril 10 MG Tablet PO (06:23)
[2022-01-02] MEDS: Sertraline 50 MG Tablet PO (06:24)
[2022-01-02] MEDS: Menthol/Lanolin/Calamine/Znox 113 GM Tube 1 APPLIC TOPICAL ×2 (06:29→16:40)
[2022-01-02] MEDS: Nystatin Powder 15gm Bottle 1 APPLIC TOPICAL ×2 (06:30→16:40)
[2022-01-02] MEDS: Potassium Chloride Oral Tablet 20 MEQ PO ×2 (08:03→16:39)
[2022-01-02] MEDS: Gabapentin 300 MG Capsule PO (08:03)
--- NOTE | 2022-01-02 10:31 | ST.MBS ---
Modified Barium Swallow - Patient Information Study Date: 01/02/22 Study Time: 10:00 Direct Billable Minutes: 120 Total Minutes procedure & reportin Diagnosis: oropharyngeal dysphagia (R13.12) Referring Physician: Kenton Singleton Chi Reason for Referral: To objectively assess swallow function and determine presence of aspiration. Medical History: EUGENIO MART, is a 81 M who sustained a fall on 12/05/21 resulting in a displaced left femoral neck fracture. Pt underwent a left hip hemiarthroplasty on 12/10/21 and [facility]. Pt is known to the [facility] ST department from treatment received s/p CVA (MRI revealed ischemic stroke which converted to hemorrhagic - right thalamus). Pt was discharged from TCU on 11/20/22 after completing 5 weeks of skilled speech-language tx targeting cognitive-linguistic deficits via direct instruction of internal and external short-term memory strategies and anomia strategies, as well as dysphagia via oropharyngeal strengthening exercises and compensatory strategy instruction and implementation. He was discharged on a soft and bite sized texture diet w/ ground meats/thin liquids. Continued skilled ST intervention w/ [facility] HH was recommended targeting oropharyngeal strengthening and diet analysis to achieve least restrictive means of nutrition and hydration and continued word retrieval tasks for improved conversational speech across environments. Past medical history is significant for Anticoagulation goal of INR 2 to 3, Chronic back pain, COPD (chronic obstructive pulmonary disease), Essential hypertension, Left bundle branch block, Long standing persistent atrial fibrillation, Lower extremity edema, Nonrheumatic mitral (valve) prolapse, Obesity (BMI 30.0-34.9), RAFFY (obstructive sleep apnea), Osteoarthritis, Patent foramen ovale, Premature atrial contractions, Premature ventricular contraction, RLS (restless legs syndrome), Stroke/cerebrovascular accident, Tachycardia, Thoracic aortic aneurysm without rupture. Current Diet Ordered: Regular Textures with cut up meat/Thin liquids Dentition: Upper Dentures, Lower Dentures Respiratory Status: Oxygenating on Room Air - Penetration-Aspiration Scale Penetration-Aspiration Scale: OBJECTIVE ASSESSMENT OF SWALLOW FUNCTION (QUANTITATIVE ? PER TRIAL): PENETRATION / ASPIRATION SCALE (JANE): 1 = does not enter airway 2 = enters airway/above vocal folds/ejected 3 = enters airway/above vocal folds/not ejected 4 = enters airway/contacts vocal folds/ejected 5 = enters airway/contacts vocal folds/not ejected 6 = enters airway/below vocal folds/ejected 7 = enters airway/below vocal folds/not ejected despite effort 8 = enters airway/below vocal folds/no effort - Penetration-Aspiration Scale Score Thin Liquid via teaspoon Result: 1= does not enter airway Comment: Patient swallowed before fluoro. No aspiration determined. Thin Liquid via teaspoon Trial 2 Result: 1= does not enter airway Thin Liquid via small single sip from cup Result: 1= does not enter airway - Patient took double swallow partially clearing oral and pharyngeal residue Thin Liquid via large single sip from cup Result: 1= does not enter airway - Patient took 3 swallows to clear oral and pharyngeal residue Thin Liquid via sequential sips from cup Result: 2= enter airway/above vocal folds/ejected [place] Thick Liquid via large single sip from cup Result: 1= does not enter airway Honey Thick Liquid via large single sip from cup Result: 1= does not enter airway Pudding via teaspoon Result: 1= does not enter airway Cookie Result: 1= does not enter airway Thin Liquid via single sip from straw Result: 1= does not enter airway Thin Liquid via sequential sips from straw Result: 7= enters airways/below vocal folds/not ejected despite effort - Patient cued to once again cough and re-swallow with successful clearance - Oral Phase Labial Seal: Escape beyond mid-chin - with teaspoon thin liquid trials Tongue Control During Bolus Hold: Escape to lateral buccal cavity/floor of mouth Bolus Preparation/Mastication: Slow prolonged chewing/mashing with complete recollection Bolus Transport/Lingual Motion: Delayed initiation of tongue motion Oral Residue: Residue collection on oral structures - Pharyngeal Phase Initiation of Pharyngeal Swallow: Bolus head in valleculae Soft Palate Elevation: No bolus between soft palate and pharyngeal wall Laryngeal Elevation: Partial superior movement thyroid cart/partial apprx aryt-epig petiole Anterior Hyoid Excursion: Partial anterior movement Epiglottic Movement: Partial inversion Laryngeal Vestibule Closure at Height of Swallow: Incomplete; narrow column of air/contrast in laryngeal vestibule Pharyngeal Stripping Wave: Present - complete Pharyngoesophageal Segment Opening: Parital distension and partial duration; parital obstruction of flow Tongue Base Retraction: Narrow column of contrast between tongue base & post. pharyngeal wall Pharyngeal Residue: Collection of residue within or on pharyngeal structures - Diagnosis/Impression Diagnosis: Dysphagia following cerebral infarction I69.391 Impression: Oral phase primarily marked delayed tongue initiation for anterior to posterior transfer of bolus. Pt presented with generalized weakness and incoordination of tongue in addition to poor labial seal resulting in oral spillage and spillage of bolus to the floor of the oral cavity. Pharyngeal phase marked by aspiration of thin liquids when taking sequential sip from straw. Aspiration occurred on the 3rd consecutive swallow. Pt presented with overt coughing with aspiration of liquid and required cue for second cough and re-swallow to clear residue. Patient with decreased hyolaryngeal excursion further contributing to pharyngeal residue present. Patient required repetition of instruction to comprehend when to hold bolus before swallowing and when to take a second swallow. Patient would benefit from supervised meals with trained staff or family member to cue with recommended compensatory strategies to decrease risk of aspiration. - Recommendations Diet: Regular Textures, Thin Liquids Compensatory Strategies: Small Bites, Small Sips - One at a time, No Straws, Slow Rate, Multiple Swallows - two swallows for every single sip, Sitting upright, Assist with verbal cues to use recommended strategies Supervision: 1:1 Close Supervision Recommend Repeat Modified Barium Swallow: TBD - Consider repeat MBS study in [address] intervention or with changes in swallow function Need for Skilled Speech Therapy Services: Yes Comment: Patient requires continued skilled ST intervention for compensatory strategy training, oropharyngeal strengthening, and diet analysis to improve swallow function and reduce risk of aspiration. Without skilled ST intervention, pt would be at risk for muscle atrophy of oropharyngeal musculature, malnutrition and dehydration, and aspiration resulting in further respiratory illness and complications associated. - Status Active ST Patient: Active - Contact Information [facility] Speech Therapy:: Annemarie Still MA, [facility] ATTENDANT [address] [id number] [email or web address]
[2022-01-02] MEDS: traMADol 50 MG Tablet PO (10:33)
--- NOTE | 2022-01-02 11:34 | CASEMGMT ---
Social Work Contacted son to follow up on alternative DC plans. Son stated he will be in today to talk with the pt. He spoke to his mom and brother yesterday. He is to update this worker with the outcome. BHUMI DasilvaW
--- NOTE | 2022-01-02 12:25 | PCM.PN.RX ---
Progress Note - Pharmacy Subjective: [] Objective: Allergies diclofenac Allergy (Severe, Verified 12/08/21 11:25) Anaphylaxis naproxen [From Naprosyn] Allergy (Severe, Verified 12/08/21 11:25) Angioedema thoat swelling, tongue edema Penicillins Allergy (Verified 12/08/21 11:25) Hives Sulfa (Sulfonamide Antibiotics) Allergy (Verified 12/08/21 11:25) Hives Current Medications Generic Name Dose Route Start Last Admin Trade Name Freq PRN Reason Stop Dose Admin Acetaminophen 1,000 mg 01/01/22 14:00 01/02/22 06:22 Acetaminophen 500 Mg Tablet PO 1,000 mg TID BRAD Administration Apixaban 5 mg 12/28/21 18:00 01/02/22 06:22 Apixaban 5 Mg Tablet PO 5 mg BID BRAD Administration Bisacodyl 10 mg 12/28/21 15:10 Bisacodyl 10 Mg Suppository RC DAILY PRN PRN Constipation Bumetanide 1 mg 01/01/22 06:00 01/02/22 06:23 Bumetanide 0.5 Mg Tablet PO 1 mg BIDLX BRAD Administration Calamine/Phenol 1 applic 12/28/21 18:00 01/02/22 06:29 Menthol/Lanolin/Calamine/Znox 113 Gm Tube TOPICAL 1 applic BID BRAD Administration Protocol Cholecalciferol 25 mcg 12/29/21 06:00 01/02/22 06:23 Cholecalciferol (Vit D3) 25 Mcg Tablet (1,000 Units) PO 25 mcg DAILY BRAD Administration Compound Med 2 click 12/28/21 16:25 Arthritis Pain Compound 60 Click Tube TOPICAL TID PRN Knee Pain Gabapentin 300 mg 12/29/21 08:00 01/02/22 08:03 Gabapentin 300 Mg Capsule PO 300 mg DAILYCM BRAD Administration Lisinopril 10 mg 12/29/21 06:00 01/02/22 06:23 Lisinopril 10 Mg Tablet PO 10 mg DAILY BRAD Administration Magnesium Hydroxide 30 ml 12/28/21 15:04 Magnesium Hydroxide 30 Ml Udc PO .PRN X 1 PRN Constipation Memantine 10 mg 12/28/21 18:00 01/02/22 06:23 Memantine Hydrochloride 10 Mg Tablet PO 10 mg BID BRAD Administration Metoprolol Succinate 25 mg 12/29/21 06:00 01/02/22 06:23 Metoprolol(Xl)Succ 25 Mg Tablet PO 25 mg DAILY BRAD Administration Multivitamins/Minerals 1 capsule 12/28/21 18:00 01/02/22 06:23 Multivitamin (Healthy Eyes) Capsule PO 1 capsule BID BRAD Administration Nystatin 1 applic 12/28/21 18:00 01/02/22 06:30 Nystatin Powder 15gm Bottle TOPICAL 1 applic BID BRAD Administration Protocol Pantoprazole Sodium 20 mg 12/28/21 18:00 01/02/22 06:23 Pantoprazole Sodium 20 Mg Tablet PO 20 mg BID BRAD Administration Polyethylene Glycol 17 gm 12/29/21 06:00 01/02/22 06:22 Polyethylene Glycol 3350 17 Gm Packet PO 17 gm DAILY BRAD Administration Potassium Chloride 20 meq 12/28/21 17:00 01/02/22 08:03 Potassium Chloride Oral Tablet 20 Meq PO 20 meq BIDCM BRAD Administration Sertraline HCl 50 mg 12/29/21 06:00 01/02/22 06:24 Sertraline 50 Mg Tablet PO 50 mg DAILY BRAD Administration Sodium Chloride 10 - 40 ml 12/28/21 15:03 12/31/21 18:45 0.9% Saline Lock 10 Ml Syringe IV 10 ml UD PRN Administration SALINE FLUSH Tamsulosin HCl 0.4 mg 12/28/21 17:30 01/01/22 16:37 Tamsulosin Hcl 0.4 Mg Capsule PO 0.4 mg DAILY@1730 BRAD Administration Tramadol HCl 50 mg 12/28/21 15:04 01/02/22 10:33 Tramadol 50 Mg Tablet PO 50 mg Q6H PRN Administration Pain Score 4-10 Tuberculin PPD 0.1 ml 01/05/22 10:00 Tuberculin,Purif.Prot.Deriv. 50 Tu/Ml Vial ID 01/05/22 10:01 X1 ONE Problem List (Last Reviewed 12/29/21 @ 08:[address] Kenton Singleton MD) Depression (Acute) Hypertension (Chronic) Restless leg syndrome (Acute) Vascular dementia (Acute) Atrial fibrillation (Acute) Hemorrhagic stroke (Acute) Edema (Acute) Cellulitis of left hip (Acute) Closed left hip fracture (Acute) Debility (Acute) Vital Signs Temp Pulse Resp BP Pulse Ox 98.0 F 72 16 162/66 H 98 01/01/22 13:41 01/02/22 06:23 01/01/22 13:41 01/02/22 06:23 01/01/22 13:41 Oxygen Flow Rate (L/min) 2 Oxygen Delivery Method Nasal Cannula Weight: 102.557 kg Body Mass Index (BMI) 28.8 Sodium 143 mmol/L (136-145) 01/02/22 05:28 Potassium 3.7 mmol/L (3.5-5.1) 01/02/22 05:28 Chloride 106 mmol/L (98-107) 01/02/22 05:28 Carbon Dioxide 33.0 mmol/L (21.0-32.0) H 01/02/22 05:28 Anion Gap 4 (5-15) L 01/02/22 05:28 BUN 28 mg/dL (7-18) H 01/02/22 05:28 Creatinine 1.10 mg/dL (0.70-1.30) 01/02/22 05:28 Est GFR (MDRD) Af Amer 83 mL/min (>60) 01/02/22 05:28 Est GFR (MDRD) Non-Af 68 mL/min (>60) 01/02/22 05:28 BUN/Creatinine Ratio 25.5 RATIO (10-20) H 01/02/22 05:28 Glucose 94 mg/dL (74-106) 01/02/22 05:28 Assessment/Plan: 1. Pain: Tylenol 1000mg PO TID, Tramadol 50mg PO Q6h PRN Pain 4-10, Arthrotis Compounded Cream 2 click TID PRN knee Pain. Please continue to monitor for increased/decreased S/S pain, PRN medication usage, localized redness (from pain compound). 2. Atrial Fibrillation/HTN: Eliquis 5mg PO BID, Lisinopril 10mg PO Daily, Toprol XL 25mg PO Daily. Please continue to monitor BP, pulse, S/S bleeding/bruising, electrolytes. 3. Edema: Bumex 1mg PO BID. Please continue to monitor I/O, electrolytes, medication effectiveness. 4. Hypokalemia: K-Dur 20mEq PO BID. Please continue to monitor K levels (Last = 3.7 on 01/02), Stomach upset, nausea. 5. Dementia: Namenda 10mg PO BID. Please continue to monitor for vivid dreams, progression of disease. 6. Neuropathic pain: Gabapentin 300mg PO Daily. Please continue to monitor renal function, falls. 7. GERD: Protonix 20mg PO BID. Please continue to monitor for GERD flareups. may also encourage non-pharmacologic therapies to also help reduce GERD exacerbations/flare-ups. 8. BPH: Flomax 0.4mg PO Daily. Please continue to monitor for urinary retentions, medication effectiveness. 9. General Wellness: Healthy Eyes 1 cap PO BID, Vitamin D 25mcg PO Daily. Please continue to monitor. Psychotropic Medications: 10. Depression: Zoloft 50mg PO Daily. See note in H/P regarding GDR recommendation. Unnecessary Medications: None Bowel Regimen: Miralax 17g PO Daily, Dulcolax 10mg TN Daily PRN, MOM 30mL PO x1 PRN. Please continue to monitor for increased/decreased constipation and/or diarrhea. Date of Note:: 01/02/22
--- NOTE | 2022-01-02 12:41 | ST ---
MBS study was completed this date to objectively assess swallow function and determine presence of aspiration. Patient did indeed aspirate when trialing thin liquids sequentially via straw. Pt to continue with regular textures (meat and larger pieces of food cut up into smaller pieces) and thin liquids. Recommending 1:1 supervision during meals, no straws, small sips of liquids one at a time with cues to take two swallows for every sip to reduce risk of aspiration. RN, Christina aware of results and recommendations. FILER AND SANDER Apolonia made aware of recommendation for 1:1 supervision during meal with FILER AND SANDER responding great, just what we need to do in the morning demonstrating comprehension of QUALITY ASSURANCE ANALYST instructions.
--- NOTE | 2022-01-02 12:46 | NURSING ---
pt off unit to ortho appt via cot
--- NOTE | 2022-01-02 13:26 | CASEMGMT ---
Social Work BIMS and PHQ-9 completed for MDS assessment. Maddei Browning ,VIBRATOR OPERATOR SERVICE CAR OPERATOR
--- NOTE | 2022-01-02 14:30 | NURSING ---
pt returned from Dr echevarria appt, no new orders f/u 1 month.
[2022-01-02 16:00] VITALS: BP 102/58; PULSE 86; RESP 10; TEMP 36.7; O2SAT 95
[2022-01-02] MEDS: Tamsulosin HCl 0.4 MG Capsule PO (16:39)
[2022-01-03] MEDS: Lisinopril 10 MG Tablet PO (06:16)
[2022-01-03] MEDS: Cholecalciferol (VIT D3) 25 MCG TABLET (1,000 UNITS) PO (06:16)
[2022-01-03] MEDS: Acetaminophen 500 MG Tablet 1000 MG PO ×3 (06:16→20:55)
[2022-01-03] MEDS: Sertraline 50 MG Tablet PO (06:16)
[2022-01-03] MEDS: Polyethylene Glycol 3350 17 GM PACKET PO (06:16)
[2022-01-03 06:17] VITALS: PULSE 74
[2022-01-03] MEDS: Menthol/Lanolin/Calamine/Znox 113 GM Tube 1 APPLIC TOPICAL ×2 (06:17→17:47)
[2022-01-03] MEDS: Pantoprazole Sodium 20 MG Tablet PO ×2 (06:17→17:47)
[2022-01-03] MEDS: Metoprolol(XL)Succ 25 MG Tablet PO (06:17)
[2022-01-03] MEDS: Nystatin Powder 15gm Bottle 1 APPLIC TOPICAL ×2 (06:17→17:47)
[2022-01-03] MEDS: Memantine Hydrochloride 10 MG Tablet PO ×2 (06:17→17:47)
[2022-01-03] MEDS: Bumetanide 0.5 MG Tablet 1 MG PO ×2 (06:17→13:13)
[2022-01-03] MEDS: Multivitamin (Healthy Eyes) Capsule 1 CAP PO ×2 (06:17→17:47)
[2022-01-03] MEDS: APIXABAN 5 MG TABLET PO ×2 (06:17→17:47)
[2022-01-03 06:23] VITALS: BP 128/60; PULSE 74; RESP 18; TEMP 36.6; O2SAT 96
[2022-01-03 06:50] VITALS: O2SAT 94
[2022-01-03] MEDS: Potassium Chloride Oral Tablet 20 MEQ PO ×2 (07:59→17:47)
[2022-01-03] MEDS: Gabapentin 300 MG Capsule PO (08:00)
[2022-01-03 15:35] VITALS: BP 112/62; PULSE 78; RESP 16; TEMP 36.9; O2SAT 96
[2022-01-03] MEDS: Tamsulosin HCl 0.4 MG Capsule PO (17:47)
[2022-01-04 05:07] VITALS: BP 120/80; PULSE 82
[2022-01-04] MEDS: Polyethylene Glycol 3350 17 GM PACKET PO (05:09)
[2022-01-04] MEDS: Sertraline 50 MG Tablet PO (05:09)
[2022-01-04] MEDS: Lisinopril 10 MG Tablet PO (05:09)
[2022-01-04 05:10] VITALS: BP 120/80; PULSE 82
[2022-01-04] MEDS: APIXABAN 5 MG TABLET PO ×2 (05:10→17:08)
[2022-01-04] MEDS: Multivitamin (Healthy Eyes) Capsule 1 CAP PO ×2 (05:10→17:08)
[2022-01-04] MEDS: Bumetanide 0.5 MG Tablet 1 MG PO ×2 (05:10→13:21)
[2022-01-04] MEDS: Memantine Hydrochloride 10 MG Tablet PO ×2 (05:10→17:08)
[2022-01-04] MEDS: Cholecalciferol (VIT D3) 25 MCG TABLET (1,000 UNITS) PO (05:10)
[2022-01-04] MEDS: Pantoprazole Sodium 20 MG Tablet PO ×2 (05:10→17:08)
[2022-01-04] MEDS: Metoprolol(XL)Succ 25 MG Tablet PO (05:10)
[2022-01-04] MEDS: Menthol/Lanolin/Calamine/Znox 113 GM Tube 1 APPLIC TOPICAL ×2 (05:11→17:09)
[2022-01-04] MEDS: Nystatin Powder 15gm Bottle 1 APPLIC TOPICAL ×2 (05:11→17:08)
[2022-01-04] MEDS: Acetaminophen 500 MG Tablet 1000 MG PO ×3 (05:11→21:55)
[2022-01-04 06:43] VITALS: O2SAT 95
[2022-01-04] MEDS: Potassium Chloride Oral Tablet 20 MEQ PO ×2 (07:45→17:08)
[2022-01-04] MEDS: Gabapentin 300 MG Capsule PO (07:45)
[2022-01-04 16:00] VITALS: BP 98/64; PULSE 98; RESP 16; TEMP 36.8; O2SAT 96
[2022-01-04] MEDS: Tamsulosin HCl 0.4 MG Capsule PO (17:08)
--- NOTE | 2022-01-04 18:30 | NURSING ---
Son in the room with patient and spouse. Son was talking on the phone with his cousin Sola, a nurse in [place]. Son inquired about patient's medications, lab work and vital signs. Son and Sola then inquired about patients home Cpap machine usage. Per patient he does not like wearing the Cpap mask because d/t ill fitting from weight lose. RN asked resp therapy if there is a possibility to obtain a different mask. Per resp therapy they will see if other masks were available in sleep lab. Patient and spouse notified.
--- NOTE | 2022-01-04 19:43 | CPS ---
Fit pt with new cpap mask, pt stated new mask felt much better.
[2022-01-04 22:00] VITALS: PULSE 89; RESP 16; O2SAT 96
[2022-01-05 05:51] LABS: Absolute Lymphocyte Count 1.31 X10^3/uL (0.83-4.51); Absolute Neutrophil Count 5.1 X10^3/uL (2.0-7.7); Basophil# 0.09 X10^3/uL; Basophil% 1.2 % (0-1); Hematocrit 29.5 % (40-54); Hemoglobin 9.5 g/dL (13.0-16.5); Lymphocyte # 1.31 X10^3/ul (0.83-4.51); Lymphocyte % 17.7 % (19-41); Mean Corp Hgb Conc 32.2 g/dL (32-36); Mean Corpuscular Hgb 30.9 pg (27.0-32.0); Mean Corpuscular Volume 96.1 fL (80-94); Mean Platelet Vol. 10.1 fl (6.2-12.0); Monocyte# 0.62 X10^3/uL; Monocyte% 8.4 % (0-10); NRBC Flagged by Analyzer 0 % (0-5); Neutrophil # 5.08 X10^3/uL (2.7-7.7); Neutrophil % 68.4 % (47-70); Platelet Count 184 K/mm3 (150-450); RBC Distribution Width CV 16.7 % (11.6-14.6); RBC Distribution Width SD 59.1 fl (35.1-43.9); Red Blood Count 3.07 M/mm3 (4.6-6.2); White Blood Count 7.4 K/mm3 (4.4-11.0)
[2022-01-05 06:20] LABS: Anion Gap 6 (5-15); BUN 38 mg/dL (7-18); BUN/Creat Ratio 34.5 RATIO (10-20); Calcium,Total 8.5 mg/dL (8.5-10.1); Chloride 107 mmol/L (98-107); EST Glomerular Filtration Rate 68 mL/min (>60); Est Glom Filt Rate - Afr Amer 83 mL/min (>60); Estimated Creatinine Clearance 61.23 ml/min; Glucose 92 mg/dL (74-106); Potassium 3.8 mmol/L (3.5-5.1); Sodium Level 143 mmol/L (136-145)
[2022-01-05] MEDS: Bumetanide 0.5 MG Tablet 1 MG PO ×2 (07:02→14:19)
[2022-01-05] MEDS: Acetaminophen 500 MG Tablet 1000 MG PO ×2 (07:02→14:19)
[2022-01-05] MEDS: Memantine Hydrochloride 10 MG Tablet PO ×2 (07:02→17:28)
[2022-01-05 07:03] VITALS: BP 112/50; PULSE 83
[2022-01-05] MEDS: Metoprolol(XL)Succ 25 MG Tablet PO (07:03)
[2022-01-05] MEDS: Sertraline 50 MG Tablet PO (07:06)
[2022-01-05] MEDS: Cholecalciferol (VIT D3) 25 MCG TABLET (1,000 UNITS) PO (07:06)
[2022-01-05] MEDS: Multivitamin (Healthy Eyes) Capsule 1 CAP PO ×2 (07:06→17:27)
[2022-01-05] MEDS: APIXABAN 5 MG TABLET PO ×2 (07:06→17:27)
[2022-01-05] MEDS: Lisinopril 10 MG Tablet PO (07:06)
[2022-01-05] MEDS: Pantoprazole Sodium 20 MG Tablet PO ×2 (07:07→17:28)
[2022-01-05] MEDS: Nystatin Powder 15gm Bottle 1 APPLIC TOPICAL ×2 (07:07→17:28)
[2022-01-05] MEDS: Polyethylene Glycol 3350 17 GM PACKET PO (07:07)
[2022-01-05] MEDS: Menthol/Lanolin/Calamine/Znox 113 GM Tube 1 APPLIC TOPICAL ×2 (08:44→17:28)
[2022-01-05] MEDS: Potassium Chloride Oral Tablet 20 MEQ PO ×2 (08:45→17:28)
[2022-01-05] MEDS: Gabapentin 300 MG Capsule PO (08:45)
[2022-01-05 10:00] VITALS: PULSE 76; RESP 18; O2SAT 98
[2022-01-05] MEDS: Tuberculin,Purif.prot.deriv. 50 TU/ML Vial 0.1 ML ID (10:28)
[2022-01-05] MEDS: traMADol 50 MG Tablet PO (11:09)
[2022-01-05 13:29] VITALS: BP 122/63; PULSE 86; RESP 18; TEMP 36.2; O2SAT 98
--- NOTE | 2022-01-05 15:23 | CASEMGMT ---
Social Work Received call from JEANETTE Lizarraga of pt. Pt granted permission for this worker to speak with JEANETTE. Contacted JEANETTE. She is inquiring about plan for pt as the family is unsure of what is being asked. Reexplained Medicare days, used and remaining; pt making slow progress; possibly at new baseline; transferring to SNF as he is not safe to return home; it would be private pay as indicated he would not be eligible for ANAHY. JEANETTE confirmed and understood all explanations. SW offered to email her SNF list to have family choose 3 places. Explained IDT looking for DC within the next week. JEANETTE appreciative of this worker time and assistance. SW to continue to follow. Maddie Browning, CLOCK AND WATCH ASSEMBLER HEALTHCARE TRANSLATOR
[2022-01-05] MEDS: Tamsulosin HCl 0.4 MG Capsule PO (17:28)
[2022-01-06 04:52] VITALS: BP 110/55; PULSE 80
[2022-01-06] MEDS: Pantoprazole Sodium 20 MG Tablet PO ×2 (04:52→17:17)
[2022-01-06] MEDS: Acetaminophen 500 MG Tablet 1000 MG PO ×2 (04:52→14:07)
[2022-01-06] MEDS: Metoprolol(XL)Succ 25 MG Tablet PO (04:52)
[2022-01-06] MEDS: Bumetanide 0.5 MG Tablet 1 MG PO ×2 (04:52→14:08)
[2022-01-06] MEDS: Cholecalciferol (VIT D3) 25 MCG TABLET (1,000 UNITS) PO (04:53)
[2022-01-06] MEDS: Memantine Hydrochloride 10 MG Tablet PO ×2 (04:53→17:17)
[2022-01-06] MEDS: Multivitamin (Healthy Eyes) Capsule 1 CAP PO ×2 (04:53→17:17)
[2022-01-06] MEDS: APIXABAN 5 MG TABLET PO ×2 (04:53→17:17)
[2022-01-06] MEDS: Sertraline 50 MG Tablet PO (04:53)
[2022-01-06] MEDS: Lisinopril 10 MG Tablet PO (04:53)
[2022-01-06] MEDS: Menthol/Lanolin/Calamine/Znox 113 GM Tube 1 APPLIC TOPICAL ×2 (04:57→17:24)
[2022-01-06] MEDS: Nystatin Powder 15gm Bottle 1 APPLIC TOPICAL ×2 (04:57→17:23)
[2022-01-06 07:20] VITALS: O2SAT 97
[2022-01-06] MEDS: Potassium Chloride Oral Tablet 20 MEQ PO ×2 (08:07→17:17)
[2022-01-06] MEDS: Gabapentin 300 MG Capsule PO (08:07)
[2022-01-06] MEDS: traMADol 50 MG Tablet PO (10:32)
[2022-01-06 14:32] VITALS: BP 94/54; PULSE 89; RESP 16; TEMP 36.7; O2SAT 99
--- NOTE | 2022-01-06 16:15 | CHAPLAIN ---
Type of Pastoral Visit ___ Initial Visit _x__ Follow-up Visit ___ On-call Visit ___ General Patient Visit ___ Spiritual Assessment ___ Family Conference ___ Bereavement ___ Rapid Response ___ Code Blue ___ Other (describe below) Pastoral Care Referral From _x__ Patient _x__ Family ___ Nurse ___ Physician ___ Terrazzo Mechanic ___ Hazardous Waste Material Technician ___ Other (describe below) Sacrament/Intervention _x__ Active listening ___ Anointing ___ Nondenominational ___ Bereavement ___ Communion ___ Noelle exploration ___ _x__ Life review _x__ Prayer ___ Reconciliation ___ Sacrament of Sick _x__ Supportive presence ___ Wedding ___ Other (describe below) Pastoral Comments very talkative by both patient and spouse; both seeking help in making decisions and family is greatly involved to help them; supportive listening and prayer given
[2022-01-06] MEDS: Tamsulosin HCl 0.4 MG Capsule PO (17:17)
[2022-01-06 19:38] VITALS: PULSE 78; RESP 16; O2SAT 96
[2022-01-07 01:00] VITALS: PULSE 74; O2SAT 97
[2022-01-07 05:06] VITALS: BP 129/71; PULSE 81; RESP 18; O2SAT 95
[2022-01-07] MEDS: Bumetanide 0.5 MG Tablet 1 MG PO ×2 (05:10→14:17)
[2022-01-07] MEDS: Acetaminophen 500 MG Tablet 1000 MG PO ×3 (05:10→21:17)
[2022-01-07 05:11] VITALS: PULSE 81
[2022-01-07] MEDS: Sertraline 50 MG Tablet PO (05:11)
[2022-01-07] MEDS: Metoprolol(XL)Succ 25 MG Tablet PO (05:11)
[2022-01-07] MEDS: Lisinopril 10 MG Tablet PO (05:11)
[2022-01-07] MEDS: Multivitamin (Healthy Eyes) Capsule 1 CAP PO ×2 (05:11→17:16)
[2022-01-07] MEDS: Cholecalciferol (VIT D3) 25 MCG TABLET (1,000 UNITS) PO (05:11)
[2022-01-07] MEDS: Pantoprazole Sodium 20 MG Tablet PO ×2 (05:11→17:16)
[2022-01-07] MEDS: Nystatin Powder 15gm Bottle 1 APPLIC TOPICAL ×2 (05:12→17:15)
[2022-01-07] MEDS: Menthol/Lanolin/Calamine/Znox 113 GM Tube 1 APPLIC TOPICAL ×2 (05:12→17:15)
[2022-01-07] MEDS: Memantine Hydrochloride 10 MG Tablet PO ×2 (05:12→17:17)
[2022-01-07] MEDS: APIXABAN 5 MG TABLET PO ×2 (05:12→17:17)
[2022-01-07] MEDS: Polyethylene Glycol 3350 17 GM PACKET PO (05:12)
--- NOTE | 2022-01-07 07:50 | RAD_ITS ---
STUDY: X-RAY CHEST REASON FOR EXAM: Male, 81 years old. Productive cough, high aspiration risk. TECHNIQUE: PA and lateral views of the chest. COMPARISON: 12/31/2021 FINDINGS: Linear atelectasis or fibrotic scarring in the lung bases stable. No airspace consolidation. No pleural effusion or pneumothorax. Normal size heart. Normal mediastinum and sue. Normal visualized pulmonary arteries. There is atherosclerotic tortuosity of the aortic arch and descending thoracic aorta. There are diffuse degenerative changes of the visualized thoracic spine. Normal visualized ribs, clavicles, and shoulders. There is no demonstrated abnormality of the visualized soft tissue structures of the upper abdomen. RAD/Chest PA and Lateral IMPRESSION: No airspace consolidation or pleural effusion. Electronically Signed: Angel Schumacher MD (Brooks) at 8:11 EST ,
[2022-01-07] MEDS: Gabapentin 300 MG Capsule PO (08:09)
[2022-01-07] MEDS: Potassium Chloride Oral Tablet 20 MEQ PO ×2 (08:09→17:16)
[2022-01-07] MEDS: traMADol 50 MG Tablet PO ×2 (08:12→17:25)
[2022-01-07 11:38] VITALS: O2SAT 99
[2022-01-07 14:09] VITALS: BP 106/61; PULSE 87; RESP 20; TEMP 36.8; O2SAT 94
--- NOTE | 2022-01-07 14:20 | CASEMGMT ---
Addendum entered by Maddie Browning 01/09/22 09:52: [facility] accept. Family is touring [facility] today and will provide this worker with FOC. SW to continue to follow. Addendum entered by Maddie Browning 01/07/22 15:30: [facility] can accept. Original Note: Social Work Followed up with DIL on SNF choices. Family requesting referrals to [facility], SW, [facility] and [facility]. Referrals made. [facility] does not have a bed availability. BHUMI Dasilva
--- NOTE | 2022-01-07 15:38 | NURSING ---
Son at bedside and wonders if resident should get an xray on his Lt knee. It is still swollen and painful from his fall. Will update Dr Singleton.
[2022-01-07] MEDS: Tamsulosin HCl 0.4 MG Capsule PO (17:22)
--- NOTE | 2022-01-07 17:29 | RAD_ITS ---
STUDY: XR Knee Complete 4 Views or More 01/07/2022 9:32 PM REASON FOR EXAM: Male, 81 years old. PAIN left knee pain TECHNIQUE: XR Knee Complete 4 Views or More COMPARISON: None. FINDINGS: Normal visualized distal femur. Normal visualized proximal tibia and fibula. Normal proximal tibiofibular articulation. There is mild degenerative arthrosis of the medial femorotibial compartment. There is mild degenerative arthrosis of the lateral femorotibial compartment. There is mild degenerative arthrosis of the patellofemoral articulation. The soft tissue structures are unremarkable. RAD/Knee 4 or More Views IMPRESSION: Degenerative arthrosis. Electronically Signed: Juan Francisco Haile MD at 21:33 EST ,
[2022-01-08 05:16] VITALS: BP 106/61; PULSE 85
[2022-01-08 05:19] VITALS: BP 115/64
[2022-01-08] MEDS: Bumetanide 0.5 MG Tablet 1 MG PO ×2 (05:19→13:13)
[2022-01-08] MEDS: Acetaminophen 500 MG Tablet 1000 MG PO ×3 (05:19→21:40)
[2022-01-08] MEDS: Memantine Hydrochloride 10 MG Tablet PO ×2 (05:19→17:14)
[2022-01-08] MEDS: Multivitamin (Healthy Eyes) Capsule 1 CAP PO ×2 (05:19→17:14)
[2022-01-08 05:20] VITALS: BP 115/64; PULSE 85
[2022-01-08] MEDS: Pantoprazole Sodium 20 MG Tablet PO ×2 (05:20→17:14)
[2022-01-08] MEDS: Cholecalciferol (VIT D3) 25 MCG TABLET (1,000 UNITS) PO (05:20)
[2022-01-08] MEDS: Metoprolol(XL)Succ 25 MG Tablet PO (05:20)
[2022-01-08] MEDS: Lisinopril 10 MG Tablet PO (05:20)
[2022-01-08] MEDS: APIXABAN 5 MG TABLET PO ×2 (05:20→17:14)
[2022-01-08] MEDS: Sertraline 50 MG Tablet PO (05:20)
[2022-01-08] MEDS: Menthol/Lanolin/Calamine/Znox 113 GM Tube 1 APPLIC TOPICAL ×2 (05:26→17:15)
[2022-01-08] MEDS: Nystatin Powder 15gm Bottle 1 APPLIC TOPICAL ×2 (05:26→17:15)
[2022-01-08] MEDS: Arthritis Pain Compound 60 CLICK TUBE TOPICAL (05:31)
[2022-01-08 06:55] VITALS: O2SAT 93
[2022-01-08] MEDS: Gabapentin 300 MG Capsule PO (08:55)
[2022-01-08] MEDS: Potassium Chloride Oral Tablet 20 MEQ PO ×2 (08:55→17:14)
--- NOTE | 2022-01-08 12:05 | MDS.RN ---
Information for the mds was obtained from review of the clinical record, interview of resident, staff, and direct observation of resident's care.
[2022-01-08 13:17] VITALS: BP 104/54; PULSE 80; RESP 16; TEMP 36.4; O2SAT 96
--- NOTE | 2022-01-08 17:13 | NURSING ---
pt c/o cough, notified Dr. Singleton, received order for Tessalon perls TID PRN. Order repeated back.
[2022-01-08] MEDS: Tamsulosin HCl 0.4 MG Capsule PO (17:14)
--- NOTE | 2022-01-08 19:20 | PCM.DC.SUM ---
Providers Date of Admission: 12/28/21 Primary Care Physician: LONNIE Babb Consultations 01/08/22 15:44 Consult: Infectious Disease Routine Consulting Provider: Michele Camilo Reason for Consult: Covid positive EMERGENT Consult: Yes MD Notified: Yes Date Notified: 01/08/22 Time Notified: 15:44 Method of Notification: Page Reason For Visit: LEFT HIP FRACTURE Diagnosis Discharge Diagnosis (1) Debility: Status: Acute Code(s): R53.81 - Other malaise (2) Closed left hip fracture: Status: Acute Code(s): S72.002A - Fracture of unspecified part of neck of left femur, initial encounter for closed fracture (3) Cellulitis of left hip: Status: Acute Code(s): L03.116 - Cellulitis of left lower limb (4) Edema: Status: Acute Code(s): R60.9 - Edema, unspecified (5) Hemorrhagic stroke: Status: Acute Code(s): I61.9 - Nontraumatic intracerebral hemorrhage, unspecified (6) Atrial fibrillation: Status: Acute Code(s): I48.91 - Unspecified atrial fibrillation (7) Vascular dementia: Status: Acute Code(s): F01.50 - Vascular dementia without behavioral disturbance (8) Restless leg syndrome: Status: Acute Code(s): G25.81 - Restless legs syndrome (9) Hypertension: Status: Chronic Code(s): I10 - Essential (primary) hypertension (10) Depression: Status: Acute Code(s): F32.A - Depression, unspecified Medications at Discharge Home Medications memantine 10 mg PO BID 12/08/21 Eliquis 5 mg PO BID 12/11/21 lisinopril 10 mg PO DAILY 12/11/21 metoprolol succinate 25 mg PO DAILY 12/11/21 Healthy Eyes 1 cap PO BID 12/28/21 cholecalciferol (vitamin D3) 25 mcg PO DAILY 12/28/21 gabapentin 300 mg PO DAILY 12/28/21 menthol-zinc oxide [Calmoseptine] 1 applic TOPICAL BID 12/28/21 nystatin [Nyamyc] 1 applic TOPICAL BID 12/28/21 pantoprazole 20 mg PO BID 12/28/21 polyethylene glycol 3350 17 g PO DAILY 12/28/21 potassium chloride [Klor-Con M20] 20 meq PO BIDCM 12/28/21 sertraline 50 mg PO DAILY 12/28/21 tamsulosin 0.4 mg PO DAILY@1730 12/28/21 acetaminophen 1,000 mg PO TID #0 tab 01/08/22 benzonatate 100 mg PO TID PRN PRN #0 cap 01/08/22 bumetanide 1 mg PO BIDLX #0 tab 01/08/22 tramadol 50 mg PO Q6H PRN 3 Days #12 tab 01/08/22 Hospital Course Operations None Procedures None Summary of Care Provided Minutes Spent on Discharge: 35 Hospital Course: 81 year old male with below past medical history hospitalized for left hip fracture, underwent ORIF 12/10/[address] Pierre, admitted to , now admitted to TCU with debility, here for rehabilitation, strengthening, prior to discharge home with . 01/08/2022 Positive covid19, mild cough, no hypoxia, Dr. Camilo from Infectious Disease consulted. Discharge to [facility] 01/14/2022, Skilled, PT/OT/ST. Physical Exam Const alert and oriented x3 General Appearance: cooperative HEENT normocephalic Eyes PERRL and EOMs intact bilaterally Neck supple, no JVD and no carotid bruits Resp normal respiratory effort, normal air movement and clear to auscultation bilaterally Cardio regular rate and regular rhythm GI normal to inspection, nondistended, normoactive bowel sounds, non-tender and non-distended Extremity normal capillary refill General Extremity: Negative for edema Skin no rashes or lesions noted General Skin Exam: no breakdown Psych affect normal Appearance: appropriate Weight / BMI Weight Weight: 94.529 kg Body Mass Index (BMI) 28.8 ABG / Lab / Microbiology Data Result Diagrams: 01/05/22 05:26 01/05/22 05:26 Microbiology: Microbiology 01/08/22 13:05 Nasal Secretion SARS-CoV-2 Antigen (Rapid) - Final SARS-CoV-2 (COVID 19) 01/01/22 12:12 Nasal Secretion SARS-CoV-2 Antigen (Rapid) - Final Radiography Diagnostic Testing: Radiology Impression Knee X-Ray 01/07/22 17:29 IMPRESSION: Degenerative arthrosis. Electronically Signed: Juan Francisco Haile MD at 21:33 EST Reading Location ID and State: [facility] / [place] , Service support , D/C Instructions Discharge Diet: No restrictions Discharge Activity: Return to Normal Activity, May Shower and Use Walker Weight Bearing Status: Weight bearing as tolerated Call your doctor if you observe: Fever of 101 or Higher, Inability to urinate, Inability to have a bowel movement, Shortness of breath, Dizziness, Fainting spells, Swelling in the ankles, Chest pain and Uncontrolled pain Additional Instructions: Discharge to [facility] 01/14/2022, Skilled, PT/OT/ST. Please Follow Up With: Tyler Pierre, DO When: As scheduled. Meaningful Use Info Meaningful Use Diagnoses (Choose all that apply): None applicable Discharge Plan Admission Admit Date/Time: 12/28/21 14:47 Primary Reason for Your Visit: Debility. Attending Provider: Kenton Singleton Chi Primary Care Provider: Christina Lr Consulting Providers: Michele Camilo Instructions Additional Instructions / Restrictions: Discharge to [facility] 01/14/2022, Skilled, PT/OT/ST. Discharge Orders/Prescriptions Prescriptions: New tramadol 50 mg Tablet 50 mg PO Q6H PRN (Reason: Pain Score 4-10) 3 Days Qty: 12 RF: 0 acetaminophen 500 mg Tablet 1,000 mg PO TID Qty: 0 RF: 0 benzonatate 100 mg Capsule 100 mg PO TID PRN PRN (Reason: COUGH) Qty: 0 RF: 0 bumetanide 0.5 mg Tablet 1 mg PO BIDLX Qty: 0 RF: 0 Continued memantine 10 mg tablet 10 mg PO BID RF: 0 lisinopril 10 mg tablet 10 mg PO DAILY RF: 0 metoprolol succinate 25 mg tablet extended release 24 hr 25 mg PO DAILY RF: 0 Eliquis 5 mg tablet 5 mg PO BID RF: 0 polyethylene glycol 3350 17 gram powder in packet 17 g PO DAILY RF: 0 gabapentin 400 mg capsule 300 mg PO DAILY RF: 0 pantoprazole 20 mg tablet,delayed release (DR/EC) 20 mg PO BID RF: 0 potassium chloride [Klor-Con M20] 20 mEq tablet,ER particles/crystals 20 meq PO BIDCM RF: 0 tamsulosin 0.4 mg capsule 0.4 mg PO DAILY@1730 RF: 0 nystatin [Nyamyc] 100,000 unit/gram powder 1 applic topical BID RF: 0 sertraline 50 mg tablet 50 mg PO DAILY RF: 0 Healthy Eyes 1,000 unit-200 mg-60 unit-2 mg tablet 1 cap PO BID RF: 0 cholecalciferol (vitamin D3) 25 mcg (1,000 unit) tablet 25 mcg PO DAILY RF: 0 menthol-zinc oxide [Calmoseptine] 0.44-20.6 % ointment 1 applic topical BID RF: 0 Discontinued tramadol 50 mg tablet 50 mg PO Q6H PRN (Reason: pain) RF: 0 bumetanide 0.5 mg tablet 1 mg PO DAILY RF: 0 magnesium hydroxide 400 mg/5 mL Suspension 30 ml PO .PRN X 1 PRN (Reason: Constipation) Qty: 0 RF: 0 Arthritis Pain Compound 2 click topical TID PRN (Reason: Pain) RF: 0 sennosides-docusate sodium [Stool Softener-Stimulant Laxat] 8.6-50 mg tablet 2 tab PO BID RF: 0 acetaminophen 500 mg tablet 1,000 mg PO Q6H RF: 0 cefadroxil 1 gram tablet 1,000 mg PO BID RF: 0 Referrals / Follow Up: Tyler Pierre DO [STAFF PHYSICIAN] - Nitin Mckay MD [STAFF PHYSICIAN] - Kenton Singleton Chi, MD [COURTESY STAFF PHYSICIAN] - Christina Lr NP-C [Primary Care Provider] - Disposition Disposition (needs filled in before D/C Order can be placed): Alf Facility
--- NOTE | 2022-01-08 19:26 | TREXTCAR_ITS ---
Diet 12/28/21 15:09 Diet: Regular - General Food consistency:: Regular Liquid Consistency:: Regular/Thin Dietary Modifications:: No Added Salt Is pt able to select menu?: Yes Diet Comments: do not grind/puree anything, cut into bite sized pieces; NO STRAWS Routine Orders/Code Status Code Status: Full Code Wound(s) Right elbow: Wound Type: Abrasion Dressing Change: Bandaid Right Knee: Wound Type: Abrasion Left knee: Wound Type: Puncture Dressing Change: Bandaid Left Buttock: Wound Type: Abrasion Left hip: Wound Type: Surgical Incision Dressing Change: Dry Sterile Dressing Right outer ankle: Wound Type: Pressure Injury Therapies Weight Bearing: Weight bearing as tolerated Extremity Affected:: Bilateral Lower Physical Therapy: Eval and Treat Occupational Therapy: Eval and Treat Speech Therapy: Eval and Treat Problem/Diagnosis (1) Debility: Status: Acute (2) Closed left hip fracture: Status: Acute (3) Cellulitis of left hip: Status: Acute (4) Edema: Status: Acute (5) Hemorrhagic stroke: Status: Acute (6) Atrial fibrillation: Status: Acute (7) Vascular dementia: Status: Acute (8) Restless leg syndrome: Status: Acute (9) Hypertension: Status: Chronic (10) Depression: Status: Acute Allergies/Procedures Done in Hospital Allergies diclofenac Allergy (Severe, Verified 12/08/21 11:25) Anaphylaxis naproxen [From Naprosyn] Allergy (Severe, Verified 12/08/21 11:25) Angioedema thoat swelling, tongue edema Penicillins Allergy (Verified 12/08/21 11:25) Hives Sulfa (Sulfonamide Antibiotics) Allergy (Verified 12/08/21 11:25) Hives Procedures: None Type of Care/Length of Stay Estimated LOS: Convalescent Care Less Than 30 days Type of Care Needed: Skilled Rehab Potential: Fair Prognosis: Fair Additional Orders/Day of Discharge Day of Discharge: 01/14/22 Dietary and Speech Recommendations Dietitian Recommendations/Changes: Will continue Regular No Added Salt diet w/ consistency per HVAC MAINTENANCE TECHNICIAN Will revisit need for ONS pending po intake/wt changes as warranted Follow Up Care Please Follow Up With: Tyler Pierre DO When: f/u 1 month from 01/02/22 Please Follow Up With: Nitin Mckay MD Please Follow Up With: Kenton Singleton Chi, MD Discharge Plan Admission Admit Date/Time: 12/28/21 14:47 Primary Reason for Your Visit: Debility. Attending Provider: Kenton Singleton Chi Primary Care Provider: Christina Lr Consulting Providers: Michele Camilo Instructions Additional Instructions / Restrictions: Discharge to [facility] 01/14/2022, Skilled, PT/OT/ST. Discharge Orders/Prescriptions Prescriptions: New tramadol 50 mg Tablet 50 mg PO Q6H PRN (Reason: Pain Score 4-10) 3 Days Qty: 12 RF: 0 acetaminophen 500 mg Tablet 1,000 mg PO TID Qty: 0 RF: 0 benzonatate 100 mg Capsule 100 mg PO TID PRN PRN (Reason: COUGH) Qty: 0 RF: 0 bumetanide 0.5 mg Tablet 1 mg PO BIDLX Qty: 0 RF: 0 Continued memantine 10 mg tablet 10 mg PO BID RF: 0 lisinopril 10 mg tablet 10 mg PO DAILY RF: 0 metoprolol succinate 25 mg tablet extended release 24 hr 25 mg PO DAILY RF: 0 Eliquis 5 mg tablet 5 mg PO BID RF: 0 polyethylene glycol 3350 17 gram powder in packet 17 g PO DAILY RF: 0 gabapentin 400 mg capsule 300 mg PO DAILY RF: 0 pantoprazole 20 mg tablet,delayed release (DR/EC) 20 mg PO BID RF: 0 potassium chloride [Klor-Con M20] 20 mEq tablet,ER particles/crystals 20 meq PO BIDCM RF: 0 tamsulosin 0.4 mg capsule 0.4 mg PO DAILY@1730 RF: 0 nystatin [Nyamyc] 100,000 unit/gram powder 1 applic topical BID RF: 0 sertraline 50 mg tablet 50 mg PO DAILY RF: 0 Healthy Eyes 1,000 unit-200 mg-60 unit-2 mg tablet 1 cap PO BID RF: 0 cholecalciferol (vitamin D3) 25 mcg (1,000 unit) tablet 25 mcg PO DAILY RF: 0 menthol-zinc oxide [Calmoseptine] 0.44-20.6 % ointment 1 applic topical BID RF: 0 Discontinued tramadol 50 mg tablet 50 mg PO Q6H PRN (Reason: pain) RF: 0 bumetanide 0.5 mg tablet 1 mg PO DAILY RF: 0 magnesium hydroxide 400 mg/5 mL Suspension 30 ml PO .PRN X 1 PRN (Reason: Constipation) Qty: 0 RF: 0 Arthritis Pain Compound 2 click topical TID PRN (Reason: Pain) RF: 0 sennosides-docusate sodium [Stool Softener-Stimulant Laxat] 8.6-50 mg tablet 2 tab PO BID RF: 0 acetaminophen 500 mg tablet 1,000 mg PO Q6H RF: 0 cefadroxil 1 gram tablet 1,000 mg PO BID RF: 0 Referrals / Follow Up: Tyler Pierre DO [STAFF PHYSICIAN] - Nitin Mckay MD [STAFF PHYSICIAN] - Kenton Singleton Chi, MD [COURTESY STAFF PHYSICIAN] - Christina Lr NP-C [Primary Care Provider] - Disposition Disposition (needs filled in before D/C Order can be placed): Long-Term Facility
[2022-01-08 22:47] VITALS: BP 106/61; PULSE 82; RESP 16; TEMP 36.8; O2SAT 95
[2022-01-09 05:48] VITALS: PULSE 86
[2022-01-09] MEDS: APIXABAN 5 MG TABLET PO ×2 (05:48→17:59)
[2022-01-09] MEDS: Metoprolol(XL)Succ 25 MG Tablet PO (05:48)
[2022-01-09] MEDS: Multivitamin (Healthy Eyes) Capsule 1 CAP PO ×2 (05:48→17:59)
[2022-01-09] MEDS: Pantoprazole Sodium 20 MG Tablet PO ×2 (05:48→17:59)
[2022-01-09] MEDS: Bumetanide 0.5 MG Tablet 1 MG PO ×2 (05:49→15:00)
[2022-01-09] MEDS: Memantine Hydrochloride 10 MG Tablet PO ×2 (05:49→17:59)
[2022-01-09] MEDS: Nystatin Powder 15gm Bottle 1 APPLIC TOPICAL ×2 (05:50→17:59)
[2022-01-09] MEDS: Menthol/Lanolin/Calamine/Znox 113 GM Tube 1 APPLIC TOPICAL ×2 (05:50→18:00)
[2022-01-09] MEDS: Acetaminophen 500 MG Tablet 1000 MG PO ×3 (05:51→21:24)
[2022-01-09] MEDS: Lisinopril 10 MG Tablet PO (05:53)
[2022-01-09] MEDS: Sertraline 50 MG Tablet PO (05:53)
[2022-01-09] MEDS: Cholecalciferol (VIT D3) 25 MCG TABLET (1,000 UNITS) PO (05:54)
[2022-01-09 06:09] VITALS: BP 129/86; PULSE 83; RESP 15; TEMP 37.1; O2SAT 98
[2022-01-09] MEDS: Potassium Chloride Oral Tablet 20 MEQ PO ×2 (07:47→17:59)
[2022-01-09] MEDS: Gabapentin 300 MG Capsule PO (07:47)
--- NOTE | 2022-01-09 12:31 | NURSING ---
Dr Camilo in to assess pt. entering new med orders.
--- NOTE | 2022-01-09 12:43 | CON.PCM.ID_ITS ---
Assessment & Plan Assessment/Plan (1) Status post open reduction and internal fixation (ORIF) of fracture: (2) COVID-19: PLAN: Now covid (+), asymptomatic. Tested neg 01/01, 12/27, and 12/11. Vaccinated x3. Would isolate until 01/18/22. Discussed options with him, will give 3 day course of remdesivir as preventative treatment. If he becomes hypoxic, would start 10 day course of dex 6mg po daily and extend remdesivir for 5 days total. Will follow as needed, thank you HPI Consult Data Date of Consult: 01/09/22 HPI Narrative HPI Narrative: EUGENIO MART, is a 81 M who presented originally with L hip fracture, taken for ORIF. Given course of cefazolin for some incisional cellulitis, now resolved. Has been feeling fine, uses 2L O2 with cpap at night. Now covid Ag (+). No sick contacts. No new symptoms. Has some chronic mild cough. Vaccinated x3. Full ROS performed and neg except as noted above. [facility] Medical History BPH (benign prostatic hyperplasia) Chronic anticoagulation Chronic back pain Closed left hip fracture COPD (chronic obstructive pulmonary disease) Dilated aortic root Essential hypertension Fracture of left hip Hyperlipidemia Left atrial enlargement Left bundle branch block Longstanding persistent atrial fibrillation Nonrheumatic mitral (valve) prolapse RAFFY (obstructive sleep apnea) Osteoarthritis Patent foramen ovale Premature atrial contractions Premature ventricular contraction Pulmonary HTN Restless leg syndrome RLS (restless legs syndrome) Stroke/cerebrovascular accident Tachycardia Thoracic aneurysm, ruptured Vascular dementia Home Medications memantine 10 mg PO BID 12/08/21 [History Last Taken 12/07/21] Eliquis 5 mg PO BID 12/11/21 [History Last Taken Unknown] lisinopril 10 mg PO DAILY 12/11/21 [History Last Taken Unknown] metoprolol succinate 25 mg PO DAILY 12/11/21 [History Last Taken Unknown] Healthy Eyes 1 cap PO BID 12/28/21 [History Last Taken Unknown] cholecalciferol (vitamin D3) 25 mcg PO DAILY 12/28/21 [History Last Taken Unknown] gabapentin 300 mg PO DAILY 12/28/21 [History Last Taken Unknown] menthol-zinc oxide [Calmoseptine] 1 applic TOPICAL BID 12/28/21 [History Last Taken Unknown] nystatin [Nyamyc] 1 applic TOPICAL BID 12/28/21 [History Last Taken Unknown] pantoprazole 20 mg PO BID 12/28/21 [History Last Taken Unknown] polyethylene glycol 3350 17 g PO DAILY 12/28/21 [History Last Taken Unknown] potassium chloride [Klor-Con M20] 20 meq PO BIDCM 12/28/21 [History Last Taken Unknown] sertraline 50 mg PO DAILY 12/28/21 [History Last Taken Unknown] tamsulosin 0.4 mg PO DAILY@1730 12/28/21 [History Last Taken Unknown] acetaminophen 1,000 mg PO TID #0 tab 01/08/22 [Rx Last Taken Unknown] benzonatate 100 mg PO TID PRN PRN #0 cap 01/08/22 [Rx Last Taken Unknown] bumetanide 1 mg PO BIDLX #0 tab 01/08/22 [Rx Last Taken Unknown] tramadol 50 mg PO Q6H PRN 3 Days #12 tab 01/08/22 [Rx Last Taken Unknown] Allergy/AdvReac Type Severity Reaction Status Date / Time diclofenac Allergy Severe Anaphylaxis Verified 12/08/21 11:25 naproxen [From Naprosyn] Allergy Severe Angioedema Verified 12/08/21 11:25 Penicillins Allergy Hives Verified 12/08/21 11:25 Sulfa (Sulfonamide Allergy Hives Verified 12/08/21 11:25 Antibiotics) Family History Sister Cancer Surgical History History of carpal tunnel surgery History of thoracic aortic aneurysm repair History of total right knee replacement Status post open reduction and internal fixation (ORIF) of fracture Social History household members: spouse Smoking Status: Never smoker alcohol intake: never substance use type: does not use Physical Exam Const alert, oriented x3 and no apparent distress General Appearance: cooperative Exam Limitations: no limitations HEENT normocephalic and head/scalp atraumatic Eyes PERRL and EOMs intact bilaterally Neck supple and No nodes Resp normal air movement and clear to auscultation bilaterally Cardio regular rate and regular rhythm GI soft to palpation, non-tender and non-distended Extremity no clubbing, cyanosis or edema Skin no rashes or lesions noted Neuro CN's II-XII intact bilaterally Lab / Micro Data Result Diagrams: 01/05/22 05:26 01/05/22 05:26 Micro: Microbiology 01/08/22 13:05 Nasal Secretion SARS-CoV-2 Antigen (Rapid) - Final SARS-CoV-2 (COVID 19)
--- NOTE | 2022-01-09 13:05 | CASEMGMT ---
Social Work Since patient tested positive for COVID, pt is unable to transfer to SNFs. Updated all 3 SNFs. IDT to reconvene on DC date after pt is out of quarantine. SW to continue to follow. Maddie Browning, CHIMNEY CONSTRUCTION SUPERVISOR PHYSICAL THERAPIST ASSISTANT
--- NOTE | 2022-01-09 14:00 | NURSING ---
, Brandi updated on orders from Dr Camilo.
[2022-01-09 14:35] VITALS: BP 101/55; PULSE 80; RESP 18; TEMP 36.4; O2SAT 97
[2022-01-09] MEDS: 0.9% Saline Lock 10 ML Syringe IV (14:55)
--- NOTE | 2022-01-09 15:25 | NURSING ---
Resident and , Brandi, aware of resident testing positive for COVID.
[2022-01-09 16:12] VITALS: O2SAT 95
[2022-01-09] MEDS: Tamsulosin HCl 0.4 MG Capsule PO (17:59)
[2022-01-10] MEDS: Pantoprazole Sodium 20 MG Tablet PO ×2 (05:15→17:45)
[2022-01-10] MEDS: Memantine Hydrochloride 10 MG Tablet PO ×2 (05:15→17:44)
[2022-01-10] MEDS: Multivitamin (Healthy Eyes) Capsule 1 CAP PO ×2 (05:15→17:45)
[2022-01-10] MEDS: Bumetanide 0.5 MG Tablet 1 MG PO ×2 (05:16→14:31)
[2022-01-10] MEDS: Cholecalciferol (VIT D3) 25 MCG TABLET (1,000 UNITS) PO (05:17)
[2022-01-10] MEDS: Sertraline 50 MG Tablet PO (05:17)
[2022-01-10] MEDS: APIXABAN 5 MG TABLET PO ×2 (05:17→17:44)
[2022-01-10] MEDS: Acetaminophen 500 MG Tablet 1000 MG PO ×3 (05:18→20:57)
[2022-01-10] MEDS: Lisinopril 10 MG Tablet PO (05:18)
[2022-01-10] MEDS: Nystatin Powder 15gm Bottle 1 APPLIC TOPICAL ×2 (05:21→17:45)
[2022-01-10] MEDS: Menthol/Lanolin/Calamine/Znox 113 GM Tube 1 APPLIC TOPICAL ×2 (05:21→17:43)
[2022-01-10 05:32] VITALS: PULSE 87
[2022-01-10] MEDS: Metoprolol(XL)Succ 25 MG Tablet PO (05:32)
[2022-01-10 07:19] LABS: Hematocrit 32.3 % (40-54); Hemoglobin 10.2 g/dL (13.0-16.5); Mean Corp Hgb Conc 31.6 g/dL (32-36); Mean Corpuscular Hgb 30.3 pg (27.0-32.0); Mean Corpuscular Volume 95.8 fL (80-94); Mean Platelet Vol. 10.4 fl (6.2-12.0); Platelet Count 153 K/mm3 (150-450); RBC Distribution Width CV 16.1 % (11.6-14.6); RBC Distribution Width SD 57.3 fl (35.1-43.9); Red Blood Count 3.37 M/mm3 (4.6-6.2); White Blood Count 5.4 K/mm3 (4.4-11.0)
[2022-01-10 07:55] LABS: ALB/GLOB Ratio 0.7 RATIO (0.9-2.4); AST(SGOT) 26 U/L (15-37); Alanine Aminotransfer ALT/SGPT 27 U/L (16-61); Albumin, Serum 2.8 g/dL (3.2-5.0); Alkaline Phosphatase 138 U/L (45-117); Anion Gap 4 (5-15); BUN 42 mg/dL (7-18); BUN/Creat Ratio 37.8 RATIO (10-20); Calcium,Total 8.4 mg/dL (8.5-10.1); Chloride 104 mmol/L (98-107); Creatinine, Serum 1.11 mg/dL (0.70-1.30); EST Glomerular Filtration Rate 68 mL/min (>60); Est Glom Filt Rate - Afr Amer 82 mL/min (>60); Estimated Creatinine Clearance 60.68 ml/min; Globulin 3.8 g/dL (2.2-4.2); Glucose 96 mg/dL (74-106); Potassium 3.7 mmol/L (3.5-5.1); Protein, Total 6.6 g/dL (6.4-8.2); Sodium Level 138 mmol/L (136-145)
[2022-01-10] MEDS: Potassium Chloride Oral Tablet 20 MEQ PO ×2 (09:21→17:43)
[2022-01-10] MEDS: Gabapentin 300 MG Capsule PO (09:21)
[2022-01-10] MEDS: 0.9% Saline Lock 10 ML Syringe IV (09:22)
[2022-01-10 11:56] VITALS: O2SAT 98
[2022-01-10 15:25] VITALS: BP 117/62; PULSE 77; RESP 16; TEMP 36.3; O2SAT 97
[2022-01-10] MEDS: Tamsulosin HCl 0.4 MG Capsule PO (17:43)
[2022-01-11 05:58] VITALS: PULSE 77
[2022-01-11] MEDS: Bumetanide 0.5 MG Tablet 1 MG PO ×2 (05:58→13:15)
[2022-01-11] MEDS: Cholecalciferol (VIT D3) 25 MCG TABLET (1,000 UNITS) PO (05:58)
[2022-01-11] MEDS: Metoprolol(XL)Succ 25 MG Tablet PO (05:58)
[2022-01-11] MEDS: Memantine Hydrochloride 10 MG Tablet PO ×2 (05:58→17:11)
[2022-01-11] MEDS: Sertraline 50 MG Tablet PO (05:58)
[2022-01-11] MEDS: Acetaminophen 500 MG Tablet 1000 MG PO ×3 (05:58→20:59)
[2022-01-11] MEDS: Multivitamin (Healthy Eyes) Capsule 1 CAP PO ×2 (05:58→17:11)
[2022-01-11] MEDS: Pantoprazole Sodium 20 MG Tablet PO ×2 (05:59→17:11)
[2022-01-11] MEDS: Nystatin Powder 15gm Bottle 1 APPLIC TOPICAL ×2 (05:59→17:11)
[2022-01-11] MEDS: APIXABAN 5 MG TABLET PO ×2 (05:59→17:10)
[2022-01-11] MEDS: Menthol/Lanolin/Calamine/Znox 113 GM Tube 1 APPLIC TOPICAL ×2 (06:00→17:10)
[2022-01-11] MEDS: Lisinopril 10 MG Tablet PO (06:03)
[2022-01-11 06:51] LABS: Hematocrit 33.1 % (40-54); Mean Corp Hgb Conc 33.2 g/dL (32-36); Mean Corpuscular Volume 93.2 fL (80-94); Mean Platelet Vol. 10.4 fl (6.2-12.0); Platelet Count 171 K/mm3 (150-450); RBC Distribution Width CV 15.6 % (11.6-14.6); RBC Distribution Width SD 54.3 fl (35.1-43.9); Red Blood Count 3.55 M/mm3 (4.6-6.2); White Blood Count 5.2 K/mm3 (4.4-11.0)
[2022-01-11] MEDS: 0.9% Saline Lock 10 ML Syringe IV (07:27)
[2022-01-11 07:38] LABS: ALB/GLOB Ratio 0.7 RATIO (0.9-2.4); AST(SGOT) 28 U/L (15-37); Alanine Aminotransfer ALT/SGPT 31 U/L (16-61); Albumin, Serum 2.8 g/dL (3.2-5.0); Alkaline Phosphatase 143 U/L (45-117); Anion Gap 4 (5-15); BUN 39 mg/dL (7-18); BUN/Creat Ratio 37.5 RATIO (10-20); Calcium,Total 8.5 mg/dL (8.5-10.1); Chloride 107 mmol/L (98-107); Creatinine, Serum 1.04 mg/dL (0.70-1.30); EST Glomerular Filtration Rate 73 mL/min (>60); Est Glom Filt Rate - Afr Amer 88 mL/min (>60); Estimated Creatinine Clearance 64.77 ml/min; Globulin 4.1 g/dL (2.2-4.2); Glucose 91 mg/dL (74-106); Potassium 3.8 mmol/L (3.5-5.1); Protein, Total 6.9 g/dL (6.4-8.2); Sodium Level 142 mmol/L (136-145)
[2022-01-11 07:43] VITALS: O2SAT 97
[2022-01-11] MEDS: Gabapentin 300 MG Capsule PO (09:42)
[2022-01-11] MEDS: Potassium Chloride Oral Tablet 20 MEQ PO ×2 (09:42→17:10)
[2022-01-11 13:30] VITALS: BP 93/49; PULSE 82; RESP 16; TEMP 36.3; O2SAT 97
[2022-01-11] MEDS: Tamsulosin HCl 0.4 MG Capsule PO (17:10)
--- NOTE | 2022-01-11 18:04 | NURSING ---
here to eat with. pt assisted in scooting self up in bed with this rn. meal tray set up and cut up for pt.
[2022-01-11] MEDS: Benzonatate 100 MG Capsule PO (18:37)
--- NOTE | 2022-01-11 18:38 | NURSING ---
pt with persistant coughing after dinner. tessilon perle given for cough
[2022-01-11 20:30] VITALS: BP 115/77; PULSE 78; RESP 17; TEMP 36.7; O2SAT 98
[2022-01-12] MEDS: Benzonatate 100 MG Capsule PO ×2 (02:23→18:35)
[2022-01-12 02:43] VITALS: BP 106/54; PULSE 80; RESP 23; TEMP 36.4; O2SAT 98
--- NOTE | 2022-01-12 02:44 | NURSING ---
Patient with persistent dry cough. Tessalon Keily given per order. Vitals stable, no s/s of distress.
[2022-01-12 05:48] LABS: Absolute Lymphocyte Count 1.38 X10^3/uL (0.83-4.51); Absolute Neutrophil Count 4.1 X10^3/uL (2.0-7.7); Basophil# 0.04 X10^3/uL; Basophil% 0.6 % (0-1); Eosinophil# 0.23 X10^3/uL; Eosinophils% 3.7 % (0-5); Hematocrit 33.1 % (40-54); Lymphocyte # 1.38 X10^3/ul (0.83-4.51); Mean Corp Hgb Conc 33.2 g/dL (32-36); Mean Corpuscular Hgb 31.2 pg (27.0-32.0); Mean Corpuscular Volume 93.8 fL (80-94); Mean Platelet Vol. 10.7 fl (6.2-12.0); Monocyte# 0.48 X10^3/uL; Monocyte% 7.7 % (0-10); NRBC Flagged by Analyzer 0 % (0-5); Neutrophil % 65.5 % (47-70); Platelet Count 176 K/mm3 (150-450); RBC Distribution Width CV 15.6 % (11.6-14.6); RBC Distribution Width SD 53.8 fl (35.1-43.9); Red Blood Count 3.53 M/mm3 (4.6-6.2); White Blood Count 6.3 K/mm3 (4.4-11.0)
[2022-01-12] MEDS: Acetaminophen 500 MG Tablet 1000 MG PO ×3 (05:49→22:14)
[2022-01-12] MEDS: Memantine Hydrochloride 10 MG Tablet PO ×2 (05:49→18:33)
[2022-01-12] MEDS: Cholecalciferol (VIT D3) 25 MCG TABLET (1,000 UNITS) PO (05:49)
[2022-01-12] MEDS: APIXABAN 5 MG TABLET PO ×2 (05:49→18:33)
[2022-01-12] MEDS: Bumetanide 0.5 MG Tablet 1 MG PO ×2 (05:49→14:04)
[2022-01-12] MEDS: Sertraline 50 MG Tablet PO (05:49)
[2022-01-12 05:50] VITALS: PULSE 80
[2022-01-12] MEDS: Nystatin Powder 15gm Bottle 1 APPLIC TOPICAL ×2 (05:50→18:33)
[2022-01-12] MEDS: Metoprolol(XL)Succ 25 MG Tablet PO (05:50)
[2022-01-12] MEDS: Lisinopril 10 MG Tablet PO (05:50)
[2022-01-12] MEDS: Pantoprazole Sodium 20 MG Tablet PO ×2 (05:50→18:33)
[2022-01-12] MEDS: Menthol/Lanolin/Calamine/Znox 113 GM Tube 1 APPLIC TOPICAL ×2 (05:51→18:32)
[2022-01-12] MEDS: Multivitamin (Healthy Eyes) Capsule 1 CAP PO ×2 (05:52→18:33)
[2022-01-12 06:09] LABS: Anion Gap 4 (5-15); BUN 39 mg/dL (7-18); BUN/Creat Ratio 35.1 RATIO (10-20); Calcium,Total 8.4 mg/dL (8.5-10.1); Chloride 108 mmol/L (98-107); Creatinine, Serum 1.11 mg/dL (0.70-1.30); EST Glomerular Filtration Rate 68 mL/min (>60); Est Glom Filt Rate - Afr Amer 82 mL/min (>60); Estimated Creatinine Clearance 60.68 ml/min; Glucose 94 mg/dL (74-106); Potassium 3.8 mmol/L (3.5-5.1); Sodium Level 142 mmol/L (136-145)
[2022-01-12] MEDS: Potassium Chloride Oral Tablet 20 MEQ PO ×2 (09:09→18:32)
[2022-01-12] MEDS: Gabapentin 300 MG Capsule PO (09:09)
[2022-01-12 10:00] VITALS: BP 125/49; PULSE 74; RESP 18; TEMP 36.4
[2022-01-12] MEDS: traMADol 50 MG Tablet PO (10:47)
[2022-01-12 16:37] VITALS: O2SAT 98
[2022-01-12] MEDS: Tamsulosin HCl 0.4 MG Capsule PO (18:32)
[2022-01-13] MEDS: Bumetanide 0.5 MG Tablet 1 MG PO ×2 (06:50→15:34)
[2022-01-13] MEDS: APIXABAN 5 MG TABLET PO ×2 (06:52→17:32)
[2022-01-13] MEDS: Multivitamin (Healthy Eyes) Capsule 1 CAP PO ×2 (06:52→17:32)
[2022-01-13] MEDS: Menthol/Lanolin/Calamine/Znox 113 GM Tube 1 APPLIC TOPICAL ×2 (06:52→18:14)
[2022-01-13] MEDS: Memantine Hydrochloride 10 MG Tablet PO ×2 (06:53→17:33)
[2022-01-13] MEDS: Nystatin Powder 15gm Bottle 1 APPLIC TOPICAL ×2 (06:53→18:14)
[2022-01-13] MEDS: Polyethylene Glycol 3350 17 GM PACKET PO (06:53)
[2022-01-13 06:54] VITALS: BP 103/58; PULSE 73
[2022-01-13] MEDS: Acetaminophen 500 MG Tablet 1000 MG PO ×3 (06:54→21:22)
[2022-01-13] MEDS: Cholecalciferol (VIT D3) 25 MCG TABLET (1,000 UNITS) PO (06:54)
[2022-01-13] MEDS: Pantoprazole Sodium 20 MG Tablet PO ×2 (06:54→17:33)
[2022-01-13] MEDS: Metoprolol(XL)Succ 25 MG Tablet PO (06:54)
[2022-01-13] MEDS: Lisinopril 10 MG Tablet PO (06:55)
[2022-01-13] MEDS: Sertraline 50 MG Tablet PO (06:55)
[2022-01-13 07:40] VITALS: O2SAT 95
[2022-01-13] MEDS: Potassium Chloride Oral Tablet 20 MEQ PO ×2 (08:48→17:32)
[2022-01-13] MEDS: Gabapentin 300 MG Capsule PO (08:49)
[2022-01-13] MEDS: traMADol 50 MG Tablet PO (08:49)
[2022-01-13] MEDS: Benzonatate 100 MG Capsule PO (08:49)
[2022-01-13] MEDS: 0.9% Saline Lock 10 ML Syringe IV (08:50)
[2022-01-13 09:12] VITALS: BP 101/59; PULSE 78; RESP 16; TEMP 36.8; O2SAT 97
--- NOTE | 2022-01-13 15:19 | CASEMGMT ---
Addendum entered by Maddie Browning 01/13/22 15:32: [facility] confirmed admission on 01/23. Original Note: Social Work Collaborated with IDT and set DC date for 01/23. Spoke with DIL on DC date. She stated that's perfect as son is off work and can assist with tx. [facility] is [facility]. Left message with admissions to confirm DC date. Will determine closer to DC date if transport will need scheduled or is family can transport. DIL appreciative. Plan: DC to [facility] 01/23, nonskilled Maddie Browning, BHUMI VIGILW
[2022-01-13 16:00] VITALS: BP 108/69; PULSE 99; RESP 16; TEMP 36.6; O2SAT 94
[2022-01-13] MEDS: Tamsulosin HCl 0.4 MG Capsule PO (17:32)
[2022-01-14] MEDS: Acetaminophen 500 MG Tablet 1000 MG PO ×3 (05:18→20:57)
[2022-01-14] MEDS: Menthol/Lanolin/Calamine/Znox 113 GM Tube 1 APPLIC TOPICAL ×2 (05:19→17:01)
[2022-01-14] MEDS: APIXABAN 5 MG TABLET PO ×2 (05:19→17:01)
[2022-01-14] MEDS: Pantoprazole Sodium 20 MG Tablet PO ×2 (05:19→17:00)
[2022-01-14] MEDS: Lisinopril 10 MG Tablet PO (05:19)
[2022-01-14] MEDS: Memantine Hydrochloride 10 MG Tablet PO ×2 (05:19→17:00)
[2022-01-14] MEDS: Polyethylene Glycol 3350 17 GM PACKET PO (05:19)
[2022-01-14] MEDS: Bumetanide 0.5 MG Tablet 1 MG PO ×2 (05:19→14:55)
[2022-01-14] MEDS: Cholecalciferol (VIT D3) 25 MCG TABLET (1,000 UNITS) PO (05:19)
[2022-01-14] MEDS: Multivitamin (Healthy Eyes) Capsule 1 CAP PO ×2 (05:19→17:00)
[2022-01-14] MEDS: Nystatin Powder 15gm Bottle 1 APPLIC TOPICAL ×2 (05:19→17:01)
[2022-01-14 05:20] VITALS: PULSE 75
[2022-01-14] MEDS: Metoprolol(XL)Succ 25 MG Tablet PO (05:20)
[2022-01-14] MEDS: Sertraline 50 MG Tablet PO (05:54)
[2022-01-14 05:55] VITALS: BP 100/65; PULSE 75; RESP 18; TEMP 36.6; O2SAT 98
[2022-01-14] MEDS: Gabapentin 300 MG Capsule PO (08:50)
[2022-01-14] MEDS: Potassium Chloride Oral Tablet 20 MEQ PO ×2 (08:50→17:00)
[2022-01-14] MEDS: traMADol 50 MG Tablet PO ×2 (08:58→20:57)
--- NOTE | 2022-01-14 10:52 | CASEMGMT ---
Social Work SW reviewed the [facility] w/pt and pt signed the [facility] stating pt's last covered date is 01/22/22 with a discharge date of 01/23/22. Copy given to pt and placed in chart. VANE De Santiago
--- NOTE | 2022-01-14 10:55 | CASEMGMT ---
Addendum entered by Margarita Mcintosh 01/14/22 11:05: Social Work Please note, pt scored a 13 on the BIMS, not a 14 as reported below. VANE De Santiago Original Note: Social Work Brief Interview for Mental Status(14) and Resident Mood Interview--PHQ-9(0) completed this date. ZHOU De SantiagoS
[2022-01-14 16:00] VITALS: BP 85/50; PULSE 90; RESP 18; TEMP 36.8; O2SAT 95
[2022-01-14] MEDS: Tamsulosin HCl 0.4 MG Capsule PO (17:00)
[2022-01-14] MEDS: Benzonatate 100 MG Capsule PO (20:56)
[2022-01-15] MEDS: APIXABAN 5 MG TABLET PO ×2 (05:38→17:59)
[2022-01-15] MEDS: Polyethylene Glycol 3350 17 GM PACKET PO (05:38)
[2022-01-15] MEDS: Sertraline 50 MG Tablet PO (05:38)
[2022-01-15] MEDS: Multivitamin (Healthy Eyes) Capsule 1 CAP PO ×2 (05:38→17:59)
[2022-01-15] MEDS: traMADol 50 MG Tablet PO (05:38)
[2022-01-15] MEDS: Cholecalciferol (VIT D3) 25 MCG TABLET (1,000 UNITS) PO (05:38)
[2022-01-15] MEDS: Pantoprazole Sodium 20 MG Tablet PO ×2 (05:39→17:59)
[2022-01-15] MEDS: Memantine Hydrochloride 10 MG Tablet PO ×2 (05:39→17:59)
[2022-01-15] MEDS: Bumetanide 0.5 MG Tablet 1 MG PO ×2 (05:39→14:20)
[2022-01-15] MEDS: Acetaminophen 500 MG Tablet 1000 MG PO ×3 (05:39→20:56)
[2022-01-15 05:41] VITALS: PULSE 77
[2022-01-15] MEDS: Metoprolol(XL)Succ 25 MG Tablet PO (05:41)
[2022-01-15] MEDS: Nystatin Powder 15gm Bottle 1 APPLIC TOPICAL ×2 (05:41→18:01)
[2022-01-15] MEDS: Lisinopril 10 MG Tablet PO (05:41)
[2022-01-15] MEDS: Menthol/Lanolin/Calamine/Znox 113 GM Tube 1 APPLIC TOPICAL ×2 (05:41→18:01)
[2022-01-15 06:13] VITALS: BP 97/75; PULSE 77; RESP 18; O2SAT 97
[2022-01-15] MEDS: Gabapentin 300 MG Capsule PO (08:03)
[2022-01-15] MEDS: Potassium Chloride Oral Tablet 20 MEQ PO ×2 (08:03→17:59)
[2022-01-15 15:58] VITALS: BP 87/52; PULSE 69; RESP 16; TEMP 36.4; O2SAT 96
--- NOTE | 2022-01-15 16:19 | NURSING ---
Dr. Pierre office called and faxed order over for MRI of left knee without contrast d/t pain, MRI updated of order and made aware of covid precautions. MRI wants to wait until after pt is out of isolation to do MRI, Dr. Pierre office aware
--- NOTE | 2022-01-15 17:06 | NURSING ---
Resident and , Brandi, notified of 2 residents testing positive for COVID.
[2022-01-15] MEDS: Tamsulosin HCl 0.4 MG Capsule PO (17:59)
[2022-01-16 01:35] VITALS: BP 99/62; PULSE 76; RESP 16; TEMP 36.6; O2SAT 96
[2022-01-16] MEDS: Acetaminophen 500 MG Tablet 1000 MG PO ×3 (05:26→20:39)
[2022-01-16] MEDS: Bumetanide 0.5 MG Tablet 1 MG PO ×2 (05:26→15:37)
[2022-01-16] MEDS: Pantoprazole Sodium 20 MG Tablet PO ×2 (05:26→17:53)
[2022-01-16] MEDS: Sertraline 50 MG Tablet PO (05:27)
[2022-01-16] MEDS: Lisinopril 10 MG Tablet PO (05:27)
[2022-01-16 05:28] VITALS: BP 108/61; PULSE 75
[2022-01-16] MEDS: Metoprolol(XL)Succ 25 MG Tablet PO (05:28)
[2022-01-16] MEDS: APIXABAN 5 MG TABLET PO ×2 (05:28→17:53)
[2022-01-16] MEDS: Multivitamin (Healthy Eyes) Capsule 1 CAP PO ×2 (05:28→17:53)
[2022-01-16] MEDS: Cholecalciferol (VIT D3) 25 MCG TABLET (1,000 UNITS) PO (05:28)
[2022-01-16] MEDS: Memantine Hydrochloride 10 MG Tablet PO ×2 (05:28→17:53)
[2022-01-16] MEDS: Nystatin Powder 15gm Bottle 1 APPLIC TOPICAL ×2 (05:44→17:54)
[2022-01-16] MEDS: Menthol/Lanolin/Calamine/Znox 113 GM Tube 1 APPLIC TOPICAL ×2 (05:44→18:00)
[2022-01-16] MEDS: Potassium Chloride Oral Tablet 20 MEQ PO ×2 (09:41→17:53)
[2022-01-16] MEDS: Gabapentin 300 MG Capsule PO (09:41)
[2022-01-16 16:00] VITALS: BP 99/54; PULSE 76; RESP 16; TEMP 36.3; O2SAT 96
[2022-01-16 17:44] VITALS: PULSE 76; O2SAT 95
[2022-01-16] MEDS: Tamsulosin HCl 0.4 MG Capsule PO (17:53)
[2022-01-16] MEDS: traMADol 50 MG Tablet PO (20:39)
[2022-01-17] MEDS: Lisinopril 10 MG Tablet PO (05:25)
[2022-01-17] MEDS: Pantoprazole Sodium 20 MG Tablet PO ×2 (05:25→17:50)
[2022-01-17] MEDS: Memantine Hydrochloride 10 MG Tablet PO ×2 (05:25→17:50)
[2022-01-17] MEDS: Bumetanide 0.5 MG Tablet 1 MG PO ×2 (05:25→13:07)
[2022-01-17] MEDS: Multivitamin (Healthy Eyes) Capsule 1 CAP PO ×2 (05:25→17:50)
[2022-01-17] MEDS: Cholecalciferol (VIT D3) 25 MCG TABLET (1,000 UNITS) PO (05:26)
[2022-01-17] MEDS: Sertraline 50 MG Tablet PO (05:26)
[2022-01-17] MEDS: Acetaminophen 500 MG Tablet 1000 MG PO ×3 (05:26→21:46)
[2022-01-17] MEDS: Nystatin Powder 15gm Bottle 1 APPLIC TOPICAL ×2 (05:26→17:17)
[2022-01-17] MEDS: APIXABAN 5 MG TABLET PO ×2 (05:26→17:50)
[2022-01-17] MEDS: Menthol/Lanolin/Calamine/Znox 113 GM Tube 1 APPLIC TOPICAL ×2 (05:26→17:17)
[2022-01-17] MEDS: traMADol 50 MG Tablet PO (05:26)
[2022-01-17 05:27] VITALS: PULSE 75
[2022-01-17] MEDS: Metoprolol(XL)Succ 25 MG Tablet PO (05:27)
[2022-01-17 06:03] VITALS: BP 103/59; PULSE 75; RESP 18; TEMP 36.4; O2SAT 96
[2022-01-17] MEDS: Gabapentin 300 MG Capsule PO (08:36)
[2022-01-17] MEDS: Potassium Chloride Oral Tablet 20 MEQ PO ×2 (08:36→17:50)
--- NOTE | 2022-01-17 10:57 | NURSING ---
Patient remained in enhanced droplet precautions during shift.
[2022-01-17 13:20] VITALS: BP 86/52; PULSE 78; RESP 18; TEMP 36.1; O2SAT 95
[2022-01-17] MEDS: Tamsulosin HCl 0.4 MG Capsule PO (17:50)
[2022-01-18] MEDS: Menthol/Lanolin/Calamine/Znox 113 GM Tube 1 APPLIC TOPICAL ×2 (05:11→17:23)
[2022-01-18] MEDS: Bumetanide 0.5 MG Tablet 1 MG PO ×2 (05:12→13:29)
[2022-01-18] MEDS: APIXABAN 5 MG TABLET PO ×2 (05:13→17:25)
[2022-01-18] MEDS: Polyethylene Glycol 3350 17 GM PACKET PO (05:14)
[2022-01-18] MEDS: Nystatin Powder 15gm Bottle 1 APPLIC TOPICAL ×2 (05:14→17:25)
[2022-01-18] MEDS: Multivitamin (Healthy Eyes) Capsule 1 CAP PO ×2 (05:14→17:15)
[2022-01-18 05:15] VITALS: BP 136/75; PULSE 76
[2022-01-18] MEDS: Metoprolol(XL)Succ 25 MG Tablet PO (05:15)
[2022-01-18] MEDS: Pantoprazole Sodium 20 MG Tablet PO ×2 (05:15→17:15)
[2022-01-18] MEDS: Memantine Hydrochloride 10 MG Tablet PO ×2 (05:15→17:15)
[2022-01-18] MEDS: Acetaminophen 500 MG Tablet 1000 MG PO ×3 (05:16→20:06)
[2022-01-18] MEDS: Cholecalciferol (VIT D3) 25 MCG TABLET (1,000 UNITS) PO (05:16)
[2022-01-18] MEDS: Sertraline 50 MG Tablet PO (05:17)
[2022-01-18] MEDS: Lisinopril 10 MG Tablet PO (05:17)
[2022-01-18] MEDS: Gabapentin 300 MG Capsule PO (07:56)
[2022-01-18] MEDS: Potassium Chloride Oral Tablet 20 MEQ PO ×2 (07:56→17:15)
[2022-01-18 14:13] VITALS: BP 95/50; PULSE 79; RESP 16; TEMP 36.4; O2SAT 96
[2022-01-18] MEDS: Tamsulosin HCl 0.4 MG Capsule PO (17:15)
[2022-01-18] MEDS: Benzonatate 100 MG Capsule PO (20:11)
[2022-01-19] MEDS: Polyethylene Glycol 3350 17 GM PACKET PO (05:13)
[2022-01-19 05:14] VITALS: BP 111/59; PULSE 77
[2022-01-19] MEDS: Metoprolol(XL)Succ 25 MG Tablet PO (05:14)
[2022-01-19] MEDS: Bumetanide 0.5 MG Tablet 1 MG PO ×2 (05:14→15:28)
[2022-01-19] MEDS: Sertraline 50 MG Tablet PO (05:15)
[2022-01-19] MEDS: Memantine Hydrochloride 10 MG Tablet PO ×2 (05:15→16:41)
[2022-01-19] MEDS: Multivitamin (Healthy Eyes) Capsule 1 CAP PO ×2 (05:15→16:42)
[2022-01-19] MEDS: Pantoprazole Sodium 20 MG Tablet PO ×2 (05:15→16:41)
[2022-01-19] MEDS: Acetaminophen 500 MG Tablet 1000 MG PO ×3 (05:16→21:54)
[2022-01-19] MEDS: APIXABAN 5 MG TABLET PO ×2 (05:16→16:42)
[2022-01-19] MEDS: Lisinopril 10 MG Tablet PO (05:16)
[2022-01-19] MEDS: Cholecalciferol (VIT D3) 25 MCG TABLET (1,000 UNITS) PO (05:16)
[2022-01-19] MEDS: Nystatin Powder 15gm Bottle 1 APPLIC TOPICAL (05:19)
[2022-01-19] MEDS: Menthol/Lanolin/Calamine/Znox 113 GM Tube 1 APPLIC TOPICAL ×2 (05:19→16:42)
[2022-01-19 05:47] LABS: Absolute Lymphocyte Count 1.38 X10^3/uL (0.83-4.51); Absolute Neutrophil Count 4.9 X10^3/uL (2.0-7.7); Basophil# 0.04 X10^3/uL; Basophil% 0.6 % (0-1); Eosinophil# 0.16 X10^3/uL; Eosinophils% 2.3 % (0-5); Hematocrit 34.2 % (40-54); Hemoglobin 11.3 g/dL (13.0-16.5); Lymphocyte # 1.38 X10^3/ul (0.83-4.51); Lymphocyte % 20.1 % (19-41); Mean Corpuscular Hgb 30.6 pg (27.0-32.0); Mean Corpuscular Volume 92.7 fL (80-94); Mean Platelet Vol. 10.9 fl (6.2-12.0); Monocyte# 0.39 X10^3/uL; Monocyte% 5.7 % (0-10); NRBC Flagged by Analyzer 0 % (0-5); Neutrophil # 4.86 X10^3/uL (2.7-7.7); Neutrophil % 70.7 % (47-70); Platelet Count 175 K/mm3 (150-450); RBC Distribution Width SD 51.4 fl (35.1-43.9); Red Blood Count 3.69 M/mm3 (4.6-6.2); White Blood Count 6.9 K/mm3 (4.4-11.0)
[2022-01-19 06:20] LABS: Anion Gap 6 (5-15); BUN 50 mg/dL (7-18); BUN/Creat Ratio 37.3 RATIO (10-20); Calcium,Total 8.7 mg/dL (8.5-10.1); Chloride 108 mmol/L (98-107); Creatinine, Serum 1.34 mg/dL (0.70-1.30); EST Glomerular Filtration Rate 54 mL/min (>60); Est Glom Filt Rate - Afr Amer 66 mL/min (>60); Estimated Creatinine Clearance 50.27 ml/min; Glucose 101 mg/dL (74-106); Potassium 4.1 mmol/L (3.5-5.1); Sodium Level 142 mmol/L (136-145)
[2022-01-19] MEDS: Gabapentin 300 MG Capsule PO (08:14)
[2022-01-19] MEDS: Potassium Chloride Oral Tablet 20 MEQ PO ×2 (08:14→16:41)
[2022-01-19] MEDS: traMADol 50 MG Tablet PO (10:35)
[2022-01-19 13:49] VITALS: BP 92/52; PULSE 72; RESP 16; TEMP 36.8; O2SAT 97
[2022-01-19] MEDS: Benzonatate 100 MG Capsule PO (14:15)
[2022-01-19 14:39] VITALS: BP 102/54; PULSE 79
--- NOTE | 2022-01-19 15:47 | NURSING ---
Orders sent to MRI for Left Knee. Spoke with Tech and was unsure if they would be able to do it today d/t scheduling.
[2022-01-19] MEDS: Tamsulosin HCl 0.4 MG Capsule PO (16:42)
[2022-01-19] MEDS: guaiFENesin Dm 10 ML UDC PO (18:51)
[2022-01-20] MEDS: Polyethylene Glycol 3350 17 GM PACKET PO (06:19)
[2022-01-20 06:20] VITALS: BP 113/64; PULSE 76
[2022-01-20] MEDS: APIXABAN 5 MG TABLET PO ×2 (06:20→17:42)
[2022-01-20] MEDS: Metoprolol(XL)Succ 25 MG Tablet PO (06:20)
[2022-01-20] MEDS: Sertraline 50 MG Tablet PO (06:20)
[2022-01-20] MEDS: Lisinopril 10 MG Tablet PO (06:20)
[2022-01-20] MEDS: Multivitamin (Healthy Eyes) Capsule 1 CAP PO ×2 (06:20→17:42)
[2022-01-20] MEDS: Cholecalciferol (VIT D3) 25 MCG TABLET (1,000 UNITS) PO (06:20)
[2022-01-20] MEDS: Nystatin Powder 15gm Bottle 1 APPLIC TOPICAL (06:21)
[2022-01-20] MEDS: Memantine Hydrochloride 10 MG Tablet PO ×2 (06:21→17:41)
[2022-01-20] MEDS: Bumetanide 0.5 MG Tablet 1 MG PO ×2 (06:21→13:39)
[2022-01-20] MEDS: Menthol/Lanolin/Calamine/Znox 113 GM Tube 1 APPLIC TOPICAL ×2 (06:21→17:43)
[2022-01-20] MEDS: Pantoprazole Sodium 20 MG Tablet PO ×2 (06:21→17:43)
[2022-01-20] MEDS: Acetaminophen 500 MG Tablet 1000 MG PO ×3 (06:21→21:07)
[2022-01-20] MEDS: Benzonatate 100 MG Capsule PO ×2 (06:33→13:43)
[2022-01-20] MEDS: Gabapentin 300 MG Capsule PO (08:25)
[2022-01-20] MEDS: Potassium Chloride Oral Tablet 20 MEQ PO ×2 (08:26→17:40)
[2022-01-20 08:29] VITALS: BP 103/62; PULSE 85
[2022-01-20] MEDS: traMADol 50 MG Tablet PO (12:51)
[2022-01-20] MEDS: Arthritis Pain Compound 60 CLICK TUBE TOPICAL (13:26)
[2022-01-20 14:08] VITALS: BP 102/54; PULSE 70; RESP 16; TEMP 36.4; O2SAT 98
[2022-01-20] MEDS: guaiFENesin Dm 10 ML UDC PO (15:12)
[2022-01-20] MEDS: guaiFENesin/Codeine 5 ML UDC PO (17:36)
[2022-01-20] MEDS: Tamsulosin HCl 0.4 MG Capsule PO (17:41)
[2022-01-20 22:06] VITALS: PULSE 83; RESP 16; O2SAT 97
[2022-01-21] MEDS: guaiFENesin/Codeine 5 ML UDC PO ×3 (05:25→18:52)
[2022-01-21] MEDS: Cholecalciferol (VIT D3) 25 MCG TABLET (1,000 UNITS) PO (06:39)
[2022-01-21] MEDS: Multivitamin (Healthy Eyes) Capsule 1 CAP PO ×2 (06:39→17:21)
[2022-01-21] MEDS: Sertraline 50 MG Tablet PO (06:39)
[2022-01-21] MEDS: Lisinopril 10 MG Tablet PO (06:39)
[2022-01-21] MEDS: Memantine Hydrochloride 10 MG Tablet PO ×2 (06:40→17:21)
[2022-01-21] MEDS: Pantoprazole Sodium 20 MG Tablet PO ×2 (06:40→17:21)
[2022-01-21] MEDS: Bumetanide 0.5 MG Tablet 1 MG PO ×2 (06:41→14:03)
[2022-01-21] MEDS: Acetaminophen 500 MG Tablet 1000 MG PO ×3 (06:41→20:57)
[2022-01-21] MEDS: Polyethylene Glycol 3350 17 GM PACKET PO (06:42)
[2022-01-21] MEDS: APIXABAN 5 MG TABLET PO ×2 (06:42→17:21)
[2022-01-21 06:44] VITALS: BP 96/51; PULSE 78
[2022-01-21] MEDS: Nystatin Powder 15gm Bottle 1 APPLIC TOPICAL ×2 (06:47→17:21)
[2022-01-21] MEDS: Menthol/Lanolin/Calamine/Znox 113 GM Tube 1 APPLIC TOPICAL ×2 (06:47→17:21)
[2022-01-21] MEDS: Potassium Chloride Oral Tablet 20 MEQ PO ×2 (09:04→17:20)
[2022-01-21] MEDS: Gabapentin 300 MG Capsule PO (09:04)
[2022-01-21] MEDS: traMADol 50 MG Tablet PO (09:08)
[2022-01-21 14:01] VITALS: BP 88/48; PULSE 81; RESP 18; TEMP 36.7; O2SAT 94
[2022-01-21] MEDS: Tamsulosin HCl 0.4 MG Capsule PO (17:20)
--- NOTE | 2022-01-21 18:31 | PCA ---
PRODUCTION SUPPORT DEVELOPER asked patient if they wanted to get washed and ready fro bed. Patient stated that they have therapy in the morning and they are giving me a shower in the morning. Ill do it then offered to put on a night gown and they said Im good to sleep with what i have on.
[2022-01-21 21:03] VITALS: PULSE 84; RESP 18; O2SAT 94
[2022-01-22] MEDS: guaiFENesin/Codeine 5 ML UDC PO ×4 (03:43→20:31)
[2022-01-22 04:43] VITALS: BP 106/55; PULSE 100
[2022-01-22] MEDS: Metoprolol(XL)Succ 25 MG Tablet PO (04:43)
[2022-01-22] MEDS: Cholecalciferol (VIT D3) 25 MCG TABLET (1,000 UNITS) PO (04:44)
[2022-01-22] MEDS: Multivitamin (Healthy Eyes) Capsule 1 CAP PO ×2 (04:44→17:04)
[2022-01-22] MEDS: Lisinopril 10 MG Tablet PO (04:44)
[2022-01-22] MEDS: Bumetanide 0.5 MG Tablet 1 MG PO (04:44)
[2022-01-22] MEDS: Acetaminophen 500 MG Tablet 1000 MG PO ×2 (04:44→13:11)
[2022-01-22] MEDS: Pantoprazole Sodium 20 MG Tablet PO ×2 (04:45→17:05)
[2022-01-22] MEDS: Sertraline 50 MG Tablet PO (04:45)
[2022-01-22] MEDS: Memantine Hydrochloride 10 MG Tablet PO ×2 (04:45→17:05)
[2022-01-22] MEDS: APIXABAN 5 MG TABLET PO ×2 (04:45→17:04)
[2022-01-22] MEDS: Gabapentin 300 MG Capsule PO (08:06)
[2022-01-22] MEDS: Potassium Chloride Oral Tablet 20 MEQ PO ×2 (08:06→17:03)
--- NOTE | 2022-01-22 11:37 | NURSING ---
Addendum entered by Christina Nation 01/22/22 18:29: aerosal tx ordered, speech assessed and does not feel that diet ordered or thickened liquids need ordered. Addendum entered by Christina Nation 01/22/22 11:45: dr hernandez returned call, new order chest xray Original Note: pt noted with increased dry cough, faint wheezes heard t/o post lungs, voice hoarse, sat 94% on rm air. paged dr hernandez. awaiting return call
--- NOTE | 2022-01-22 11:45 | RAD_ITS ---
STUDY: X-RAY CHEST REASON FOR EXAM: Male, 81 years old. cough/wheezing TECHNIQUE: PA and lateral views of the chest. COMPARISON: 01/07/2022 FINDINGS: There are interstitial fibrotic changes of the lungs. Lungs are hyperexpanded. No airspace consolidation. There is no demonstrated pleural abnormality. Normal size heart. Normal mediastinum and sue. Normal visualized pulmonary arteries. There is atherosclerotic tortuosity of the aortic arch and descending thoracic aorta. There are diffuse degenerative changes of the visualized thoracic spine. Normal visualized ribs, clavicles, and shoulders. There is no demonstrated abnormality of the visualized soft tissue structures of the upper abdomen. RAD/Chest PA and Lateral IMPRESSION: No acute cardiopulmonary process. Electronically Signed: Angel Schumacher MD (Brooks) at 12:47 EST ,
--- NOTE | 2022-01-22 12:30 | NURSING ---
pt off unit to xray via WC at this time
[2022-01-22 13:30] VITALS: BP 80/57; PULSE 88; RESP 17; TEMP 36.7; O2SAT 95
--- NOTE | 2022-01-22 16:07 | CHAPLAIN ---
Type of Pastoral Visit ___ Initial Visit _x__ Follow-up Visit ___ On-call Visit ___ General Patient Visit ___ Spiritual Assessment ___ Family Conference ___ Bereavement ___ Rapid Response ___ Code Blue ___ Other (describe below) Pastoral Care Referral From _x__ Patient _x__ Family ___ Nurse ___ Physician ___ Ground Support Equipment Mechanic ___ Market Research Analyst ___ Other (describe below) Sacrament/Intervention _x__ Active listening ___ Anointing ___ Restorationist ___ Bereavement ___ Communion _x__ Noelle exploration ___ ___ Life review _x__ Prayer ___ Reconciliation ___ Sacrament of Sick _x__ Supportive presence ___ Wedding ___ Other (describe below) Pastoral Comments patient and spouse both very talkative; pt had a scare earlier with coughing/choking but came through ok thankfully with quick action of the SERGING MACHINE OPERATOR; pt wants to go home; both ask for prayer
[2022-01-22] MEDS: Tamsulosin HCl 0.4 MG Capsule PO (17:03)
[2022-01-22] MEDS: Menthol/Lanolin/Calamine/Znox 113 GM Tube 1 APPLIC TOPICAL (17:04)
[2022-01-22] MEDS: Nystatin Powder 15gm Bottle 1 APPLIC TOPICAL (17:05)
--- NOTE | 2022-01-22 17:08 | NURSING ---
Resident and , Brandi, notified of a resident on the unit testing positive for COVID.
[2022-01-22 17:50] VITALS: PULSE 66; RESP 18
[2022-01-22] MEDS: Ipratropium/Albuterol Sulfate 3 ML AMPUL.NEB INHALATION (17:50)
--- NOTE | 2022-01-22 19:32 | PCA ---
patient received shower in the morning with therapy and did not wish to wash up tonight for bed.
[2022-01-23 04:09] VITALS: BP 110/66; PULSE 80
[2022-01-23] MEDS: Bumetanide 0.5 MG Tablet 1 MG PO (04:10)
[2022-01-23] MEDS: APIXABAN 5 MG TABLET PO (04:10)
[2022-01-23] MEDS: Multivitamin (Healthy Eyes) Capsule 1 CAP PO (04:10)
[2022-01-23] MEDS: guaiFENesin/Codeine 5 ML UDC PO (04:10)
[2022-01-23 04:11] VITALS: BP 110/66; PULSE 80
[2022-01-23] MEDS: Cholecalciferol (VIT D3) 25 MCG TABLET (1,000 UNITS) PO (04:11)
[2022-01-23] MEDS: Metoprolol(XL)Succ 25 MG Tablet PO (04:11)
[2022-01-23] MEDS: Pantoprazole Sodium 20 MG Tablet PO (04:11)
[2022-01-23] MEDS: Memantine Hydrochloride 10 MG Tablet PO (04:11)
[2022-01-23] MEDS: Acetaminophen 500 MG Tablet 1000 MG PO (04:11)
[2022-01-23] MEDS: Lisinopril 10 MG Tablet PO (04:11)
[2022-01-23] MEDS: Sertraline 50 MG Tablet PO (04:11)
[2022-01-23] MEDS: Menthol/Lanolin/Calamine/Znox 113 GM Tube 1 APPLIC TOPICAL (04:16)
[2022-01-23] MEDS: Nystatin Powder 15gm Bottle 1 APPLIC TOPICAL (04:16)
[2022-01-23 07:13] VITALS: PULSE 72; RESP 17; O2SAT 96
[2022-01-23] MEDS: Ipratropium/Albuterol Sulfate 3 ML AMPUL.NEB INHALATION (07:13)
[2022-01-23] MEDS: Gabapentin 300 MG Capsule PO (09:24)
[2022-01-23] MEDS: Potassium Chloride Oral Tablet 20 MEQ PO (09:24)
[2022-01-23 10:00] VITALS: PULSE 75; RESP 20; O2SAT 93
[2022-01-23 11:16] VITALS: BP 104/57; PULSE 82; RESP 20; TEMP 35.7; O2SAT 96
--- NOTE | 2022-01-23 11:23 | NURSING ---
Report called to [facility].
--- NOTE | 2022-01-28 11:39 | MDS.RN ---
Information for the mds was obtained from review of the clinical record, interview of resident, staff, and direct observation of resident's care.
== END 2022-01-23 11:24 | disposition skilled nursing facility (03) | DRG 559 ==
PROVIDERS: Internal Medicine Infectious Disease; Admitting Provider Family Medicine Geriatric Medicine; Visit Provider Family Medicine Geriatric Medicine
DX: S72.002D Fracture of unspecified part of neck of left femur, subsequent encounter for closed fracture with routine healing (principal); U07.1 COVID-19; I48.11 Longstanding persistent atrial fibrillation; L03.116 Cellulitis of left lower limb; B35.4 Tinea corporis; E55.9 Vitamin D deficiency, unspecified; G25.81 Restless legs syndrome; E78.5 Hyperlipidemia, unspecified; F01.50 Vascular dementia, unspecified severity, without behavioral disturbance, psychotic disturbance, mood disturbance, and anxiety; J44.9 Chronic obstructive pulmonary disease, unspecified; I10 Essential (primary) hypertension; H35.30 Unspecified macular degeneration; G62.9 Polyneuropathy, unspecified; N40.0 Benign prostatic hyperplasia without lower urinary tract symptoms; K21.9 Gastro-esophageal reflux disease without esophagitis; S83.242D Other tear of medial meniscus, current injury, left knee, subsequent encounter; S83.282D Other tear of lateral meniscus, current injury, left knee, subsequent encounter; T81.49XD Infection following a procedure, other surgical site, subsequent encounter; F32.A Depression, unspecified; X58.XXXD Exposure to other specified factors, subsequent encounter; Z79.01 Long term (current) use of anticoagulants; G89.29 Other chronic pain; Z79.899 Other long term (current) drug therapy
CPT/HCPCS: 36415; 71046; 73564; 74230; 80048; 80053; 85025; 85027; 87426; 87635; 92507; 92523; 92526; 92610; 92611; 94640; 97110; 97116; 97162; 97166; 97530; 97535; 97802; J7050; A4216; J0248; U0003; U0005

== ENCOUNTER 2022-01-20 09:25 | Outpatient (CLI) | payer MEDICARE, OTHER, SELFPAY ==
--- NOTE | 2022-01-20 10:00 | MRI_ITS ---
STUDY: MRI LEFT KNEE REASON FOR EXAM: Left knee pain, left knee injury. TECHNIQUE: Standardized fat and water weighted pulse sequences were obtained in all 3 orthogonal planes. COMPARISON: Radiographs 01/07/2022. FINDINGS: There is a horizontal tear of the inferior articular surface of the posterior horn of the medial meniscus (proton-density sagittal images 12, 13; proton-density coronal image 11). There is arthrosis of the medial femorotibial compartment with partial-thickness chondral loss of the medial femoral condyle (T2 sagittal image 9). Normal medial femoral condyle and tibial plateau. Normal medial collateral ligamentous complex (MCL). Normal distal semimembranosus, gracilis and semitendinosus tendons. There is diffuse tear/degeneration of the lateral meniscus (proton-density sagittal images 30-38). There is arthrosis of the lateral femorotibial compartment with small marginal osteophytes and chondral loss (T2 sagittal image 21). Normal lateral femoral condyle and tibial plateau. Normal proximal tibiofibular articulation. Normal lateral collateral (fibular) ligament. Normal popliteus tendon. Normal biceps femoris tendon. Normal anterior cruciate ligament (ACL). Normal posterior cruciate ligament (PCL). Normal congruent patellofemoral articulation. There is arthrosis of the patellofemoral compartment with marginal osteophytes and chondral thinning (T2 sagittal image 17). Normal medial and lateral patellar retinaculum. Normal visualized quadriceps tendon. Normal patellar tendon. Normal Hoffa''s fat pad. There is a minimal volume of fluid in the knee joint. There is a small popliteal cyst (T2 sagittal images 7-10). The otherwise visualized osseous structures are unremarkable. MRI/Lower Ext Joint Only (Routine) IMPRESSION: Tear/degeneration of the lateral meniscus. Medial meniscal tear. Tricompartmental arthrosis. Small popliteal cyst. Electronically Signed: Srinivas Fallon MD at 11:24 EST ,
== END 2022-01-20 23:59 | disposition home or self-care (01) ==
PROVIDERS: Visit Provider Student in an Organized Health Care Education/Training Program
DX: M25.562 Pain in left knee (principal)
CPT/HCPCS: 73721

== ENCOUNTER 2022-06-08 06:53 | Day surgery (SDC) | payer MEDICARE, OTHER, SELFPAY ==
[2022-06-08 07:50] VITALS: BP 126/75; PULSE 71; RESP 16; TEMP 37.1; O2SAT 96; BMI 27.7
[2022-06-08] MEDS: Lactated Ringers 1,000 ML 100 ML IV (07:59)
[2022-06-08] MEDS: MethylPREDNISolone Acetate 80 MG/ML Vial (08:29)
--- NOTE | 2022-06-08 08:29 | RAD_ITS ---
PROCEDURE: Left knee joint genicular nerve steroid injection. DATE OF EXAMINATION: 06/08/2022. INDICATION: Male, 81 years old. Left knee pain. FLUOROSCOPY TIME (if supplied): (5.2 seconds) minutes/seconds. 4 images were submitted. RAD/Fluoro Guided Needle Placement IMPRESSION: Fluoroscopic service provided for left knee joint genicular nerve steroid injection. Electronically Signed: Matt Peng MD at 9:58 EDT ,
[2022-06-08] MEDS: Bupivacaine 0.25% 30 ML Vial (08:30)
[2022-06-08] MEDS: Lidocaine 1% (5 ml sdv) 5 ML Vial (08:30)
[2022-06-08 08:40] VITALS: BP 123/72; BP 126/75; PULSE 61; RESP 16; TEMP 36.3; O2SAT 95
[2022-06-08 08:45] VITALS: BP 117/66; BP 126/75; PULSE 68; RESP 16; O2SAT 95
[2022-06-08 08:50] VITALS: BP 113/73; BP 126/75; PULSE 66; RESP 16; O2SAT 96
[2022-06-08 08:55] VITALS: BP 123/67; BP 126/75; PULSE 62; RESP 16; TEMP 36.6; O2SAT 97
[2022-06-08 09:10] VITALS: BP 126/75
--- NOTE | 2022-06-08 09:47 | OP.PCM_ITS ---
Report of Operation Date of Procedure: 06/08/22 Description of Surgical Findings:: PREOPERATIVE DIAGNOSIS: Osteoarthritis of the left knee POSTOPERATIVE DIAGNOSIS: Osteoarthritis of the left knee PROCEDURE PERFORMED: Left knee superomedial, superolateral, and inferomedial genicular nerves steroid injection under fluoroscopy guidance. ANESTHESIA: MAC BLOOD LOSS: Minimal. COMPLICATIONS: None. DESCRIPTION OF PROCEDURE: History and physical of today was reviewed. Risks and benefits of the procedure were explained. The patient understood and agreed to proceed. Informed consent was obtained. IV inserted per routine protocol. The patient was taken to the operating room and placed in the supine position. The left knee was prepped and draped in a sterile fashion using iodine x3. Under fluoroscopy guidance on AP view, the left knee was visualized. The skin and subcutaneous tissue was anesthetized with approximately 5 mL of 1% lidocaine using a 25-gauge regular needle at the vicinity of the superomedial, superolateral, and inferomedial genicular nerves. Under direct visualization of fluoroscopy on AP view as well as lateral view, starting on the left superomedial, ending on the left inferomedial, passing through the left superolateral genicular nerves, the needle was passed through the skin. The tip of the needle was maneuvered and directed towards the diaphyseal junction of each corresponding nerve. Once tip of the needle was in the vicinity of the diaphysis and in contact with the bone, after confirmation on AP as well as lat eral view and repeated negative aspiration for blood, a total of 12 mL of preservative-free 0.25% Marcaine with 80 mg of Depo-Medrol was injected in divided doses between those three levels. The needles were then removed intact. The patient experienced no sign or symptoms of intravascular injection. The patient experienced no paresthesia. The procedure was completed without any apparent difficulty or any complications. The patient appeared to tolerate it well. ASSESSMENT AND PLAN: This is an 81-year-old male with osteoarthritis of the left knee status post left knee superior medial, superior lateral, inferior medial genicular nerves steroid injection under fluoroscopic guidance, patient will continue his current medications, patient will follow in approximately 2 weeks for reevaluation.
== END 2022-06-08 09:26 | disposition home or self-care (01) ==
LOC: SDC 06:55 → AC 06:59
PROVIDERS: Referring Provider Anesthesiology Pain Medicine; Visit Provider Anesthesiology Pain Medicine
PROC: 3E0U3GC Introduction of Other Therapeutic Substance into Joints, Percutaneous Approach (ICD-10-PCS; CPT 20610; principal; 2022-06-08 08:35)
DX: M17.12 Unilateral primary osteoarthritis, left knee (principal); F01.50 Vascular dementia, unspecified severity, without behavioral disturbance, psychotic disturbance, mood disturbance, and anxiety; J44.9 Chronic obstructive pulmonary disease, unspecified; I27.20 Pulmonary hypertension, unspecified; I48.91 Unspecified atrial fibrillation; I10 Essential (primary) hypertension; I25.10 Atherosclerotic heart disease of native coronary artery without angina pectoris; K21.9 Gastro-esophageal reflux disease without esophagitis; Z86.16 Personal history of COVID-19; F32.A Depression, unspecified; G25.81 Restless legs syndrome; Z79.01 Long term (current) use of anticoagulants; Z79.899 Other long term (current) drug therapy; N40.0 Benign prostatic hyperplasia without lower urinary tract symptoms; G89.29 Other chronic pain; G47.33 Obstructive sleep apnea (adult) (pediatric); Z86.73 Personal history of transient ischemic attack (TIA), and cerebral infarction without residual deficits
CPT/HCPCS: 64454; 76000; 77002; J7120; J2405

== ENCOUNTER → 2022-11-11 | Outpatient (CLI) | payer MEDICARE, OTHER, SELFPAY ==
[2022-11-11 11:21] LABS: Absolute Lymphocyte Count 0.89 X10^3/uL (0.83-4.51); Absolute Neutrophil Count 3.6 X10^3/uL (2.0-7.7); Basophil# 0.06 X10^3/uL; Basophil% 1.2 % (0-1); Eosinophil# 0.17 X10^3/uL; Eosinophils% 3.3 % (0-5); Lymphocyte # 0.89 X10^3/ul (0.83-4.51); Lymphocyte % 17.4 % (19-41); Mean Corp Hgb Conc 30.8 g/dL (32-36); Mean Corpuscular Hgb 29.3 pg (27.0-32.0); Mean Corpuscular Volume 95.4 fL (80-94); Mean Platelet Vol. 11.2 fl (6.2-12.0); Monocyte% 7.8 % (0-10); NRBC Flagged by Analyzer 0 % (0-5); Neutrophil # 3.57 X10^3/uL (2.7-7.7); Neutrophil % 69.9 % (47-70); Platelet Count 144 K/mm3 (150-450); RBC Distribution Width CV 13.8 % (11.6-14.6); RBC Distribution Width SD 48.7 fl (35.1-43.9); Red Blood Count 4.09 M/mm3 (4.6-6.2); White Blood Count 5.1 K/mm3 (4.4-11.0)
[2022-11-11 11:28] LABS: Color, Urine Yellow (Yellow); Glucose, Dipstick Normal (Normal); Ketone-Dipstick 5 mg/dl (Negative); Leukocyte Esterase-Dipstick 500 /ul (Negative); Nitrite-Dipstick Positive (Negative); Occult Blood-Urine Negative /ul (Negative); Protein-Dipstick 30 mg/dl (Negative); Urine Bilirubin Dipstick Negative (Negative); Urine Clarity Sl. Cloudy (Clear); Urine Urobilinogen 4 mg/dl (Normal)
[2022-11-11 11:38] LABS: Bacteria 1+ /hpf (None Seen); Mucous, Urine 2+ /hpf (<or=2+); Red Blood Cells-Urine 0-5 SEEN /hpf (0-5); Squamous Epithelial Cells - UA 0-5 SEEN /hpf (0-5); White Blood Cells 0-5 SEEN /hpf (0-5)
[2022-11-11 11:56] LABS: ALB/GLOB Ratio 0.9 RATIO (0.9-2.4); AST(SGOT) 9 U/L (15-37); Alanine Aminotransfer ALT/SGPT 17 U/L (16-61); Albumin, Serum 3.3 g/dL (3.2-5.0); Alkaline Phosphatase 106 U/L (45-117); Anion Gap 3 (5-15); BUN 19 mg/dL (7-18); BUN/Creat Ratio 17.4 RATIO (10-20); Calcium,Total 8.8 mg/dL (8.5-10.1); Chloride 110 mmol/L (98-107); Cholesterol 149 mg/dL (200); Creatinine, Serum 1.09 mg/dL (0.70-1.30); EST Glomerular Filtration Rate 69 mL/min (>60); Est Glom Filt Rate - Afr Amer 83 mL/min (>60); Globulin 3.5 g/dL (2.2-4.2); Glucose 92 mg/dL (74-106); High Density Lipoprotein 41 mg/dL; Potassium 4.3 mmol/L (3.5-5.1); Protein, Total 6.8 g/dL (6.4-8.2); Sodium Level 143 mmol/L (136-145); Triglycerides 86 mg/dL; Very Low Density Lipoprotein 17 mg/dL (5-40)
== END | disposition home or self-care (01) ==
LOC: LAB 10:25
PROVIDERS: PCP Nurse Practitioner Family; Referring Provider Nurse Practitioner Family; Visit Provider Nurse Practitioner Family
DX: E78.00 Pure hypercholesterolemia, unspecified (principal); I10 Essential (primary) hypertension
CPT/HCPCS: 36415; 80053; 80061; 81001; 85025

== ENCOUNTER → 2022-12-28 | Outpatient (CLI) | payer MEDICARE, OTHER, SELFPAY ==
--- NOTE | 2022-12-28 12:55 | CT_ITS ---
STUDY: CT LEFT Hip, KNEE AND ANKLE WITHOUT CONTRAST REASON FOR EXAM: Male, 82 years old. Pain. Evaluate for osteoarthrosis. RADIATION DOSAGE (If Supplied By Facility): CTDIvol = ( 19.71 ) mGy, DLP = ( 1419.36 ) mGycm TECHNIQUE: Transaxial CT imaging of the knee was performed post contrast administration. The examination was performed with intravenous administration of . Individualized dose optimization techniques were used for this CT. COMPARISON: X-rays of the left knee dated January 07, 2022 and MRI dated January 20, 2022. CT of the left hip dated December 08, 2021. FINDINGS: Osteopenia. Phleboliths. Left total hip arthroplasty in anatomic alignment with no complications identified. Avulsion of the lesser trochanter of the left with new bone formation and soft tissue. Moderate tricompartmental arthrosis with osteophyte formation. Moderate arthrosis of the tibiotalar and subtalar joints. CT/Extremity Lower without Contra IMPRESSION: Osteopenia with uncomplicated left total hip arthroplasty and osteoarthritic changes at the knee, ankle and hindfoot as described. Electronically Signed: Oneil Pedraza, at 14:18 EST ,
== END | disposition home or self-care (01) ==
LOC: CT 12:50
PROVIDERS: PCP Nurse Practitioner Family; Visit Provider Student in an Organized Health Care Education/Training Program
DX: M17.12 Unilateral primary osteoarthritis, left knee (principal); M25.562 Pain in left knee
CPT/HCPCS: 73700

== ENCOUNTER 2023-02-04 19:24 | Observation (INO) | payer MEDICARE, OTHER, SELFPAY ==
--- NOTE | 2022-12-28 12:53 | EKG12_ITS ---
Test Reason : PRE OP Blood Pressure : / mmHG Vent. Rate : 077 BPM Atrial Rate : 045 BPM P-R Int : 000 ms QRS Dur : 138 ms QT Int : 442 ms P-R-T Axes : 000 -83 017 degrees QTc Int : 500 ms Atrial fibrillation Left axis deviation Right bundle branch block Abnormal ECG Confirmed by ANNABELLE KAISER, CHEYANNE ([id number]), editor producer SUBHASH ALCALA ([id number]) on 12/29/2022 8:38:26 AM Referred By: LEENA Confirmed By:CHEYANNE ALANIS MD
--- NOTE | 2022-12-28 13:11 | RAD_ITS ---
STUDY: X-RAY CHEST REASON FOR EXAM: Male, 82 years old. Preoperative evaluation. TECHNIQUE: Frontal and lateral views of the chest. COMPARISON: January 22, 2022. FINDINGS: Mild hyperinflation. Blunting of the left costophrenic angle representing scarring or small pleural effusion. Stable cardiomegaly. Normal mediastinum and sue. Normal visualized pulmonary arteries. Aortic tortuosity unchanged. Diffuse moderate thoracic spondylosis unchanged. Normal visualized ribs, clavicles, and shoulders. There is no demonstrated abnormality of the visualized soft tissue structures of the upper abdomen. RAD/Chest PA and Lateral IMPRESSION: Stable cardiomegaly with hyperinflation. No active or acute cardiopulmonary disease. Electronically Signed: Oneil Pedraza, at 13:37 EST ,
[2022-12-28 14:09] LABS: Absolute Lymphocyte Count 1.04 X10^3/uL (0.83-4.51); Absolute Neutrophil Count 3.7 X10^3/uL (2.0-7.7); Basophil# 0.04 X10^3/uL; Basophil% 0.8 % (0-1); Eosinophil# 0.17 X10^3/uL; Eosinophils% 3.2 % (0-5); Hematocrit 38.3 % (40-54); Hemoglobin 12.4 g/dL (13.0-16.5); Lymphocyte # 1.04 X10^3/ul (0.83-4.51); Lymphocyte % 19.7 % (19-41); Mean Corp Hgb Conc 32.4 g/dL (32-36); Mean Corpuscular Hgb 29.3 pg (27.0-32.0); Mean Corpuscular Volume 90.5 fL (80-94); Mean Platelet Vol. 10.7 fl (6.2-12.0); Monocyte# 0.34 X10^3/uL; Monocyte% 6.4 % (0-10); NRBC Flagged by Analyzer 0 % (0-5); Neutrophil # 3.68 X10^3/uL (2.7-7.7); Neutrophil % 69.5 % (47-70); Platelet Count 157 K/mm3 (150-450); RBC Distribution Width CV 13.7 % (11.6-14.6); RBC Distribution Width SD 45.1 fl (35.1-43.9); Red Blood Count 4.23 M/mm3 (4.6-6.2); White Blood Count 5.3 K/mm3 (4.4-11.0)
[2022-12-28 14:36] LABS: Magnesium 2.2 mg/dL (1.6-2.6)
[2022-12-28 14:38] LABS: Albumin, Serum 3.2 g/dL (3.2-5.0); Anion Gap 5 (5-15); BUN 20 mg/dL (7-18); BUN/Creat Ratio 17.4 RATIO (10-20); Calcium,Total 8.6 mg/dL (8.5-10.1); Chloride 108 mmol/L (98-107); Creatinine, Serum 1.15 mg/dL (0.70-1.30); EST Glomerular Filtration Rate 65 mL/min (>60); Est Glom Filt Rate - Afr Amer 78 mL/min (>60); Glucose 97 mg/dL (74-106); Potassium 4.7 mmol/L (3.5-5.1); Sodium Level 142 mmol/L (136-145)
[2023-02-01 11:33] LABS: Absolute Lymphocyte Count 1.16 X10^3/uL (0.83-4.51); Absolute Neutrophil Count 4.6 X10^3/uL (2.0-7.7); Basophil# 0.06 X10^3/uL; Basophil% 0.9 % (0-1); Eosinophil# 0.16 X10^3/uL; Eosinophils% 2.5 % (0-5); Hematocrit 37.9 % (40-54); Hemoglobin 12.1 g/dL (13.0-16.5); Lymphocyte # 1.16 X10^3/ul (0.83-4.51); Lymphocyte % 17.8 % (19-41); Mean Corp Hgb Conc 31.9 g/dL (32-36); Mean Platelet Vol. 10.3 fl (6.2-12.0); Monocyte# 0.52 X10^3/uL; NRBC Flagged by Analyzer 0 % (0-5); Neutrophil % 70.5 % (47-70); Platelet Count 166 K/mm3 (150-450); RBC Distribution Width CV 14.5 % (11.6-14.6); RBC Distribution Width SD 49.9 fl (35.1-43.9); Red Blood Count 4.03 M/mm3 (4.6-6.2); White Blood Count 6.5 K/mm3 (4.4-11.0)
[2023-02-01 11:57] LABS: Albumin, Serum 3.3 g/dL (3.2-5.0); Anion Gap 6 (5-15); BUN 26 mg/dL (7-18); BUN/Creat Ratio 22.4 RATIO (10-20); Calcium,Total 8.6 mg/dL (8.5-10.1); Chloride 108 mmol/L (98-107); Creatinine, Serum 1.16 mg/dL (0.70-1.30); EST Glomerular Filtration Rate 64 mL/min (>60); Est Glom Filt Rate - Afr Amer 77 mL/min (>60); Glucose 101 mg/dL (74-106); Sodium Level 143 mmol/L (136-145)
[2023-02-04] VITALS (13 sets, daily range): BP systolic 115–163; BP diastolic 65–115; PULSE 67–89; RESP 14–18; TEMP 36.3–36.8; O2SAT 95–98; BMI 30.2; BMI 29.6
[2023-02-04] MEDS: Magnesium 1 GM over 15 mins IV (11:37)
[2023-02-04] MEDS: Gabapentin 600 MG Tablet PO (11:38)
[2023-02-04] MEDS: Acetaminophen 500 MG Tablet 1000 MG PO ×2 (11:38→20:58)
[2023-02-04 12:06] LABS: Bedside Glucose 99 mg/dL (74-106)
[2023-02-04] MEDS: Cefazolin 2 GM in 0.9% Normal Saline 100 ML IV (12:51)
--- NOTE | 2023-02-04 13:02 | CHAPLAIN ---
Type of Pastoral Visit _x__ Initial Visit ___ Follow-up Visit ___ On-call Visit ___ General Patient Visit ___ Spiritual Assessment ___ Family Conference ___ Bereavement ___ Rapid Response ___ Code Blue ___ Other (describe below) Pastoral Care Referral From _x__ Patient _x__ Family ___ Nurse ___ Physician ___ Superintendent Nonselling ___ Grinder Mill Operator ___ Other (describe below) Sacrament/Intervention _x__ Active listening ___ Anointing ___ Anabaptist ___ Bereavement ___ Communion ___ Noelle exploration ___ ___ Life review _x__ Prayer ___ Reconciliation ___ Sacrament of Sick _x__ Supportive presence ___ Wedding ___ Other (describe below) Pastoral Comments offered a pre surgery prayer for patient and his family; gave time to listen and offer support for any other needs
[2023-02-04] MEDS: TXA 1000mg in NS100 100ml (IVPB at Incision) 660 MG IV (13:05)
[2023-02-04] MEDS: dexAMETHasone 10 MG/ML Vial IV (13:06)
--- NOTE | 2023-02-04 13:10 | KNEE_PTH ---
PATIENT: EUGENIO MART LOC: [facility] U#:[id number] AGE/SX: 82/M ROOM: CO318 RE02/04/[address]: Dr. Tyler Pierer DO : 1940 BED: 1 DIS: 02/06/2023 SPEC #: [id number] RECD: 02/04/23 16:52 STATUS: CARLITO MANZANONawaf #: [id number] BECK: 02/04/23 13:[address]: Tyler Pierre DEPT: SURGICAL PATHOLOGY RECD BY: Claudia Fontanez ENTERED: 02/05/23 07:56 SP TYPE: TOTAL KNEE OTHR DR: DO Dr. Estefany Dixon MD Carolyn Graham, UPPER STITCHER-C Tissues: Knee, NOS Procedures: Decalcification bone/plaque Surgery Specimen Level IV HEADER OPERATION: ERAS, total knee replacement robotic arm assist PRE-OP DIAGNOSIS: Unilateral primary osteoarthritis left knee TISSUE SUBMITTED: Left knee bone and tissue MICROSCOPIC DIAGNOSIS Bone and tissue of left knee, total knee resection: Severe degenerative joint disease. AM:flora 02/10/2023 MICROSCOPIC DESCRIPTION Slides are reviewed. GROSS DESCRIPTION Received is one container designated bone and soft tissue left knee. The specimen consists of multiple fragments of cm-yellow bone measuring in aggregate 11.0 x 10.0 x 4.0 cm. No soft tissue is identified. A number of bony fragments contain articular surfaces consistent with tibial plateau and femoral condyle and displaying prominent osteophyte formation, eburnation and bone erosion. Developer Evangelist sections are submitted in one cassette after decalcification. / SJ:flora 02/05/2023 TC:5 CPT: 91585, 53339
[2023-02-04] MEDS: Joint Pain Solution (NO KETOROLAC) IV (14:42)
[2023-02-04] MEDS: TXA 1000mg in NS100 100ml (IVPB at Closure) 660 MG IV (14:45)
[2023-02-04] MEDS: 0.9% Saline Lock 10 ML Syringe IV (18:53)
[2023-02-04] MEDS: Potassium Chloride Oral Tablet 20 MEQ PO (18:53)
--- NOTE | 2023-02-04 18:54 | CON.PCM.HO_ITS ---
Assessment & Plan Assessment/Plan (1) Left knee pain: PLAN: Plan #Left knee pain -Status post left total knee replacement with robotic arm assistance 02/04/[address] Pierre -Management per primary #History of atrial fibrillation -On Eliquis at home, had been given Lovenox subcu up to the morning of surgery -Resume Eliquis once cleared to do so by primary -Continue metoprolol -Follows with cardiology. 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 -Was suspected to be an ischemic stroke that converted to hemorrhagic, Eliquis was held at that time but has since been resumed #Hypertension -Continue metoprolol and lisinopril as well as bumetanide #Memory difficulty -Continue Namenda -Continue Zoloft #DVT ppx: Per primary Estefany Handy MD Time spent in the patient's overall evaluation,decision-making process, review of diagnostic data, adjustment of management, discussion with other providers, nursing nursing and ancillary staff involved in patient's care documentation, 31 minutes HPI Consult Data Date of Consult: 02/04/23 HPI Narrative Reason for Consultation: Medical management HPI Narrative: Curtis Madison is an 82-year-old male with history of hypertension, depression, restless leg syndrome, atrial fibrillation who presented to [facility] 02/04/2023 for a total knee replacement with robotic arm assist on the left with Dr. Pierre. Hospitalist consulted for medical management. Patient seen at bedside and reports overall feeling well. Was laying in a semirecumbent position when I walked in and took a drink and cough slightly but was somewhat laying down. Overall feels well, no numbness tingling. No chest pain or shortness of breath. Does have a lump on his back that has been there intermittently over the course of years, no fevers or chills, not particularly painful unless he puts too much pressure on it for period of time. [facility] Medical History (Updated 01/26/23 @ 11:50 by Genie Espinoza) BPH (benign prostatic hyperplasia) Cardiology follow-up encounter Chronic back pain Chronic pain CPAP (continuous positive airway pressure) dependence Dilated aortic root DVT (deep venous thrombosis) Essential hypertension Fracture of left hip History of atrial fibrillation History of echocardiogram History of edema History of pain when walking Hyperlipidemia Hypertension Left atrial enlargement Left bundle branch block Longstanding persistent atrial fibrillation Non-smoker Nonrheumatic mitral (valve) prolapse Osteoarthritis Pain Patent foramen ovale Premature atrial contractions Premature ventricular contraction Pulmonary HTN RLS (restless legs syndrome) Scratches Stroke/cerebrovascular accident Tachycardia Thoracic aortic aneurysm Uses wheelchair Vascular dementia Walker as ambulation aid Wears dentures Wears glasses Home Medications memantine 10 mg tablet (Namenda) 10 mg PO BID MEMORY 12/08/21 [History Last Taken 12/07/21] cholecalciferol (vitamin D3) 25 mcg (1,000 unit) tablet 25 mcg PO DAILY bones 12/28/21 [History Last Taken Unknown] sertraline 50 mg tablet (Zoloft) 50 mg PO DAILY mood 12/28/21 [History Last Taken Unknown] vit A 300 mcg-C 200 mg-E 27 mg-lutein 2 mg and minerals tablet (Healthy Eyes) 1 cap PO BID supplement 12/28/21 [History Last Taken Unknown] lisinopril 10 mg tablet 10 mg PO DAILY BP #30 tabs 04/08/22 [Rx Last Taken 02/04/23] metoprolol succinate 25 mg tablet,extended release 24 hr 25 mg PO DAILY BP #30 tabs 04/08/22 [Rx Last Taken 02/04/23] potassium chloride 20 mEq tablet,extended release(part/cryst) (Klor-Con M) 20 meq PO BIDCM supplement #60 tabs 04/08/22 [Rx Last Taken Unknown] bumetanide 1 mg tablet 1 mg PO DAILY This is a dose decrease. #30 tabs 05/06/22 [Rx Last Taken 02/04/23] gabapentin 400 mg capsule 400 mg PO QHS 07/09/22 [History Last Taken Unknown] cyanocobalamin (vitamin B-12) 1,000 mcg tablet 1,000 mcg PO DAILY 07/14/22 [History Last Taken Unknown] multivitamin 1 tab PO DAILY 07/14/22 [History Last Taken Unknown] apixaban 5 mg tablet (Eliquis) 5 mg PO BID 12/24/22 [History Last Taken 01/30/23] enoxaparin 80 mg/0.8 mL subcutaneous syringe (Lovenox) 80 mg (0.8 mL) subcut Q12H #8 mL 12/28/22 [Rx Last Taken 02/03/23] Allergy/AdvReac Type Severity Reaction Status Date / Time diclofenac Allergy Severe Anaphylaxis Verified 02/04/23 11:33 naproxen [From Naprosyn] Allergy Severe Angioedema Verified 02/04/23 11:33 Penicillins Allergy Hives Verified 02/04/23 11:33 Sulfa (Sulfonamide Allergy Hives Verified 02/04/23 11:33 Antibiotics) Family History Sister Cancer Surgical History History of carpal tunnel surgery History of total right knee replacement Status post open reduction and internal fixation (ORIF) of fracture Social History household members: spouse Smoking Status: Never smoker alcohol intake: never substance use type: does not use ROS ROS Narrative General: Denies fever/chills HENT: Denies headache, denies stuffy nose, denies sore throat EYES: Denies changes in vision Resp: Denies cough, denies shortness of breath Cardiac: Denies chest pain GI: Denies abdominal pain, denies changes in bowel, denies nausea/vomiting : Denies changes in urination Extremity: Denies swelling MSK: Denies weakness, pain not significant while lying in bed Neuro: Denies any numbness/tingling Heme: Denies any bleeding or bruising Skin: Denies rashes, does have that posterior neck bump Psychiatric: No complaints voiced Physical Exam Narrative General: Alert, oriented, no apparent distress HEENT: Atraumatic, normocephalic Eyes: Anicteric, normal conjunctiva, extraocular movements grossly intact Neck: Supple Respiratory: Some transmitted upper airway sounds, normal respiratory effort Cardiovascular: Regular rate GI: Soft, nontender, nondistended Extremities: No edema Musculoskeletal: Moving all extremities Neuro: No overt focal neurological deficits Skin: Does have soft posterior neck lump with some slight irritation that appears to be where it is rubbing against the bed Psych: Cooperative Lab / Micro Data Result Diagrams: 02/01/23 11:18 02/01/23 11:18 Labs: Laboratory Results - last 24 hr 02/04/23 11:11: POC Glucose 99 Charges/Coding Visit Charges Office Visits / Consults: 43323 OV L3 Est
--- NOTE | 2023-02-04 19:11 | US_ITS ---
STUDY: SUPERFICIAL ULTRASOUND - PALPABLE LUMP REASON FOR EXAM: Male, 82 years old. Posterior LT UPPER BACK lump TECHNIQUE: A superficial ultrasound was performed with real-time and static medrano-scale imaging. COMPARISON: None. FINDINGS: Sonographic evaluation of the palpable lump in the left upper back shows a hypoechoic well-defined nodule measuring 2.8 x 2.7 x 1.4 cm. There is some associated vascularity within the nodule there is no posterior shadowing or hyperemia or architectural distortion. I suspect this likely represents an involuted sebaceous cyst. US/Ext Non Vasc Limited/Soft Tiss IMPRESSION: Well-defined hypoechoic 2.8 x 2.7 x 1.4 cm nodule, no suspicious sonographic characteristics. I suspect this likely represents an involuted sebaceous cyst. Electronically Signed: Devang Yap MD at 7:39 EDT ,
--- NOTE | 2023-02-04 19:24 | PCM.OPRPT ---
Report of Operation Date of Procedure: 02/04/23 Description of Surgical Findings:: Preoperative diagnosis: Left knee primary osteoarthritis Postoperative diagnosis: Left knee primary osteoarthritis Procedure: Cemented left total knee arthroplasty Surgeon: Tyler Pierre DO Bilingual Office Assistant: SEN Finney Anesthesia: Spinal with sedation, adductor canal block Anesthesiologist: Dr. Barrera Complications: None apparent Drains: None Estimated blood loss: 100 cc Urinary output: None recorded IV fluids: 800 cc crystalloid Specimens: Total knee resections Surgical implants: [place] triathlon X3 asymmetric patella size 38, triathlon cruciate retaining femoral #7, primary tibial baseplate #8, triathlon X3 tibial bearing insert CS size number eight 9 mm thickness Indications: This is a 82-year-old male seen in the outpatient setting diagnosed with left knee osteoarthritis. Patient has had significant difficulty with his left knee since November 2021. He sustained a ground-level fall shortly after he was discharged from rehab following a CVA. At that time he sustained a left femoral neck fracture which I treated with a Jordon hip arthroplasty. He recovered well from the left hip surgery however he had significant left knee pain. MRI was obtained and demonstrated significant lateral compartment changes as well as meniscus tearing. He failed nonoperative management with intra-articular corticosteroid and viscosupplementation injections, activity modification, bracing, pain management referral and [id number] analgesics. X-rays revealed grade 4 lateral compartment changes. He also had significant patellofemoral arthritis. Given the perceived instability and pain in his left knee, patient has been wheelchair-bound for at least the last 6 months. He developed a significant flexion contracture of his left knee in the interim. I recommended a left total knee arthroplasty. The risk, benefits, alternatives to procedure reviewed with patient at length and he agreed to proceed. Risks included but were not limited to bleeding, infection, loss of life or limb, need for additional surgery, persistent pain, intraoperative or postoperative fracture, instability, loosening of components, wound complications, stiffness, neurovascular injury, DVT or PE. Patient expressed understanding these risks and wished to proceed with surgery. Informed consent was obtained in the outpatient setting. Patient was optimized preoperatively by both his primary care physician and sighter. Description of procedure: Patient was identified in the preoperative holding area by name, medical record number, and date of . Informed consent was confirmed with the patient. The operative knee was marked with a surgical marker. At time of his procedure, patient brought to the operative suite and positioned supine a standard operating table. Anesthesia then administered a spinal anesthetic. He was then repositioned in the supine position with all bony prominences well-padded. We then placed a well-padded pneumatic tourniquet on the left upper thigh. The left upper extremity was brought across patient's chest throughout the procedure. We then prepped and draped the left lower extremity in a normal, sterile orthopedic fashion. We performed a timeout with all parties in attendance in agreement with the side, site, operation be performed. No concerns were voiced and would like to proceed with surgery. 2 g Ancef was administered prior to the incision by anesthesia staff as well as 1 g IV TXA. I first exsanguinated the left lower extremity with a Esmarch bandage. Tourniquet was inflated to 280 mmHg. Tourniquet remained up for approximately 80 minutes. Esmarch was removed. Preoperative evaluation of range of motion revealed a flexion contracture of 40 degrees with flexion to 100 degrees. I planned a standard midline approach to the left knee approximately 15 cm in length. Skin was sharply incised with a 10 blade scalpel developing full-thickness layers down to the retinaculum. Layers were developed identifying the VMO. I then planned a standard medial parapatellar arthrotomy performed in flexion. The anterior horn of the medial meniscus was released. Hoffa's fat pad was then released. I then everted the patella in extension and brought the knee into 90 degrees of flexion. The anterior horn of the lateral meniscus was then released. The ACL was split in its mid substance with a 10 blade. We then brought the knee back into extension. I then everted the patella. The largest patellar reamer was too small for the size of his patella and elected to proceed with freehand resurfacing of the patella. I utilized a sagittal saw while my assistant financial accountant held the patella everted to achieve a flat surface of the patella. I then placed pins in the metaphyseal distal femur medial to lateral for the Chun arrays. In similar fashion, I made 2 stab incisions approximately a handsbreadth distal to the tibial tubercle along the medial aspect of the tibia, drilling 2 bicortical pins for the tibial array. The knee was brought into flexion. The patella was subluxed laterally but not everted. Medial lateral retractors were placed. We then utilized the Textura software to confirm our planned surgical procedure and oriented with the patient's osseous anatomy. All checks with the Textura system were confirmed. After standard releases, we attempted to assess ligamentous tension via the Chun software. His flexion contracture was a approximately 40 degrees. Given the inability to determine extension balancing due to the flexion contracture, I made the decision to proceed with standard resections from the distal femur and proximal tibia. The robot was brought in and standard resections were made. Tibial wafer and distal femur bony resections were removed. There was still a flexion contracture of 30 degrees noted. There was significant osteopenia noted as well. I then proceeded with posterior capsular release. I flexed the knee to maximal flexion. I utilized a Pelayo elevator to elevate the posterior capsule from the posterior femur. Posterior capsule appeared to be completely released from the distal femur. This achieved perhaps an additional 5 degrees at best of release. There was significant flexion contracture remaining. I elected to remove an additional 2 mm of proximal tibia and 2 mm of distal femur. Following resection, flexion contracture remained at 20 degrees. I elected to perform standard resections of the anterior, anterior chamfer and posterior chamfer of the femur. Trial components were placed as well as a 9 mm polyethylene. The knee was excellently balanced throughout range of motion however flexion contracture persisted. Given the complete release of posterior capsule, it is suspected that flexion contracture persisted due to hamstring contracture. At this time, I elected to except the remaining flexion contracture and utilize postoperative therapy and bracing in hopes to regain additional extension. Assessment of his hip also revealed a flexion contracture, which is not surprising given his inactivity and wheelchair dependency over the last 6 to 12 months. I then drilled for a size 38 patella. Patella was trialed. Tracking was excellent. We then marked for tibial baseplate. Distal femoral pegs were drilled. Tibial keel was punched. Trials were removed. Periarticular block was administered. The wound was copiously irrigated with normal saline solution. Simplex cement was then mixed on the back table. Components were then cemented in place with excess cement being removed. Cement was allowed to cure with the components in maximal extension utilizing a 9 mm trial polyethylene component. While the cement was curing, Betadine solution was irrigated into the wound and the wound edges. After cement had cured fully, trial polyethylene was removed. Tourniquet was deflated. Hemostasis was excellent. An additional 1 g TXA was administered IV. I selected a size 9 mm polyethylene which was placed and impacted per smoking pipe driller and threader recommendations. Final components appeared very well balanced however residual flexion contracture persisted. The wound was copiously irrigated with normal saline solution. Capsule was closed watertight with #1 strata fix barbed suture. Deeper bursal layer was reapproximated with 0 Vicryl suture. Dermis was reapproximated buried interrupted 2-0 Vicryl suture. Skin was finally reapproximated ion. Patient tolerated the procedure well without apparent complication. He was safely awakened in the operative suite, transferred to his hospital bed and subsequently to PACU in stable condition. Post Operative Plan: Patient will be placed in observation overnight. I suspect patient will need [place] [facility] due to limited mobility and lack of help at home. Weightbearing: Range of motion and weightbearing as tolerated left lower extremity. Antibiotics: Ancef 2 g every 8 hours x 3 doses DVT Prophylaxis: Restart home Eliquis postoperative day #1 Henley: None Dressing: Maintain silver dressing x7 days X-Rays: 2-week x-rays in the office. Follow-up: 2 weeks in my office for staple removal
[2023-02-04] MEDS: Cefazolin 1 GM/50 ML BAG IV (20:57)
[2023-02-04] MEDS: Gabapentin 400 MG Capsule PO (20:58)
[2023-02-04] MEDS: Senna/Docusate Sodium 1 Tablet 2 TABLET PO (20:58)
[2023-02-04] MEDS: Memantine Hydrochloride 10 MG Tablet PO (20:58)
--- NOTE | 2023-02-04 21:53 | CPS ---
set up pt own cpap machine -distilled water added
[2023-02-05] VITALS (9 sets, daily range): BP systolic 133–153; BP diastolic 74–87; PULSE 68–82; RESP 16–18; TEMP 36.4–37.5; O2SAT 95–100
[2023-02-05] MEDS: oxyCODONE 5 MG Tablet PO ×3 (05:16→18:34)
[2023-02-05] MEDS: Acetaminophen 500 MG Tablet 1000 MG PO ×3 (05:17→21:19)
[2023-02-05] MEDS: Cefazolin 1 GM/50 ML BAG IV (05:24)
[2023-02-05 06:08] LABS: Hemoglobin 11.3 g/dL (13.0-16.5); Mean Corp Hgb Conc 32.3 g/dL (32-36); Mean Corpuscular Hgb 29.9 pg (27.0-32.0); Mean Corpuscular Volume 92.6 fL (80-94); Mean Platelet Vol. 11.1 fl (6.2-12.0); Platelet Count 159 K/mm3 (150-450); RBC Distribution Width CV 14.3 % (11.6-14.6); RBC Distribution Width SD 48.9 fl (35.1-43.9); Red Blood Count 3.78 M/mm3 (4.6-6.2); White Blood Count 8.1 K/mm3 (4.4-11.0)
[2023-02-05 06:43] LABS: Anion Gap 5 (5-15); BUN 22 mg/dL (7-18); BUN/Creat Ratio 22.8 RATIO (10-20); Calcium,Total 8.9 mg/dL (8.5-10.1); Chloride 110 mmol/L (98-107); Creatinine, Serum 0.96 mg/dL (0.70-1.30); EST Glomerular Filtration Rate 79 mL/min (>60); Est Glom Filt Rate - Afr Amer 96 mL/min (>60); Estimated Creatinine Clearance 68.98 ml/min; Glucose 124 mg/dL (74-106); Potassium 4.6 mmol/L (3.5-5.1); Sodium Level 141 mmol/L (136-145)
--- NOTE | 2023-02-05 07:20 | PCM.PN.HOSP ---
Reason for Visit Reason for Visit: Left knee osteoarthritis Subjective Subjective Patient was admitted on 02/04/2023 for an elective total knee arthroplasty done by Dr. Pierre. We were consulted for postop management. No issues overnight. Only is having some left knee pain. PT is at the bedside to get him up. He would like to go to TCU at discharge if possible and case management is working on this. Objective Data Objective Data Vital Signs: Vital Signs Temp Pulse Resp BP Pulse Ox O2 Del Method O2 Flow Rate 97.5 F L 68 16 144/85 H 98 CPAP 4 02/05/23 05:37 02/05/23 05:37 02/05/23 05:37 02/05/23 05:37 02/05/23 05:37 02/05/23 05:37 02/04/23 17:00 Oxygen Flow Rate (L/min) 4 Oxygen Delivery Method CPAP Weight: 104.7 kg Body Mass Index (BMI) 29.6 Intake & Output: Intake and Output for Last 24 Hours 02/03/23 02/04/23 02/05/23 23:59 23:59 23:59 Intake Total 873 / 873 179.75 / 179.75 Output Total 200 / 200 475 / 475 Balance 673 / 673 -295.25 / -295.25 Lab / Micro Data Result Diagrams: 02/05/23 05:29 02/05/23 05:29 Labs: Laboratory Results - last 24 hr 02/04/23 11:11: POC Glucose 99 02/05/23 05:29: WBC 8.1, RBC 3.78 L, Hgb 11.3 L, Hct 35.0 L, MCV 92.6, MCH 29.9, MCHC 32.3, RDW Std Deviation 48.9 H, RDW Coeff of Franklyn 14.3, Plt Count 159, MPV 11.1 02/05/23 05:29: Sodium 141, Potassium 4.6, Chloride 110 H, Carbon Dioxide 26.0, Anion Gap 5, BUN 22 H, Creatinine 0.96, Estim Creat Clear Calc 68.98, Est GFR (MDRD) Af Amer 96, Est GFR (MDRD) Non-Af 79, BUN/Creatinine Ratio 22.8 H, Glucose 124 H, Calcium 8.9 Micro: Microbiology 02/01/23 11:18 Swab (Method) Nasal Screen MRSA/MSSA - Final 12/28/22 13:47 Swab (Method) Nasal Screen MRSA/MSSA - Final Physical Exam Const alert, oriented x3, no apparent distress, healthy appearing and well nourished Constitutional Narrative: Overweight, elderly white male sitting up in bed, appears comfortable nontoxic, physical and Occupational Therapy at the bedside eating ready to get him up HEENT head/scalp atraumatic and moist oral mucous membranes HEENT Narrative: Dentures in place, Mallampati 2-3, no thrush, mild hearing loss Head and Scalp: normocephalic Resp normal respiratory effort, no retractions, no use of accessory muscles and clear to auscultation bilaterally Auscultation: Negative for rales, rhonchi or wheezes Cardio regular rate, S1 normal heart sound, S2 normal heart sound, no murmurs, no rub, no gallops and no clicks Cardio Narrative: Irregularly irregular rhythm GI normal to inspection, nondistended, normoactive bowel sounds, soft to palpation and non-tender Extremity no clubbing, cyanosis or edema Extremity Narrative: 2+ pedal pulses, bilateral lower extremity RAMIRO hose in place, polar ice over left knee Neuro oriented x3, moves all extremities and no focal motor deficits Neuro Narrative: Lower extremity movement is not symmetrical due to pain with movement on left lower extremity after total knee arthroplasty Speech: speech normal Psych affect normal Psych Narrative: Very pleasant and appropriately interactive Assessment & Plan Assessment/Plan (1) Osteoarthritis of left knee: PLAN: Plan Left knee osteoarthritis -Postop day 1 left total knee arthroplasty with robotic arm assistance by Dr. Pierre -Management per primary team -PT/OT consultation -Recommend bowel regimen Mild chronic anemia -Hemoglobin appears to be within range of baseline -Monitor while hospitalized History of atrial fibrillation -On Eliquis at baseline and resume once cleared to do so by orthopedic surgery -Continue metoprolol -Continued outpatient cardiology follow-up Posterior neck lump -Ultrasound performed and this is consistent with a sebaceous cyst -Would recommend outpatient follow-up with general surgery for removal after discharge -Patient had 1 drained several years ago -Does not appear to be infected and patient was fairly asymptomatic with regards to this 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 -Tyrone was suspected to be in ischemic stroke with hemorrhagic transformation -No residual issues -She does have known PFO Hypertension -Continue home metoprolol -Continue on lisinopril -Continue home Bumex Hyperlipidemia -Documented as a problem however patient is not on a statin or any other anti-hyperlipidemic medications -LDL is 91 and his last lipid panel from October 2022 -Recommend outpatient follow-up Vitamin D deficiency -Can collect oral Neuropathy -Continue home gabapentin acute HF Dilated aortic root -Follows as an outpatient with cardiology -Last measurement was 4.6 cm from November 2021 with no change noted on a CT scan from August 2021 -Continue tight blood pressure control BPH -Patient is not on any medications -Monitor closely with urine output postoperatively Vascular dementia -Continue Namenda Depression -Continue Zoloft DVT prophylaxis -Per primary service Disposition: -Patient appears medically stable for discharge at this time as long as he is safe to do so from a postoperative standpoint. TCU placement pending. Would recommend outpatient follow-up with general surgery for removal of sebaceous cyst in neck after discharge Charges/Coding Visit Charges Inpatient E&M: 44010 Subs Hosp L2
--- NOTE | 2023-02-05 07:51 | PN.ORTHO_ITS ---
Subjective Subjective Patient seen and examined. Denies any new complaints. Pain controlled current pain regimen. Denies any numbness or tingling. Denies fevers, chills, nausea vomiting, chest pain or shortness of breath. Objective Data Objective Data Vital Signs: Vital Signs Temp Pulse Resp BP Pulse Ox O2 Del Method O2 Flow Rate 97.5 F L 68 16 144/85 H 98 CPAP 4 02/05/23 05:37 02/05/23 05:37 02/05/23 05:37 02/05/23 05:37 02/05/23 05:37 02/05/23 05:37 02/04/23 17:00 Oxygen Flow Rate (L/min) 4 Oxygen Delivery Method CPAP Weight: 230 lb 13.184 oz Body Mass Index (BMI) 29.6 Intake & Output: Intake and Output for Last 24 Hours 02/03/23 02/04/23 02/05/23 23:59 23:59 23:59 Intake Total 873 / 873 179.75 / 179.75 Output Total 200 / 200 475 / 475 Balance 673 / 673 -295.25 / -295.25 Lab / Micro Data Result Diagrams: 02/05/23 05:29 02/05/23 05:29 Labs: Laboratory Results - last 24 hr 02/04/23 11:11: POC Glucose 99 02/05/23 05:29: WBC 8.1, RBC 3.78 L, Hgb 11.3 L, Hct 35.0 L, MCV 92.6, MCH 29.9, MCHC 32.3, RDW Std Deviation 48.9 H, RDW Coeff of Franklyn 14.3, Plt Count 159, MPV 11.1 02/05/23 05:29: Sodium 141, Potassium 4.6, Chloride 110 H, Carbon Dioxide 26.0, Anion Gap 5, BUN 22 H, Creatinine 0.96, Estim Creat Clear Calc 68.98, Est GFR (MDRD) Af Amer 96, Est GFR (MDRD) Non-Af 79, BUN/Creatinine Ratio 22.8 H, Glucose 124 H, Calcium 8.9 Micro: Microbiology 02/01/23 11:18 Swab (Method) Nasal Screen MRSA/MSSA - Final 12/28/22 13:47 Swab (Method) Nasal Screen MRSA/MSSA - Final Radiography Diagnostic Testing: Radiology Impression Soft Tissue Ultrasound 02/04/23 19:11 IMPRESSION: Well-defined hypoechoic 2.8 x 2.7 x 1.4 cm nodule, no suspicious sonographic characteristics. I suspect this likely represents an involuted sebaceous cyst. Electronically Signed: Devang Yap MD at 7:39 EDT Reading Location ID and State: [facility] / [place] , Service support , Physical Exam Narrative General - A&Ox3, NAD. VSS/AF Left lower extremity -incisional dressing shows scant serosanguineous drainage otherwise C/D/I. SILT Sural, Saphenous, SPN, DPN, Tibial N. distributions. DP, PT 2+. BCR. DF, PF, EHL 5/5. No calf TTP. Assessment & Plan Assessment/Plan (1) Post-op pain: PLAN: POD#1 s/p left robotic assisted total knee arthroplasty -24 hours Ancef. Will cover for extended antibiotic prophylaxis due to elevated postoperative infection risk - Pain control - Medicine following for medical management - PT/OT - DVT PPX -restart home Eliquis today, SCDs, RAMIRO rebolledo, early mobilization - Case management - D/C planning. Suspect patient will need SNF placement due to adequate help at home and poor mobility. Patient medically stable for discharge to SNF when pre-CERT obtained.
[2023-02-05] MEDS: Potassium Chloride Oral Tablet 20 MEQ PO ×2 (08:50→18:30)
[2023-02-05] MEDS: APIXABAN 5 MG TABLET PO ×2 (08:52→21:19)
[2023-02-05] MEDS: Bumetanide 0.5 MG Tablet 1 MG PO (08:52)
[2023-02-05] MEDS: Metoprolol(XL)Succ 25 MG Tablet PO (08:53)
[2023-02-05] MEDS: Famotidine 20 MG Tablet PO (08:53)
[2023-02-05] MEDS: Senna/Docusate Sodium 1 Tablet 2 TABLET PO ×2 (08:53→21:20)
[2023-02-05] MEDS: Memantine Hydrochloride 10 MG Tablet PO ×2 (08:53→21:20)
[2023-02-05] MEDS: Lisinopril 10 MG Tablet PO (08:54)
[2023-02-05] MEDS: Sertraline 50 MG Tablet PO (08:54)
[2023-02-05] MEDS: Cyanocobalamin 500 MCG Tablet 1000 MCG PO (08:57)
--- NOTE | 2023-02-05 09:20 | CASEMGMT ---
Addendum entered by Ramya Kumar 02/05/23 10:04: Spoke with therapy, pt was a 2 assist. Addendum entered by Ramya Kumar 02/05/23 09:45: Pt also has been in [facility]CU in the past. Original Note: ESTER YAP Assessment: Face to Face with pt for initial transition planning/care coordination assessment. ESTER YAP introduced self and role at [facility], pt voices understanding and consents to assessment. Pt sitting up in chair in no distress. Pt is A/O x4 and answers all questions appropriately at this time. Care providers, pharmacy, and demographics verified/updated. Admitting Dx: L total knee robotic PCP:Clemencia Holland NP Specialists:Ignacio, ortho; Nely, cardio Preferred Pharmacy: [facility] Insurance: [employer] Prescription Benefit: yes LNOK: Immanuel Madison, son; Brandi Madison, Living Arrangements: Pt lives with in a single story home with a ramp to enter. Pt reports his assists him with ADL's (getting in and out of shower, dressing lower body) as well as meals and laundry. Transportation: Pt reports he has not drove for 2 years since his stroke. Pt provides transportation. DME/HHC/SNF: Pt has a cane, FWW, cpap, grab bars in the shower and at commode. Pt has had [facility] in the past and been to [facility]. Pt states he worked with therapy today, note is not available yet. Pt reports he is a risk of falling and feels that he cannot return home right away. Pt reports being interested in [facility] TCU. He is aware we will see how he did with therapy and RN FRACISCO or LAUREN will be in to speak with him. Pt states no further concerns/needs. CM to follow. Advised pt to ask CM if any further question/concerns/needs arise, voices understanding. Pt Goal: [facility] Plan: Home vs SNF pending therapy evals.
--- NOTE | 2023-02-05 12:33 | CASEMGMT ---
Social Work SW met with pt and to discuss discharge plan. Pt stating he would like to go to TCU. A list of SNF providers including quality and resource use data and consistent with the patient?s preferred geographic region, medical needs, and insurance network were provided from the [facility]. Pt continues to request TCU. Referral made to Malaika in TCU and they are able to accept on Wednesday. Pt and notified and agreeable to plan. Dr. Pierre updated. Plan: TCU, bed available on Wednesday CLAUDIO Mendoza
--- NOTE | 2023-02-05 13:25 | CASEMGMT ---
ESTER CM in to discuss MUNGUIA form with patient. RN CM explained MUNGUIA form, patient voiced understanding. Pt signed form and filed in chart. Pt provided with a copy of signed MUNGUIA form. Patient had no further questions or concerns at this time.
[2023-02-05] MEDS: Cephalexin 500 MG Capsule PO (18:34)
[2023-02-05] MEDS: Gabapentin 400 MG Capsule PO (21:28)
[2023-02-06] MEDS: oxyCODONE 5 MG Tablet PO ×3 (00:11→13:26)
[2023-02-06] MEDS: Cephalexin 500 MG Capsule PO ×3 (00:12→13:26)
[2023-02-06] MEDS: Acetaminophen 500 MG Tablet 1000 MG PO ×2 (05:20→13:26)
[2023-02-06 05:28] VITALS: BP 126/64; PULSE 87; RESP 16; TEMP 37; O2SAT 97
[2023-02-06 07:45] LABS: Hematocrit 31.6 % (40-54); Hemoglobin 10.2 g/dL (13.0-16.5); Mean Corp Hgb Conc 32.3 g/dL (32-36); Mean Corpuscular Hgb 29.7 pg (27.0-32.0); Mean Corpuscular Volume 92.1 fL (80-94); Mean Platelet Vol. 11.3 fl (6.2-12.0); Platelet Count 141 K/mm3 (150-450); RBC Distribution Width CV 14.8 % (11.6-14.6); RBC Distribution Width SD 50.4 fl (35.1-43.9); Red Blood Count 3.43 M/mm3 (4.6-6.2); White Blood Count 9.1 K/mm3 (4.4-11.0)
[2023-02-06] MEDS: Potassium Chloride Oral Tablet 20 MEQ PO (08:27)
[2023-02-06] MEDS: APIXABAN 5 MG TABLET PO (08:27)
[2023-02-06] MEDS: Bumetanide 0.5 MG Tablet 1 MG PO (08:27)
[2023-02-06] MEDS: Senna/Docusate Sodium 1 Tablet 2 TABLET PO (08:28)
[2023-02-06] MEDS: Famotidine 20 MG Tablet PO (08:28)
[2023-02-06 08:29] VITALS: PULSE 80
[2023-02-06] MEDS: Memantine Hydrochloride 10 MG Tablet PO (08:29)
[2023-02-06] MEDS: Metoprolol(XL)Succ 25 MG Tablet PO (08:29)
[2023-02-06] MEDS: Sertraline 50 MG Tablet PO (08:30)
[2023-02-06] MEDS: Lisinopril 10 MG Tablet PO (08:30)
[2023-02-06] MEDS: Cyanocobalamin 500 MCG Tablet 1000 MCG PO (08:30)
[2023-02-06 08:33] VITALS: PULSE 89
--- NOTE | 2023-02-06 08:54 | PN.HOSP_ITS ---
Reason for Visit Reason for Visit: Left knee osteoarthritis Subjective Subjective Please risk finding of some knee pain. I did discuss with him the results of t he ultrasound being a sebaceous cyst and he would like to follow-up with general surgery after he is discharged from TCU to have it removed. He does state it causes him some irritation and pain at times with its location. No issues overnight. Feeling okay other than pain in the knee Objective Data Objective Data Vital Signs: Vital Signs Temp Pulse Resp BP Pulse Ox O2 Del Method O2 Flow Rate 98.6 F 89 16 126/64 H 97 Room Air 4 02/06/23 05:28 02/06/23 08:33 02/06/23 05:28 02/06/23 05:28 02/06/23 05:28 02/06/23 05:28 02/04/23 17:00 Oxygen Flow Rate (L/min) 4 Oxygen Delivery Method Room Air Weight: 104.7 kg Body Mass Index (BMI) 29.6 Intake & Output: Intake and Output for Last 24 Hours 02/04/23 02/05/23 02/06/23 23:59 23:59 23:59 Intake Total 873 / 873 729.75 / 729.75 Output Total 200 / 200 1725 / 1725 500 / 500 Balance 673 / 673 -995.25 / -995.25 -500 / -500 Lab / Micro Data Result Diagrams: 02/06/23 06:50 02/05/23 05:29 Labs: Laboratory Results - last 24 hr 02/06/23 06:50: WBC 9.1, RBC 3.43 L, Hgb 10.2 L, Hct 31.6 L, MCV 92.1, MCH 29.7, MCHC 32.3, RDW Std Deviation 50.4 H, RDW Coeff of Franklyn 14.8 H, Plt Count 141 L, MPV 11.3 Micro: Microbiology 02/01/23 11:18 Swab (Method) Nasal Screen MRSA/MSSA - Final 12/28/22 13:47 Swab (Method) Nasal Screen MRSA/MSSA - Final Physical Exam Const alert, oriented x3, no apparent distress, healthy appearing and well nourished Constitutional Narrative: Overweight, elderly white male sitting up in bed, appears comfortable, nontoxic, was just waking up HEENT head/scalp atraumatic and moist oral mucous membranes HEENT Narrative: Mallampati 3, no thrush Head and Scalp: normocephalic Resp normal respiratory effort, no retractions, no use of accessory muscles and clear to auscultation bilaterally Auscultation: Negative for rales, rhonchi or wheezes Cardio regular rate, S1 normal heart sound, S2 normal heart sound, no murmurs, no rub, no gallops and no clicks Cardio Narrative: Irregularly irregular rhythm GI normal to inspection, nondistended, normoactive bowel sounds, soft to palpation and non-tender Extremity no clubbing, cyanosis or edema Extremity Narrative: 2+ pedal pulses, bilateral lower extremity RAMIRO hose in place, polar ice remains over left knee Neuro oriented x3, moves all extremities and no focal motor deficits Neuro Narrative: Lower extremity movement is not symmetrical due to pain with movement on left lower extremity after total knee arthroplasty Speech: speech normal Psych affect normal Psych Narrative: Very pleasant and appropriately interactive Assessment & Plan Assessment/Plan (1) Osteoarthritis of left knee: PLAN: Plan Left knee osteoarthritis -Postop day 2 left total knee arthroplasty with robotic arm assistance by Dr. Pierre -Management per primary team -PT/OT following and recommended ongoing rehab as an inpatient after discharge -Recommend bowel regimen -And is for discharge to TCU on 02/06/2023 Mild chronic anemia -Hemoglobin appears to be within range of baseline with slight drop today postoperatively -Monitor while hospitalized History of atrial fibrillation -On Eliquis at baseline and resume once cleared to do so by orthopedic surgery -Continue metoprolol -Continued outpatient cardiology follow-up Posterior neck lump -Ultrasound performed and this is consistent with a sebaceous cyst -Would recommend outpatient follow-up with general surgery for removal after discharge--> discussed with patient and he would like to follow-up as it is irr itating--> referral placed in discharge paperwork Referral-Patient had 1 drained several years ago -Does not appear to be infected and patient was fairly asymptomatic with regards to this 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 -Tyrone was suspected to be in ischemic stroke with hemorrhagic transformation -No residual issues -She does have known PFO Hypertension -Continue home metoprolol -Continue on lisinopril -Continue home Bumex Hyperlipidemia -Documented as a problem however patient is not on a statin or any other anti- hyperlipidemic medications -LDL is 91 and his last lipid panel from October 2022 -Recommend outpatient follow-up Vitamin D deficiency -Can collect oral Neuropathy -Continue home gabapentin acute HF Dilated aortic root -Follows as an outpatient with cardiology -Last measurement was 4.6 cm from November 2021 with no change noted on a CT scan from August 2021 -Continue tight blood pressure control BPH -Patient is not on any medications -Monitor closely with urine output postoperatively Vascular dementia -Continue Namenda Depression -Continue Zoloft DVT prophylaxis -Per primary service Disposition: -Patient appears medically stable for discharge at this time as long as he is safe to do so from a postoperative standpoint. TCU has excepted the patient and will be discharged there today. Outpatient follow-up with general surgery after discharge and referral made and discharge instructions. Charges/Coding Visit Charges Inpatient E&M: 28878 Subs Hosp L2
[2023-02-06 10:49] VITALS: BP 131/81; PULSE 80; RESP 18; TEMP 36.7; O2SAT 95
--- NOTE | 2023-02-06 13:10 | PCM.PN.ORT ---
Subjective Subjective Patient seen and examined. Reports some soreness in his left knee otherwise denies new complaints. Ultrasound of a dorsal upper back cyst revealed sebaceous cysts. Routine follow-up with general surgery recommended by primary. Denies fevers, chills, nausea vomiting, chest pain or shortness of breath. Patient accepted to TCU. Patient states he is looking forward to a stay in the TCU for early convalescence. Objective Data Objective Data Vital Signs: Vital Signs Temp Pulse Resp BP Pulse Ox O2 Del Method O2 Flow Rate 98.0 F 80 18 131/81 H 95 Room Air 4 02/06/23 10:49 02/06/23 10:49 02/06/23 10:49 02/06/23 10:49 02/06/23 10:49 02/06/23 10:49 02/04/23 17:00 Oxygen Flow Rate (L/min) 4 Oxygen Delivery Method Room Air Weight: 230 lb 13.184 oz Body Mass Index (BMI) 29.6 Intake & Output: Intake and Output for Last 24 Hours 02/04/23 02/05/23 02/06/23 23:59 23:59 23:59 Intake Total 873 / 873 729.75 / 729.75 Output Total 200 / 200 1725 / 1725 500 / 500 Balance 673 / 673 -995.25 / -995.25 -500 / -500 Lab / Micro Data Result Diagrams: 02/06/23 06:50 02/05/23 05:29 Labs: Laboratory Results - last 24 hr 02/06/23 06:50: WBC 9.1, RBC 3.43 L, Hgb 10.2 L, Hct 31.6 L, MCV 92.1, MCH 29.7, MCHC 32.3, RDW Std Deviation 50.4 H, RDW Coeff of Franklyn 14.8 H, Plt Count 141 L, MPV 11.3 Micro: Microbiology 02/06/23 10:50 Nasal Secretion SARS-CoV-2 Antigen (Rapid) - Final 02/01/23 11:18 Swab (Method) Nasal Screen MRSA/MSSA - Final 12/28/22 13:47 Swab (Method) Nasal Screen MRSA/MSSA - Final Physical Exam Narrative General - A&Ox3, NAD. VSS/AF Left lower extremity -incisional dressing C/D/I. SILT Sural, Saphenous, SPN, DPN, Tibial N. distributions. DP, PT 2+. BCR. DF, PF, EHL 5/5. No calf TTP. Assessment & Plan Assessment/Plan (1) Post-op pain: PLAN: POD#2 s/p left robotic assisted total knee arthroplasty - 7 days Keflex for extended antibiotic prophylaxis - Pain control - Medicine following for medical management - PT/OT - DVT PPX -restart home WHIT Padillas, RAMIRO rebolledo, early mobilization - Case management - D/C planning. -Discharge to TCU today
[2023-02-06 13:15] VITALS: BP 133/77; PULSE 89; RESP 18; TEMP 36.7; O2SAT 96
--- NOTE | 2023-02-06 13:16 | PCM.TXEXTCAR ---
Diet Diet Order/Speech Therapy: 02/05/23 09:07 Diet: Regular - General Is pt able to select menu?: Yes Wound(s) left knee: Wound Type: Surgical Incision left lateral ankle: Wound Type: HIT ON WHEELCHAIR rt elbow: Wound Type: Abrasion upper back: Wound Type: CYST Therapies Weight Bearing: Weight bearing as tolerated Problem/Diagnosis (1) Post-op pain: Status: Acute Code(s): G89.18 - Other acute postprocedural pain Plan: POD#2 s/p left robotic assisted total knee arthroplasty - 7 days Keflex for extended antibiotic prophylaxis - Pain control - Medicine following for medical management - PT/OT - DVT PPX -restart home Mike Padilla, RAMIRO rebolledo, early mobilization - Case management - D/C planning. -Discharge to TCU today Allergies/Procedures Done in Hospital Allergies diclofenac Allergy (Severe, Verified 02/04/23 11:33) Anaphylaxis naproxen [From Naprosyn] Allergy (Severe, Verified 02/04/23 11:33) Angioedema thoat swelling, tongue edema Penicillins Allergy (Verified 02/04/23 11:33) Hives Sulfa (Sulfonamide Antibiotics) Allergy (Verified 02/04/23 11:33) Hives Type of Care/Length of Stay Estimated LOS: Convalescent Care Less Than 30 days Type of Care Needed: Skilled Rehab Potential: Good Prognosis: Good Additional Orders/Day of Discharge Day of Discharge: 02/06/23 Discharge Plan Admission Admit Date/Time: 02/04/23 19:24 Primary Reason for Your Visit: Left total knee replacement Attending Provider: Tyler Pierre Primary Care Provider: Clemencia Holland Consulting Providers: Estefany Handy ; Gina Warren Instructions Additional Instructions / Restrictions: Follow preprinted instructions from your surgeons office Range of motion as tolerated left lower extremity, weightbearing as tolerated Discharge Orders/Prescriptions Prescriptions: New famotidine 20 mg Tablet 20 mg PO DAILY 30 Days Qty: 30 0RF oxycodone 5 mg Tablet 5 - 10 mg PO Q4H PRN PRN (Reason: Pain Score 4-10) 7 Days Qty: 42 0RF sennosides-docusate sodium [Stool Softener-Stimulant Laxat] 8.6-50 mg Tablet 2 tab PO BID 7 Days Qty: 28 0RF acetaminophen 500 mg Tablet 1,000 mg PO Q8 14 Days Qty: 84 0RF cephalexin 500 mg Capsule 500 mg PO Q6 6 Days Qty: 24 0RF Continued gabapentin 400 mg capsule 400 mg PO QHS multivitamin Tablet 1 tab PO DAILY cyanocobalamin (vitamin B-12) 1,000 mcg tablet 1,000 mcg PO DAILY memantine [Namenda] 10 mg tablet 10 mg PO BID sertraline [Zoloft] 50 mg tablet 50 mg PO DAILY Healthy Eyes 1,000 unit-200 mg-60 unit-2 mg tablet 1 cap PO BID cholecalciferol (vitamin D3) 25 mcg (1,000 unit) tablet 25 mcg PO DAILY Eliquis 5 mg tablet 5 mg PO BID potassium chloride [Klor-Con M20] 20 mEq tablet,ER particles/crystals 20 meq PO BIDCM Qty: 60 11RF lisinopril 10 mg tablet 10 mg PO DAILY Qty: 30 11RF metoprolol succinate 25 mg tablet extended release 24 hr 25 mg PO DAILY Qty: 30 11RF bumetanide 1 mg tablet 1 mg PO DAILY Qty: 30 11RF Discontinued enoxaparin [Lovenox] 80 mg/0.8 mL syringe 80 mg subcut Q12H Qty: 8 0RF Rx Instructions: Bridging for surgery Referrals / Follow Up: Tyler Pierre DO [Med Staff - Active Staff] - Within 2 Weeks Belem Chan MD [Med Staff - Active Staff] - Within 1 Month (Sebaceous cyst removal from neck) Clemencia Holland NP-C [Primary Care Provider] - Disposition Disposition (needs filled in before D/C Order can be placed): Care Home Facility
--- NOTE | 2023-02-06 13:16 | PCM.DC.SUM ---
Providers Date of Admission: 02/04/23 Primary Care Physician: Clemencia Holland, BACKSIDE GRINDER-C Consultations 02/04/23 15:22 Consult: Hospitalist Routine Consulting Provider: Estefany Handy Reason for Consult: post op medical management, s/p total knee EMERGENT Consult: No MD Notified: Yes Date Notified: 02/04/23 Time Notified: 17:57 Method of Notification: Text Reason For Visit: LEFT TOTAL KNEE ROBOTIC Diagnosis Discharge Diagnosis (1) Post-op pain: Status: Acute Code(s): G89.18 - Other acute postprocedural pain Plan: POD#2 s/p left robotic assisted total knee arthroplasty - 7 days Keflex for extended antibiotic prophylaxis - Pain control - Medicine following for medical management - PT/OT - DVT PPX -restart home Mike Padilla, RAMIRO rebolledo, early mobilization - Case management - D/C planning. -Discharge to TCU today Medications at Discharge Home Medications memantine 10 mg tablet (Namenda) 10 mg PO BID MEMORY 12/08/21 cholecalciferol (vitamin D3) 25 mcg (1,000 unit) tablet 25 mcg PO DAILY bones 12/28/21 sertraline 50 mg tablet (Zoloft) 50 mg PO DAILY mood 12/28/21 vit A 300 mcg-C 200 mg-E 27 mg-lutein 2 mg and minerals tablet (Healthy Eyes) 1 cap PO BID supplement 12/28/21 lisinopril 10 mg tablet 10 mg PO DAILY BP #30 tabs 04/08/22 metoprolol succinate 25 mg tablet,extended release 24 hr 25 mg PO DAILY BP #30 tabs 04/08/22 potassium chloride 20 mEq tablet,extended release(part/cryst) (Klor-Con M) 20 meq PO BIDCM supplement #60 tabs 04/08/22 bumetanide 1 mg tablet 1 mg PO DAILY This is a dose decrease. #30 tabs 05/06/22 gabapentin 400 mg capsule 400 mg PO QHS 07/09/22 cyanocobalamin (vitamin B-12) 1,000 mcg tablet 1,000 mcg PO DAILY 07/14/22 multivitamin 1 tab PO DAILY 07/14/22 apixaban 5 mg tablet (Eliquis) 5 mg PO BID 12/24/22 famotidine 20 mg tablet 20 mg PO DAILY 30 days #30 tabs 02/05/23 oxycodone 5 mg tablet 5 - 10 mg PO Q4H PRN PRN Pain Score 4-10 7 days #42 tabs 02/05/23 sennosides 8.6 mg-docusate sodium 50 mg tablet (Stool Softener-Stimulant Laxative) 2 tab PO BID 7 days #28 tabs 02/05/23 acetaminophen 500 mg tablet 1,000 mg PO Q8 14 days #84 tabs 02/06/23 cephalexin 500 mg capsule 500 mg PO Q6 6 days #24 caps 02/06/23 Hospital Course Summary of Care Provided Minutes Spent on Discharge: 15 Hospital Course: Patient underwent left total knee arthroplasty robotic assisted 02/04/2023. He was admitted postoperatively for pain control, medical monitoring, and early convalescence. A hospitalist consult was placed for medical management. An ultrasound of a upper dorsal back cyst was obtained demonstrating a sebaceous cyst, routine outpatient follow-up with general surgery recommended. No medical or surgical complications were encountered throughout his stay. He worked reasonably with physical occupational therapy and intermediate facility placement was recommended. He was accepted to [facility] TCU postoperative day #2 and was able to be safely discharged. Physical Exam Narrative General - A&Ox3, NAD. VSS/AF Left lower extremity -incisional dressing C/D/I. SILT Sural, Saphenous, SPN, DPN, Tibial N. distributions. DP, PT 2+. BCR. DF, PF, EHL 5/5. No calf TTP. Weight / BMI Weight Weight: 230 lb 13.184 oz Body Mass Index (BMI) 29.6 ABG / Lab / Microbiology Data Result Diagrams: 02/06/23 06:50 02/05/23 05:29 Laboratory: Laboratory Results - last 24 hr 02/06/23 06:50: WBC 9.1, RBC 3.43 L, Hgb 10.2 L, Hct 31.6 L, MCV 92.1, MCH 29.7, MCHC 32.3, RDW Std Deviation 50.4 H, RDW Coeff of Franklyn 14.8 H, Plt Count 141 L, MPV 11.3 Microbiology: Microbiology 02/06/23 10:50 Nasal Secretion SARS-CoV-2 Antigen (Rapid) - Final 02/01/23 11:18 Swab (Method) Nasal Screen MRSA/MSSA - Final 12/28/22 13:47 Swab (Method) Nasal Screen MRSA/MSSA - Final Meaningful Use Info Meaningful Use Diagnoses (Choose all that apply): None applicable Discharge Plan Admission Admit Date/Time: 02/04/23 19:24 Primary Reason for Your Visit: Left total knee replacement Attending Provider: Tyler Pierre Primary Care Provider: Clemencia Holland Consulting Providers: Estefany Handy ; Gina Warren Instructions Additional Instructions / Restrictions: Follow preprinted instructions from your surgeons office Range of motion as tolerated left lower extremity, weightbearing as tolerated Discharge Orders/Prescriptions Prescriptions: New famotidine 20 mg Tablet 20 mg PO DAILY 30 Days Qty: 30 0RF oxycodone 5 mg Tablet 5 - 10 mg PO Q4H PRN PRN (Reason: Pain Score 4-10) 7 Days Qty: 42 0RF sennosides-docusate sodium [Stool Softener-Stimulant Laxat] 8.6-50 mg Tablet 2 tab PO BID 7 Days Qty: 28 0RF acetaminophen 500 mg Tablet 1,000 mg PO Q8 14 Days Qty: 84 0RF cephalexin 500 mg Capsule 500 mg PO Q6 6 Days Qty: 24 0RF Continued gabapentin 400 mg capsule 400 mg PO QHS multivitamin Tablet 1 tab PO DAILY cyanocobalamin (vitamin B-12) 1,000 mcg tablet 1,000 mcg PO DAILY memantine [Namenda] 10 mg tablet 10 mg PO BID sertraline [Zoloft] 50 mg tablet 50 mg PO DAILY Healthy Eyes 1,000 unit-200 mg-60 unit-2 mg tablet 1 cap PO BID cholecalciferol (vitamin D3) 25 mcg (1,000 unit) tablet 25 mcg PO DAILY Eliquis 5 mg tablet 5 mg PO BID potassium chloride [Klor-Con M20] 20 mEq tablet,ER particles/crystals 20 meq PO BIDCM Qty: 60 11RF lisinopril 10 mg tablet 10 mg PO DAILY Qty: 30 11RF metoprolol succinate 25 mg tablet extended release 24 hr 25 mg PO DAILY Qty: 30 11RF bumetanide 1 mg tablet 1 mg PO DAILY Qty: 30 11RF Discontinued enoxaparin [Lovenox] 80 mg/0.8 mL syringe 80 mg subcut Q12H Qty: 8 0RF Rx Instructions: Bridging for surgery Referrals / Follow Up: Tyler Pierre DO [Med Staff - Active Staff] - Within 2 Weeks Belem Chan MD [Med Staff - Active Staff] - Within 1 Month (Sebaceous cyst removal from neck) Clemencia Holland NP-C [Primary Care Provider] - Disposition Disposition (needs filled in before D/C Order can be placed): [facility]
--- NOTE | 2023-02-06 13:19 | NURSING ---
dr echevarria here to see pt
--- NOTE | 2023-02-06 13:44 | NURSING ---
report called to Shannan NORMAN in TCU
== END 2023-02-06 15:25 | disposition skilled nursing facility (03) ==
LOC: SDC 19:26 → MS3 19:27
PROVIDERS: Anesthesiology; Admitting Provider Student in an Organized Health Care Education/Training Program; PCP Nurse Practitioner Family; Referring Provider Student in an Organized Health Care Education/Training Program; Visit Provider Student in an Organized Health Care Education/Training Program
PROC: 0SRD0JZ Replacement of Left Knee Joint with Synthetic Substitute, Open Approach (ICD-10-PCS; CPT 27447; principal; 2023-02-04 12:40)
DX: M17.12 Unilateral primary osteoarthritis, left knee (principal); F01.50 Vascular dementia, unspecified severity, without behavioral disturbance, psychotic disturbance, mood disturbance, and anxiety; I48.11 Longstanding persistent atrial fibrillation; E78.5 Hyperlipidemia, unspecified; G89.29 Other chronic pain; I10 Essential (primary) hypertension; M85.80 Other specified disorders of bone density and structure, unspecified site; Z99.3 Dependence on wheelchair; L72.3 Sebaceous cyst; Z79.899 Other long term (current) drug therapy; Z79.01 Long term (current) use of anticoagulants; F32.A Depression, unspecified; N40.0 Benign prostatic hyperplasia without lower urinary tract symptoms; Z86.718 Personal history of other venous thrombosis and embolism; G62.9 Polyneuropathy, unspecified
CPT/HCPCS: 27447; S2900; 01402; 64447; 36415; 71046; 76882; 80048; 82040; 82962; 83735; 85025; 85027; 87081; 87426; 88305; 88311; 93005; 96365; 96366; 97163; 97166; 99221; 99252; C1776; J7050; J7120; A4216; G0378; G0463; J2405; J3475

== ENCOUNTER 2023-02-06 15:49 | Inpatient (IN) | payer MEDICARE, OTHER, SELFPAY ==
[2023-02-06 15:57] VITALS: BP 119/67; PULSE 89; RESP 14; TEMP 37.1; O2SAT 94; BMI 30.9
--- NOTE | 2023-02-06 16:58 | HP.PCM_ITS ---
HPI - General General Date of Admission: 02/06/23 Date of Service: 02/08/23 Chief Complaint: Here for rehabilitation. HPI Narrative EUGENIO MART, is a 82 Male who presents with followin02/04/2023 Dr. Pierre performed left total knee arthroplasty. 02/04/2023 Resume Eliquis for atrial fibrillation. Order ultrasound for posterior neck lump. 02/05/2023 Left knee pain. PT/OT for SNF. Hemoglobin near baseline. Ultrasound showed posterior neck lump is sebaceous cyst, follow up with general surgery as outpatient. 02/06/2023 Admit to TCU with debility, here for rehabilitation, strengthening, prior to discharge home with . [facility] Medical History (Updated 02/06/23 @ 17:[address] Kenton Singleton MD) BPH (benign prostatic hyperplasia) Cardiology follow-up encounter Chronic back pain Chronic pain CPAP (continuous positive airway pressure) dependence Dilated aortic root DVT (deep venous thrombosis) Essential hypertension Fracture of left hip History of atrial fibrillation History of echocardiogram History of edema History of pain when walking Hyperlipidemia Hypertension Left atrial enlargement Left bundle branch block Longstanding persistent atrial fibrillation Non-smoker Nonrheumatic mitral (valve) prolapse Osteoarthritis Pain Patent foramen ovale Premature atrial contractions Premature ventricular contraction Pulmonary HTN RLS (restless legs syndrome) Scratches Stroke/cerebrovascular accident Tachycardia Thoracic aortic aneurysm Uses wheelchair Vascular dementia Walker as ambulation aid Wears dentures Wears glasses Home Medications memantine 10 mg tablet (Namenda) 10 mg PO BID MEMORY 12/08/21 [History Last Take n 12/07/21] cholecalciferol (vitamin D3) 25 mcg (1,000 unit) tablet 25 mcg PO DAILY bones 12/28/21 [History Last Taken Unknown] sertraline 50 mg tablet (Zoloft) 50 mg PO DAILY mood 12/28/21 [History Last Taken Unknown] vit A 300 mcg-C 200 mg-E 27 mg-lutein 2 mg and minerals tablet (Healthy Eyes) 1 cap PO BID supplement 12/28/21 [History Last Taken Unknown] lisinopril 10 mg tablet 10 mg PO DAILY BP #30 tabs 04/08/22 [Rx Last Taken 02/04/23] metoprolol succinate 25 mg tablet,extended release 24 hr 25 mg PO DAILY BP #30 tabs 04/08/22 [Rx Last Taken 02/04/23] potassium chloride 20 mEq tablet,extended release(part/cryst) (Klor-Con M) 20 meq PO BIDCM supplement #60 tabs 04/08/22 [Rx Last Taken Unknown] bumetanide 1 mg tablet 1 mg PO DAILY This is a dose decrease. #30 tabs 05/06/22 [Rx Last Taken 02/04/23] gabapentin 400 mg capsule 400 mg PO QHS Nerve Pain 07/09/22 [History Last Taken Unknown] cyanocobalamin (vitamin B-12) 1,000 mcg tablet 1,000 mcg PO DAILY Supplement 07/14/22 [History Last Taken Unknown] multivitamin 1 tab PO DAILY Supplement 07/14/22 [History Last Taken Unknown] apixaban 5 mg tablet (Eliquis) 5 mg PO BID Blood Thinner 12/24/22 [History Last Taken 01/30/23] oxycodone 5 mg tablet 5 - 10 mg PO Q4H PRN PRN Pain Score 4-10 7 days #42 tabs 02/05/23 [Rx Last Taken Unknown] acetaminophen 500 mg tablet 1,000 mg PO Q8 Pain 02/06/23 [History Last Taken Unknown] cephalexin 500 mg capsule 500 mg PO Q6 Antibiotic 02/06/23 [History Last Taken Unknown] famotidine 20 mg tablet 20 mg PO DAILY GERD 02/06/23 [History Last Taken Unknown] sennosides 8.6 mg-docusate sodium 50 mg tablet (Stool Softener-Stimulant Laxative) 2 tab PO BID Constipation 02/06/23 [History Last Taken Unknown] Allergy/AdvReac Type Severity Reaction Status Date / Time diclofenac Allergy Severe Anaphylaxis Verified 02/04/23 11:33 naproxen [From Naprosyn] Allergy Severe Angioedema Verified 02/04/23 11:33 Penicillins Allergy Hives Verified 02/04/23 11:33 Sulfa (Sulfonamide Allergy Hives Verified 02/04/23 11:33 Antibiotics) Family History Sister Cancer Surgical History (Updated 02/06/23 @ 17:[address] Kenton Singleton MD) History of carpal tunnel surgery History of total left knee replacement History of total right knee replacement Status post open reduction and internal fixation (ORIF) of fracture Social History household members: spouse Smoking Status: Never smoker alcohol intake: never substance use type: does not use ROS Constitutional Constitutional: Denies chills, fever(s) or weight gain ENT HEENT: Denies headache(s), nasal congestion or nasal discharge Cardiovascular Cardiovascular: Denies chest pain or palpitations Respiratory/Chest Respiratory/Chest: Denies cough, excessive phlegm production or shortness of breath with exertion Gastrointestinal Gastrointestinal: Denies abdominal pain, nausea or vomiting Genitourinary Genitourinary: Denies dysuria Musculoskeletal Musculoskeletal: Denies joint pain or joint swelling Integumentary Integumentary: Denies rash or wounds Neurologic Neurologic: Denies focal weakness, numbness or tingling Psychiatric Psychiatric: Denies anxiety, auditory hallucinations, depression, homicidal ideation or suicidal ideation Vital Signs Vital Signs Vital Signs: 02/06/23 15:57 Temperature 98.7 F Temperature Source Temporal Pulse Rate 89 Respiratory Rate 14 Blood Pressure 119/67 Blood Pressure Mean 84 Blood Pressure Source Monitor Blood Pressure Position Semi-Fowlers Blood Pressure Location Right Arm Pulse Ox 94 Oxygen Delivery Method Room Air Weight Weight: 109.452 kg Body Mass Index (BMI) 30.9 Physical Exam Const alert General Appearance: cooperative HEENT normocephalic Eyes PERRL and EOMs intact bilaterally Neck supple, no JVD and no carotid bruits Resp normal respiratory effort, normal air movement and clear to auscultation bilaterally Cardio regular rate and regular rhythm GI normal to inspection, nondistended, normoactive bowel sounds, non-tender and non-distended Extremity normal capillary refill Extremity Narrative: Left knee dressed. General Extremity: Negative for edema Skin no rashes or lesions noted General Skin Exam: no breakdown Psych affect normal Appearance: appropriate Results Lab / Micro Data Result Diagrams: 02/07/23 06:21 02/07/23 06:21 Assessment & Plan Assessment/Plan (1) Debility: (2) Osteoarthritis of left knee: (3) Atrial fibrillation: (4) Thoracic aortic aneurysm: (5) Hypertension: (6) Hyperlipidemia: (7) Stroke: (8) Vascular dementia: (9) Depression: (10) Hypokalemia: (11) Neuropathic pain: PLAN: Plan 82 year old male with below past medical history hospitalized for left total knee replacement 02/04/[address] Spittle, admitted to TCU with debility, here for rehabilitation, strengthening, prior to discharge home with . * Debility - PT/OT. * Pain - Tylenol 1000mg q8, Oxycodone 5-10mg q4h prn. * Bowel - Senna/colace 2 tablets bid, MOM 30ml po x 1 prn. * Adult immunization - Administer pneumonia vaccine, covid19 vaccine, flu vaccine as appropriate. * DVT prophylaxis - Not necessary, on Eliquis. * Atrial fibrillation - Metoprolol succinate 25mg daily, Eliquis 5mg bid. * Edema - Bumex 1mg daily. * Status post left total knee replacement - Keflex 500mg q6h thru 02/12/2023 prophylaxis. * Vitamin B12 deficiency - B12 1000mcg daily. * GERD - Famotidine 20mg daily. * Neuropathic pain - Gabapentin 400mg qhs. * Hypertension - Metoprolol succinate 25mg daily, Lisinopril 10mg daily. * Vascular dementia - Memantine 10mg bid. * Macular degeneration - Healthy Eyes 1 capsule bid. * Nutrition - MVI daily. * Hypokalemia - KCL ER 20meq bidcm. * Depression - Sertraline 50mg daily, stable chronic fpc use, GDR not recommended. * Vitamin D deficiency - D3 25mcg daily.
[2023-02-06] MEDS: Memantine Hydrochloride 10 MG Tablet PO (18:29)
[2023-02-06] MEDS: Potassium Chloride Oral Tablet 20 MEQ PO (18:29)
[2023-02-06] MEDS: APIXABAN 5 MG TABLET PO (18:29)
[2023-02-06] MEDS: Senna/Docusate Sodium 1 Tablet 2 TABLET PO (18:29)
[2023-02-06] MEDS: Multivitamin (Healthy Eyes) Capsule 1 CAP PO (18:29)
[2023-02-06] MEDS: Cephalexin 500 MG Capsule PO ×2 (18:29→23:42)
[2023-02-06] MEDS: Acetaminophen 500 MG Tablet 1000 MG PO (20:56)
[2023-02-06] MEDS: Gabapentin 400 MG Capsule PO (20:56)
[2023-02-07] MEDS: Senna/Docusate Sodium 1 Tablet 2 TABLET PO ×2 (06:28→17:52)
[2023-02-07] MEDS: Acetaminophen 500 MG Tablet 1000 MG PO ×3 (06:28→21:16)
[2023-02-07] MEDS: Magnesium Hydroxide 30 ML UDC PO (06:28)
[2023-02-07 06:29] VITALS: BP 115/59; PULSE 95
[2023-02-07] MEDS: Sertraline 50 MG Tablet PO (06:29)
[2023-02-07] MEDS: Cyanocobalamin 500 MCG Tablet 1000 MCG PO (06:29)
[2023-02-07] MEDS: Famotidine 20 MG Tablet PO (06:29)
[2023-02-07] MEDS: Cephalexin 500 MG Capsule PO ×3 (06:29→17:52)
[2023-02-07] MEDS: Bumetanide 2 MG Tablet 1 MG PO (06:29)
[2023-02-07] MEDS: Memantine Hydrochloride 10 MG Tablet PO ×2 (06:29→17:52)
[2023-02-07] MEDS: Multivitamin (Healthy Eyes) Capsule 1 CAP PO ×2 (06:29→17:52)
[2023-02-07] MEDS: Metoprolol(XL)Succ 25 MG Tablet PO (06:29)
[2023-02-07] MEDS: Lisinopril 10 MG Tablet PO (06:29)
[2023-02-07] MEDS: Cholecalciferol (VIT D3) 25 MCG TABLET (1,000 UNITS) PO (06:29)
[2023-02-07] MEDS: APIXABAN 5 MG TABLET PO ×2 (06:29→17:52)
[2023-02-07 06:44] LABS: Absolute Lymphocyte Count 0.96 X10^3/uL (0.83-4.51); Absolute Neutrophil Count 6.8 X10^3/uL (2.0-7.7); Basophil# 0.04 X10^3/uL; Basophil% 0.5 % (0-1); Eosinophil# 0.12 X10^3/uL; Eosinophils% 1.4 % (0-5); Hematocrit 30.5 % (40-54); Hemoglobin 9.7 g/dL (13.0-16.5); Lymphocyte # 0.96 X10^3/ul (0.83-4.51); Lymphocyte % 10.8 % (19-41); Mean Corp Hgb Conc 31.8 g/dL (32-36); Mean Corpuscular Hgb 29.4 pg (27.0-32.0); Mean Corpuscular Volume 92.4 fL (80-94); Monocyte# 0.91 X10^3/uL; Monocyte% 10.2 % (0-10); NRBC Flagged by Analyzer 0 % (0-5); Neutrophil # 6.79 X10^3/uL (2.7-7.7); Neutrophil % 76.4 % (47-70); Platelet Count 142 K/mm3 (150-450); RBC Distribution Width CV 14.7 % (11.6-14.6); RBC Distribution Width SD 49.9 fl (35.1-43.9); White Blood Count 8.9 K/mm3 (4.4-11.0)
[2023-02-07 07:14] LABS: Anion Gap 6 (5-15); BUN 33 mg/dL (7-18); BUN/Creat Ratio 30.6 RATIO (10-20); Calcium,Total 8.2 mg/dL (8.5-10.1); Chloride 110 mmol/L (98-107); Creatinine, Serum 1.08 mg/dL (0.70-1.30); EST Glomerular Filtration Rate 70 mL/min (>60); Est Glom Filt Rate - Afr Amer 84 mL/min (>60); Estimated Creatinine Clearance 61.31 ml/min; Glucose 111 mg/dL (74-106); Potassium 3.9 mmol/L (3.5-5.1); Sodium Level 143 mmol/L (136-145)
[2023-02-07] MEDS: Potassium Chloride Oral Tablet 20 MEQ PO ×2 (08:07→17:52)
[2023-02-07] MEDS: Multivitamins,Therapeutic Tablet 1 TABLET PO (08:07)
[2023-02-07 10:00] VITALS: PULSE 92; O2SAT 96
[2023-02-07] MEDS: Tuberculin,Purif.prot.deriv. 50 TU/ML Vial 0.1 ML ID (13:30)
[2023-02-07 15:40] VITALS: BP 129/61; PULSE 84; RESP 16; TEMP 36.6; O2SAT 97
[2023-02-07] MEDS: 0.9% Saline Lock 10 ML Syringe IV (18:19)
[2023-02-07] MEDS: Gabapentin 400 MG Capsule PO (21:17)
[2023-02-08] MEDS: Cephalexin 500 MG Capsule PO ×4 (00:27→17:22)
[2023-02-08] MEDS: Senna/Docusate Sodium 1 Tablet 2 TABLET PO ×2 (06:25→17:24)
[2023-02-08] MEDS: Bumetanide 2 MG Tablet 1 MG PO (06:25)
[2023-02-08] MEDS: Acetaminophen 500 MG Tablet 1000 MG PO ×3 (06:25→21:40)
[2023-02-08 06:26] VITALS: BP 128/68; PULSE 94
[2023-02-08] MEDS: Memantine Hydrochloride 10 MG Tablet PO ×2 (06:26→17:24)
[2023-02-08] MEDS: Famotidine 20 MG Tablet PO (06:26)
[2023-02-08] MEDS: Cyanocobalamin 500 MCG Tablet 1000 MCG PO (06:26)
[2023-02-08] MEDS: Metoprolol(XL)Succ 25 MG Tablet PO (06:26)
[2023-02-08] MEDS: APIXABAN 5 MG TABLET PO ×2 (06:26→17:22)
[2023-02-08] MEDS: Cholecalciferol (VIT D3) 25 MCG TABLET (1,000 UNITS) PO (06:26)
[2023-02-08] MEDS: Multivitamin (Healthy Eyes) Capsule 1 CAP PO ×2 (06:26→17:23)
[2023-02-08] MEDS: Lisinopril 10 MG Tablet PO (06:26)
[2023-02-08] MEDS: Sertraline 50 MG Tablet PO (06:26)
[2023-02-08] MEDS: Menthol/Lanolin/Calamine/Znox 113 GM Tube 1 APPLIC TOPICAL ×2 (06:27→17:22)
[2023-02-08] MEDS: Multivitamins,Therapeutic Tablet 1 TABLET PO (08:20)
[2023-02-08] MEDS: Potassium Chloride Oral Tablet 20 MEQ PO ×2 (08:20→17:22)
[2023-02-08] MEDS: 0.9% Saline Lock 10 ML Syringe IV (08:31)
--- NOTE | 2023-02-08 10:39 | NURSING ---
Offered Covid booster and provided education about vaccine. Patient refuses at this time.
--- NOTE | 2023-02-08 10:46 | CASEMGMT ---
Social Work Met with patient to complete initial assessment. Pt known to this worker from previous stays. Educated to Medicare benefit. No changes to code status (full code) or MOLST. Copies of MOLST and advanced directives printed and placed on chart. Pt's goal is to return home with 's assistance. SW to continue to follow. BHUMI DasilvaW
[2023-02-08 13:50] VITALS: BP 129/63; PULSE 80; RESP 20; TEMP 36.6; O2SAT 95
--- NOTE | 2023-02-08 13:53 | NURSING ---
Carton Wrapper Note; Activity Asset: Tegan Acevedo is independent in his choice of daily activities. He did state he is unable to read due to his left eye. He can listen to the tv and make out some of the picture. He stated he is fine with just resting and doing therapy so he can return home. Family will come visit him weekly.
--- NOTE | 2023-02-08 15:27 | PCM.PN.DRR ---
TCU RX Drug Regimen Review Subjective: TCU Admission. 82 YOM hospitalized for left total knee replacement 02/04/[address] Pierre. Admitted to TCU with debility for strengthening and rehabilitation. Objective: Allergies diclofenac Allergy (Severe, Verified 02/04/23 11:33) Anaphylaxis naproxen [From Naprosyn] Allergy (Severe, Verified 02/04/23 11:33) Angioedema thoat swelling, tongue edema Penicillins Allergy (Verified 02/04/23 11:33) Hives Sulfa (Sulfonamide Antibiotics) Allergy (Verified 02/04/23 11:33) Hives Current Medications Generic Name Dose Route Start Last Admin Trade Name Freq PRN Reason Stop Dose Admin Acetaminophen 1,000 mg 02/06/23 22:00 02/08/23 14:15 Acetaminophen 500 Mg Tablet PO 1,000 mg Q8 BRAD Administration Apixaban 5 mg 02/06/23 18:00 02/08/23 06:26 Apixaban 5 Mg Tablet PO 5 mg BID BRAD Administration Bumetanide 1 mg 02/07/23 06:00 02/08/23 06:25 Bumetanide 2 Mg Tablet PO 1 mg DAILY BRAD Administration Calamine/Phenol 1 applic 02/08/23 06:00 02/08/23 06:27 Menthol/Lanolin/Calamine/Znox 113 Gm Tube TOPICAL 1 applic BID BRAD Administration Protocol Cephalexin 500 mg 02/06/23 18:00 02/08/23 12:57 Cephalexin 500 Mg Capsule PO 02/12/23 18:01 500 mg Q6 BRAD Administration Cholecalciferol 25 mcg 02/07/23 06:00 02/08/23 06:26 Cholecalciferol (Vit D3) 25 Mcg Tablet (1,000 Units) PO 25 mcg DAILY BRAD Administration Cyanocobalamin 1,000 mcg 02/07/23 06:00 02/08/23 06:26 Cyanocobalamin 500 Mcg Tablet PO 1,000 mcg DAILY BRAD Administration Famotidine 20 mg 02/07/23 06:00 02/08/23 06:26 Famotidine 20 Mg Tablet PO 03/09/23 06:01 20 mg DAILY BRAD Administration Gabapentin 400 mg 02/06/23 22:00 02/07/23 21:17 Gabapentin 400 Mg Capsule PO 400 mg QHS BRDA Administration Lisinopril 10 mg 02/07/23 06:00 02/08/23 06:26 Lisinopril 10 Mg Tablet PO 10 mg DAILY BRAD Administration Magnesium Hydroxide 30 ml 02/06/23 17:10 02/07/23 06:28 Magnesium Hydroxide 30 Ml Udc PO 30 ml X1 PRN Administration Constipation Memantine 10 mg 02/06/23 18:00 02/08/23 06:26 Memantine Hydrochloride 10 Mg Tablet PO 10 mg BID BRAD Administration Metoprolol Succinate 25 mg 02/07/23 06:00 02/08/23 06:26 Metoprolol(Xl)Succ 25 Mg Tablet PO 25 mg DAILY BRAD Administration Multivitamins 1 tablet 02/07/23 08:00 02/08/23 08:20 Multivitamins,Therapeutic Tablet PO 1 tablet DAILYCM BRAD Administration Multivitamins/Minerals 1 cap 02/06/23 18:00 02/08/23 06:26 Multivitamin (Healthy Eyes) Capsule PO 1 cap BID BRAD Administration Oxycodone HCl 5 - 10 mg 02/06/23 16:11 Oxycodone 5 Mg Tablet PO Q4H PRN PRN Pain Score 4-10 Potassium Chloride 20 meq 02/06/23 17:00 02/08/23 08:20 Potassium Chloride Oral Tablet 20 Meq PO 20 meq BIDCM BRAD Administration Senna/Docusate Sodium 2 tablet 02/06/23 18:00 02/08/23 06:25 Senna/Docusate Sodium 1 Tablet PO 2 tablet BID BRAD Administration Sertraline HCl 50 mg 02/07/23 06:00 02/08/23 06:26 Sertraline 50 Mg Tablet PO 50 mg DAILY BRAD Administration Sodium Chloride 10 - 40 ml 02/06/23 16:22 02/08/23 08:31 0.9% Saline Lock 10 Ml Syringe IV 10 ml UD PRN Administration SALINE FLUSH Tuberculin PPD 0.1 ml 02/14/23 10:00 Tuberculin,Purif.Prot.Deriv. 50 Tu/Ml Vial ID 02/14/23 10:01 X1 ONE Problem List (Last Reviewed 02/06/23 @ 17:[address] Kenton Singleton MD) Neuropathic pain (Acute) Hypokalemia (Acute) Depression (Acute) Vascular dementia (Acute) Stroke (Acute) Hyperlipidemia (Acute) Hypertension (Chronic) Thoracic aortic aneurysm (Acute) Atrial fibrillation (Acute) Debility (Acute) Osteoarthritis of left knee (Acute) Vital Signs Temp Pulse Resp BP Pulse Ox O2 Del Method 97.8 F 80 20 H 129/63 H 95 Room Air 02/08/23 13:50 02/08/23 13:50 02/08/23 13:50 02/08/23 13:50 02/08/23 13:50 02/08/23 13:50 Oxygen Delivery Method Room Air Weight: 109.452 kg Body Mass Index (BMI) 30.9 Sodium 143 mmol/L (136-145) 02/07/23 06:21 Potassium 3.9 mmol/L (3.5-5.1) 02/07/23 06:21 Chloride 110 mmol/L (98-107) H 02/07/23 06:21 Carbon Dioxide 27.0 mmol/L (21.0-32.0) 02/07/23 06:21 Anion Gap 6 (5-15) 02/07/23 06:21 BUN 33 mg/dL (7-18) H 02/07/23 06:21 Creatinine 1.08 mg/dL (0.70-1.30) 02/07/23 06:21 Est GFR (MDRD) Af Amer 84 mL/min (>60) 02/07/23 06:21 Est GFR (MDRD) Non-Af 70 mL/min (>60) 02/07/23 06:21 BUN/Creatinine Ratio 30.6 RATIO (10-20) H 02/07/23 06:21 Glucose 111 mg/dL (74-106) H 02/07/23 06:21 Assessment/Plan: 1. Pain: acetaminophen 1000mg Q8 and oxycodone 5-10mg PO Q4H PRN pain 4-10. Resident has not had any PRN doses. Please continue to monitor for increased pain and PRN usage. 2. Bowel: senna/docusate 2T PO BID and MOM 30mL PO x1 PRN constipation. Last documented bowel movement was today, 02/08. No PRN doses given. Please continue to monitor for constipation and PRN usage. 3. S/P L total knee replacement: cephalexin 500mg PO Q6 thru 02/12/23. Please continue to monitor for diarrhea, renal function and S/S of infection. 4. Atrial fibrillation/hypertension: metoprolol succinate 25mg PO daily, lisinopril 10mg PO daily and apixaban 5mg PO BID. Please continue to monitor BP (last 129/63), HR (last 80), S/S of bleeding, hemoglobin (last 9.7g/dL), cough, renal function and potassium (last 3.9mmol/L). 5. Edema: bumetanide 1mg PO daily. Please continue to monitor for edema, renal function and electrolytes. 6. Vascular dementia: memantine 10mg PO BID. Please continue to monitor for rash and confusion. 7. GERD: famotidine 20mg PO daily thru 03/09/23. Please continue to monitor for S/S of GERD and renal function. 8. Hypokalemia: potassium chloride 20mEq PO BIDCM. Please continue to monitor potassium (last 3.9mmol/L). 9. Vitamin D and B12 deficiencies: cyanocobalamin 1000mcg PO daily and cholecalciferol 25mcg PO daily. Please consider ordering B12 and D levels if clinically appropriate. Last levels from 01/16/16 and 04/10/21 respectively. Thanks. 10. Macular degeneration/nutrition: healthy eyes 1C PO BID and multivitamin 1T PO daily. Please continue to monitor. Assessment/Plan for indications treated with psychotropic medications: 1. Depression: sertraline 50mg PO daily. Please see physician note regarding GDR. Please continue to monitor for suicidal ideation (black box warning), falls/fractures (BEERs criteria) and sodium (last 143mmol/L). 2. Neuropathic pain: gabapentin 400mg PO QHS. Not appropriate for GDR as this resident is using for neuropathic pain. Please continue to monitor renal function, confusion and falls/fractures (BEERs criteria). Medical chart and medication regimen reviewed. The following medication irregularities or issues were identified: *1. Cyanocobalamin 1000mcg PO daily and cholecalciferol 25mcg PO daily. Please consider ordering B12 and D levels if clinically appropriate. Last levels from 01/16/16 and 04/10/21 respectively. Thanks. Date of Note:: 02/08/23
[2023-02-08] MEDS: Gabapentin 400 MG Capsule PO (21:40)
[2023-02-09] MEDS: Cephalexin 500 MG Capsule PO ×4 (01:00→17:21)
[2023-02-09 05:50] LABS: Hemoglobin 9.5 g/dL (13.0-16.5)
[2023-02-09 06:21] VITALS: BP 133/70; PULSE 89
[2023-02-09] MEDS: Multivitamin (Healthy Eyes) Capsule 1 CAP PO ×2 (06:22→17:21)
[2023-02-09 06:23] VITALS: PULSE 89
[2023-02-09] MEDS: Sertraline 50 MG Tablet PO (06:23)
[2023-02-09] MEDS: Cholecalciferol (VIT D3) 25 MCG TABLET (1,000 UNITS) PO (06:23)
[2023-02-09] MEDS: Acetaminophen 500 MG Tablet 1000 MG PO ×3 (06:23→20:01)
[2023-02-09] MEDS: Lisinopril 10 MG Tablet PO (06:23)
[2023-02-09] MEDS: Memantine Hydrochloride 10 MG Tablet PO ×2 (06:23→17:21)
[2023-02-09] MEDS: APIXABAN 5 MG TABLET PO ×2 (06:23→17:21)
[2023-02-09] MEDS: Metoprolol(XL)Succ 25 MG Tablet PO (06:23)
[2023-02-09] MEDS: Cyanocobalamin 500 MCG Tablet 1000 MCG PO (06:23)
[2023-02-09] MEDS: Famotidine 20 MG Tablet PO (06:23)
[2023-02-09] MEDS: Bumetanide 2 MG Tablet 1 MG PO (06:23)
[2023-02-09] MEDS: Menthol/Lanolin/Calamine/Znox 113 GM Tube 1 APPLIC TOPICAL ×2 (06:24→17:24)
[2023-02-09] MEDS: Multivitamins,Therapeutic Tablet 1 TABLET PO (07:58)
[2023-02-09] MEDS: Potassium Chloride Oral Tablet 20 MEQ PO ×2 (07:58→17:21)
[2023-02-09 09:49] VITALS: BMI 29.8
--- NOTE | 2023-02-09 12:54 | CHAPLAIN ---
Type of Pastoral Visit ___ Initial Visit _x__ Follow-up Visit ___ On-call Visit ___ General Patient Visit ___ Spiritual Assessment ___ Family Conference ___ Bereavement ___ Rapid Response ___ Code Blue ___ Other (describe below) Pastoral Care Referral From _x__ Patient _x__ Family ___ Nurse ___ Physician ___ Dba Manager ___ Assessment Nurse Practitioner ___ Other (describe below) Sacrament/Intervention _x__ Active listening ___ Anointing ___ Hinduism ___ Bereavement ___ Communion ___ Noelle exploration ___ _x__ Life review _x__ Prayer ___ Reconciliation ___ Sacrament of Sick ___ Supportive presence ___ Wedding ___ Other (describe below) Pastoral Comments patient and spouse are eating 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
[2023-02-09 15:15] VITALS: BP 135/61; PULSE 89; RESP 16; TEMP 36.6; O2SAT 96
[2023-02-09] MEDS: Senna/Docusate Sodium 1 Tablet 2 TABLET PO (17:21)
[2023-02-09] MEDS: Gabapentin 400 MG Capsule PO ×2 (20:06→20:07)
[2023-02-09 21:25] VITALS: PULSE 91; RESP 18; O2SAT 96
[2023-02-10] MEDS: Cephalexin 500 MG Capsule PO ×5 (00:25→23:03)
[2023-02-10] MEDS: Lisinopril 10 MG Tablet PO (05:16)
[2023-02-10] MEDS: Cholecalciferol (VIT D3) 25 MCG TABLET (1,000 UNITS) PO (05:16)
[2023-02-10] MEDS: Bumetanide 2 MG Tablet 1 MG PO (05:16)
[2023-02-10] MEDS: Senna/Docusate Sodium 1 Tablet 2 TABLET PO ×2 (05:16→17:09)
[2023-02-10] MEDS: Sertraline 50 MG Tablet PO (05:16)
[2023-02-10] MEDS: Famotidine 20 MG Tablet PO (05:16)
[2023-02-10] MEDS: Acetaminophen 500 MG Tablet 1000 MG PO ×3 (05:16→22:37)
[2023-02-10 05:18] VITALS: BP 147/72; PULSE 95
[2023-02-10] MEDS: Multivitamin (Healthy Eyes) Capsule 1 CAP PO ×2 (05:18→17:08)
[2023-02-10] MEDS: APIXABAN 5 MG TABLET PO ×2 (05:18→17:08)
[2023-02-10] MEDS: Metoprolol(XL)Succ 25 MG Tablet PO (05:18)
[2023-02-10] MEDS: Menthol/Lanolin/Calamine/Znox 113 GM Tube 1 APPLIC TOPICAL ×2 (05:18→17:07)
[2023-02-10] MEDS: Memantine Hydrochloride 10 MG Tablet PO ×2 (05:18→17:09)
[2023-02-10] MEDS: Cyanocobalamin 500 MCG Tablet 1000 MCG PO (05:20)
[2023-02-10] MEDS: Multivitamins,Therapeutic Tablet 1 TABLET PO (08:09)
[2023-02-10] MEDS: Potassium Chloride Oral Tablet 20 MEQ PO ×2 (08:09→17:07)
[2023-02-10 14:00] VITALS: BP 143/71; PULSE 80; RESP 16; TEMP 36.4; O2SAT 96
--- NOTE | 2023-02-10 14:14 | CASEMGMT ---
Plan of Care IDT meet with pt and pt's for plan of care meeting. PT/OT/ST reviewed pt progress in therapy. SW explained Medicare benefit. Pt has been in TCU previously and is knowledgeable from previous stay that secondary will cover copay amount. Pt states that she has been pt's primary caregiver since March 2022 and is familar with care rountine and needs. reports that pt has not walked since home therapy ended in July 2022. Pt is able to transfer from lift chair to wheel chair and from wheel chair to toilet. has been able to provide needs. Pt will need to return to a level of 1 assist prior to returning home. Treatment plan to continue at this time. SW will continue to follow for support and discharge planning. CLAUDIO Mendoza
[2023-02-11] MEDS: Lisinopril 10 MG Tablet PO (05:29)
[2023-02-11] MEDS: Cholecalciferol (VIT D3) 25 MCG TABLET (1,000 UNITS) PO (05:29)
[2023-02-11] MEDS: Famotidine 20 MG Tablet PO (05:29)
[2023-02-11] MEDS: Bumetanide 2 MG Tablet 1 MG PO (05:30)
[2023-02-11] MEDS: Sertraline 50 MG Tablet PO (05:30)
[2023-02-11] MEDS: Multivitamin (Healthy Eyes) Capsule 1 CAP PO ×2 (05:30→17:13)
[2023-02-11 05:31] VITALS: PULSE 94
[2023-02-11] MEDS: Cephalexin 500 MG Capsule PO ×3 (05:31→17:13)
[2023-02-11] MEDS: Metoprolol(XL)Succ 25 MG Tablet PO (05:31)
[2023-02-11] MEDS: APIXABAN 5 MG TABLET PO ×2 (05:31→17:13)
[2023-02-11] MEDS: Cyanocobalamin 500 MCG Tablet 1000 MCG PO (05:31)
[2023-02-11] MEDS: Memantine Hydrochloride 10 MG Tablet PO ×2 (05:32→17:13)
[2023-02-11] MEDS: Acetaminophen 500 MG Tablet 1000 MG PO ×3 (05:32→21:43)
[2023-02-11] MEDS: Senna/Docusate Sodium 1 Tablet 2 TABLET PO (05:32)
[2023-02-11] MEDS: Menthol/Lanolin/Calamine/Znox 113 GM Tube 1 APPLIC TOPICAL ×2 (05:33→17:13)
[2023-02-11 05:34] VITALS: BP 146/87; PULSE 94; RESP 18; TEMP 36.7; O2SAT 94
[2023-02-11 05:57] LABS: Hematocrit 31.1 % (40-54); Hemoglobin 9.7 g/dL (13.0-16.5)
[2023-02-11] MEDS: Potassium Chloride Oral Tablet 20 MEQ PO ×2 (08:04→17:13)
[2023-02-11] MEDS: Multivitamins,Therapeutic Tablet 1 TABLET PO (08:05)
[2023-02-11 09:14] VITALS: PULSE 109; O2SAT 96
--- NOTE | 2023-02-11 11:00 | NURSING ---
Addendum entered by Shannan Abel 02/11/23 14:26: Dr. Chan called this nurse and N.O. for Dressing change to upper back. Change dressing BID irrigate with 10cc of saline, pack with 1/4in Iodoform and cover with dry sterile dressing. Per Dr. Chan waiting on cultures to come back and once back will order antibiotic according to results. Dr. Chan will continue to follow patient on TCU. Original Note: Pt returned from appt with Dr. Chan. Per pt's Dr. Chan will enter orders. Pts stated she opened up the cyst and got a lot of stuff out and packed it with something. Dressing noted to be dry and intact.
[2023-02-11 15:20] VITALS: BP 131/72; PULSE 90; RESP 16; TEMP 36.6; O2SAT 97
[2023-02-11] MEDS: Gabapentin 400 MG Capsule PO (21:42)
[2023-02-12] MEDS: Cephalexin 500 MG Capsule PO ×4 (00:25→17:36)
[2023-02-12] MEDS: Cholecalciferol (VIT D3) 25 MCG TABLET (1,000 UNITS) PO (06:09)
[2023-02-12] MEDS: Sertraline 50 MG Tablet PO (06:09)
[2023-02-12] MEDS: Lisinopril 10 MG Tablet PO (06:09)
[2023-02-12] MEDS: Multivitamin (Healthy Eyes) Capsule 1 CAP PO ×2 (06:09→17:37)
[2023-02-12] MEDS: Cyanocobalamin 500 MCG Tablet 1000 MCG PO (06:09)
[2023-02-12] MEDS: Acetaminophen 500 MG Tablet 1000 MG PO ×3 (06:09→20:58)
[2023-02-12] MEDS: Senna/Docusate Sodium 1 Tablet 2 TABLET PO ×2 (06:10→17:36)
[2023-02-12] MEDS: Menthol/Lanolin/Calamine/Znox 113 GM Tube 1 APPLIC TOPICAL ×2 (06:10→17:36)
[2023-02-12] MEDS: APIXABAN 5 MG TABLET PO ×2 (06:10→17:37)
[2023-02-12] MEDS: Memantine Hydrochloride 10 MG Tablet PO ×2 (06:10→17:36)
[2023-02-12] MEDS: Bumetanide 2 MG Tablet 1 MG PO (06:10)
[2023-02-12] MEDS: Famotidine 20 MG Tablet PO (06:10)
[2023-02-12 06:11] VITALS: BP 119/77; PULSE 85
[2023-02-12] MEDS: Metoprolol(XL)Succ 25 MG Tablet PO (06:11)
[2023-02-12] MEDS: 0.9% Saline Lock 10 ML Syringe IV ×2 (06:15→18:35)
[2023-02-12] MEDS: Multivitamins,Therapeutic Tablet 1 TABLET PO (08:02)
[2023-02-12] MEDS: Potassium Chloride Oral Tablet 20 MEQ PO ×2 (08:02→17:37)
--- NOTE | 2023-02-12 13:02 | MDS.RN ---
Pain interview for ELIO 02/13/23.
[2023-02-12 14:12] VITALS: BP 112/65; PULSE 86; RESP 19; TEMP 36.6; O2SAT 94
--- NOTE | 2023-02-12 16:59 | CASEMGMT ---
Social Work BIMS () and PHQ-9 (01/18) completed for MDS assessment. Maddie Browning MSW [employer] ENGINE[employer]
[2023-02-12] MEDS: Doxycycline 100 MG CAPSULE PO (20:58)
[2023-02-12] MEDS: Clindamycin HCl 150 MG Capsule 300 MG PO (20:58)
[2023-02-12] MEDS: Gabapentin 400 MG Capsule PO (21:17)
[2023-02-12 21:24] VITALS: PULSE 84; RESP 18; O2SAT 97
[2023-02-13] MEDS: Sertraline 50 MG Tablet PO (05:37)
[2023-02-13] MEDS: Acetaminophen 500 MG Tablet 1000 MG PO ×3 (05:37→20:14)
[2023-02-13 05:38] VITALS: BP 143/71; PULSE 83
[2023-02-13] MEDS: Memantine Hydrochloride 10 MG Tablet PO ×2 (05:38→16:33)
[2023-02-13] MEDS: Lisinopril 10 MG Tablet PO (05:38)
[2023-02-13] MEDS: Multivitamin (Healthy Eyes) Capsule 1 CAP PO ×2 (05:38→16:33)
[2023-02-13] MEDS: Metoprolol(XL)Succ 25 MG Tablet PO (05:38)
[2023-02-13] MEDS: Cholecalciferol (VIT D3) 25 MCG TABLET (1,000 UNITS) PO (05:38)
[2023-02-13] MEDS: Bumetanide 2 MG Tablet 1 MG PO (05:38)
[2023-02-13] MEDS: Senna/Docusate Sodium 1 Tablet 2 TABLET PO ×2 (05:38→16:34)
[2023-02-13] MEDS: Cyanocobalamin 500 MCG Tablet 1000 MCG PO (05:39)
[2023-02-13] MEDS: APIXABAN 5 MG TABLET PO ×2 (05:39→16:33)
[2023-02-13] MEDS: Clindamycin HCl 150 MG Capsule 300 MG PO ×2 (05:39→16:33)
[2023-02-13] MEDS: Doxycycline 100 MG CAPSULE PO ×2 (05:39→16:33)
[2023-02-13] MEDS: Cefdinir 300 MG Capsule PO ×2 (05:39→16:36)
[2023-02-13] MEDS: Famotidine 20 MG Tablet PO (05:40)
[2023-02-13] MEDS: Menthol/Lanolin/Calamine/Znox 113 GM Tube 1 APPLIC TOPICAL ×2 (05:50→16:32)
[2023-02-13] MEDS: Multivitamins,Therapeutic Tablet 1 TABLET PO (08:07)
[2023-02-13] MEDS: Potassium Chloride Oral Tablet 20 MEQ PO ×2 (08:07→16:31)
[2023-02-13 11:35] VITALS: PULSE 71; RESP 18; O2SAT 92
[2023-02-13 12:46] VITALS: BP 110/62; PULSE 96; RESP 18; TEMP 37; O2SAT 92
[2023-02-13] MEDS: Gabapentin 400 MG Capsule PO (20:13)
[2023-02-14] MEDS: Senna/Docusate Sodium 1 Tablet 2 TABLET PO ×2 (05:41→18:10)
[2023-02-14] MEDS: Acetaminophen 500 MG Tablet 1000 MG PO ×3 (05:41→22:10)
[2023-02-14] MEDS: Famotidine 20 MG Tablet PO (05:42)
[2023-02-14] MEDS: Multivitamin (Healthy Eyes) Capsule 1 CAP PO ×2 (05:42→18:09)
[2023-02-14] MEDS: Clindamycin HCl 150 MG Capsule 300 MG PO ×2 (05:42→18:08)
[2023-02-14] MEDS: APIXABAN 5 MG TABLET PO ×2 (05:42→18:09)
[2023-02-14] MEDS: Cefdinir 300 MG Capsule PO ×2 (05:42→18:11)
[2023-02-14] MEDS: Memantine Hydrochloride 10 MG Tablet PO ×2 (05:42→18:11)
[2023-02-14] MEDS: Doxycycline 100 MG CAPSULE PO ×2 (05:42→18:08)
[2023-02-14] MEDS: Bumetanide 2 MG Tablet 1 MG PO (05:42)
[2023-02-14] MEDS: Lisinopril 10 MG Tablet PO (05:43)
[2023-02-14] MEDS: Sertraline 50 MG Tablet PO (05:43)
[2023-02-14] MEDS: Cholecalciferol (VIT D3) 25 MCG TABLET (1,000 UNITS) PO (05:43)
[2023-02-14] MEDS: Menthol/Lanolin/Calamine/Znox 113 GM Tube 1 APPLIC TOPICAL ×2 (05:43→18:12)
[2023-02-14] MEDS: Cyanocobalamin 500 MCG Tablet 1000 MCG PO (05:43)
[2023-02-14 05:46] VITALS: BP 118/65; PULSE 83
[2023-02-14] MEDS: Metoprolol(XL)Succ 25 MG Tablet PO (05:46)
[2023-02-14 06:02] LABS: Absolute Lymphocyte Count 1.12 X10^3/uL (0.83-4.51); Absolute Neutrophil Count 4.2 X10^3/uL (2.0-7.7); Basophil# 0.06 X10^3/uL; Eosinophil# 0.15 X10^3/uL; Eosinophils% 2.5 % (0-5); Hematocrit 29.6 % (40-54); Hemoglobin 9.4 g/dL (13.0-16.5); Lymphocyte # 1.12 X10^3/ul (0.83-4.51); Lymphocyte % 18.8 % (19-41); Mean Corp Hgb Conc 31.8 g/dL (32-36); Mean Corpuscular Hgb 29.5 pg (27.0-32.0); Mean Corpuscular Volume 92.8 fL (80-94); Mean Platelet Vol. 10.5 fl (6.2-12.0); Monocyte% 6.7 % (0-10); NRBC Flagged by Analyzer 0 % (0-5); Neutrophil # 4.17 X10^3/uL (2.7-7.7); Platelet Count 261 K/mm3 (150-450); RBC Distribution Width CV 14.6 % (11.6-14.6); RBC Distribution Width SD 49.5 fl (35.1-43.9); Red Blood Count 3.19 M/mm3 (4.6-6.2)
[2023-02-14 06:43] LABS: Anion Gap 3 (5-15); BUN 26 mg/dL (7-18); BUN/Creat Ratio 28.3 RATIO (10-20); Calcium,Total 8.6 mg/dL (8.5-10.1); Chloride 112 mmol/L (98-107); Creatinine, Serum 0.92 mg/dL (0.70-1.30); EST Glomerular Filtration Rate 84 mL/min (>60); Est Glom Filt Rate - Afr Amer 101 mL/min (>60); Estimated Creatinine Clearance 71.97 ml/min; Glucose 95 mg/dL (74-106); Sodium Level 141 mmol/L (136-145)
[2023-02-14] MEDS: Multivitamins,Therapeutic Tablet 1 TABLET PO (08:23)
[2023-02-14] MEDS: Potassium Chloride Oral Tablet 20 MEQ PO ×2 (08:23→18:07)
[2023-02-14] MEDS: Tuberculin,Purif.prot.deriv. 50 TU/ML Vial 0.1 ML ID (12:17)
[2023-02-14 13:49] VITALS: BP 129/69; PULSE 85; RESP 12; TEMP 36.8; O2SAT 97
[2023-02-14] MEDS: Gabapentin 400 MG Capsule PO (22:10)
[2023-02-14 23:47] VITALS: PULSE 84; RESP 18; O2SAT 96
--- NOTE | 2023-02-15 00:52 | PCM.RX.CS ---
Consult Pharmacy has been consulted to manage selected antiobiotic: Vancomycin Type of Consult: New start Labs: Sodium 141 mmol/L (136-145) 02/14/23 05:40 Potassium 4.0 mmol/L (3.5-5.1) 02/14/23 05:40 Chloride 112 mmol/L (98-107) H 02/14/23 05:40 Carbon Dioxide 26.0 mmol/L (21.0-32.0) 02/14/23 05:40 Anion Gap 3 (5-15) L 02/14/23 05:40 BUN 26 mg/dL (7-18) H 02/14/23 05:40 Creatinine 0.92 mg/dL (0.70-1.30) 02/14/23 05:40 Est GFR (MDRD) Af Amer 101 mL/min (>60) 02/14/23 05:40 Est GFR (MDRD) Non-Af 84 mL/min (>60) 02/14/23 05:40 BUN/Creatinine Ratio 28.3 RATIO (10-20) H 02/14/23 05:40 Glucose 95 mg/dL (74-106) 02/14/23 05:40 Microbiology: Microbiology 02/10/23 05:30 Nasal Secretion SARS-CoV-2 Antigen (Rapid) - Final 02/08/23 06:23 Nasal Secretion SARS-CoV-2 Antigen (Rapid) - Final Goal Trough: 15-20 mcg/mL Pharmacy Plan for Drug Dosing: Pharmacy Service will continue to monitor and adjust dosing as required. Medications Vancomycin HCl 1,750 mg/ (Sodium Chloride) 535 mls @ 250 mls/hr IV Q12H BRAD Discontinued Medications Vancomycin HCl 2,000 mg/ (Sodium Chloride) 540 mls @ 250 mls/hr IV X1 ONE Stop: 02/14/23 21:39 Last Admin: 02/15/23 00:49 Dose: 250 mls/hr Follow-Up Labs: Trough Vancomycin Labs to be done on [date and time ordered]: 02/16 @ 1649
[2023-02-15] MEDS: Famotidine 20 MG Tablet PO (05:21)
[2023-02-15] MEDS: Sertraline 50 MG Tablet PO (05:21)
[2023-02-15] MEDS: Acetaminophen 500 MG Tablet 1000 MG PO ×3 (05:21→22:40)
[2023-02-15] MEDS: Senna/Docusate Sodium 1 Tablet 2 TABLET PO (05:21)
[2023-02-15] MEDS: Multivitamin (Healthy Eyes) Capsule 1 CAP PO ×2 (05:22→18:18)
[2023-02-15] MEDS: Memantine Hydrochloride 10 MG Tablet PO ×2 (05:22→18:18)
[2023-02-15] MEDS: APIXABAN 5 MG TABLET PO ×2 (05:22→18:17)
[2023-02-15] MEDS: Bumetanide 2 MG Tablet 1 MG PO (05:22)
[2023-02-15] MEDS: Cyanocobalamin 500 MCG Tablet 1000 MCG PO (05:22)
[2023-02-15] MEDS: Cholecalciferol (VIT D3) 25 MCG TABLET (1,000 UNITS) PO (05:22)
[2023-02-15] MEDS: Menthol/Lanolin/Calamine/Znox 113 GM Tube 1 APPLIC TOPICAL ×2 (05:23→18:23)
[2023-02-15 05:24] VITALS: BP 114/60; PULSE 91
[2023-02-15] MEDS: Lisinopril 10 MG Tablet PO (05:24)
[2023-02-15] MEDS: Metoprolol(XL)Succ 25 MG Tablet PO (05:24)
[2023-02-15] MEDS: Multivitamins,Therapeutic Tablet 1 TABLET PO (08:03)
[2023-02-15] MEDS: Potassium Chloride Oral Tablet 20 MEQ PO ×2 (08:03→18:17)
--- NOTE | 2023-02-15 09:20 | NURSING ---
Speech Language Pathologist Note; MDS for 02/13/2023 Complete
[2023-02-15 10:00] VITALS: PULSE 79; O2SAT 95
[2023-02-15] MEDS: 0.9% Saline Lock 10 ML Syringe IV ×2 (11:05→13:07)
--- NOTE | 2023-02-15 12:54 | NURSING ---
Pt c/o of back itching this noted a rash on back. IV Ceftriaxone had just finished. Dr. Singleton updated N.O. to discontinue Ceftriaxone and N.O. for Hydrocortisone cream. Per Dr. Mani cortés to hang vancomycin. Order read back will updated pt.
[2023-02-15] MEDS: Hydrocortisone 2.5% Ointment 20 gm tube 1 APPLIC TOPICAL (13:12)
--- NOTE | 2023-02-15 15:19 | NURSING ---
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
[2023-02-15 16:00] VITALS: BP 110/56; PULSE 74; RESP 19; TEMP 36.6; O2SAT 97
[2023-02-15] MEDS: Gabapentin 400 MG Capsule PO (22:37)
[2023-02-16] MEDS: 0.9% Saline Lock 10 ML Syringe IV ×2 (01:50→17:35)
[2023-02-16 05:37] VITALS: BP 124/66; PULSE 80
[2023-02-16] MEDS: Lisinopril 10 MG Tablet PO (05:37)
[2023-02-16] MEDS: Famotidine 20 MG Tablet PO (05:37)
[2023-02-16] MEDS: Metoprolol(XL)Succ 25 MG Tablet PO (05:37)
[2023-02-16] MEDS: Senna/Docusate Sodium 1 Tablet 2 TABLET PO (05:38)
[2023-02-16] MEDS: Bumetanide 2 MG Tablet 1 MG PO (05:38)
[2023-02-16] MEDS: Acetaminophen 500 MG Tablet 1000 MG PO ×3 (05:38→22:14)
[2023-02-16] MEDS: Cholecalciferol (VIT D3) 25 MCG TABLET (1,000 UNITS) PO (05:38)
[2023-02-16] MEDS: Sertraline 50 MG Tablet PO (05:38)
[2023-02-16] MEDS: Multivitamin (Healthy Eyes) Capsule 1 CAP PO ×2 (05:38→17:15)
[2023-02-16] MEDS: APIXABAN 5 MG TABLET PO ×2 (05:39→17:15)
[2023-02-16] MEDS: Cyanocobalamin 500 MCG Tablet 1000 MCG PO (05:39)
[2023-02-16] MEDS: Memantine Hydrochloride 10 MG Tablet PO ×2 (05:39→17:15)
[2023-02-16] MEDS: Menthol/Lanolin/Calamine/Znox 113 GM Tube 1 APPLIC TOPICAL ×2 (05:47→17:16)
[2023-02-16] MEDS: Multivitamins,Therapeutic Tablet 1 TABLET PO (08:31)
[2023-02-16] MEDS: Potassium Chloride Oral Tablet 20 MEQ PO ×2 (08:31→17:15)
[2023-02-16 13:29] LABS: Vancomycin, Trough Level 27.2 ug/mL (5.0-15.0)
[2023-02-16 14:33] VITALS: BP 113/53; PULSE 83; RESP 16; TEMP 36.5; O2SAT 95
--- NOTE | 2023-02-16 16:08 | PCM.RX.CS ---
Consult Pharmacy has been consulted to manage selected antiobiotic: Vancomycin Type of Consult: Follow-up Labs: Sodium 141 mmol/L (136-145) 02/14/23 05:40 Potassium 4.0 mmol/L (3.5-5.1) 02/14/23 05:40 Chloride 112 mmol/L (98-107) H 02/14/23 05:40 Carbon Dioxide 26.0 mmol/L (21.0-32.0) 02/14/23 05:40 Anion Gap 3 (5-15) L 02/14/23 05:40 BUN 26 mg/dL (7-18) H 02/14/23 05:40 Creatinine 0.92 mg/dL (0.70-1.30) 02/14/23 05:40 Est GFR (MDRD) Af Amer 101 mL/min (>60) 02/14/23 05:40 Est GFR (MDRD) Non-Af 84 mL/min (>60) 02/14/23 05:40 BUN/Creatinine Ratio 28.3 RATIO (10-20) H 02/14/23 05:40 Glucose 95 mg/dL (74-106) 02/14/23 05:40 Vancomycin Trough 27.2 ug/mL (5.0-15.0) H 02/16/23 12:30 Microbiology: Microbiology 02/16/23 07:00 Nasal Secretion SARS-CoV-2 Antigen (Rapid) - Final 02/10/23 05:30 Nasal Secretion SARS-CoV-2 Antigen (Rapid) - Final 02/08/23 06:23 Nasal Secretion SARS-CoV-2 Antigen (Rapid) - Final Goal Trough: 15-20 mcg/mL Pharmacy Plan for Drug Dosing: VANCOMYCIN LEVEL RECEIVED Current Vancomycin Dose: 1750mg q12h () Number of Doses Received: x1 loading dose on 02/15/23, x2 1750mg doses Vancomycin Level: 27.2 (there was issues with the pump on the morning of 02/16/23. infusion didn't finish until ~0540) Hours Since Last Dose: 7.5 hours Renal Function: 0.92 Renal Function Trend: Lab/Micro: Vancomycin Plan/Comments: recommend holding the 1300 dose due to elevated trough. will check random level on 02/17/23 at 0030 Pending Level: random level 02/17/23 @ 0030 Pharmacy Service will continue to monitor and adjust dosing as required. Follow-Up Labs: Trough Vancomycin - random level 02/17/23 at 0030
--- NOTE | 2023-02-16 16:28 | CHAPLAIN ---
Type of Pastoral Visit ___ Initial Visit _x__ Follow-up Visit ___ On-call Visit ___ General Patient Visit ___ Spiritual Assessment ___ Family Conference ___ Bereavement ___ Rapid Response ___ Code Blue ___ Other (describe below) Pastoral Care Referral From _x__ Patient _x__ Family ___ Nurse ___ Physician ___ Geochemical Laboratory Technician ___ Cellar Supervisor ___ Other (describe below) Sacrament/Intervention _x__ Active listening ___ Anointing ___ Hindu ___ Bereavement ___ Communion _x__ Noelle exploration ___ _x__ Life review _x__ Prayer ___ Reconciliation ___ Sacrament of Sick ___ Supportive presence ___ Wedding ___ Other (describe below) Pastoral Comments
[2023-02-16 16:42] VITALS: BMI 29.1
--- NOTE | 2023-02-16 17:31 | NURSING ---
Dressing changed to upper back moderate amount of Serosanguinous and small amount of cottage cheese like drainage noted.
[2023-02-16] MEDS: Gabapentin 400 MG Capsule PO (22:11)
[2023-02-16 22:15] VITALS: PULSE 78; RESP 16; O2SAT 96
[2023-02-17 01:22] LABS: Vancomycin, Random Level 19.4 ug/mL (0.0-15.0)
--- NOTE | 2023-02-17 02:16 | PCM.RX.CS ---
Consult Pharmacy has been consulted to manage selected antiobiotic: Vancomycin Type of Consult: Follow-up Labs: Sodium 141 mmol/L (136-145) 02/14/23 05:40 Potassium 4.0 mmol/L (3.5-5.1) 02/14/23 05:40 Chloride 112 mmol/L (98-107) H 02/14/23 05:40 Carbon Dioxide 26.0 mmol/L (21.0-32.0) 02/14/23 05:40 Anion Gap 3 (5-15) L 02/14/23 05:40 BUN 26 mg/dL (7-18) H 02/14/23 05:40 Creatinine 0.92 mg/dL (0.70-1.30) 02/14/23 05:40 Est GFR (MDRD) Af Amer 101 mL/min (>60) 02/14/23 05:40 Est GFR (MDRD) Non-Af 84 mL/min (>60) 02/14/23 05:40 BUN/Creatinine Ratio 28.3 RATIO (10-20) H 02/14/23 05:40 Glucose 95 mg/dL (74-106) 02/14/23 05:40 Vancomycin Trough 27.2 ug/mL (5.0-15.0) H 02/16/23 12:30 Random Vancomycin 19.4 ug/mL (0.0-15.0) H 02/17/23 00:42 Microbiology: Microbiology 02/16/23 07:00 Nasal Secretion SARS-CoV-2 Antigen (Rapid) - Final 02/10/23 05:30 Nasal Secretion SARS-CoV-2 Antigen (Rapid) - Final 02/08/23 06:23 Nasal Secretion SARS-CoV-2 Antigen (Rapid) - Final Goal Trough: 15-20 mcg/mL Pharmacy Plan for Drug Dosing: Pharmacy Service will continue to monitor and adjust dosing as required. RANDOM LEVEL 19.4. DUE TO PREVIOUS IV LINE ISSUES, GIVE 1 DOSE NOW AND FOLLOW UP TROUGH PRIOR TO NEXT DOSE Follow-Up Labs: Trough Vancomycin Labs to be done on [date and time ordered]: 02/17 @ 1400
[2023-02-17] MEDS: Famotidine 20 MG Tablet PO (05:59)
[2023-02-17] MEDS: Multivitamin (Healthy Eyes) Capsule 1 CAP PO ×2 (05:59→17:53)
[2023-02-17] MEDS: Sertraline 50 MG Tablet PO (05:59)
[2023-02-17] MEDS: Acetaminophen 500 MG Tablet 1000 MG PO ×3 (05:59→22:01)
[2023-02-17] MEDS: APIXABAN 5 MG TABLET PO ×2 (05:59→17:53)
[2023-02-17] MEDS: Memantine Hydrochloride 10 MG Tablet PO ×2 (05:59→17:53)
[2023-02-17] MEDS: Senna/Docusate Sodium 1 Tablet 2 TABLET PO ×2 (05:59→17:54)
[2023-02-17] MEDS: Cyanocobalamin 500 MCG Tablet 1000 MCG PO (05:59)
[2023-02-17 06:00] VITALS: BP 121/63; PULSE 78
[2023-02-17] MEDS: Metoprolol(XL)Succ 25 MG Tablet PO (06:00)
[2023-02-17] MEDS: Cholecalciferol (VIT D3) 25 MCG TABLET (1,000 UNITS) PO (06:00)
[2023-02-17] MEDS: Lisinopril 10 MG Tablet PO (06:00)
[2023-02-17] MEDS: Bumetanide 2 MG Tablet 1 MG PO (06:00)
[2023-02-17] MEDS: Menthol/Lanolin/Calamine/Znox 113 GM Tube 1 APPLIC TOPICAL ×2 (06:13→18:02)
[2023-02-17] MEDS: Potassium Chloride Oral Tablet 20 MEQ PO ×2 (08:03→17:52)
[2023-02-17] MEDS: Multivitamins,Therapeutic Tablet 1 TABLET PO (08:03)
--- NOTE | 2023-02-17 09:45 | MDS.RN ---
Information for the mds was obtained from review of the clinical record, interview of resident, staff, and direct observation of resident's care.
[2023-02-17 14:19] VITALS: BP 121/59; PULSE 64; RESP 16; TEMP 36.6; O2SAT 95
[2023-02-17 14:33] LABS: Vancomycin, Trough Level 25.2 ug/mL (5.0-15.0)
--- NOTE | 2023-02-17 15:13 | PCM.RX.CS ---
Consult Pharmacy has been consulted to manage selected antiobiotic: Vancomycin Type of Consult: Follow-up Prior Doses of Antibiotics Received/Current Regimen: received vanc 1750mg IV x1 at 02:20 today Labs: Sodium 141 mmol/L (136-145) 02/14/23 05:40 Potassium 4.0 mmol/L (3.5-5.1) 02/14/23 05:40 Chloride 112 mmol/L (98-107) H 02/14/23 05:40 Carbon Dioxide 26.0 mmol/L (21.0-32.0) 02/14/23 05:40 Anion Gap 3 (5-15) L 02/14/23 05:40 BUN 26 mg/dL (7-18) H 02/14/23 05:40 Creatinine 0.92 mg/dL (0.70-1.30) 02/14/23 05:40 Est GFR (MDRD) Af Amer 101 mL/min (>60) 02/14/23 05:40 Est GFR (MDRD) Non-Af 84 mL/min (>60) 02/14/23 05:40 BUN/Creatinine Ratio 28.3 RATIO (10-20) H 02/14/23 05:40 Glucose 95 mg/dL (74-106) 02/14/23 05:40 Vancomycin Trough 25.2 ug/mL (5.0-15.0) H 02/17/23 13:45 Random Vancomycin 19.4 ug/mL (0.0-15.0) H 02/17/23 00:42 Microbiology: Microbiology 02/16/23 07:00 Nasal Secretion SARS-CoV-2 Antigen (Rapid) - Final 02/10/23 05:30 Nasal Secretion SARS-CoV-2 Antigen (Rapid) - Final 02/08/23 06:23 Nasal Secretion SARS-CoV-2 Antigen (Rapid) - Final Weight used for dosin kg Estimated Creatinine Clearance: 79ml/min Goal Trough: 15-20 mcg/mL Pharmacy Plan for Drug Dosing: The vanc random level drawn at 13:45 was 25.2. This is well above 20 so will not re-dose at this time. Will order another random level tomorrow morning and if <20 will be able to restart at newly calculated dose. Also will order a SCr in the morning since one has not been obtained since 02/14/23. Pharmacy Service will continue to monitor and adjust dosing as required. Follow-Up Labs: Trough Vancomycin - random Labs to be done on [date and time ordered]: 02/18/23 0600
--- NOTE | 2023-02-17 15:42 | WOUNDNOTE ---
wound photo: upper back
[2023-02-17] MEDS: 0.9% Saline Lock 10 ML Syringe IV ×2 (17:54→22:10)
[2023-02-17] MEDS: Gabapentin 400 MG Capsule PO (22:00)
[2023-02-18] MEDS: Cholecalciferol (VIT D3) 25 MCG TABLET (1,000 UNITS) PO (05:29)
[2023-02-18] MEDS: Memantine Hydrochloride 10 MG Tablet PO ×2 (05:29→17:48)
[2023-02-18] MEDS: Famotidine 20 MG Tablet PO (05:29)
[2023-02-18] MEDS: Bumetanide 2 MG Tablet 1 MG PO (05:29)
[2023-02-18] MEDS: Menthol/Lanolin/Calamine/Znox 113 GM Tube 1 APPLIC TOPICAL ×2 (05:29→17:48)
[2023-02-18] MEDS: APIXABAN 5 MG TABLET PO ×2 (05:29→17:48)
[2023-02-18] MEDS: Lisinopril 10 MG Tablet PO (05:29)
[2023-02-18 05:30] VITALS: BP 119/59; PULSE 77
[2023-02-18] MEDS: Multivitamin (Healthy Eyes) Capsule 1 CAP PO ×2 (05:30→17:48)
[2023-02-18] MEDS: Metoprolol(XL)Succ 25 MG Tablet PO (05:30)
[2023-02-18] MEDS: Acetaminophen 500 MG Tablet 1000 MG PO ×3 (05:30→21:46)
[2023-02-18] MEDS: Cyanocobalamin 500 MCG Tablet 1000 MCG PO (05:30)
[2023-02-18] MEDS: Sertraline 50 MG Tablet PO (05:30)
[2023-02-18] MEDS: Senna/Docusate Sodium 1 Tablet 2 TABLET PO ×2 (05:31→17:48)
[2023-02-18 06:37] LABS: Anion Gap 4 (5-15); BUN 28 mg/dL (7-18); BUN/Creat Ratio 29.5 RATIO (10-20); Calcium,Total 8.6 mg/dL (8.5-10.1); Chloride 110 mmol/L (98-107); Creatinine, Serum 0.95 mg/dL (0.70-1.30); EST Glomerular Filtration Rate 81 mL/min (>60); Est Glom Filt Rate - Afr Amer 98 mL/min (>60); Glucose 97 mg/dL (74-106); Sodium Level 142 mmol/L (136-145)
[2023-02-18 06:40] LABS: Vancomycin, Random Level 17.1 ug/mL (0.0-15.0)
[2023-02-18] MEDS: Potassium Chloride Oral Tablet 20 MEQ PO ×2 (07:54→17:48)
[2023-02-18] MEDS: Multivitamins,Therapeutic Tablet 1 TABLET PO (07:54)
--- NOTE | 2023-02-18 07:54 | PCM.RX.CS ---
Consult Pharmacy has been consulted to manage selected antiobiotic: Vancomycin Type of Consult: Follow-up Prior Doses of Antibiotics Received/Current Regimen: Last dose 1750mg iv x 1 on 02.17.23 @0220. Labs: Sodium 142 mmol/L (136-145) 02/18/23 05:33 Potassium 4.0 mmol/L (3.5-5.1) 02/18/23 05:33 Chloride 110 mmol/L (98-107) H 02/18/23 05:33 Carbon Dioxide 28.0 mmol/L (21.0-32.0) 02/18/23 05:33 Anion Gap 4 (5-15) L 02/18/23 05:33 BUN 28 mg/dL (7-18) H 02/18/23 05:33 Creatinine 0.95 mg/dL (0.70-1.30) 02/18/23 05:33 Est GFR (MDRD) Af Amer 98 mL/min (>60) 02/18/23 05:33 Est GFR (MDRD) Non-Af 81 mL/min (>60) 02/18/23 05:33 BUN/Creatinine Ratio 29.5 RATIO (10-20) H 02/18/23 05:33 Glucose 97 mg/dL (74-106) 02/18/23 05:33 Vancomycin Trough 25.2 ug/mL (5.0-15.0) H 02/17/23 13:45 Random Vancomycin 17.1 ug/mL (0.0-15.0) H 02/18/23 05:33 Microbiology: Microbiology 02/16/23 07:00 Nasal Secretion SARS-CoV-2 Antigen (Rapid) - Final 02/10/23 05:30 Nasal Secretion SARS-CoV-2 Antigen (Rapid) - Final 02/08/23 06:23 Nasal Secretion SARS-CoV-2 Antigen (Rapid) - Final Weight used for dosin kg Estimated Creatinine Clearance: 77 ml/min Goal Trough: 15-20 mcg/mL Pharmacy Plan for Drug Dosing: Random level this AM was 17.1 and in goal range of 15-20mcg/ml. A CrCl of ~77ml/min was calculated using an adjusted body weight of 90.5kg. Will start a scheduled dose of 1250mg iv q12h this AM. Trough level ordered for before 4th dose on 02.19.23. Pharmacy Service will continue to monitor and adjust dosing as required. Follow-Up Labs: Trough Vancomycin - 02.19.23 @2130 before 2200 dose
[2023-02-18 09:23] VITALS: PULSE 73; RESP 16; O2SAT 94
[2023-02-18] MEDS: 0.9% Saline Lock 10 ML Syringe IV ×2 (10:23→22:39)
[2023-02-18 14:17] VITALS: BP 124/53; PULSE 70; RESP 16; TEMP 36.4; O2SAT 99
[2023-02-18] MEDS: Gabapentin 400 MG Capsule PO (21:46)
[2023-02-19 05:13] VITALS: BP 102/53; PULSE 75
[2023-02-19] MEDS: Sertraline 50 MG Tablet PO (05:13)
[2023-02-19] MEDS: APIXABAN 5 MG TABLET PO ×2 (05:13→18:37)
[2023-02-19] MEDS: Acetaminophen 500 MG Tablet 1000 MG PO ×3 (05:13→20:46)
[2023-02-19] MEDS: Cyanocobalamin 500 MCG Tablet 1000 MCG PO (05:13)
[2023-02-19] MEDS: Cholecalciferol (VIT D3) 25 MCG TABLET (1,000 UNITS) PO (05:13)
[2023-02-19] MEDS: Senna/Docusate Sodium 1 Tablet 2 TABLET PO ×2 (05:13→18:38)
[2023-02-19] MEDS: Memantine Hydrochloride 10 MG Tablet PO ×2 (05:13→18:38)
[2023-02-19] MEDS: Lisinopril 10 MG Tablet PO (05:13)
[2023-02-19] MEDS: Metoprolol(XL)Succ 25 MG Tablet PO (05:13)
[2023-02-19] MEDS: Multivitamin (Healthy Eyes) Capsule 1 CAP PO ×2 (05:13→18:37)
[2023-02-19] MEDS: Bumetanide 2 MG Tablet 1 MG PO (05:14)
[2023-02-19] MEDS: Famotidine 20 MG Tablet PO (05:15)
[2023-02-19] MEDS: Menthol/Lanolin/Calamine/Znox 113 GM Tube 1 APPLIC TOPICAL ×2 (05:15→18:39)
[2023-02-19] MEDS: Multivitamins,Therapeutic Tablet 1 TABLET PO (08:18)
[2023-02-19] MEDS: Potassium Chloride Oral Tablet 20 MEQ PO ×2 (08:18→18:37)
[2023-02-19] MEDS: 0.9% Saline Lock 10 ML Syringe IV ×2 (11:35→20:49)
--- NOTE | 2023-02-19 12:15 | NURSING ---
Patient returned from Dr. Pierre appt w/ no new orders. Sterling removed, incision NAVAL INSPECTOR w/ steri strips, xrays stable. Patient to followup with Dr. Pierre again in 2 weeks.
[2023-02-19 14:59] VITALS: BP 118/68; PULSE 69; RESP 18; TEMP 36.1; O2SAT 97
[2023-02-19] MEDS: Gabapentin 400 MG Capsule PO (20:46)
--- NOTE | 2023-02-19 20:58 | NURSING ---
Patient noted to have removed wet depend and threw it on the floor. This nurse asked if she would like another one put on and she refused, informed ACCOUNTING MANAGER ASSISTANT CONTROLLER's. Will continue to monitor.
--- NOTE | 2023-02-19 21:11 | NURSING ---
Vancomycin inadvertantly started prior to trough draw. Contacted pharmacist, Choco, who stated he would reschedule trough prior to next dose, which is in the morning.
[2023-02-20] MEDS: Multivitamin (Healthy Eyes) Capsule 1 CAP PO ×2 (06:41→17:26)
[2023-02-20] MEDS: Senna/Docusate Sodium 1 Tablet 2 TABLET PO ×2 (06:41→17:26)
[2023-02-20] MEDS: Cholecalciferol (VIT D3) 25 MCG TABLET (1,000 UNITS) PO (06:41)
[2023-02-20] MEDS: Bumetanide 2 MG Tablet 1 MG PO (06:41)
[2023-02-20 06:42] VITALS: BP 120/58; PULSE 78
[2023-02-20] MEDS: Famotidine 20 MG Tablet PO (06:42)
[2023-02-20] MEDS: Metoprolol(XL)Succ 25 MG Tablet PO (06:42)
[2023-02-20] MEDS: APIXABAN 5 MG TABLET PO ×2 (06:42→17:26)
[2023-02-20] MEDS: Memantine Hydrochloride 10 MG Tablet PO ×2 (06:42→17:26)
[2023-02-20] MEDS: Lisinopril 10 MG Tablet PO (06:42)
[2023-02-20] MEDS: Cyanocobalamin 500 MCG Tablet 1000 MCG PO (06:42)
[2023-02-20] MEDS: Menthol/Lanolin/Calamine/Znox 113 GM Tube 1 APPLIC TOPICAL ×2 (06:43→17:27)
[2023-02-20] MEDS: Sertraline 50 MG Tablet PO (06:43)
[2023-02-20] MEDS: Acetaminophen 500 MG Tablet 1000 MG PO ×3 (07:55→21:51)
[2023-02-20] MEDS: Multivitamins,Therapeutic Tablet 1 TABLET PO (07:55)
[2023-02-20] MEDS: Potassium Chloride Oral Tablet 20 MEQ PO ×2 (07:56→17:28)
[2023-02-20 10:44] LABS: Vancomycin, Trough Level 27.1 ug/mL (5.0-15.0)
--- NOTE | 2023-02-20 10:49 | NURSING ---
Notified [facility] of 27.1, spoke with pharmacist Received order to not administer vanco and return bag to pharmacy.
--- NOTE | 2023-02-20 10:56 | PCM.RX.CS ---
Consult Pharmacy has been consulted to manage selected antiobiotic: Vancomycin Type of Consult: Follow-up Prior Doses of Antibiotics Received/Current Regimen: Medications Vancomycin HCl 1,250 mg/ (Sodium Chloride) 275 mls @ 167 mls/hr IV Q12H BRAD Last Admin: 02/19/23 20:52 Dose: 167 mls/hr Labs: Sodium 142 mmol/L (136-145) 02/18/23 05:33 Potassium 4.0 mmol/L (3.5-5.1) 02/18/23 05:33 Chloride 110 mmol/L (98-107) H 02/18/23 05:33 Carbon Dioxide 28.0 mmol/L (21.0-32.0) 02/18/23 05:33 Anion Gap 4 (5-15) L 02/18/23 05:33 BUN 28 mg/dL (7-18) H 02/18/23 05:33 Creatinine 0.95 mg/dL (0.70-1.30) 02/18/23 05:33 Est GFR (MDRD) Af Amer 98 mL/min (>60) 02/18/23 05:33 Est GFR (MDRD) Non-Af 81 mL/min (>60) 02/18/23 05:33 BUN/Creatinine Ratio 29.5 RATIO (10-20) H 02/18/23 05:33 Glucose 97 mg/dL (74-106) 02/18/23 05:33 Vancomycin Trough 27.1 ug/mL (5.0-15.0) H 02/20/23 09:20 Random Vancomycin 17.1 ug/mL (0.0-15.0) H 02/18/23 05:33 Microbiology: Microbiology 02/16/23 07:00 Nasal Secretion SARS-CoV-2 Antigen (Rapid) - Final 02/10/23 05:30 Nasal Secretion SARS-CoV-2 Antigen (Rapid) - Final 02/08/23 06:23 Nasal Secretion SARS-CoV-2 Antigen (Rapid) - Final Weight used for dosin kg Goal Trough: 15-20 mcg/mL Pharmacy Plan for Drug Dosin.5hr trough level above goal range. Next dose not hung. Hold and check random level in the morning. Pharmacy Service will continue to monitor and adjust dosing as required. Follow-Up Labs: Trough Vancomycin - 4/2 @ 0600
[2023-02-20] MEDS: 0.9% Saline Lock 10 ML Syringe IV (13:09)
[2023-02-20 15:10] VITALS: BP 112/54; PULSE 64; RESP 14; TEMP 36.7; O2SAT 97
[2023-02-20] MEDS: Gabapentin 400 MG Capsule PO (21:51)
[2023-02-20 22:06] VITALS: PULSE 71; RESP 16; O2SAT 97
[2023-02-21] MEDS: Acetaminophen 500 MG Tablet 1000 MG PO ×3 (06:12→22:00)
[2023-02-21 06:13] VITALS: BP 129/65; PULSE 78
[2023-02-21] MEDS: Senna/Docusate Sodium 1 Tablet 2 TABLET PO ×2 (06:13→17:30)
[2023-02-21] MEDS: Metoprolol(XL)Succ 25 MG Tablet PO (06:13)
[2023-02-21] MEDS: Famotidine 20 MG Tablet PO (06:14)
[2023-02-21] MEDS: Multivitamin (Healthy Eyes) Capsule 1 CAP PO ×2 (06:16→17:30)
[2023-02-21] MEDS: Memantine Hydrochloride 10 MG Tablet PO ×2 (06:16→17:30)
[2023-02-21] MEDS: Bumetanide 2 MG Tablet 1 MG PO (06:16)
[2023-02-21] MEDS: Lisinopril 10 MG Tablet PO (06:17)
[2023-02-21] MEDS: APIXABAN 5 MG TABLET PO ×2 (06:17→17:30)
[2023-02-21] MEDS: Cholecalciferol (VIT D3) 25 MCG TABLET (1,000 UNITS) PO (06:18)
[2023-02-21] MEDS: Sertraline 50 MG Tablet PO (06:18)
[2023-02-21] MEDS: Cyanocobalamin 500 MCG Tablet 1000 MCG PO (06:18)
[2023-02-21] MEDS: Menthol/Lanolin/Calamine/Znox 113 GM Tube 1 APPLIC TOPICAL ×2 (06:21→17:33)
[2023-02-21 06:24] LABS: Absolute Lymphocyte Count 1.12 X10^3/uL (0.83-4.51); Absolute Neutrophil Count 5.2 X10^3/uL (2.0-7.7); Basophil# 0.06 X10^3/uL; Basophil% 0.8 % (0-1); Eosinophils% 2.8 % (0-5); Hematocrit 31.4 % (40-54); Hemoglobin 9.8 g/dL (13.0-16.5); Lymphocyte # 1.12 X10^3/ul (0.83-4.51); Lymphocyte % 15.7 % (19-41); Mean Corp Hgb Conc 31.2 g/dL (32-36); Mean Corpuscular Hgb 28.9 pg (27.0-32.0); Mean Corpuscular Volume 92.6 fL (80-94); Mean Platelet Vol. 9.7 fl (6.2-12.0); Monocyte# 0.49 X10^3/uL; Monocyte% 6.9 % (0-10); NRBC Flagged by Analyzer 0 % (0-5); Neutrophil # 5.24 X10^3/uL (2.7-7.7); Neutrophil % 73.5 % (47-70); Platelet Count 279 K/mm3 (150-450); RBC Distribution Width CV 14.9 % (11.6-14.6); RBC Distribution Width SD 50.8 fl (35.1-43.9); Red Blood Count 3.39 M/mm3 (4.6-6.2); White Blood Count 7.1 K/mm3 (4.4-11.0)
[2023-02-21 06:50] LABS: Anion Gap 3 (5-15); BUN 27 mg/dL (7-18); BUN/Creat Ratio 30.2 RATIO (10-20); Calcium,Total 8.9 mg/dL (8.5-10.1); Chloride 111 mmol/L (98-107); Creatinine, Serum 0.89 mg/dL (0.70-1.30); EST Glomerular Filtration Rate 87 mL/min (>60); Est Glom Filt Rate - Afr Amer 105 mL/min (>60); Glucose 93 mg/dL (74-106); Potassium 3.9 mmol/L (3.5-5.1); Sodium Level 141 mmol/L (136-145); Vancomycin, Random Level 17.6 ug/mL (0.0-15.0)
--- NOTE | 2023-02-21 07:21 | PCM.RX.CS ---
Consult Pharmacy has been consulted to manage selected antiobiotic: Vancomycin Type of Consult: Follow-up Labs: Sodium 141 mmol/L (136-145) 02/21/23 06:10 Potassium 3.9 mmol/L (3.5-5.1) 02/21/23 06:10 Chloride 111 mmol/L (98-107) H 02/21/23 06:10 Carbon Dioxide 27.0 mmol/L (21.0-32.0) 02/21/23 06:10 Anion Gap 3 (5-15) L 02/21/23 06:10 BUN 27 mg/dL (7-18) H 02/21/23 06:10 Creatinine 0.89 mg/dL (0.70-1.30) 02/21/23 06:10 Est GFR (MDRD) Af Amer 105 mL/min (>60) 02/21/23 06:10 Est GFR (MDRD) Non-Af 87 mL/min (>60) 02/21/23 06:10 BUN/Creatinine Ratio 30.2 RATIO (10-20) H 02/21/23 06:10 Glucose 93 mg/dL (74-106) 02/21/23 06:10 Vancomycin Trough 27.1 ug/mL (5.0-15.0) H 02/20/23 09:20 Random Vancomycin 17.6 ug/mL (0.0-15.0) H 02/21/23 06:10 Microbiology: Microbiology 02/16/23 07:00 Nasal Secretion SARS-CoV-2 Antigen (Rapid) - Final 02/10/23 05:30 Nasal Secretion SARS-CoV-2 Antigen (Rapid) - Final 02/08/23 06:23 Nasal Secretion SARS-CoV-2 Antigen (Rapid) - Final Pharmacy Plan for Drug Dosing: VANCOMYCIN LEVEL RECEIVED Current Vancomycin Dose: HOLD Number of Doses Received: 8 Vancomycin Level: 17.6 MG/DL Hours Since Last Dose: 33.5 Renal Function: SCR 0.89 MG/DL, CRCL 74.4 ML/MIN Renal Function Trend: STABLE Vancomycin Plan/Comments: RANDOM LEVEL IS NOW THERAPEUTIC, WILL START SCHEDULED DOSING AT 750MG Q12 (TODAY AT 1000) AND GET A LEVEL PRIOR TO 4TH DOSE. Pending Level: 02/22/23 @ 2130 Pharmacy Service will continue to monitor and adjust dosing as required.
[2023-02-21] MEDS: Multivitamins,Therapeutic Tablet 1 TABLET PO (08:03)
[2023-02-21] MEDS: Potassium Chloride Oral Tablet 20 MEQ PO ×2 (08:03→17:30)
[2023-02-21 14:54] VITALS: BP 145/64; PULSE 73; RESP 14; TEMP 36; O2SAT 96
[2023-02-21] MEDS: Gabapentin 400 MG Capsule PO (22:01)
[2023-02-21] MEDS: 0.9% Saline Lock 10 ML Syringe IV (22:14)
[2023-02-22 05:04] VITALS: BP 113/53; PULSE 77
[2023-02-22] MEDS: Metoprolol(XL)Succ 25 MG Tablet PO (05:04)
[2023-02-22] MEDS: Memantine Hydrochloride 10 MG Tablet PO ×2 (05:06→16:51)
[2023-02-22] MEDS: Acetaminophen 500 MG Tablet 1000 MG PO ×3 (05:07→20:41)
[2023-02-22] MEDS: Cholecalciferol (VIT D3) 25 MCG TABLET (1,000 UNITS) PO (05:07)
[2023-02-22] MEDS: Bumetanide 2 MG Tablet 1 MG PO (05:07)
[2023-02-22] MEDS: Lisinopril 10 MG Tablet PO (05:08)
[2023-02-22] MEDS: Cyanocobalamin 500 MCG Tablet 1000 MCG PO (05:08)
[2023-02-22] MEDS: Famotidine 20 MG Tablet PO (05:08)
[2023-02-22] MEDS: Senna/Docusate Sodium 1 Tablet 2 TABLET PO ×2 (05:08→16:51)
[2023-02-22] MEDS: Multivitamin (Healthy Eyes) Capsule 1 CAP PO ×2 (05:08→16:51)
[2023-02-22] MEDS: APIXABAN 5 MG TABLET PO ×2 (05:08→16:50)
[2023-02-22] MEDS: Sertraline 50 MG Tablet PO (05:08)
[2023-02-22] MEDS: Menthol/Lanolin/Calamine/Znox 113 GM Tube 1 APPLIC TOPICAL ×2 (05:09→17:20)
[2023-02-22] MEDS: Potassium Chloride Oral Tablet 20 MEQ PO ×2 (08:18→16:50)
[2023-02-22] MEDS: Multivitamins,Therapeutic Tablet 1 TABLET PO (08:18)
[2023-02-22] MEDS: 0.9% Saline Lock 10 ML Syringe IV ×2 (08:22→09:57)
[2023-02-22] MEDS: Hydrocortisone 2.5% Ointment 20 gm tube 1 APPLIC TOPICAL (13:27)
[2023-02-22 14:34] VITALS: BP 125/61; PULSE 77; RESP 18; TEMP 36.6; O2SAT 95
[2023-02-22 20:00] VITALS: PULSE 78; RESP 16; O2SAT 98
[2023-02-22] MEDS: Gabapentin 400 MG Capsule PO (20:41)
[2023-02-22 23:07] LABS: Vancomycin, Trough Level 19.4 ug/mL (5.0-15.0)
--- NOTE | 2023-02-23 00:20 | PCM.RX.CS ---
Consult Pharmacy has been consulted to manage selected antiobiotic: Vancomycin Type of Consult: Follow-up Prior Doses of Antibiotics Received/Current Regimen: Medications Vancomycin HCl 750 mg/ Sodium (Chloride) 265 mls @ 250 mls/hr IV Q12H BRAD Last Admin: 02/23/23 00:07 Dose: 250 mls/hr Labs: Sodium 141 mmol/L (136-145) 02/21/23 06:10 Potassium 3.9 mmol/L (3.5-5.1) 02/21/23 06:10 Chloride 111 mmol/L (98-107) H 02/21/23 06:10 Carbon Dioxide 27.0 mmol/L (21.0-32.0) 02/21/23 06:10 Anion Gap 3 (5-15) L 02/21/23 06:10 BUN 27 mg/dL (7-18) H 02/21/23 06:10 Creatinine 0.89 mg/dL (0.70-1.30) 02/21/23 06:10 Est GFR (MDRD) Af Amer 105 mL/min (>60) 02/21/23 06:10 Est GFR (MDRD) Non-Af 87 mL/min (>60) 02/21/23 06:10 BUN/Creatinine Ratio 30.2 RATIO (10-20) H 02/21/23 06:10 Glucose 93 mg/dL (74-106) 02/21/23 06:10 Vancomycin Trough 19.4 ug/mL (5.0-15.0) H 02/22/23 21:38 Random Vancomycin 17.6 ug/mL (0.0-15.0) H 02/21/23 06:10 Microbiology: Microbiology 02/16/23 07:00 Nasal Secretion SARS-CoV-2 Antigen (Rapid) - Final 02/10/23 05:30 Nasal Secretion SARS-CoV-2 Antigen (Rapid) - Final 02/08/23 06:23 Nasal Secretion SARS-CoV-2 Antigen (Rapid) - Final Weight used for dosin kg Estimated Creatinine Clearance: 74.4 Goal Trough: 15-20 mcg/mL Pharmacy Plan for Drug Dosing: Vancomycin trough level of 19.4 was within the target range of 15-20. Will continue dosing at 750mg q12h, and re-draw a trough level in two days. Pharmacy Service will continue to monitor and adjust dosing as required. Follow-Up Labs: Trough Vancomycin Labs to be done on [date and time ordered]: 02/24/23 @3999
--- NOTE | 2023-02-23 00:52 | NURSING ---
Patient had vancomycin trough drawn prior to HS dose. Results were 19.4. Spoke with Choco in pharmacy and given ok to run prescribed dose at same rate. Will continue to monitor.
[2023-02-23] MEDS: Memantine Hydrochloride 10 MG Tablet PO ×2 (04:39→17:17)
[2023-02-23] MEDS: Cholecalciferol (VIT D3) 25 MCG TABLET (1,000 UNITS) PO (04:39)
[2023-02-23] MEDS: Sertraline 50 MG Tablet PO (04:39)
[2023-02-23] MEDS: APIXABAN 5 MG TABLET PO ×2 (04:40→17:17)
[2023-02-23] MEDS: Lisinopril 10 MG Tablet PO (04:40)
[2023-02-23] MEDS: Bumetanide 2 MG Tablet 1 MG PO (04:40)
[2023-02-23] MEDS: Multivitamin (Healthy Eyes) Capsule 1 CAP PO ×2 (04:40→17:17)
[2023-02-23] MEDS: Famotidine 20 MG Tablet PO (04:40)
[2023-02-23] MEDS: Cyanocobalamin 500 MCG Tablet 1000 MCG PO (04:40)
[2023-02-23 04:41] VITALS: BP 129/66; PULSE 85
[2023-02-23] MEDS: Metoprolol(XL)Succ 25 MG Tablet PO (04:41)
[2023-02-23] MEDS: Acetaminophen 500 MG Tablet 1000 MG PO ×3 (04:41→20:24)
[2023-02-23] MEDS: Senna/Docusate Sodium 1 Tablet 2 TABLET PO ×2 (04:41→17:16)
[2023-02-23] MEDS: Menthol/Lanolin/Calamine/Znox 113 GM Tube 1 APPLIC TOPICAL ×2 (04:53→17:17)
[2023-02-23] MEDS: Potassium Chloride Oral Tablet 20 MEQ PO ×2 (07:49→17:17)
[2023-02-23] MEDS: Multivitamins,Therapeutic Tablet 1 TABLET PO (07:49)
[2023-02-23] MEDS: 0.9% Saline Lock 10 ML Syringe IV ×2 (09:53→22:43)
[2023-02-23 10:00] VITALS: PULSE 83; RESP 16; O2SAT 98
[2023-02-23 10:43] VITALS: BMI 28.7
[2023-02-23 13:42] VITALS: BP 130/63; PULSE 80; RESP 16; TEMP 36.7; O2SAT 98
--- NOTE | 2023-02-23 15:46 | CHAPLAIN ---
Type of Pastoral Visit ___ Initial Visit _x__ Follow-up Visit ___ On-call Visit ___ General Patient Visit ___ Spiritual Assessment ___ Family Conference ___ Bereavement ___ Rapid Response ___ Code Blue ___ Other (describe below) Pastoral Care Referral From _x__ Patient ___ Family ___ Nurse ___ Physician ___ Chess Instructor ___ Rehabilitation Services Coordinator ___ Other (describe below) Sacrament/Intervention ___ Active listening ___ Anointing ___ Catholic ___ Bereavement ___ Communion ___ Noelle exploration ___ ___ Life review ___ Prayer ___ Reconciliation ___ Sacrament of Sick ___ Supportive presence ___ Wedding ___ Other (describe below) Pastoral Comments patient and spouse were watching TV; casual visit for follow up; no new needs
[2023-02-23] MEDS: Gabapentin 400 MG Capsule PO (20:24)
[2023-02-24] MEDS: 0.9% Saline Lock 10 ML Syringe IV ×2 (05:53→11:19)
[2023-02-24] MEDS: Acetaminophen 500 MG Tablet 1000 MG PO ×3 (05:55→21:15)
[2023-02-24 05:56] VITALS: BP 118/67; PULSE 81
[2023-02-24] MEDS: Senna/Docusate Sodium 1 Tablet 2 TABLET PO ×2 (05:56→17:37)
[2023-02-24] MEDS: Metoprolol(XL)Succ 25 MG Tablet PO (05:56)
[2023-02-24] MEDS: APIXABAN 5 MG TABLET PO ×2 (05:56→17:36)
[2023-02-24] MEDS: Cyanocobalamin 500 MCG Tablet 1000 MCG PO (05:56)
[2023-02-24] MEDS: Bumetanide 2 MG Tablet 1 MG PO (05:56)
[2023-02-24] MEDS: Famotidine 20 MG Tablet PO (05:56)
[2023-02-24] MEDS: Memantine Hydrochloride 10 MG Tablet PO ×2 (05:56→17:37)
[2023-02-24] MEDS: Multivitamin (Healthy Eyes) Capsule 1 CAP PO ×2 (05:56→17:37)
[2023-02-24] MEDS: Sertraline 50 MG Tablet PO (05:57)
[2023-02-24] MEDS: Menthol/Lanolin/Calamine/Znox 113 GM Tube 1 APPLIC TOPICAL ×2 (05:57→17:36)
[2023-02-24] MEDS: Cholecalciferol (VIT D3) 25 MCG TABLET (1,000 UNITS) PO (05:57)
[2023-02-24] MEDS: Lisinopril 10 MG Tablet PO (05:57)
[2023-02-24] MEDS: Potassium Chloride Oral Tablet 20 MEQ PO ×2 (08:11→17:36)
[2023-02-24] MEDS: Multivitamins,Therapeutic Tablet 1 TABLET PO (08:11)
[2023-02-24 13:46] VITALS: BP 131/56; PULSE 85; RESP 18; TEMP 36.5; O2SAT 97
[2023-02-24 19:30] VITALS: O2SAT 97
[2023-02-24] MEDS: Gabapentin 400 MG Capsule PO (21:16)
[2023-02-24 21:50] LABS: Vancomycin, Trough Level 20.2 ug/mL (5.0-15.0)
--- NOTE | 2023-02-24 22:25 | PCM.RX.CS ---
Consult Pharmacy has been consulted to manage selected antiobiotic: Vancomycin Type of Consult: Follow-up Labs: Sodium 141 mmol/L (136-145) 02/21/23 06:10 Potassium 3.9 mmol/L (3.5-5.1) 02/21/23 06:10 Chloride 111 mmol/L (98-107) H 02/21/23 06:10 Carbon Dioxide 27.0 mmol/L (21.0-32.0) 02/21/23 06:10 Anion Gap 3 (5-15) L 02/21/23 06:10 BUN 27 mg/dL (7-18) H 02/21/23 06:10 Creatinine 0.89 mg/dL (0.70-1.30) 02/21/23 06:10 Est GFR (MDRD) Af Amer 105 mL/min (>60) 02/21/23 06:10 Est GFR (MDRD) Non-Af 87 mL/min (>60) 02/21/23 06:10 BUN/Creatinine Ratio 30.2 RATIO (10-20) H 02/21/23 06:10 Glucose 93 mg/dL (74-106) 02/21/23 06:10 Vancomycin Trough 20.2 ug/mL (5.0-15.0) H 02/24/23 21:06 Random Vancomycin 17.6 ug/mL (0.0-15.0) H 02/21/23 06:10 Microbiology: Microbiology 02/23/23 06:37 Nasal Secretion SARS-CoV-2 Antigen (Rapid) - Final 02/16/23 07:00 Nasal Secretion SARS-CoV-2 Antigen (Rapid) - Final 02/10/23 05:30 Nasal Secretion SARS-CoV-2 Antigen (Rapid) - Final 02/08/23 06:23 Nasal Secretion SARS-CoV-2 Antigen (Rapid) - Final Goal Trough: 15-20 mcg/mL Pharmacy Plan for Drug Dosing: Pharmacy Service will continue to monitor and adjust dosing as required. TROUGH 20.2 @ 11.5 HRS. DECREASE TO 500MG Q12H ANF FOLLOW UP TROUGH PRIOR TO 4TH DOSE Follow-Up Labs: Trough Vancomycin Labs to be done on [date and time ordered]: 02/26 @ 0930
[2023-02-24] MEDS: Vancomycin IV 500 MG/100 ML BAG 100 MG IV (22:29)
[2023-02-25 05:00] VITALS: BP 119/55; PULSE 78
[2023-02-25] MEDS: Senna/Docusate Sodium 1 Tablet 2 TABLET PO ×2 (05:00→17:45)
[2023-02-25] MEDS: Metoprolol(XL)Succ 25 MG Tablet PO (05:00)
[2023-02-25] MEDS: Cyanocobalamin 500 MCG Tablet 1000 MCG PO (05:00)
[2023-02-25] MEDS: Memantine Hydrochloride 10 MG Tablet PO ×2 (05:00→17:45)
[2023-02-25] MEDS: Bumetanide 2 MG Tablet 1 MG PO (05:00)
[2023-02-25] MEDS: APIXABAN 5 MG TABLET PO ×2 (05:00→17:45)
[2023-02-25] MEDS: Cholecalciferol (VIT D3) 25 MCG TABLET (1,000 UNITS) PO (05:00)
[2023-02-25] MEDS: Lisinopril 10 MG Tablet PO (05:00)
[2023-02-25] MEDS: Menthol/Lanolin/Calamine/Znox 113 GM Tube 1 APPLIC TOPICAL ×2 (05:00→17:49)
[2023-02-25] MEDS: Multivitamin (Healthy Eyes) Capsule 1 CAP PO ×2 (05:00→17:45)
[2023-02-25] MEDS: Famotidine 20 MG Tablet PO (05:00)
[2023-02-25] MEDS: Sertraline 50 MG Tablet PO (05:00)
[2023-02-25] MEDS: Potassium Chloride Oral Tablet 20 MEQ PO ×2 (07:47→17:45)
[2023-02-25] MEDS: Multivitamins,Therapeutic Tablet 1 TABLET PO (07:47)
[2023-02-25] MEDS: Vancomycin IV 500 MG/100 ML BAG 100 MG IV ×2 (09:55→22:16)
[2023-02-25 14:34] VITALS: BP 121/65; PULSE 71; RESP 16; TEMP 36.1; O2SAT 98
[2023-02-25] MEDS: Gabapentin 400 MG Capsule PO (22:11)
[2023-02-25] MEDS: 0.9% Saline Lock 10 ML Syringe IV (22:16)
[2023-02-26] MEDS: 0.9% Saline Lock 10 ML Syringe IV ×3 (00:52→22:39)
[2023-02-26] MEDS: Lisinopril 10 MG Tablet PO (06:53)
[2023-02-26] MEDS: Bumetanide 2 MG Tablet 1 MG PO (06:53)
[2023-02-26] MEDS: Memantine Hydrochloride 10 MG Tablet PO ×2 (06:53→17:33)
[2023-02-26] MEDS: Sertraline 50 MG Tablet PO (06:53)
[2023-02-26] MEDS: Multivitamin (Healthy Eyes) Capsule 1 CAP PO ×2 (06:53→17:32)
[2023-02-26] MEDS: Cholecalciferol (VIT D3) 25 MCG TABLET (1,000 UNITS) PO (06:53)
[2023-02-26 06:54] VITALS: BP 122/70; PULSE 78
[2023-02-26] MEDS: Metoprolol(XL)Succ 25 MG Tablet PO (06:54)
[2023-02-26] MEDS: APIXABAN 5 MG TABLET PO ×2 (06:54→17:32)
[2023-02-26] MEDS: Senna/Docusate Sodium 1 Tablet 2 TABLET PO ×2 (06:54→17:33)
[2023-02-26] MEDS: Menthol/Lanolin/Calamine/Znox 113 GM Tube 1 APPLIC TOPICAL ×2 (06:54→17:32)
[2023-02-26] MEDS: Famotidine 20 MG Tablet PO (06:54)
[2023-02-26] MEDS: Cyanocobalamin 500 MCG Tablet 1000 MCG PO (06:55)
[2023-02-26] MEDS: Potassium Chloride Oral Tablet 20 MEQ PO ×2 (09:39→17:31)
[2023-02-26] MEDS: Multivitamins,Therapeutic Tablet 1 TABLET PO (09:39)
[2023-02-26 09:52] VITALS: PULSE 81; RESP 16; O2SAT 98
[2023-02-26 10:04] LABS: Vancomycin, Trough Level 16.4 ug/mL (5.0-15.0)
[2023-02-26] MEDS: Vancomycin IV 500 MG/100 ML BAG 100 MG IV ×2 (10:34→22:38)
--- NOTE | 2023-02-26 11:15 | PCM.RX.CS ---
Consult Pharmacy has been consulted to manage selected antiobiotic: Vancomycin Type of Consult: Follow-up Labs: Sodium 141 mmol/L (136-145) 02/21/23 06:10 Potassium 3.9 mmol/L (3.5-5.1) 02/21/23 06:10 Chloride 111 mmol/L (98-107) H 02/21/23 06:10 Carbon Dioxide 27.0 mmol/L (21.0-32.0) 02/21/23 06:10 Anion Gap 3 (5-15) L 02/21/23 06:10 BUN 27 mg/dL (7-18) H 02/21/23 06:10 Creatinine 0.89 mg/dL (0.70-1.30) 02/21/23 06:10 Est GFR (MDRD) Af Amer 105 mL/min (>60) 02/21/23 06:10 Est GFR (MDRD) Non-Af 87 mL/min (>60) 02/21/23 06:10 BUN/Creatinine Ratio 30.2 RATIO (10-20) H 02/21/23 06:10 Glucose 93 mg/dL (74-106) 02/21/23 06:10 Vancomycin Trough 16.4 ug/mL (5.0-15.0) H 02/26/23 09:26 Random Vancomycin 17.6 ug/mL (0.0-15.0) H 02/21/23 06:10 Microbiology: Microbiology 02/23/23 06:37 Nasal Secretion SARS-CoV-2 Antigen (Rapid) - Final 02/16/23 07:00 Nasal Secretion SARS-CoV-2 Antigen (Rapid) - Final 02/10/23 05:30 Nasal Secretion SARS-CoV-2 Antigen (Rapid) - Final 02/08/23 06:23 Nasal Secretion SARS-CoV-2 Antigen (Rapid) - Final Goal Trough: 15-20 mcg/mL Pharmacy Plan for Drug Dosing: VANCOMYCIN LEVEL RECEIVED Current Vancomycin Dose: 500mg IV Q12hr Number of Doses Received: 3 (of new dose) Vancomycin Level: 16.4 Hours Since Last Dose: 11.25HR Renal Function: No new labs today Renal Function Trend: stable Lab/Micro: n/a Vancomycin Plan/Comments: Patient had a vancomycin level drawn which resulted in a value of 16.4 (goal 15-20). Patient is currently therapeutic and within range on current dose. Will plan on continuing current dose and recheck a trough in 2 days and assess dosing at that time. Pending Level: 02/28/23 @0930 Pharmacy Service will continue to monitor and adjust dosing as required.
[2023-02-26 15:55] VITALS: BP 136/67; PULSE 63; RESP 16; TEMP 36.4; O2SAT 98
[2023-02-26] MEDS: Gabapentin 400 MG Capsule PO (22:37)
[2023-02-27] MEDS: 0.9% Saline Lock 10 ML Syringe IV ×2 (00:49→10:38)
[2023-02-27] MEDS: Cyanocobalamin 500 MCG Tablet 1000 MCG PO (05:42)
[2023-02-27 05:43] VITALS: BP 119/70; PULSE 79
[2023-02-27] MEDS: Memantine Hydrochloride 10 MG Tablet PO ×2 (05:43→17:03)
[2023-02-27] MEDS: Multivitamin (Healthy Eyes) Capsule 1 CAP PO ×2 (05:43→17:02)
[2023-02-27] MEDS: Metoprolol(XL)Succ 25 MG Tablet PO (05:43)
[2023-02-27] MEDS: Bumetanide 2 MG Tablet 1 MG PO (05:43)
[2023-02-27] MEDS: APIXABAN 5 MG TABLET PO ×2 (05:43→17:02)
[2023-02-27] MEDS: Sertraline 50 MG Tablet PO (05:43)
[2023-02-27] MEDS: Famotidine 20 MG Tablet PO (05:43)
[2023-02-27] MEDS: Senna/Docusate Sodium 1 Tablet 2 TABLET PO (05:43)
[2023-02-27] MEDS: Lisinopril 10 MG Tablet PO (05:43)
[2023-02-27] MEDS: Cholecalciferol (VIT D3) 25 MCG TABLET (1,000 UNITS) PO (05:44)
[2023-02-27] MEDS: Menthol/Lanolin/Calamine/Znox 113 GM Tube 1 APPLIC TOPICAL ×2 (05:44→17:24)
[2023-02-27] MEDS: Multivitamins,Therapeutic Tablet 1 TABLET PO (08:01)
[2023-02-27] MEDS: Potassium Chloride Oral Tablet 20 MEQ PO ×2 (08:01→17:02)
[2023-02-27] MEDS: Vancomycin IV 500 MG/100 ML BAG 100 MG IV ×2 (10:28→22:29)
[2023-02-27 14:50] VITALS: BP 110/55; PULSE 74; RESP 18; TEMP 36.6; O2SAT 95
[2023-02-27] MEDS: Gabapentin 400 MG Capsule PO (21:02)
--- NOTE | 2023-02-27 22:32 | NURSING ---
IV site left hand would not flush, discontinued. IV started left AC by ESTER Taylor, after 3 attempts by this nurse. Patient tolerated well. IV Vancomycin running as directed. Will continue to monitor.
[2023-02-28 05:45] VITALS: BP 110/61; PULSE 83
[2023-02-28] MEDS: Lisinopril 10 MG Tablet PO (05:45)
[2023-02-28] MEDS: Cyanocobalamin 500 MCG Tablet 1000 MCG PO (05:45)
[2023-02-28] MEDS: Senna/Docusate Sodium 1 Tablet 2 TABLET PO ×2 (05:45→17:05)
[2023-02-28] MEDS: APIXABAN 5 MG TABLET PO ×2 (05:45→17:02)
[2023-02-28] MEDS: Sertraline 50 MG Tablet PO (05:45)
[2023-02-28] MEDS: Metoprolol(XL)Succ 25 MG Tablet PO (05:45)
[2023-02-28] MEDS: Famotidine 20 MG Tablet PO (05:46)
[2023-02-28] MEDS: 0.9% Saline Lock 10 ML Syringe IV ×2 (05:46→21:38)
[2023-02-28] MEDS: Bumetanide 2 MG Tablet 1 MG PO (05:46)
[2023-02-28] MEDS: Memantine Hydrochloride 10 MG Tablet PO ×2 (05:46→17:02)
[2023-02-28] MEDS: Multivitamin (Healthy Eyes) Capsule 1 CAP PO ×2 (05:46→17:02)
[2023-02-28] MEDS: Cholecalciferol (VIT D3) 25 MCG TABLET (1,000 UNITS) PO (05:57)
[2023-02-28] MEDS: Menthol/Lanolin/Calamine/Znox 113 GM Tube 1 APPLIC TOPICAL ×2 (05:59→17:02)
[2023-02-28] MEDS: Multivitamins,Therapeutic Tablet 1 TABLET PO (07:55)
[2023-02-28] MEDS: Potassium Chloride Oral Tablet 20 MEQ PO ×2 (07:55→17:02)
[2023-02-28 09:46] LABS: Absolute Lymphocyte Count 1.06 X10^3/uL (0.83-4.51); Absolute Neutrophil Count 4.9 X10^3/uL (2.0-7.7); Basophil# 0.07 X10^3/uL; Hematocrit 36.2 % (40-54); Hemoglobin 11.6 g/dL (13.0-16.5); Lymphocyte # 1.06 X10^3/ul (0.83-4.51); Lymphocyte % 15.8 % (19-41); Mean Corpuscular Hgb 29.4 pg (27.0-32.0); Mean Corpuscular Volume 91.6 fL (80-94); Mean Platelet Vol. 10.1 fl (6.2-12.0); Monocyte# 0.51 X10^3/uL; Monocyte% 7.6 % (0-10); NRBC Flagged by Analyzer 0 % (0-5); Neutrophil # 4.85 X10^3/uL (2.7-7.7); Neutrophil % 72.3 % (47-70); Platelet Count 245 K/mm3 (150-450); RBC Distribution Width CV 15.2 % (11.6-14.6); Red Blood Count 3.95 M/mm3 (4.6-6.2); White Blood Count 6.7 K/mm3 (4.4-11.0)
[2023-02-28 10:09] LABS: Anion Gap 3 (5-15); BUN 18 mg/dL (7-18); BUN/Creat Ratio 17.3 RATIO (10-20); Calcium,Total 8.7 mg/dL (8.5-10.1); Chloride 108 mmol/L (98-107); Creatinine, Serum 1.04 mg/dL (0.70-1.30); EST Glomerular Filtration Rate 73 mL/min (>60); Est Glom Filt Rate - Afr Amer 88 mL/min (>60); Estimated Creatinine Clearance 63.67 ml/min; Glucose 104 mg/dL (74-106); Potassium 3.9 mmol/L (3.5-5.1); Sodium Level 138 mmol/L (136-145)
[2023-02-28] MEDS: Vancomycin IV 500 MG/100 ML BAG 100 MG IV (10:56)
--- NOTE | 2023-02-28 12:21 | PCM.RX.CS ---
Consult Pharmacy has been consulted to manage selected antiobiotic: Vancomycin Type of Consult: Follow-up Suspected Infection: Other Labs: Sodium 138 mmol/L (136-145) 02/28/23 09:35 Potassium 3.9 mmol/L (3.5-5.1) 02/28/23 09:35 Chloride 108 mmol/L (98-107) H 02/28/23 09:35 Carbon Dioxide 27.0 mmol/L (21.0-32.0) 02/28/23 09:35 Anion Gap 3 (5-15) L 02/28/23 09:35 BUN 18 mg/dL (7-18) 02/28/23 09:35 Creatinine 1.04 mg/dL (0.70-1.30) 02/28/23 09:35 Est GFR (MDRD) Af Amer 88 mL/min (>60) 02/28/23 09:35 Est GFR (MDRD) Non-Af 73 mL/min (>60) 02/28/23 09:35 BUN/Creatinine Ratio 17.3 RATIO (10-20) 02/28/23 09:35 Glucose 104 mg/dL (74-106) 02/28/23 09:35 Vancomycin Trough 14.0 ug/mL (5.0-15.0) 02/28/23 09:35 Random Vancomycin 17.6 ug/mL (0.0-15.0) H 02/21/23 06:10 Microbiology: Microbiology 02/23/23 06:37 Nasal Secretion SARS-CoV-2 Antigen (Rapid) - Final 02/16/23 07:00 Nasal Secretion SARS-CoV-2 Antigen (Rapid) - Final 02/10/23 05:30 Nasal Secretion SARS-CoV-2 Antigen (Rapid) - Final 02/08/23 06:23 Nasal Secretion SARS-CoV-2 Antigen (Rapid) - Final Goal Trough: 15-20 mcg/mL Pharmacy Plan for Drug Dosing: VANCOMYCIN LEVEL RECEIVED Current Vancomycin Dose: 500mg q12h (10,22) Number of Doses Received: Vancomycin Level: 14 Hours Since Last Dose: 11 Renal Function: SrCr 1.04 Renal Function Trend: SrCr increased since last result on 02/22/23 Lab/Micro: Vancomycin Plan/Comments: resulted trough of 14 is below the ordered goal trough range of 15-20. pts SrCr is slightly worse at 1.04 then it was on 02/22/23 (0.89), while the trough levels continue to decline. recommend increasing back to 750mg q12h and checking another trough prior to the 4th dose Pending Level: 03/02/23 at 0930 Pharmacy Service will continue to monitor and adjust dosing as required. Follow-Up Labs: Trough Vancomycin - 03/02/23 at 0930
[2023-02-28] MEDS: Hydrocortisone 2.5% Ointment 20 gm tube 1 APPLIC TOPICAL (14:38)
[2023-02-28 14:50] VITALS: BP 108/70; PULSE 74; RESP 16; TEMP 36.3; O2SAT 100
[2023-02-28] MEDS: Nystatin Powder 15gm Bottle 1 APPLIC TOPICAL (17:03)
[2023-02-28] MEDS: Gabapentin 400 MG Capsule PO (21:36)
--- NOTE | 2023-02-28 21:52 | NURSING ---
Vanco trough drawn this morning at 14.0. Medication dose adjusted per pharmacy at 750mg/250ml to run at 250ml/hour. Will continue to monitor.
[2023-02-28 22:00] VITALS: PULSE 82; RESP 16; O2SAT 97
[2023-03-01 05:43] VITALS: BP 118/54; PULSE 81
[2023-03-01] MEDS: Metoprolol(XL)Succ 25 MG Tablet PO (05:43)
[2023-03-01] MEDS: APIXABAN 5 MG TABLET PO ×2 (05:43→17:49)
[2023-03-01] MEDS: Bumetanide 2 MG Tablet 1 MG PO (05:43)
[2023-03-01] MEDS: Cyanocobalamin 500 MCG Tablet 1000 MCG PO (05:43)
[2023-03-01] MEDS: Lisinopril 10 MG Tablet PO (05:43)
[2023-03-01] MEDS: Senna/Docusate Sodium 1 Tablet 2 TABLET PO (05:43)
[2023-03-01] MEDS: Cholecalciferol (VIT D3) 25 MCG TABLET (1,000 UNITS) PO (05:44)
[2023-03-01] MEDS: Sertraline 50 MG Tablet PO (05:44)
[2023-03-01] MEDS: Multivitamin (Healthy Eyes) Capsule 1 CAP PO ×2 (05:44→17:49)
[2023-03-01] MEDS: Memantine Hydrochloride 10 MG Tablet PO ×2 (05:44→17:49)
[2023-03-01] MEDS: Famotidine 20 MG Tablet PO (05:44)
[2023-03-01] MEDS: Nystatin Powder 15gm Bottle 1 APPLIC TOPICAL ×2 (05:54→17:50)
[2023-03-01] MEDS: Menthol/Lanolin/Calamine/Znox 113 GM Tube 1 APPLIC TOPICAL ×2 (05:54→17:49)
[2023-03-01] MEDS: Potassium Chloride Oral Tablet 20 MEQ PO ×2 (07:59→17:48)
[2023-03-01] MEDS: Multivitamins,Therapeutic Tablet 1 TABLET PO (07:59)
[2023-03-01] MEDS: 0.9% Saline Lock 10 ML Syringe IV ×2 (10:05→22:27)
[2023-03-01 14:30] VITALS: BP 125/54; PULSE 87; RESP 16; TEMP 36.2; O2SAT 95
[2023-03-01] MEDS: Gabapentin 400 MG Capsule PO (22:27)
[2023-03-02] MEDS: Cyanocobalamin 500 MCG Tablet 1000 MCG PO (05:33)
[2023-03-02] MEDS: Multivitamin (Healthy Eyes) Capsule 1 CAP PO ×2 (05:33→17:31)
[2023-03-02] MEDS: APIXABAN 5 MG TABLET PO ×2 (05:33→17:31)
[2023-03-02] MEDS: Bumetanide 2 MG Tablet 1 MG PO (05:33)
[2023-03-02 05:34] VITALS: BP 110/57; PULSE 82
[2023-03-02] MEDS: Sertraline 50 MG Tablet PO (05:34)
[2023-03-02] MEDS: Senna/Docusate Sodium 1 Tablet 2 TABLET PO ×2 (05:34→17:31)
[2023-03-02] MEDS: Memantine Hydrochloride 10 MG Tablet PO ×2 (05:34→17:31)
[2023-03-02] MEDS: Metoprolol(XL)Succ 25 MG Tablet PO (05:34)
[2023-03-02] MEDS: Famotidine 20 MG Tablet PO (05:34)
[2023-03-02] MEDS: Menthol/Lanolin/Calamine/Znox 113 GM Tube 1 APPLIC TOPICAL ×2 (05:35→17:35)
[2023-03-02] MEDS: Nystatin Powder 15gm Bottle 1 APPLIC TOPICAL ×2 (05:35→17:35)
[2023-03-02] MEDS: Cholecalciferol (VIT D3) 25 MCG TABLET (1,000 UNITS) PO (05:35)
[2023-03-02] MEDS: Potassium Chloride Oral Tablet 20 MEQ PO ×2 (08:13→17:32)
[2023-03-02] MEDS: Multivitamins,Therapeutic Tablet 1 TABLET PO (08:13)
[2023-03-02] MEDS: Lisinopril 10 MG Tablet PO (08:14)
[2023-03-02] MEDS: Acetaminophen 500 MG Tablet 1000 MG PO (08:18)
[2023-03-02 10:00] VITALS: BMI 28.3
--- NOTE | 2023-03-02 13:32 | WOUNDNOTE ---
wound is healed to the upper back. no need for wound care at this time.
[2023-03-02 14:36] VITALS: BP 112/67; PULSE 75; RESP 18; TEMP 36.4; O2SAT 96
--- NOTE | 2023-03-02 16:01 | CHAPLAIN ---
Type of Pastoral Visit ___ Initial Visit ___ Follow-up Visit ___ On-call Visit _x__ General Patient Visit ___ Spiritual Assessment ___ Family Conference ___ Bereavement ___ Rapid Response ___ Code Blue ___ Other (describe below) Pastoral Care Referral From _x__ Patient _x__ Family ___ Nurse ___ Physician ___ Brain Wave Technician ___ Valet Attendant ___ Other (describe below) Sacrament/Intervention ___ Active listening ___ Anointing ___ Rastafari ___ Bereavement ___ Communion ___ Noelle exploration ___ ___ Life review ___ Prayer ___ Reconciliation ___ Sacrament of Sick _x__ Supportive presence ___ Wedding __x_ Other (describe below) Pastoral Comments patient had a singing ladies trio from his quaker in his room; entered room in support of this entertainment and spiritual care ministry; welcoming of this kind of support and presence; follow up check in with patient who reports great recovery progress
[2023-03-02] MEDS: Gabapentin 400 MG Capsule PO (21:28)
[2023-03-03 04:27] VITALS: PULSE 51; RESP 18; O2SAT 96
[2023-03-03] MEDS: 0.9% Saline Lock 10 ML Syringe IV ×2 (05:12→13:43)
[2023-03-03] MEDS: Famotidine 20 MG Tablet PO (05:14)
[2023-03-03] MEDS: Senna/Docusate Sodium 1 Tablet 2 TABLET PO ×2 (05:14→17:19)
[2023-03-03] MEDS: APIXABAN 5 MG TABLET PO ×2 (05:14→17:18)
[2023-03-03] MEDS: Sertraline 50 MG Tablet PO (05:14)
[2023-03-03] MEDS: Multivitamin (Healthy Eyes) Capsule 1 CAP PO ×2 (05:14→17:19)
[2023-03-03] MEDS: Cholecalciferol (VIT D3) 25 MCG TABLET (1,000 UNITS) PO (05:14)
[2023-03-03] MEDS: Memantine Hydrochloride 10 MG Tablet PO ×2 (05:14→17:19)
[2023-03-03 05:15] VITALS: BP 116/61; PULSE 87
[2023-03-03] MEDS: Bumetanide 2 MG Tablet 1 MG PO (05:15)
[2023-03-03] MEDS: Metoprolol(XL)Succ 25 MG Tablet PO (05:15)
[2023-03-03] MEDS: Nystatin Powder 15gm Bottle 1 APPLIC TOPICAL ×2 (05:16→17:20)
[2023-03-03] MEDS: Cyanocobalamin 500 MCG Tablet 1000 MCG PO (05:16)
[2023-03-03] MEDS: Menthol/Lanolin/Calamine/Znox 113 GM Tube 1 APPLIC TOPICAL ×2 (05:16→17:24)
[2023-03-03] MEDS: Lisinopril 10 MG Tablet PO (07:49)
[2023-03-03] MEDS: Potassium Chloride Oral Tablet 20 MEQ PO ×2 (07:49→17:18)
[2023-03-03] MEDS: Multivitamins,Therapeutic Tablet 1 TABLET PO (07:49)
[2023-03-03 13:48] VITALS: PULSE 68; RESP 18; O2SAT 98
[2023-03-03 14:29] VITALS: BP 119/51; PULSE 80; RESP 16; TEMP 36.7; O2SAT 96
[2023-03-03] MEDS: Gabapentin 400 MG Capsule PO (21:14)
[2023-03-04] MEDS: Sertraline 50 MG Tablet PO (05:24)
[2023-03-04] MEDS: APIXABAN 5 MG TABLET PO ×2 (05:24→17:33)
[2023-03-04] MEDS: Bumetanide 2 MG Tablet 1 MG PO (05:24)
[2023-03-04 05:25] VITALS: BP 121/58; PULSE 79
[2023-03-04] MEDS: Cyanocobalamin 500 MCG Tablet 1000 MCG PO (05:25)
[2023-03-04] MEDS: Senna/Docusate Sodium 1 Tablet 2 TABLET PO ×2 (05:25→17:33)
[2023-03-04] MEDS: Famotidine 20 MG Tablet PO (05:25)
[2023-03-04] MEDS: Memantine Hydrochloride 10 MG Tablet PO ×2 (05:25→17:33)
[2023-03-04] MEDS: Menthol/Lanolin/Calamine/Znox 113 GM Tube 1 APPLIC TOPICAL ×2 (05:25→17:33)
[2023-03-04] MEDS: Multivitamin (Healthy Eyes) Capsule 1 CAP PO ×2 (05:25→17:33)
[2023-03-04] MEDS: Metoprolol(XL)Succ 25 MG Tablet PO (05:25)
[2023-03-04] MEDS: Cholecalciferol (VIT D3) 25 MCG TABLET (1,000 UNITS) PO (05:25)
[2023-03-04] MEDS: Nystatin Powder 15gm Bottle 1 APPLIC TOPICAL ×2 (05:26→17:34)
[2023-03-04] MEDS: 0.9% Saline Lock 10 ML Syringe IV ×2 (05:34→17:33)
[2023-03-04 05:52] VITALS: BP 121/58; PULSE 79; RESP 16
[2023-03-04] MEDS: Multivitamins,Therapeutic Tablet 1 TABLET PO (09:48)
[2023-03-04] MEDS: Potassium Chloride Oral Tablet 20 MEQ PO ×2 (09:49→17:33)
[2023-03-04] MEDS: Lisinopril 10 MG Tablet PO (09:49)
[2023-03-04 10:00] VITALS: PULSE 64; RESP 18; O2SAT 97
--- NOTE | 2023-03-04 10:13 | CASEMGMT ---
Social Work SW spoke with via telephone to discuss DC plans. SW educated IDT is recommending DC in one week. Explained therapy is stating pt's walking is not functional and does not anticipate signifcant progress will be made. Inquired if can take care of pt at home. has been present for several therapy sessions and understands pts LOC. stated pt has f/u appt with Dr. Pierre 03/05 and would like to get Drs input before setting DC date. SW offered SNF or AL to get further assistance. stated pt had a bad experience at a SNF and does not want to go back, and cannot afford AL. stated pt did well at home prior with [facility]. to contact this worker after the Drs appt with DC plan. SW to continue to follow. BHUMI DasilvaW
[2023-03-04 14:47] VITALS: BP 110/55; PULSE 93; RESP 16; TEMP 36.6; O2SAT 94
[2023-03-04] MEDS: Gabapentin 400 MG Capsule PO (19:59)
[2023-03-05] MEDS: Cyanocobalamin 500 MCG Tablet 1000 MCG PO (04:58)
[2023-03-05] MEDS: Senna/Docusate Sodium 1 Tablet 2 TABLET PO ×2 (04:58→18:40)
[2023-03-05] MEDS: Multivitamin (Healthy Eyes) Capsule 1 CAP PO ×2 (04:59→18:39)
[2023-03-05] MEDS: APIXABAN 5 MG TABLET PO ×2 (04:59→18:39)
[2023-03-05] MEDS: Sertraline 50 MG Tablet PO (04:59)
[2023-03-05] MEDS: Famotidine 20 MG Tablet PO (04:59)
[2023-03-05] MEDS: Memantine Hydrochloride 10 MG Tablet PO ×2 (04:59→18:40)
[2023-03-05] MEDS: Bumetanide 2 MG Tablet 1 MG PO (04:59)
[2023-03-05 05:00] VITALS: BP 121/66; PULSE 78
[2023-03-05] MEDS: Metoprolol(XL)Succ 25 MG Tablet PO (05:00)
[2023-03-05] MEDS: Menthol/Lanolin/Calamine/Znox 113 GM Tube 1 APPLIC TOPICAL ×2 (05:01→18:45)
[2023-03-05] MEDS: Cholecalciferol (VIT D3) 25 MCG TABLET (1,000 UNITS) PO (05:02)
[2023-03-05] MEDS: Nystatin Powder 15gm Bottle 1 APPLIC TOPICAL ×2 (05:02→18:41)
[2023-03-05] MEDS: Lisinopril 10 MG Tablet PO (08:59)
[2023-03-05] MEDS: Potassium Chloride Oral Tablet 20 MEQ PO ×2 (08:59→18:38)
[2023-03-05] MEDS: Multivitamins,Therapeutic Tablet 1 TABLET PO (08:59)
--- NOTE | 2023-03-05 10:22 | NURSING ---
Addendum entered by Frieda Earl 03/09/23 12:41: Asked and patient about podiatry consult. Per , podiatry had reached out to her and she scheduled an appointment for next , after DC from [facility]. Addendum entered by Quita Wagner 03/05/23 11:07: pt return to floor Per Dr Pierre, Knee healing well, no s/s of knee infection, order referral to Dr Acevedo (podiatry) for wound L ankle and bone pain, f\u 2 weeks with me Per office, appt made March 19 @ [id number], consult was faxed to Dr Acevedo per Dr Pierre office Original Note: pt at Dr Pierre f/u appt, transported
[2023-03-05 15:52] VITALS: BP 111/62; PULSE 83; RESP 16; TEMP 36.3; O2SAT 98
[2023-03-05 20:11] VITALS: PULSE 70; RESP 16; O2SAT 97
[2023-03-05] MEDS: Gabapentin 400 MG Capsule PO (20:20)
[2023-03-06 05:48] VITALS: BP 113/63; PULSE 81
[2023-03-06] MEDS: Bumetanide 2 MG Tablet 1 MG PO (05:48)
[2023-03-06] MEDS: Senna/Docusate Sodium 1 Tablet 2 TABLET PO ×2 (05:48→18:05)
[2023-03-06] MEDS: Multivitamin (Healthy Eyes) Capsule 1 CAP PO ×2 (05:48→18:05)
[2023-03-06] MEDS: Famotidine 20 MG Tablet PO (05:48)
[2023-03-06] MEDS: Cholecalciferol (VIT D3) 25 MCG TABLET (1,000 UNITS) PO (05:48)
[2023-03-06] MEDS: Metoprolol(XL)Succ 25 MG Tablet PO (05:48)
[2023-03-06] MEDS: Sertraline 50 MG Tablet PO (05:48)
[2023-03-06] MEDS: Memantine Hydrochloride 10 MG Tablet PO ×2 (05:48→18:05)
[2023-03-06] MEDS: Nystatin Powder 15gm Bottle 1 APPLIC TOPICAL ×2 (05:49→18:06)
[2023-03-06] MEDS: Menthol/Lanolin/Calamine/Znox 113 GM Tube 1 APPLIC TOPICAL ×2 (05:49→18:04)
[2023-03-06] MEDS: Cyanocobalamin 500 MCG Tablet 1000 MCG PO (05:49)
[2023-03-06] MEDS: APIXABAN 5 MG TABLET PO ×2 (05:49→18:05)
[2023-03-06] MEDS: Multivitamins,Therapeutic Tablet 1 TABLET PO (08:04)
[2023-03-06] MEDS: Lisinopril 10 MG Tablet PO (08:04)
[2023-03-06] MEDS: Potassium Chloride Oral Tablet 20 MEQ PO ×2 (08:04→18:04)
[2023-03-06 10:04] VITALS: RESP 18; O2SAT 98
[2023-03-06 13:51] VITALS: BP 101/58; PULSE 89; RESP 16; TEMP 36.6; O2SAT 94
[2023-03-06 19:48] VITALS: PULSE 81; RESP 18; O2SAT 96
[2023-03-06] MEDS: Gabapentin 400 MG Capsule PO (21:03)
[2023-03-07] MEDS: Sertraline 50 MG Tablet PO (05:49)
[2023-03-07] MEDS: Cholecalciferol (VIT D3) 25 MCG TABLET (1,000 UNITS) PO (05:49)
[2023-03-07] MEDS: Cyanocobalamin 500 MCG Tablet 1000 MCG PO (05:49)
[2023-03-07 05:50] VITALS: BP 119/63; PULSE 82
[2023-03-07 05:50] LABS: Absolute Lymphocyte Count 1.13 X10^3/uL (0.83-4.51); Absolute Neutrophil Count 4.1 X10^3/uL (2.0-7.7); Basophil# 0.07 X10^3/uL; Basophil% 1.2 % (0-1); Eosinophil# 0.22 X10^3/uL; Eosinophils% 3.7 % (0-5); Hematocrit 31.5 % (40-54); Hemoglobin 10.1 g/dL (13.0-16.5); Lymphocyte # 1.13 X10^3/ul (0.83-4.51); Lymphocyte % 19.1 % (19-41); Mean Corp Hgb Conc 32.1 g/dL (32-36); Mean Corpuscular Hgb 29.5 pg (27.0-32.0); Mean Corpuscular Volume 92.1 fL (80-94); Mean Platelet Vol. 10.2 fl (6.2-12.0); Monocyte# 0.44 X10^3/uL; Monocyte% 7.4 % (0-10); NRBC Flagged by Analyzer 0 % (0-5); Neutrophil # 4.05 X10^3/uL (2.7-7.7); Neutrophil % 68.3 % (47-70); Platelet Count 159 K/mm3 (150-450); RBC Distribution Width CV 14.7 % (11.6-14.6); Red Blood Count 3.42 M/mm3 (4.6-6.2); White Blood Count 5.9 K/mm3 (4.4-11.0)
[2023-03-07] MEDS: Multivitamin (Healthy Eyes) Capsule 1 CAP PO ×2 (05:50→16:49)
[2023-03-07] MEDS: Famotidine 20 MG Tablet PO (05:50)
[2023-03-07] MEDS: Metoprolol(XL)Succ 25 MG Tablet PO (05:50)
[2023-03-07] MEDS: Bumetanide 2 MG Tablet 1 MG PO (05:50)
[2023-03-07] MEDS: APIXABAN 5 MG TABLET PO ×2 (05:50→16:49)
[2023-03-07] MEDS: Memantine Hydrochloride 10 MG Tablet PO ×2 (05:50→16:49)
[2023-03-07] MEDS: Senna/Docusate Sodium 1 Tablet 2 TABLET PO ×2 (05:50→16:49)
[2023-03-07] MEDS: Menthol/Lanolin/Calamine/Znox 113 GM Tube 1 APPLIC TOPICAL ×2 (05:52→16:50)
[2023-03-07] MEDS: Nystatin Powder 15gm Bottle 1 APPLIC TOPICAL ×2 (05:52→16:50)
[2023-03-07 06:14] LABS: Anion Gap 2 (5-15); BUN 24 mg/dL (7-18); BUN/Creat Ratio 25.7 RATIO (10-20); Calcium,Total 8.6 mg/dL (8.5-10.1); Chloride 111 mmol/L (98-107); Creatinine, Serum 0.93 mg/dL (0.70-1.30); EST Glomerular Filtration Rate 82 mL/min (>60); Est Glom Filt Rate - Afr Amer 99 mL/min (>60); Glucose 94 mg/dL (74-106); Potassium 3.8 mmol/L (3.5-5.1); Sodium Level 140 mmol/L (136-145)
[2023-03-07] MEDS: Potassium Chloride Oral Tablet 20 MEQ PO ×2 (08:58→16:48)
[2023-03-07] MEDS: Lisinopril 10 MG Tablet PO (08:59)
[2023-03-07] MEDS: Multivitamins,Therapeutic Tablet 1 TABLET PO (08:59)
[2023-03-07 14:35] VITALS: BP 102/57; PULSE 76; RESP 18; TEMP 36.4; O2SAT 97
[2023-03-07] MEDS: Gabapentin 400 MG Capsule PO (19:49)
[2023-03-07 19:53] VITALS: PULSE 76; RESP 18; O2SAT 97
[2023-03-08] MEDS: Multivitamin (Healthy Eyes) Capsule 1 CAP PO ×2 (05:13→18:13)
[2023-03-08] MEDS: Memantine Hydrochloride 10 MG Tablet PO ×2 (05:13→18:13)
[2023-03-08] MEDS: Cyanocobalamin 500 MCG Tablet 1000 MCG PO (05:13)
[2023-03-08] MEDS: Cholecalciferol (VIT D3) 25 MCG TABLET (1,000 UNITS) PO (05:13)
[2023-03-08] MEDS: Sertraline 50 MG Tablet PO (05:13)
[2023-03-08] MEDS: APIXABAN 5 MG TABLET PO ×2 (05:13→18:13)
[2023-03-08] MEDS: Senna/Docusate Sodium 1 Tablet 2 TABLET PO ×2 (05:13→18:13)
[2023-03-08] MEDS: Famotidine 20 MG Tablet PO (05:13)
[2023-03-08] MEDS: Bumetanide 2 MG Tablet 1 MG PO (05:14)
[2023-03-08 05:15] VITALS: BP 112/60; PULSE 74
[2023-03-08] MEDS: Nystatin Powder 15gm Bottle 1 APPLIC TOPICAL ×2 (05:15→18:13)
[2023-03-08] MEDS: Menthol/Lanolin/Calamine/Znox 113 GM Tube 1 APPLIC TOPICAL ×2 (05:15→18:13)
[2023-03-08] MEDS: Metoprolol(XL)Succ 25 MG Tablet PO (05:15)
[2023-03-08] MEDS: Potassium Chloride Oral Tablet 20 MEQ PO ×2 (07:55→18:12)
[2023-03-08] MEDS: Multivitamins,Therapeutic Tablet 1 TABLET PO (07:55)
[2023-03-08] MEDS: Lisinopril 10 MG Tablet PO (07:56)
--- NOTE | 2023-03-08 09:16 | CASEMGMT ---
Social Work SW left message with to discuss DC plans. Will await return call. Maddie Browning, HOOK UP BULLDOZER MECHANIC
[2023-03-08 09:30] VITALS: PULSE 80; O2SAT 98
[2023-03-08 14:02] VITALS: BP 112/71; PULSE 79; RESP 16; TEMP 36.6; O2SAT 94
--- NOTE | 2023-03-08 16:28 | CASEMGMT ---
Social Work SW presented to pt's room and and son were visiting. SW inquired about setting DC date. All parties agreeable to DC 03/12. Pt/ requesting [facility] whom pt used prior. No DME needs. to transport at 1300. Both son's will be home to assist. Phoned referral to [facility] PT/OT/ST. Plan: DC home with 03/12, [facility] PT/OT/ST BHUMI Dasilva
--- NOTE | 2023-03-08 19:26 | DS.PCM_ITS ---
Providers Date of Admission: 02/06/23 Primary Care Physician: LONNIE Alberto Consultations 02/12/23 09:27 Consult: Onc/Wound/remote sensing advisor Routine Comment: Reason For Visit: LEFT TOTAL KNEE ROBOTIC Diagnosis Discharge Diagnosis (1) Debility: Status: Acute Code(s): R53.81 - Other malaise (2) Osteoarthritis of left knee: Status: Inactive Code(s): M17.12 - Unilateral primary osteoarthritis, left knee (3) Atrial fibrillation: Status: Acute Code(s): I48.91 - Unspecified atrial fibrillation (4) Thoracic aortic aneurysm: Status: Acute Code(s): I71.20 - Thoracic aortic aneurysm, without rupture, unspecified (5) Hypertension: Status: Chronic Code(s): I10 - Essential (primary) hypertension (6) Hyperlipidemia: Status: Acute Code(s): E78.5 - Hyperlipidemia, unspecified (7) Stroke: Status: Acute Code(s): I63.9 - Cerebral infarction, unspecified (8) Vascular dementia: Status: Acute Code(s): F01.50 - Vascular dementia, unspecified severity, without behavioral disturbance, psychotic disturbance, mood disturbance, and anxiety (9) Depression: Status: Acute Code(s): F32.A - Depression, unspecified (10) Hypokalemia: Status: Acute Code(s): E87.6 - Hypokalemia (11) Neuropathic pain: Status: Acute Code(s): M79.2 - Neuralgia and neuritis, unspecified Plan 82 year old male with below past medical history hospitalized for left total kn ee replacement 02/04/[address] Pierre, admitted to TCU with debility, here for rehabilitation, strengthening, prior to discharge home with . * Debility - PT/OT. * Pain - Tylenol 1000mg q8, Oxycodone 5-10mg q4h prn. * Bowel - Senna/colace 2 tablets bid, MOM 30ml po x 1 prn. * Adult immunization - Administer pneumonia vaccine, covid19 vaccine, flu vaccine as appropriate. * DVT prophylaxis - Not necessary, on Eliquis. * Atrial fibrillation - Metoprolol succinate 25mg daily, Eliquis 5mg bid. * Edema - Bumex 1mg daily. * Status post left total knee replacement - Keflex 500mg q6h thru 02/12/2023 prophylaxis. * Vitamin B12 deficiency - B12 1000mcg daily. * GERD - Famotidine 20mg daily. * Neuropathic pain - Gabapentin 400mg qhs. * Hypertension - Metoprolol succinate 25mg daily, Lisinopril 10mg daily. * Vascular dementia - Memantine 10mg bid. * Macular degeneration - Healthy Eyes 1 capsule bid. * Nutrition - MVI daily. * Hypokalemia - KCL ER 20meq bidcm. * Depression - Sertraline 50mg daily, stable chronic correction use, GDR not recommended. * Vitamin D deficiency - D3 25mcg daily. Medications at Discharge Home Medications memantine 10 mg tablet (Namenda) 10 mg PO BID MEMORY 12/08/21 cholecalciferol (vitamin D3) 25 mcg (1,000 unit) tablet 25 mcg PO DAILY bones 12/28/21 sertraline 50 mg tablet (Zoloft) 50 mg PO DAILY mood 12/28/21 vit A 300 mcg-C 200 mg-E 27 mg-lutein 2 mg and minerals tablet (Healthy Eyes) 1 cap PO BID supplement 12/28/21 lisinopril 10 mg tablet 10 mg PO DAILY BP #30 tabs 04/08/22 metoprolol succinate 25 mg tablet,extended release 24 hr 25 mg PO DAILY BP #30 tabs 04/08/22 potassium chloride 20 mEq tablet,extended release(part/cryst) (Klor-Con M) 20 meq PO BIDCM supplement #60 tabs 04/08/22 bumetanide 1 mg tablet 1 mg PO DAILY This is a dose decrease. #30 tabs 05/06/22 gabapentin 400 mg capsule 400 mg PO QHS Nerve Pain 07/09/22 cyanocobalamin (vitamin B-12) 1,000 mcg tablet 1,000 mcg PO DAILY Supplement 07/14/22 multivitamin 1 tab PO DAILY Supplement 07/14/22 apixaban 5 mg tablet (Eliquis) 5 mg PO BID Blood Thinner 12/24/22 famotidine 20 mg tablet 20 mg PO DAILY GERD 02/06/23 sennosides 8.6 mg-docusate sodium 50 mg tablet (Stool Softener-Stimulant Laxative) 2 tab PO BID Constipation 02/06/23 acetaminophen 500 mg tablet 1,000 mg PO Q6H PRN PRN Pain Score 1-3 #0 tabs 03/08/23 Hospital Course Operations total knee replacement (Left.) Procedures - (Incision and drainage infected sebaceous cyst mid upper back.) Summary of Care Provided Minutes Spent on Discharge: 35 Hospital Course: 82 year old male with below past medical history hospitalized for left total knee replacement 02/04/[address] Pierre, admitted to TCU with debility, here for rehabilitation, strengthening, prior to discharge home with . 02/11/2023 Dr. Chan incised and drainaed infected sebaceous cyst mid upper back. 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 Discharge home with 03/12/2023, [facility] PT/OT/ST. Physical Exam Const alert General Appearance: cooperative HEENT normocephalic Eyes PERRL and EOMs intact bilaterally Neck supple, no JVD and no carotid bruits Resp normal respiratory effort, normal air movement and clear to auscultation bilaterally Cardio regular rate and regular rhythm GI normal to inspection, nondistended, normoactive bowel sounds, non-tender and non-distended Extremity normal capillary refill General Extremity: Negative for edema Skin no rashes or lesions noted General Skin Exam: no breakdown Psych affect normal Appearance: appropriate Weight / BMI Weight Weight: 100.244 kg Body Mass Index (BMI) 28.3 ABG / Lab / Microbiology Data Result Diagrams: 03/07/23 05:39 03/07/23 05:39 Microbiology: Microbiology 03/02/23 05:36 Nasal Secretion SARS-CoV-2 Antigen (Rapid) - Final 02/23/23 06:37 Nasal Secretion SARS-CoV-2 Antigen (Rapid) - Final 02/16/23 07:00 Nasal Secretion SARS-CoV-2 Antigen (Rapid) - Final 02/10/23 05:30 Nasal Secretion SARS-CoV-2 Antigen (Rapid) - Final 02/08/23 06:23 Nasal Secretion SARS-CoV-2 Antigen (Rapid) - Final D/C Instructions Discharge Diet: No restrictions Discharge Activity: Return to Normal Activity, May Shower and Use Walker Weight Bearing Status: Weight bearing as tolerated Call your doctor if you observe: Fever of 101 or Higher, Inability to urinate, Inability to have a bowel movement, Shortness of breath, Dizziness, Fainting spells, Swelling in the ankles, Chest pain and Uncontrolled pain Additional Instructions: Discharge home with 03/12/2023, [facility] PT/OT/ST. Please Follow Up With: Dr. Pierre When: As scheduled. Meaningful Use Info Meaningful Use Diagnoses (Choose all that apply): None applicable Discharge Plan Admission Admit Date/Time: 02/06/23 15:49 Primary Reason for Your Visit: Debility. Attending Provider: Kenton Singleton Chi Primary Care Provider: Clemencia Holland Instructions Additional Instructions / Restrictions: Discharge home with 03/12/2023, [facility] PT/OT/ST. Discharge Orders/Prescriptions Prescriptions: New acetaminophen 500 mg Tablet 1,000 mg PO Q6H PRN PRN (Reason: Pain Score 1-3) Qty: 0 0RF Continued gabapentin 400 mg capsule 400 mg PO QHS multivitamin Tablet 1 tab PO DAILY cyanocobalamin (vitamin B-12) 1,000 mcg tablet 1,000 mcg PO DAILY memantine [Namenda] 10 mg tablet 10 mg PO BID sertraline [Zoloft] 50 mg tablet 50 mg PO DAILY Healthy Eyes 1,000 unit-200 mg-60 unit-2 mg tablet 1 cap PO BID cholecalciferol (vitamin D3) 25 mcg (1,000 unit) tablet 25 mcg PO DAILY Eliquis 5 mg tablet 5 mg PO BID sennosides-docusate sodium [Stool Softener-Stimulant Laxat] 8.6-50 mg tablet 2 tab PO BID famotidine 20 mg tablet 20 mg PO DAILY potassium chloride [Klor-Con M20] 20 mEq tablet,ER particles/crystals 20 meq PO BIDCM Qty: 60 11RF lisinopril 10 mg tablet 10 mg PO DAILY Qty: 30 11RF metoprolol succinate 25 mg tablet extended release 24 hr 25 mg PO DAILY Qty: 30 11RF bumetanide 1 mg tablet 1 mg PO DAILY Qty: 30 11RF Discontinued oxycodone 5 mg Tablet 5 - 10 mg PO Q4H PRN PRN (Reason: Pain Score 4-10) 7 Days Qty: 42 0RF acetaminophen 500 mg tablet 1,000 mg PO Q8 cephalexin 500 mg capsule 500 mg PO Q6 Referrals / Follow Up: Tyler Pierre DO [Med Staff - Active Staff] - 03/19/23 10:45 am Clemencia Holland, HAND BINDERY ASSEMBLY WORKER-C [Primary Care Provider] - Disposition Disposition (needs filled in before D/C Order can be placed): Home Health Service
[2023-03-08] MEDS: Gabapentin 400 MG Capsule PO (21:48)
[2023-03-08] MEDS: Hydrocortisone 2.5% Ointment 20 gm tube 1 APPLIC TOPICAL (21:49)
[2023-03-09 05:54] LABS: Hematocrit 32.8 % (40-54); Hemoglobin 10.5 g/dL (13.0-16.5)
[2023-03-09] MEDS: Nystatin Powder 15gm Bottle 1 APPLIC TOPICAL ×2 (06:06→17:28)
[2023-03-09] MEDS: Menthol/Lanolin/Calamine/Znox 113 GM Tube 1 APPLIC TOPICAL ×2 (06:06→17:28)
[2023-03-09] MEDS: Senna/Docusate Sodium 1 Tablet 2 TABLET PO ×2 (06:06→17:29)
[2023-03-09] MEDS: Multivitamin (Healthy Eyes) Capsule 1 CAP PO ×2 (06:07→17:28)
[2023-03-09] MEDS: Cholecalciferol (VIT D3) 25 MCG TABLET (1,000 UNITS) PO (06:07)
[2023-03-09] MEDS: Sertraline 50 MG Tablet PO (06:07)
[2023-03-09] MEDS: Memantine Hydrochloride 10 MG Tablet PO ×2 (06:07→17:29)
[2023-03-09] MEDS: Cyanocobalamin 500 MCG Tablet 1000 MCG PO (06:07)
[2023-03-09] MEDS: Famotidine 20 MG Tablet PO (06:08)
[2023-03-09] MEDS: APIXABAN 5 MG TABLET PO ×2 (06:08→17:28)
[2023-03-09 06:11] VITALS: BP 98/59; PULSE 77
--- NOTE | 2023-03-09 07:40 | NURSING ---
Bumex and Lisinopril held this am d/t low BP. Denies any lightheadedness or dizziness. Pt is alert and conversing with this nurse without any difficulty.
[2023-03-09 09:07] VITALS: BP 138/72; PULSE 77
[2023-03-09] MEDS: Bumetanide 2 MG Tablet 1 MG PO (09:08)
[2023-03-09] MEDS: Lisinopril 10 MG Tablet PO (09:08)
[2023-03-09 09:09] VITALS: BP 138/72; PULSE 77
[2023-03-09] MEDS: Metoprolol(XL)Succ 25 MG Tablet PO (09:09)
[2023-03-09] MEDS: Potassium Chloride Oral Tablet 20 MEQ PO ×2 (09:10→17:28)
[2023-03-09] MEDS: Multivitamins,Therapeutic Tablet 1 TABLET PO (09:10)
[2023-03-09 10:00] VITALS: BMI 28.0
--- NOTE | 2023-03-09 10:46 | CASEMGMT ---
Social Work BIMS (09/05) and PHQ-9 () completed for MDS assessment. Maddie Browning MSW TEMPORARY ADMINISTRATIVE ASSISTANT
[2023-03-09 16:00] VITALS: BP 120/71; PULSE 59; RESP 16; TEMP 36.2; O2SAT 93
--- NOTE | 2023-03-09 16:27 | CHAPLAIN ---
Type of Pastoral Visit ___ Initial Visit _x__ Follow-up Visit ___ On-call Visit ___ General Patient Visit ___ Spiritual Assessment ___ Family Conference ___ Bereavement ___ Rapid Response ___ Code Blue ___ Other (describe below) Pastoral Care Referral From _x__ Patient _x__ Family ___ Nurse ___ Physician ___ Success Coach ___ Property Claim Rep ___ Other (describe below) Sacrament/Intervention _x__ Active listening ___ Anointing ___ Rastafari ___ Bereavement ___ Communion ___ Noelle exploration ___ ___ Life review _x__ Prayer ___ Reconciliation ___ Sacrament of Sick ___ Supportive presence ___ Wedding ___ Other (describe below) Pastoral Comments
[2023-03-09] MEDS: Gabapentin 400 MG Capsule PO (20:50)
[2023-03-09 22:00] VITALS: PULSE 70; RESP 18; O2SAT 98
[2023-03-10] MEDS: Bumetanide 2 MG Tablet 1 MG PO (05:19)
[2023-03-10] MEDS: Cyanocobalamin 500 MCG Tablet 1000 MCG PO (05:19)
[2023-03-10] MEDS: Sertraline 50 MG Tablet PO (05:19)
[2023-03-10] MEDS: Memantine Hydrochloride 10 MG Tablet PO ×2 (05:19→17:21)
[2023-03-10] MEDS: Cholecalciferol (VIT D3) 25 MCG TABLET (1,000 UNITS) PO (05:19)
[2023-03-10] MEDS: APIXABAN 5 MG TABLET PO ×2 (05:19→17:20)
[2023-03-10] MEDS: Senna/Docusate Sodium 1 Tablet 2 TABLET PO ×2 (05:19→17:21)
[2023-03-10] MEDS: Multivitamin (Healthy Eyes) Capsule 1 CAP PO ×2 (05:19→17:20)
[2023-03-10 05:20] VITALS: BP 118/63; PULSE 81
[2023-03-10] MEDS: Metoprolol(XL)Succ 25 MG Tablet PO (05:20)
[2023-03-10] MEDS: Menthol/Lanolin/Calamine/Znox 113 GM Tube 1 APPLIC TOPICAL ×2 (05:21→17:20)
[2023-03-10] MEDS: Nystatin Powder 15gm Bottle 1 APPLIC TOPICAL ×2 (05:21→17:31)
[2023-03-10] MEDS: Multivitamins,Therapeutic Tablet 1 TABLET PO (07:57)
[2023-03-10] MEDS: Lisinopril 10 MG Tablet PO (07:57)
[2023-03-10] MEDS: Potassium Chloride Oral Tablet 20 MEQ PO ×2 (07:57→17:20)
--- NOTE | 2023-03-10 14:49 | NURSING ---
Patient reports was unable to get into Dr. Ghosh for a month and made appt with Dr. Guzmán instead for left ankle. Also have appt with PCP made for 03/17. Appts to be placed in D/C paperwork.
[2023-03-10 15:23] VITALS: BP 112/62; PULSE 82; RESP 16; TEMP 36.1; O2SAT 94
[2023-03-10] MEDS: Gabapentin 400 MG Capsule PO (21:07)
[2023-03-11] MEDS: Sertraline 50 MG Tablet PO (06:29)
[2023-03-11] MEDS: Cyanocobalamin 500 MCG Tablet 1000 MCG PO (06:29)
[2023-03-11] MEDS: Memantine Hydrochloride 10 MG Tablet PO ×2 (06:29→17:27)
[2023-03-11 06:30] VITALS: BP 116/63; PULSE 77
[2023-03-11] MEDS: Senna/Docusate Sodium 1 Tablet 2 TABLET PO (06:30)
[2023-03-11] MEDS: Metoprolol(XL)Succ 25 MG Tablet PO (06:30)
[2023-03-11] MEDS: APIXABAN 5 MG TABLET PO ×2 (06:30→17:28)
[2023-03-11] MEDS: Bumetanide 2 MG Tablet 1 MG PO (06:30)
[2023-03-11] MEDS: Cholecalciferol (VIT D3) 25 MCG TABLET (1,000 UNITS) PO (06:30)
[2023-03-11] MEDS: Multivitamin (Healthy Eyes) Capsule 1 CAP PO ×2 (06:31→17:27)
[2023-03-11] MEDS: Potassium Chloride Oral Tablet 20 MEQ PO ×2 (08:08→17:28)
[2023-03-11] MEDS: Multivitamins,Therapeutic Tablet 1 TABLET PO (08:08)
[2023-03-11] MEDS: Lisinopril 10 MG Tablet PO (08:09)
--- NOTE | 2023-03-11 12:27 | MDS.RN ---
MDS pain assessment for ELIO 03/12/23 completed.
[2023-03-11 15:12] VITALS: BP 98/53; PULSE 75; RESP 14; TEMP 37.1; O2SAT 96
[2023-03-11] MEDS: Nystatin Powder 15gm Bottle 1 APPLIC TOPICAL (17:28)
[2023-03-11] MEDS: Menthol/Lanolin/Calamine/Znox 113 GM Tube 1 APPLIC TOPICAL (17:28)
[2023-03-11 20:00] VITALS: PULSE 63; RESP 16; O2SAT 98
[2023-03-11] MEDS: Gabapentin 400 MG Capsule PO (20:25)
[2023-03-12] MEDS: Senna/Docusate Sodium 1 Tablet 2 TABLET PO (05:54)
[2023-03-12] MEDS: Cyanocobalamin 500 MCG Tablet 1000 MCG PO (05:54)
[2023-03-12] MEDS: Sertraline 50 MG Tablet PO (05:55)
[2023-03-12] MEDS: Bumetanide 2 MG Tablet 1 MG PO (05:55)
[2023-03-12] MEDS: Memantine Hydrochloride 10 MG Tablet PO (05:55)
[2023-03-12] MEDS: Multivitamin (Healthy Eyes) Capsule 1 CAP PO (05:55)
[2023-03-12] MEDS: APIXABAN 5 MG TABLET PO (05:55)
[2023-03-12] MEDS: Cholecalciferol (VIT D3) 25 MCG TABLET (1,000 UNITS) PO (05:55)
[2023-03-12 06:02] VITALS: BP 99/55; PULSE 75; RESP 16
[2023-03-12] MEDS: Multivitamins,Therapeutic Tablet 1 TABLET PO (09:17)
[2023-03-12] MEDS: Potassium Chloride Oral Tablet 20 MEQ PO (09:17)
[2023-03-12 09:18] VITALS: PULSE 75
[2023-03-12] MEDS: Nystatin Powder 15gm Bottle 1 APPLIC TOPICAL (09:18)
[2023-03-12] MEDS: Metoprolol(XL)Succ 25 MG Tablet PO (09:18)
[2023-03-12] MEDS: Lisinopril 10 MG Tablet PO (09:18)
[2023-03-12] MEDS: Menthol/Lanolin/Calamine/Znox 113 GM Tube 1 APPLIC TOPICAL (09:18)
--- NOTE | 2023-03-12 16:34 | NURSING ---
Patient and packed up pts belonging and came to desk and said they were discharged. The PAPERHANGER AND PAINTER went into patients room and wheeled him off to main entrance. When I went to D/C patient, he had already left the hospital. A phone call was placed to his . She came back in around 1630 and received D/C packet and therapy gave her d/c packet.
== END 2023-03-12 13:00 | disposition home health service (06) | DRG 560 ==
PROVIDERS: Admitting Provider Family Medicine Geriatric Medicine; PCP Nurse Practitioner Family; Visit Provider Family Medicine Geriatric Medicine
DX: Z47.1 Aftercare following joint replacement surgery (principal); I48.11 Longstanding persistent atrial fibrillation; F01.50 Vascular dementia, unspecified severity, without behavioral disturbance, psychotic disturbance, mood disturbance, and anxiety; I71.20 Thoracic aortic aneurysm, without rupture, unspecified; E53.8 Deficiency of other specified B group vitamins; E55.9 Vitamin D deficiency, unspecified; G62.9 Polyneuropathy, unspecified; K21.9 Gastro-esophageal reflux disease without esophagitis; E87.6 Hypokalemia; H35.30 Unspecified macular degeneration; I10 Essential (primary) hypertension; M17.12 Unilateral primary osteoarthritis, left knee; E78.5 Hyperlipidemia, unspecified; L72.3 Sebaceous cyst; F32.A Depression, unspecified; Z96.652 Presence of left artificial knee joint; Z79.899 Other long term (current) drug therapy; Z79.01 Long term (current) use of anticoagulants; N40.0 Benign prostatic hyperplasia without lower urinary tract symptoms
CPT/HCPCS: 36415; 80048; 80202; 85014; 85018; 85025; 87811; 92507; 92508; 92523; 92526; 92610; 97110; 97116; 97163; 97166; 97530; 97535; 97802; J7040; J7050; A4216; J0696

== ENCOUNTER → 2023-02-11 | Outpatient (CLI) | payer MEDICARE, OTHER, SELFPAY | END | disposition home or self-care (01) | LOC: LABSPEC 10:33 | PROVIDERS: PCP Nurse Practitioner Family; Referring Provider Surgery; Visit Provider Surgery | DX: L72.3 Sebaceous cyst (principal) | CPT/HCPCS: 87070; 87075; 87077; 87186; 87205 ==

== ENCOUNTER → 2023-02-12 | Outpatient (CLI) | payer MEDICARE, OTHER, SELFPAY ==
--- NOTE | 2023-02-12 09:59 | VDLE_ITS ---
Reason For Study: Swelling RIGHT LEFT CFV is compressible, spontaneous, competent GSV is normal. and demonstrates pulsatile venous flow. CFV is compressible, spontaneous, competent, Procedure and demonstrates pulsatile venous flow. This is a venous duplex using B-mode, color FV is compressible, spontaneous, competent flow and spectral Doppler. and demonstrates pulsatile venous flow. Exam performed portable in patient room. POP V is compressible, spontaneous, competent The exam was diagnostic. and demonstrates pulsatile venous flow. A preliminary report was called and/or faxed T/P Trunk is compressible. to TCU RN. PTV is compressible. LT PerV is compressible. VL/Venous Duplex US, Unilateral Interpretation Summary There is no evidence of left lower extremity deep vein thrombosis. Left great s aphenous vein appears patent and compressible segmentally. Pulsatile venous flow noted in the left lo wer extremity consistent with proximal venous hypertension or obstruction. Clinical correlati on would be appropriate. Patent and compressible right common femoral vein although also with pulsatile venous flow Ordering Physician: Kenton Singleton Chi Referring Physician: Clemencia Holland Performed By: Chauncey De La Torre RVAlexandro
== END | disposition home or self-care (01) ==
PROVIDERS: PCP Nurse Practitioner Family; Visit Provider Family Medicine Geriatric Medicine
DX: R22.42 Localized swelling, mass and lump, left lower limb (principal)
CPT/HCPCS: 93971

== ENCOUNTER 2023-07-12 09:17 | Day surgery (SDC) | payer MEDICARE, OTHER, SELFPAY ==
[2023-07-12] VITALS (7 sets, daily range): BP systolic 93–150; BP diastolic 53–123; PULSE 65–82; RESP 18; TEMP 36.6–36.8; O2SAT 92–99; BMI 27.8
[2023-07-12] MEDS: Lactated Ringers 1,000 ML 15 ML IV (09:53)
--- NOTE | 2023-07-12 10:05 | RAD_ITS ---
EXAMINATION: Fluoroscopic guided caudal block. INDICATION: PAIN Total Fluoroscopic Time: 11 seconds AND number of Fluoroscopic Images: 1 COMPARISON: None. FINDINGS: Limited intraoperative fluoroscopic images from caudal block submitted for review. There is intraoperative placement of a needle at the level of the coccyx. RAD/Fluor Guidance for Spine Inj IMPRESSION: Fluoroscopic guided caudal block procedure. Please see intraoperative report for further details. Electronically Signed: Jose Mahan DO at 13:10 EDT ,
[2023-07-12] MEDS: 0.9% Normal Saline (Pres. free 10 ML Vial (11:05)
[2023-07-12] MEDS: MethylPREDNISolone Acetate 80 MG/ML Vial (11:08)
[2023-07-12] MEDS: Lidocaine 1% (5 ml sdv) 5 ML Vial (11:09)
--- NOTE | 2023-07-12 11:36 | OP.PCM_ITS ---
Report of Operation Date of Procedure: 07/12/23 Pre-Operative Diagnosis: Lumbosacral radiculopathy, lumbosacral degenerative di sc disease, lumbosacral spinal stenosis Post-Operative Diagnosis: Lumbosacral radiculopathy, lumbosacral degenerative disc disease, lumbosacral spinal stenosis Surgery/Procedure Performed:: Diagnostic/therapeutic caudal epidural steroid injection under fluoroscopic guidance Type of Anesthesia: MAC Estimated Blood Loss (mL): Minimal Description of Procedure: DESCRIPTION OF PROCEDURE: History and physical of today was reviewed. Risks and benefits of the procedure were explained. The patient understood and agreed to proceed. Informed consent was obtained. IV inserted per routine protocol. The patient was taken to the operating room and placed in the prone position with a pillow positioned underneath the abdomen. The lower back and tailbone area was prepped and draped in a sterile fashion using iodine x3. Under fluoroscopy guidance on a lateral view, the caudal space was identified. The skin and subcutaneous tissue was anesthetized with approximately 3 mL of 1% lidocaine using a 25-gauge regular needle. Under direct visualization with fluoroscopy, using a 22-gauge 3-1/2-inch spinal needle, the needle was advanced via the skin through the sacral hiatus. The tip of the needle was passed through the sacrococcygeal ligament and advanced to approximately S4 area. After negative aspiration of blood or CSF, a total of 3 mL of contrast was injected to confirm correct placement of the needle as well as cephalad spread. The spread was followed to approximately L5 area. After confirmation on AP as well as lateral view and repeated negative aspiration, a total of 15 mL of preservative-free 0.125% Marcaine with 80 mg of Depo-Medrol was injected easily. The needle was then removed intact. The patient experienced no sign or symptoms of intrathecal or intravascular injection. The patient experienced no paresthesia. The procedure was completed without any apparent difficulty or any complications. The patient appeared to tolerate it well. ASSESSMENT AND PLAN: This is an 82-year-old male with lumbosacral radiculopathy, lumbosacral degenerative disc disease, lumbosacral spinal stenosis status post diagnostic/therapeutic caudal epidural steroid injection, patient will continue his current medications, patient will follow in approximately 2 weeks for reevaluation. Complications None
--- NOTE | 2023-07-12 12:35 | CHAPLAIN ---
Type of Pastoral Visit _x__ Initial Visit ___ Follow-up Visit ___ On-call Visit ___ General Patient Visit ___ Spiritual Assessment ___ Family Conference ___ Bereavement ___ Rapid Response ___ Code Blue ___ Other (describe below) Pastoral Care Referral From ___ Patient _x__ Family ___ Nurse ___ Physician ___ Internal Auditor ___ Transmission Specialist ___ Other (describe below) Sacrament/Intervention _x__ Active listening ___ Anointing ___ Jainism ___ Bereavement ___ Communion ___ Noelle exploration ___ ___ Life review _x__ Prayer ___ Reconciliation ___ Sacrament of Sick _x__ Supportive presence ___ Wedding ___ Other (describe below) Pastoral Comments met with patient and spouse post op; offered support and a prayer;
== END 2023-07-12 12:17 | disposition home or self-care (01) ==
LOC: SDC 09:18 → AC 09:19
PROVIDERS: PCP Nurse Practitioner Family; Referring Provider Anesthesiology Pain Medicine; Visit Provider Anesthesiology Pain Medicine
PROC: 3E0S3BZ Introduction of Anesthetic Agent into Epidural Space, Percutaneous Approach (ICD-10-PCS; CPT 62282; principal; 2023-07-12 11:00)
DX: M51.17 Intervertebral disc disorders with radiculopathy, lumbosacral region (principal); I77.810 Thoracic aortic ectasia; I48.91 Unspecified atrial fibrillation; M48.07 Spinal stenosis, lumbosacral region; I10 Essential (primary) hypertension; E78.5 Hyperlipidemia, unspecified; Z86.16 Personal history of COVID-19; I45.10 Unspecified right bundle-branch block
CPT/HCPCS: 62323; 64483; 77003; J7120; J3490

== ENCOUNTER → 2023-08-09 | Outpatient (CLI) | payer MEDICARE, OTHER, SELFPAY ==
[2023-08-09 15:27] LABS: Anion Gap 4 (5-15); BUN 20 mg/dL (7-18); BUN/Creat Ratio 19.2 RATIO (10-20); Calcium,Total 8.5 mg/dL (8.5-10.1); Chloride 109 mmol/L (98-107); Creatinine, Serum 1.04 mg/dL (0.70-1.30); EST Glomerular Filtration Rate 73 mL/min (>60); Est Glom Filt Rate - Afr Amer 88 mL/min (>60); Glucose 105 mg/dL (74-106); Potassium 3.9 mmol/L (3.5-5.1); Sodium Level 143 mmol/L (136-145)
== END | disposition home or self-care (01) ==
LOC: LAB 13:48
PROVIDERS: PCP Nurse Practitioner Family; Referring Provider Nurse Practitioner Family; Visit Provider Nurse Practitioner Family
DX: E87.6 Hypokalemia (principal)
CPT/HCPCS: 36415; 80048

== ENCOUNTER → 2023-09-10 | Outpatient (CLI) | payer MEDICARE, OTHER, SELFPAY ==
--- NOTE | 2023-09-10 14:52 | US_ITS ---
EXAM: US SOFT TISSUES OF THE NECK CLINICAL INDICATION: lymphadenopathy,cervical TECHNIQUE: Real-time ultrasound scan of the soft tissues of the neck with image documentation. COMPARISON: No relevant prior studies available. FINDINGS: SOFT TISSUES: Normal. No abscess. No foreign body. LYMPH NODES: Subcentimeter left-sided lymph nodes noted with normal internal architecture suggestive of reactive change. No mass or fluid collection. US/Head/Neck Soft Tissue IMPRESSION: Small reactive left cervical lymph nodes. Electronically Signed: Sulaiman Mccall MD at 16:16 EDT ,
== END | disposition home or self-care (01) ==
LOC: US 14:52
PROVIDERS: PCP Nurse Practitioner Family; Referring Provider Nurse Practitioner Family; Visit Provider Nurse Practitioner Family
DX: R59.0 Localized enlarged lymph nodes (principal)
CPT/HCPCS: 76536

== ENCOUNTER → 2024-02-24 | Outpatient (CLI) | payer MEDICARE, OTHER, SELFPAY ==
--- NOTE | 2024-02-24 13:45 | CT_ITS ---
STUDY: CTA CHEST REASON FOR EXAM: Male, 83 years old. Evaluate Aortic Root dilation RADIATION DOSAGE (If Supplied By Facility): CTDIvol = ( 16.95 ) mGy, DLP = ( 655.15 ) mGycm TECHNIQUE: The examination was performed with the intravenous administration of IV 100mL Isovue-370. Post-processing of the angiographic images was performed, with multiplanar reformation and 3D reconstruction. Individualized dose optimization techniques were used for this CT. COMPARISON: Comparison is made with prior study dated June 20, 2019. FINDINGS: Normal enhancement of the main pulmonary artery and right and left pulmonary arteries. Normal enhancement of the bilateral peripheral pulmonary arteries. There is no demonstrated pulmonary embolism. There is aneurysmal dilatation of the ascending aorta. The transverse diameter of the ascending aorta measures 48.1 mm''s. This is essentially unchanged. There is no demonstrated aortic dissection. There are calcifications of the coronary arteries. Cardiomegaly. Normal mediastinum. Normal hilar regions. Normal visualized trachea and bronchi. The lungs are well expanded. There are small bilateral pleural effusions left greater than right with bibasilar atelectasis. Normal chest wall structures. There is a 1.9 cm lytic lesion in the anterior aspect of the mid dorsal vertebral. Diffuse demineralization. Normal visualized upper abdomen. CT/CTA Chest W/WO Contrast IMPRESSION: Essentially stable dilatation of the root of the ascending thoracic aorta. Bilateral pleural effusions left greater than right with bibasilar atelectasis. Lytic lesion in the anterior aspect of the mid dorsal vertebrae. Electronically Signed: Matt Peng MD at 15:20 EDT ,
[2024-02-24 14:26] LABS: CREATININE FINGERSTICK < 1.0 mg/dL (0.70-1.30); EGFR FINGERSTICK > 60.0000 mL/min (>60)
== END | disposition home or self-care (01) ==
LOC: CT 13:43
PROVIDERS: PCP Nurse Practitioner Family; Referring Provider Nurse Practitioner Family; Visit Provider Nurse Practitioner Family
DX: I77.810 Thoracic aortic ectasia (principal)
CPT/HCPCS: 71275; Q9967

== ENCOUNTER → 2024-10-04 | Outpatient (CLI) | payer MEDICARE, OTHER, SELFPAY ==
--- NOTE | 2024-10-04 15:55 | RAD_ITS ---
INDICATION: PAIN W/PROSTHESIS EXAMINATION/TECHNIQUE: X-RAY - LEFT XR Knee Complete 5 VIEWS COMPARISON: January 07, 2022 FINDINGS: There is a total left knee replacement. The hardware components are well aligned. No imaging evidence of loosening. RAD/Knee 4 or More Views IMPRESSION: Interval left total knee replacement since the previous study. Electronically Signed: Josef Contreras DO at 9:50 EST ,
== END | disposition home or self-care (01) ==
LOC: RAD 15:42
PROVIDERS: PCP Nurse Practitioner Family; Referring Provider Clinical Nurse Specialist Adult Health; Visit Provider Clinical Nurse Specialist Adult Health
DX: M25.562 Pain in left knee (principal)
CPT/HCPCS: 73564

== ENCOUNTER → 2024-11-21 | Outpatient (CLI) | payer MEDICARE, OTHER, SELFPAY ==
--- NOTE | 2024-11-21 16:19 | CT_ITS ---
INDICATION: lytic lesion of bone on xray EXAMINATION: CT THORACIC SPINE - CT Spine Thoracic W/ Contrast Injection TECHNIQUE: Helically acquired images were obtained of the thoracic spine. 2D reformats were reviewed. A radiation dose optimization technique was used for this scan. The protocol utilizes one or more of the following dose reduction techniques: automated exposure control, adjustment of mA and/or kV according to patient size,and/or use of iterative reconstruction technique. IV Contrast dosage and agent: 100 mL of Isovue-300 RADIATION DOSAGE (If Supplied By Facility): CTDIvol = ( 25.84 ) mGy, DLP = ( 1060.68 ) mGycm COMPARISON: Prior study dated: 02/24/2024 FINDINGS: VERTEBRAE: No fracture. No discrete lytic or blastic abnormality observed. There is mild lucency along the anterior aspect of multiple thoracic vertebral bodies, similar in appearance to prior imaging. There is DISH present, unchanged. No suspicious bone lesion. VERTEBRAL ALIGNMENT: Unremarkable. There is preservation of the normal thoracic kyphosis. DISCS: Disc space narrowing throughout. VISUALIZED THORAX: Bilateral pleural effusions. Ascending thoracic aortic aneurysm measures 4.[address]/Spine Thoracic WITH Contrast IMPRESSION: No evidence of acute thoracic spinal fracture or spondylolisthesis. Moderate degenerative change throughout. No suspicious osseous lesion identified. Electronically Signed: Jon Dee MD at 0:55 EST ,
[2024-11-21 16:51] LABS: CREATININE FINGERSTICK < 1.0 mg/dL (0.70-1.30); EGFR FINGERSTICK > 60.0000 mL/min (>60)
== END | disposition home or self-care (01) ==
LOC: CT 16:17
PROVIDERS: PCP Nurse Practitioner Family; Referring Provider Nurse Practitioner Family; Visit Provider Nurse Practitioner Family
DX: M89.9 Disorder of bone, unspecified (principal)
CPT/HCPCS: 72129; Q9967; A4216

== ENCOUNTER → 2025-04-19 | Outpatient (CLI) | payer MEDICARE, OTHER, SELFPAY ==
--- NOTE | 2025-04-19 14:22 | CT_ITS ---
PROCEDURE: CTA CHEST W/WO CONTRAST 04/19/2025 REASON FOR EXAM: TAA TECHNIQUE: CTA imaging of the chest with intravenous contrast. Multiplanar and multisequence images were obtained. CONTRAST: Isovue 370 VOLUME: 100 mL. One or more dose reduction techniques were used (e.g., Automated exposure control, adjustment of the mA and/or kV according to patient size, use of iterative reconstruction technique). RADIATION DOSE SUMMARY: CTDlvol: 14.25+ 15.81 mGy DLP: 690.27 mGycm COMPARISON: 02/24/2024 CT. FINDINGS: The soft tissues are unremarkable. Degenerative changes of the spine. Similar lytic lesion within T9. The thyroid is unremarkable. The esophagus is normal in caliber. Similar dilation of the aortic root measuring up to 4.8 cm. The heart is enlarged. No pericardial effusion. No pulmonary artery filling defects to suggest pulmonary embolism. Moderate to large bilateral pleural effusions with associated bilateral atelectasis. Nodular hepatic surface contour suspicious for cirrhosis. CT/CTA Chest W/WO Contrast IMPRESSION: No pulmonary embolism. Moderate to large bilateral pleural effusions with associated atelectasis. Cardiomegaly. Stable lytic lesion in T9. Cirrhosis. Reading Location: [place] [id number]
== END | disposition home or self-care (01) ==
LOC: CT 14:21
PROVIDERS: PCP Nurse Practitioner Family; Referring Provider Physician Assistant Medical; Visit Provider Physician Assistant Medical
DX: I77.810 Thoracic aortic ectasia (principal)
CPT/HCPCS: 71275; Q9967; A4216

== ENCOUNTER → 2025-09-28 | Outpatient (CLI) | payer MEDICARE, OTHER, SELFPAY ==
[2025-09-28 16:01] LABS: Anion Gap 7 (5-15); BUN 16 mg/dL (4-19); BUN/Creat Ratio 17.7 RATIO (10-20); Calcium,Total 8.7 mg/dL (7.6-11.0); Carbon Dioxide 28.6 mmol/L (21.0-32.0); Chloride 104 mmol/L (98-108); Glucose 82 mg/dL (70-99); Potassium 4.2 mmol/L (3.3-5.1)
== END | disposition home or self-care (01) ==
LOC: LAB 14:10
PROVIDERS: PCP Nurse Practitioner Family; Referring Provider Internal Medicine Cardiovascular Disease; Visit Provider Internal Medicine Cardiovascular Disease
DX: I10 Essential (primary) hypertension (principal)
CPT/HCPCS: 36415; 80048

== ENCOUNTER 2025-11-16 15:52 | Emergency (ER) | payer MEDICARE, OTHER, SELFPAY ==
[2025-11-16 15:53] VITALS: BP 163/80; PULSE 75; RESP 20; TEMP 36.8; O2SAT 96
[2025-11-16 15:57] VITALS: BP 163/80; PULSE 75; RESP 20; TEMP 36.8; O2SAT 96; BMI 19.8
--- NOTE | 2025-11-16 16:29 | EX.ED.DYSGE1 ---
HPI History of Present Illness Chief Complaint: Complaint [facility] Medical History Osteoarthritis of left knee Scratches Uses wheelchair DVT (deep venous thrombosis) Stroke/cerebrovascular accident Non-smoker History of pain when walking History of edema History of echocardiogram Hypertension History of atrial fibrillation Cardiology follow-up encounter Thoracic aortic aneurysm Pain Wears glasses Wears dentures Walker as ambulation aid Chronic pain CPAP (continuous positive airway pressure) dependence BPH (benign prostatic hyperplasia) Left atrial enlargement Dilated aortic root Pulmonary HTN Fracture of left hip Vascular dementia Essential hypertension Longstanding persistent atrial fibrillation Osteoarthritis Nonrheumatic mitral (valve) prolapse RLS (restless legs syndrome) Premature ventricular contraction Premature atrial contractions Tachycardia Chronic back pain Patent foramen ovale Left bundle branch block Hyperlipidemia Home Medications ?Medication ?Instructions ?Recorded ?Last Taken ?Type cholecalciferol (vitamin D3) 25 25 mcg PO DAILY bones 12/28/21 Unknown History mcg (1,000 unit) tablet sertraline 50 mg tablet (Zoloft) 50 mg PO DAILY mood 12/28/21 Unknown History vit A 300 mcg-C 200 mg-E 27 1 cap PO BID supplement 12/28/21 Unknown History mg-lutein 2 mg and minerals tablet (Healthy Eyes) gabapentin 400 mg capsule 400 mg PO QHS Nerve Pain 07/09/22 Unknown History cyanocobalamin (vitamin B-12) 1,000 mcg PO DAILY Supplement 07/14/22 Unknown History 1,000 mcg tablet multivitamin 1 tab PO DAILY Supplement 07/14/22 Unknown History apixaban 5 mg tablet (Eliquis) 5 mg PO BID Blood Thinner 12/24/22 07/09/23 History sennosides 8.6 mg-docusate sodium 2 tab PO BID PRN Constipation 02/07/24 Unknown History 50 mg tablet (Stool Softener-Stimulant Laxative) memantine 10 mg tablet 10 mg PO BID 10/04/24 Unknown History bumetanide 1 mg tablet 1 mg PO DAILY This is a dose 03/07/25 Unknown Rx decrease. #30 tabs metoprolol succinate 25 mg 25 mg PO DAILY #30 tabs 03/07/25 Unknown Rx tablet,extended release 24 hr cephalexin 500 mg capsule 500 mg PO TID 7 days #21 caps 11/16/25 Unknown Rx Allergy/AdvReac Type Severity Reaction Status Date / Time diclofenac Allergy Severe Anaphylaxis Verified 11/16/25 15:57 naproxen (From Naprosyn) Allergy Severe Angioedema Verified 11/16/25 15:57 Penicillins Allergy Hives Verified 11/16/25 15:57 Sulfa (Sulfonamide Allergy Hives Verified 11/16/25 15:57 Antibiotics) Family History Sister Cancer Surgical History History of total left knee replacement Status post open reduction and internal fixation (ORIF) of fracture History of carpal tunnel surgery History of total right knee replacement Social History household members: spouse Smoking Status: Never smoker alcohol intake: never substance use type: does not use EXAM Physical Exam Const Vital Signs: 11/16/25 15:53 11/16/25 15:57 11/16/25 17:00 Temperature 98.3 F 98.3 F 98.3 F Temperature Source Oral Oral Oral Pulse Rate 75 75 65 Respiratory Rate 20 H 20 H 16 Blood Pressure 163/80 H 163/80 H 147/84 H Blood Pressure Mean 107 107 105 Pulse Ox 96 96 98 Oxygen Delivery Method Room Air Room Air Room Air 11/16/25 17:47 11/16/25 18:00 Temperature 97.9 F Temperature Source Oral Pulse Rate 66 67 Respiratory Rate 14 14 Blood Pressure 145/81 H 145/90 H Blood Pressure Mean 102 108 Pulse Ox 98 100 Oxygen Delivery Method Room Air MDM MDM MDM Narrative Medical decision making narrative: HISTORY OF PRESENT ILLNESS: Chief complaint: Concern for UTI, left ankle wound 85-year-old female history of vascular mention, CVA, hyperlipidemia, hypertension, thoracic arctic aneurysm, atrial fibrillation on Eliquis, debility, hyperlipidemia, patient complains of multiple symptoms including a recurrent UTI. She notes urinary incontinence for last 2 weeks. She also complains of a wound on her left ankle from her wheelchair as well as swelling in both of her legs. REVIEW OF SYSTEMS: Pertinent positives: Wound, dysuria Pertinent negatives: Vomiting PHYSICAL EXAM: Nursing triage notes reviewed, Vital signs reviewed Constitutional: please see mdm HENT: MMM Eyes: Pupils equal round and reactive to light, Extraocular muscles intact Neck: No stridor, no JVD, full neck ROM Lungs: Clear to auscultation, No wheezing or rales. No increased work of breathing, no conversational dyspnea, no accessory muscle use, no nasal flaring. No respiratory distress noted Heart: Regular rate and rhythm, No murmurs, No rubs and No gallops, 2+ distal pulses (radial, femoral, posterior tibial) in all extremities Abdomen: Soft, there is no tenderness, rigidity, rebound or guarding, no obvious peritoneal signs, no palpable pulsatile abdominal masses, no auscultated abdominal bruit : No CVAT, intertriginous irritation noted in the right groin. No crepitus bullae fluctuance induration or purulence noted. Patient noted chronic phimosis which has been there for weeks to months. Skin: Proximal 1 cm superficial wound noted to lateral malleolus of left ankle. Some surrounding erythema noted. No crepitus or bullae. No fluctuance or induration noted. MEDICAL DECISION MAKING: Chief Complaint: please see [facility] External records reviewed: Reviewed echocardiogram from 2021 showed ejection fraction 65% Factors affecting care: as per [facility] Social determinants of health: Elderly, debilitated wheelchair History obtained from others: none Consults: none [facility] Narrative: Patient was initially hemodynamically stable, afebrile, nontoxic-appearing. Exam with chronic phimosis, intertriginous changes right groin and wound noted to the lateral malleolus I considered the following differential diagnosis: UTI, cellulitis I obtained labs including a lactate to further determine if the patient was suffering from a life-threatening etiology. ALL IMAGES (IF OBTAINED) HAVE BEEN PERSONALLY REVIEWED AND INTERPRETED BY MYSELF. CBC with no leukocytosis to suggest systemic inflammation, noted mild baseline anemia, noted baseline thrombocytopenia BMP without evidence of significant electrolyte abnormalities, no anion gap, no acute kidney injury. Urinalysis consistent with UTI will send for culture and start the patient empirically on Bactrim X-ray of the patient's left ankle was read reviewed personally myself showed no evidence of bony erosion or osteomyelitis. Per patient report he has been unable to retract his foreskin for several weeks to months. Given chronicity of phimosis and the fact is not causing any symptoms at this time he does not meet criteria for emergent urology evaluation or transfer at this time. Will give outpatient urology follow-up with Dr. Diggs. The patient and/or family, caregivers express understanding. The patient and/or family, caregivers agrees with the plan. Shared decision making: I will have a discussion with the patient and or visitors regarding risk/benefits of further testing or admission. They will be made aware of of the risk/benefits inherent in this decision they will be given the opportunity to voice understanding. Total critical care time today provided was at least 0 minutes. This excludes separately billable procedures. Critical care time (if documented) is secondary to the patient having high probability of clinically significant/life threatening deterioration in the patient's condition which required my urgent intervention. Impression: 1. UTI 2. Phimosis 3. Cellulitis Dispo: Discharge home This note was generated with [employer] dictation software. It may contain incorrect words, spelling, and punctuation that were not noted in review of the chart prior to signing. Lab Data Labs: Laboratory Results - last 24 hr 11/16/25 11/16/25 17:15 17:16 WBC 5.8 RBC 3.29 L Hgb 9.6 L Hct 30.5 L MCV 92.7 MCH 29.2 MCHC 31.5 L RDW Std Deviation 55.1 H RDW Coeff of [place] 16.2 H Plt Count 143 L MPV 10.7 Immature Gran % (Auto) 0.300 Neut % (Auto) 76.9 H Lymph % (Auto) 13.7 L Mobile % (Auto) 6.1 Eos % (Auto) 2.3 Baso % (Auto) 0.7 Absolute Neuts (auto) 4.4 Absolute Lymphs (auto) 0.79 L Nucleated RBC % 0 Sodium 143 Potassium 4.3 Chloride 112 H Carbon Dioxide 24.8 Anion Gap 6 L BUN 23 H Creatinine 0.97 Estim Creat Clear Calc 54.97 Est GFR (MDRD) Non-Af 77 BUN/Creatinine Ratio 23.8 H Glucose 91 Calcium 8.7 Urine Color Yellow Urine Clarity Cloudy Urine pH 8.0 Ur Specific [place] 1.010 Urine Protein 100 H Urine Glucose (UA) Normal Urine Ketones Negative Urine Occult Blood 10 H Urine Nitrite Positive H Urine Bilirubin Negative Urine Urobilinogen 1 H Ur Leukocyte Esterase 500 H Urine RBC 0-5 SEEN Urine WBC 25-50 SEEN Ur Squamous Epith Cells 5-10 SEEN Triple Phos Crystals 1+ Urine Bacteria 4+ Urine Mucus 0 SEEN Radiography Diagnostic Testing: Clinical Impression(s) from Imaging Studies Ankle X-Ray 11/16/25 17:22 IMPRESSION: No underlying acute bony abnormalities. Reading Location: [facility] Discharge Plan Triage Chief Complaint: Complaint Other Complaint: Wound ED Provider: Patrick Garcia Dx/Rx/DC Orders Instructions: ED Phimosis, ED Urinary Tract Infections in Men Prescriptions: New cephalexin 500 mg capsule 500 mg PO TID 7 Days Qty: 21 0RF No Action gabapentin 400 mg capsule 400 mg PO QHS multivitamin Tablet 1 tab PO DAILY cyanocobalamin (vitamin B-12) 1,000 mcg tablet 1,000 mcg PO DAILY memantine 10 mg tablet 10 mg PO BID sertraline [Zoloft] 50 mg tablet 50 mg PO DAILY Healthy Eyes 1,000 unit-200 mg-60 unit-2 mg tablet 1 cap PO BID cholecalciferol (vitamin D3) 25 mcg (1,000 unit) tablet 25 mcg PO DAILY Eliquis 5 mg tablet 5 mg PO BID sennosides-docusate sodium [Stool Softener-Stimulant Laxat] 8.6-50 mg tablet 2 tab PO BID PRN (Reason: Constipation) metoprolol succinate 25 mg tablet extended release 24 hr 25 mg PO DAILY Qty: 30 11RF bumetanide 1 mg tablet 1 mg PO DAILY Qty: 30 11RF Primary Care Provider: Clemencia Holland Referrals: Clemencia Holland, [facility] [Primary Care Provider, Internal Medicine] Activity Restrictions/Additional Instructions: Thank you for trusting us with your care today! Your labs and imaging are consistent with UTI. There is no sign of a deeper infection in your ankle. Your kidney function is within normal limits. Is no signs of sepsis. UTIs are treated antibiotics. Your genital anatomy was abnormal. This will require urology follow-up for outpatient evaluation Please take Tylenol (2 pills, 650 mg), ibuprofen (2 pills, 400 mg) every 6 hours as needed for pain and fever control. Please return to the emergency department if your symptoms change or worsen. Please follow with y urology for further outpatient evaluation and management. Print Language: Hungarian Disposition Disposition: Home, Self Care
[2025-11-16 17:00] VITALS: BP 147/84; PULSE 65; RESP 16; TEMP 36.8; O2SAT 98
[2025-11-16 17:21] LABS: Mucous, Urine 0 SEEN /hpf (<or=2+)
--- NOTE | 2025-11-16 17:22 | RAD_ITS ---
PROCEDURE: ANKLE MIN 3 VIEWS 11/16/2025 REASON FOR EXAM: ANKLE WOUND, LAT MALLEOLUS R/O OSTEO TECHNIQUE: Procedure Code: RADANK Modality: DX Procedure: ANKLE MIN 3 VIEWS Laterality: Left COMPARISON: None. FINDINGS: Bones: Osteopenia which limits the evaluation. No acute or lytic bony lesions. Joints: Arthritis of the hindfoot. Soft tissues: Soft tissue swelling of the lateral malleolus. Other: RAD/Ankle min 3 Views IMPRESSION: No underlying acute bony abnormalities. Reading Location: [id number]
[2025-11-16 17:23] LABS: Hematocrit 30.5 % (40-54); Hemoglobin 9.6 g/dL (13.0-16.5); Immature Granulocytes Count 0.020 X10^3/uL (0.0-0.0); Mean Corp Hgb Conc 31.5 g/dL (32-36); Mean Corpuscular Volume 92.7 fL (80-94); Mean Platelet Vol. 10.7 fl (6.2-12.0); NRBC Flagged by Analyzer 0 % (0-5); Platelet Count 143 K/mm3 (150-450); RBC Distribution Width CV 16.2 % (11.6-14.6); RBC Distribution Width SD 55.1 fl (35.1-43.9); Red Blood Count 3.29 M/mm3 (4.6-6.2); White Blood Count 5.8 K/mm3 (4.4-11.0)
[2025-11-16 17:34] LABS: Color, Urine Yellow (Yellow); Glucose, Dipstick Normal (Normal); Ketone-Dipstick Negative (Negative); Leukocyte Esterase-Dipstick 500 /ul (Negative); Nitrite-Dipstick Positive (Negative); Occult Blood-Urine 10 /ul (Negative); Protein-Dipstick 100 mg/dl (Negative); Specific Gravity, Urine 1.010 (1.002-1.030); Urine Bilirubin Dipstick Negative (Negative)
[2025-11-16 17:38] LABS: Anion Gap 6 (7-18); BUN 23 mg/dL (4-19); BUN/Creat Ratio 23.8 RATIO (10-20); Calcium,Total 8.7 mg/dL (7.6-11.0); Carbon Dioxide 24.8 mmol/L (20.0-29.0); Chloride 112 mmol/L (96-106); Estimated Creatinine Clearance 54.97 ml/min (50-250); Glucose 91 mg/dL (70-99); Potassium 4.3 mmol/L (3.5-5.1)
[2025-11-16 17:47] VITALS: BP 145/81; PULSE 66; RESP 14; O2SAT 98
[2025-11-16 18:00] VITALS: BP 145/90; PULSE 67; RESP 14; TEMP 36.6; O2SAT 100
[2025-11-16 18:08] LABS: Squamous Epithelial Cells - UA 5-10 SEEN /hpf (0-5); Triple Phosphate Crystals Ur 1+ /hpf (<or=1+)
[2025-11-16 18:09] LABS: Red Blood Cells-Urine 0-5 SEEN /hpf (0-5)
[2025-11-16 19:00] VITALS: BP 155/79; PULSE 67; RESP 18; TEMP 36.6; O2SAT 100
== END 2025-11-16 19:29 | disposition home or self-care (01) ==
PROVIDERS: Emergency Provider Emergency Medicine; PCP Nurse Practitioner Family; Visit Provider Emergency Medicine
DX: N39.0 Urinary tract infection, site not specified (principal); I48.91 Unspecified atrial fibrillation; R53.81 Other malaise; N47.1 Phimosis; D64.9 Anemia, unspecified; D69.6 Thrombocytopenia, unspecified; L03.116 Cellulitis of left lower limb; S91.002A Unspecified open wound, left ankle, initial encounter; X58.XXXA Exposure to other specified factors, initial encounter; I10 Essential (primary) hypertension; I34.1 Nonrheumatic mitral (valve) prolapse; E78.5 Hyperlipidemia, unspecified; I71.20 Thoracic aortic aneurysm, without rupture, unspecified; G89.29 Other chronic pain; G25.81 Restless legs syndrome; Z86.73 Personal history of transient ischemic attack (TIA), and cerebral infarction without residual deficits; Z79.01 Long term (current) use of anticoagulants; Z86.718 Personal history of other venous thrombosis and embolism; Z79.899 Other long term (current) drug therapy
CPT/HCPCS: 73610; 80048; 81001; 85025; 99285; A4216